=== PATIENT | female | born 1960 | race Caucasian/White ===

== ENCOUNTER 2024-11-13 18:25 | Inpatient (IN) | payer MEDICAID ==
[~2024-11-13] VITALS: Ht 175.3 cm; Wt 140.0 kg
[~2024-11-13 18:25] MED LIST: PAR20T PO
--- NOTE | 2024-11-13 18:58 | ED.PDOC ---
GI ASSESSMENT HPI Comments 64-year-old female with past medical history pertinent for asthma, presents to ED by ambulance for abdominal pain x2 days, associated with ALOC. Per EMS, patient came from [facility] and has been having abdominal pain for the past two days. Patient denies any nausea, vomiting, diarrhea, chest pain, shortness of breath, fever, dysuria, constipation. Patient currently rates her pain as 8/10 in severity. She reports that she has a history of alcohol. Patient is currently bed-bound. Per EMS, the [facility] stated that the patient has had normal urine output and normal bowel movements. Chief Complaint: ALOC Time Seen by MD: 18:34 Primary Care Provider: none Reviewed Notes: Nurses Notes, Medications, Allergies Allergies: Coded Allergies: Hydrocodone (Unverified Allergy, Unknown, 03/30/14) Home Meds Reported Medications Paroxetine (PAXIL TABLET) 20 Mg Tb, 12.5 MG PO DAILY 04/03/14 Mode of Arrival: EMS Past Medical History PAST MEDICAL HISTORY: Asthma Family History Family History: Unobtainable Social History Smoker: Non-Smoker Alcohol: Heavy Drugs: Denies Drug Use Lives In: Home Constitutional: denies: chills, diaphoresis, fatigue, fever, malaise, sweats, weakness, others EENTM: denies: blurred vision, double vision, ear bleeding, ear discharge, ear drainage, ear pain, ear ringing, eye pain, eye redness, hearing loss, mouth pain, mouth swelling, nasal discharge, nose bleeding, nose congestion, nose pain, photophobia, tearing, throat pain, throat swelling, voice changes, others Respiratory: denies: cough, hemoptysis, orthopnea, SOB at rest, shortness of breath, SOB with excertion, stridor, wheezing, others Cardiovascular: denies: chest pain, dizzy spells, diaphoresis, Dyspnea on exertion, edema, irregular heart beat, left arm pain, lightheadedness, palpitations, PND, syncope, others Gastrointestinal: reports: abdomen distended, abdominal pain; denies: blood streaked bowels, constipated, diarrhea, dysphagia, difficulty swallowing, hematemesis, melena, nausea, poor appetite, poor fluid intake, rectal bleeding, rectal pain, vomiting, others Genitourinary: denies: abnormal vagina bleeding, burning, dyspareunia, dysuria, flank pain, frequency, hematuria, incontinence, pain, , vagina discharge, urgency, others Neurological: denies: dizziness, fainting, headache, left sided numbness, left sided weakness, numbness, paresthesia, pre-existing deficit, right sided numbness, right sided weakness, seizure, speech problems, tingling, tremors, wea kness, others Musculoskeletal: denies: back pain, gout, joint pain, joint swelling, muscle pain, muscle stiffness, neck pain, others Integumetry: denies: bruises, change in color, change in hair/nails, dryness, l aceration, lesions, lumps, rash, wounds, others Allergic/Immunocompromised: denies: Difficulty Healing, Frequent Infections, Hives, Itching, others Hematologic/Lymphatic: denies: anemia, blood clots, easy bleeding, easy bruising, swollen glands, others Endocrine: denies: excessive hunger, excessive sweating, excessive thirst, excessive urination, flushing, intolerance to cold, intolerance to heat, unexplained weight gain, unexplained weight loss, others Psychiatric: denies: anxiety, bipolar disorder, depression, hopeless, panic disorder, schizophrenia, sleepless, suicidal, others All Other Systems: Reviewed and Negative Physical Exam General Appearance: Mild Distress, Normal HEENT: Normal ENT Inspection, Pharynx Normal, TMs Normal Neck: Full Range of Motion, Non-Tender, Normal, Normal Inspection Respiratory: Chest Non-Tender, Lungs Clear, No Accessory Muscle Use, No Respiratory Distress, Normal Breath Sounds Cardiovascular: No Edema, No JVD, No Murmur, No Gallop, Normal Peripheral Pulses, Regular Rate/Rhythm Breast Exam: Deferred Gastrointestinal: Abnormal Bowel Sounds (High-pitched tinkling bowel sounds), Distended (Severe abdominal distention with tenderness to palpation throughout), No Organomegaly, No Pulsatile Mass, Soft, Tenderness, Other (Patient's spat up dark brown emesis/sputum during exam.) Genitalia: Other (Wound noted to the vaginal region) Pelvic: Deferred Rectal: Deferred Extremities: No calf tenderness, Normal capillary refill, Normal inspection, Normal range of motion, Non-tender, No pedal edema Musculoskeletal : Apperance: Normal Neurologic: Alert, blow pit helper II-XII nml as Tested, No Motor Deficits, Normal Affect, Normal Mood, No Sensory Deficits Cerebellar Function: Normal Reflexes: Normal Skin: Dry, Normal Color, Warm Lymphatic: No Adenopathy Was a procedure done? Was a procedure done?: No GI differential Dx Differential Diagnosis: Diverticular disease, Gastritis/PUD, Gastroenteritis, GI hemorrhage, Hernia, Ischemic Bowel, Pancreatitis, Renal Failure, Anemia, Esophageal Varicies X-Ray, Labs, Meds, VS Vital Signs Date Time Temp Pulse Resp B/P (MAP) Pulse Ox O2 Delivery O2 Flow Rate FiO2 11/13/24 20:00 116 11/13/24 19:05 124 17 127/92 (104) 95 11/13/24 19:04 123 11/13/24 18:38 97.6 126 17 154/88 (110) 95 Lab Test 11/13/24 22:14 11/13/24 21:25 11/13/24 20:10 11/13/24 19:07 Range/Units Lactic Acid Level 1.9 2.4 *H 0.4-2.0 mmol/L Troponin I High Sensitivity Pending 3 L 4 </=34 ng/L Urine Color Dark-orange Yellow Urine Clarity Ex.turbid Clear Urine pH 7.5 5.0-9.0 Urine Specific [place] 1.025 1.001-1.035 Urine Protein 4+ H Negative Urine Ketones Negative Negative Urine Blood 1+ H Negative /uL Urine Nitrite Negative Negative Urine Bilirubin Negative Negative Urine Urobilinogen 3 H Negative mg/dL Urine Leukocyte Esterase 3+ Negative /uL Urine RBC 29 0 - 4 /hpf Urine WBC 333 0 - 5 /hpf Urine WBC Clumps Present None Seen /hpf Urine Squamous Epithelial Cells Mod <5 /hpf Urine Bacteria Mod H None Seen /hpf Urine Mucus Many None Seen Urine Glucose Normal Normal mg/dL Sodium Level 126 L 136-145 mmol/L Potassium Level 4.8 3.5-5.1 mmol/L Chloride Level 92 L 98-107 mmol/L Carbon Dioxide Level 19 L 20-31 mmol/L Anion Gap 15 5-15 Blood Urea Nitrogen 23 9-23 mg/dL Creatinine 0.95 0.550-1.02 mg/dL Glomerular Filtration Rate Calc 67 >90 mL/min BUN/Creatinine Ratio 24.2 H 10.0-20.0 Serum Glucose 153 H 74-106 mg/dL Calcium Level 10.6 H 8.7-10.4 mg/dL Total Bilirubin 0.8 0.2-1.0 mg/dL Aspartate Amino Transferase (AST) 32 13-40 U/L Alanine Aminotransferase (ALT) 15 7-40 U/L Alkaline Phosphatase 271 H 46-116 U/L Total Protein 8.1 5.7-8.2 g/dL Albumin 4.3 3.2-4.8 g/dL Lipase 30 12-53 U/L Plasma/Serum Blood Alcohol < 3.0 <10 mg/dL White Blood Count 21.5 H 4.4-10.8 10^3/uL Red Blood Count 5.84 H 4.0-5.20 10^6/uL Hemoglobin 16.6 H 12.2-16.2 g/dL Hematocrit 50.2 H 36.0-46.0 % Mean Corpuscular Volume 86.0 80.0-100.0 fL Mean Corpuscular Hemoglobin 28.3 28.0-32.0 pg Mean Corpuscular Hemoglobin Concent 33.0 32.0-36.0 g/dL Red Cell Distribution Width 15.7 H 11.8-14.3 % Platelet Count 609 H 140-450 10^3/uL Mean Platelet Volume 7.4 6.9-10.8 fL Neutrophils (%) (Auto) 89.5 H 37.0-80.0 % Lymphocytes (%) (Auto) 4.9 L 10.0-50.0 % Monocytes (%) (Auto) 5.3 0.0-12.0 % Eosinophils (%) (Auto) 0.2 0.0-7.0 % Basophils (%) (Auto) 0.1 0.0-2.0 % Neutrophils # (Auto) 19.3 H 1.6-8.6 10 ^3/uL Lymphocytes # (Auto) 1.1 0.4-5.4 10 ^3/uL Monocytes # (Auto) 1.1 0-1.3 10 ^3/uL Eosinophils # (Auto) 0 0-0.8 10 ^3/uL Basophils # (Auto) 0 0-0.2 10 ^3/uL Nucleated Red Blood Cells 0.0 % Prothrombin Time 12.5 H 9.3-11.8 sec Prothrombin Time INR 1.19 H 0.9-1.15 Activated Partial Thromboplast Time 32.2 24.5-34.5 SEC Ammonia 17 11-32 umol/L Current Medications Medications (Trade) Dose Ordered Sig/Sylvie Route Start Time Stop Time Status Last Admin Sodium Chloride 1,450 ml @ 1,450 mls/hr ONCE ONCE IV 11/13/24 20:15 11/13/24 21:14 DC 11/13/24 20:13 Piperacillin Sod/ Tazobactam Sod 100 ml @ 200 mls/hr ONCE ONCE IV 11/13/24 20:15 11/13/24 20:44 DC 11/13/24 21:22 Pantoprazole Sodium (Protonix) 80 mg ONCE ONCE IV 11/13/24 20:15 11/13/24 20:16 DC 11/13/24 21:03 X-Ray, Labs, Meds, VS Comment CXR IMPRESSION: Bronchovascular crowding due to low lung volumes with left basilar linear atelectasis. Otherwise, no evidence for acute cardiopulmonary disease. Abdominal US FINDINGS/IMPRESSIONS: No fluid noted in any quadrant at this time. CT Abd/Pelv IMPRESSION: 1. Gas distended colon with air bubbles in the wall. Findings may represent toxic colitis correlate with the clinical setting. 2. Fluid-filled stomach. 3. 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 MDM: Patient with history as above presented with abdominal pain. History obtained from [facility]. Patient was nontoxic, stable, afebrile, in stretcher, mild distress. Exam as above. Labs reviewed. CBC showed leukocytosis of 21.5. Initial lactic acid was 2.4. Pending 2nd lactic acid. CMP showed hyponatremia at 126. Troponin x2 were negative. Urinalysis showed 3+ leukocyte esterase, 333 urine WBC, moderate bacteria. Independently reviewed imaging. Chest x-ray did not show acute cardiopulmonary in the disease. Abdominal ultrasound was unremarkable. CT abdomen/pelvis showed toxic colitis. Reviewed external records. All findings were discussed with the patient. Differential diagnosis considered. Overall presentation is consistent with toxic colitis, urosepsis. Low suspicion for ACS, pneumonia. Patient was treated with IV antibiotics, IV fluids with improvement in symptoms. Patient will be admitted to the hospital for urosepsis as well as sick colitis. Patient has been started on IV antibiotics as well as IV fluids. Surgical consult has been placed. Disposition: Admit This medical document was created using the [employer] dictation system. Although this document has been carefully reviewed, there may still be some arik netic and typographical errors, which are due to imperfections of the software program, and do not reflect any compromise in the patient's medical care. Time of 1ST Reevaluation: 22:39 Reevaluation 1ST: Improved Patient Education/Counseling: Diagnosis, Treatment, Prognosis, Need For Follow Up Family Education/Counseling: No Family Present Departure 1 Departure Time of Disposition: 22:39 Impression: Primary Impression: UTI (urinary tract infection) Qualified Codes: N30.01 - Acute cystitis with hematuria Additional Impressions: Sepsis Qualified Codes: A41.9 - Sepsis, unspecified organism Toxic colitis Disposition: ADMITTED INPATIENT Condition: Fair Critical Care Note Critical Care Time?: Yes (45 min-critical care time only) Critical care comment: The patient's condition required urgent complex decision-making to assess and prevent vital organ system failure. In order to prevent imminent or life threatening deterioration in the patient's condition, management required frequent reassessment of the clinical status at bedside, of vital signs, response to interventions and consultations with other providers. Stability Stability form required: No Heart Score Heart Score: Heart Score Response (Comments) Value History N/A 0 EKG N/A 0 Age N/A 0 Risk Factors N/A 0 Troponin N/A 0 Total 0 CAYLA FRANCO PAC Nov 13, 2024 18:58
[2024-11-13 19:30] VITALS: PULSE 125; RESP 41; O2SAT 95
--- NOTE | 2024-11-13 19:33 | DVH ---
ULTRASOUND ABDOMEN limited, 4 QUADRANTS INDICATION: R/o ascites Evaluate for ascites. TECHNIQUE: The four quadrants of the abdomen were scanned in duval-scale to assess for the presence of ascites. N o solid organ assessment was performed. FINDINGS/IMPRESSIONS: No fluid noted in any quadrant at this time.
--- NOTE | 2024-11-13 19:38 | DVH ---
CHEST RADIOGRAPH Indication: R/o pleural effusion Technique: Single frontal view of the chest was obtained Comparison: None FINDINGS: Lines and Tubes: None Lungs: No focal consolidation. Bronchovascular crowding due to low lung volumes. Left basilar linear density. Pleura: No effusion. No pneumothorax. Cardiomediastinal contours: Unremarkable Bones: No acute osseous abnormality. IMPRESSION: Bronchovascular crowding due to low lung volumes with left basilar linear atelectasis. Otherwise, no evidence for acute cardiopulmonary disease.
[2024-11-13 19:44] LABS: Basophils # (auto) 0 10 ^3/uL (0-0.2); Basophils % (auto) 0.1 % (0.0-2.0); Eosinophils # (auto) 0 10 ^3/uL (0-0.8); Eosinophils % (auto) 0.2 % (0.0-7.0); Hematocrit 50.2 % (36.0-46.0); Hemoglobin 16.6 g/dL (12.2-16.2); Lymphocytes # (auto) 1.1 10 ^3/uL (0.4-5.4); Lymphocytes % (auto) 4.9 % (10.0-50.0); Mean Corpuscular Hemoglobin 28.3 pg (28.0-32.0); Monocytes # (auto) 1.1 10 ^3/uL (0-1.3); Monocytes % (auto) 5.3 % (0.0-12.0); Neutrophils # (auto) 19.3 10 ^3/uL (1.6-8.6); Neutrophils % (auto) 89.5 % (37.0-80.0); Platelet Count (auto) 609 10^3/uL (140-450); Red Blood Cells 5.84 10^6/uL (4.0-5.20); Red Cell Distribution Width 15.7 % (11.8-14.3); White Blood Cell 21.5 10^3/uL (4.4-10.8)
[2024-11-13 19:58] LABS: Lactic Acid w/Reflex 2.4 mmol/L (0.4-2.0)
[2024-11-13 20:01] LABS: INR 1.19 (0.9-1.15); Partial Thromboplastin Time 32.2 SEC (24.5-34.5); Prothrombin Time 12.5 sec (9.3-11.8)
[2024-11-13] MEDS: SODIUM CHLORIDE 0.9% 1,450 ML IV ONE (20:13)
[2024-11-13 20:46] LABS: Alanine Aminotransferase 15 U/L (7-40); Albumin 4.3 g/dL (3.2-4.8); Alkaline Phosphatase 271 U/L (46-116); Anion Gap 15 (5-15); Aspartate Aminotransferase 32 U/L (13-40); BUN/Creatinine Ratio 24.2 (10.0-20.0); Bilirubin, Total 0.8 mg/dL (0.2-1.0); Blood Alcohol < 3.0 mg/dL (<10); Blood Urea Nitrogen 23 mg/dL (9-23); Calcium 10.6 mg/dL (8.7-10.4); Carbon Dioxide 19 mmol/L (20-31); Chloride 92 mmol/L (98-107); Glucose 153 mg/dL (74-106); Potassium 4.8 mmol/L (3.5-5.1); Sodium 126 mmol/L (136-145); Total Protein 8.1 g/dL (5.7-8.2)
[2024-11-13] MEDS: PANTOPRAZOLE 40 MG/10 ML VIAL INJ IV ONE (21:03)
[2024-11-13] MEDS: PIPERACILLIN-TAZOB 3.375GM 100 ML IV ONE (21:22)
[2024-11-13 21:24] LABS: Lipase 30 U/L (12-53)
[2024-11-13 22:08] LABS: Urine Bacteria MOD /hpf (None Seen); Urine Blood 1+ /uL (Negative); Urine Clarity Ex.Turbid (Clear); Urine Color Dark-Orange (Yellow); Urine Mucus MANY (None Seen); Urine Protein, UAD 4+ (Negative); Urine Specific Gravity 1.025 (1.001-1.035); Urine Squamous Epithelial Cell MOD /hpf (<5); Urine Urobilinogen 3 mg/dL (Negative); Urine WBC 333 /hpf (0 - 5); Urine WBC Clumps PRESENT /hpf (None Seen); Urine pH 7.5 (5.0-9.0)
--- NOTE | 2024-11-13 22:13 | DVH ---
Exam: CT CT AB PEL WO CON-NO ORAL OR IV History: Abdominal pain Comparison Study: None available at time of dictation. TECHNIQUE: Multidetector CT of the abdomen was performed from lung bases to pubic symphysis. Imaging was performed without IV contrast. Axial, coronal and sagittal multiplanar reformats were obtained fr om the axial data set by the technologist. Radiation Dose Information: CT Dose: CTDI volume is 26.21 mGy. Dose-length product is 1651.27 mGy*cm FINDINGS: Evaluation of solid organs is limited due to lack of intravenous contrast use. Findings: Lung Bases: No acute or significant lung base finding. Normal heart size. No pleural or pericardial effusion. Liver: The liver is normal in size. No focal lesions. Gallbladder and Biliary Tree: Unremarkable Spleen: Unremarkable Pancreas: The pancreas is grossly normal in appearance. Adrenal Glands: Unremarkable Kidneys: Kidneys are grossly normal without calculi or hydronephrosis. Bladder: Grossly unremarkable for degree of distention. Bowel: Fluid-filled stomach is noted.. Small bowel and colon are normal in caliber and distribution. There is gas distending the colon with air in the wall may represent toxic colitis. Correlate clinica lly setting.. The appendix is not visualized; however, no secondary findings of acute appendicitis id entified. Ascites: Absent Lymphadenopathy: No mesenteric, retroperitoneal or periportal lymphadenopathy. Abdominal Wall and Mesentery: Unremarkable. Vasculature: The visualized abdominal aorta is normal in size and caliber. Evaluation of abdominal a nd pelvic vessels is limited due to lack of intravenous contrast. Pelvic Organs: Unremarkable Musculoskeletal: No aggressive focal bony lesions, acute fractures or dislocation. Soft tissues: Unremarkable IMPRESSION: 1. Gas distended colon with air bubbles in the wall. Findings may represent toxic colitis correlate w ith the clinical setting. 2. Fluid-filled stomach. 3. 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 Radiation optimization: All CT scans at this facility use at least one of these dose optimization te chniques: automated exposure control mA and/or kV adjustment per patient size (includes targeted exa ms where dose is matched to clinical indication) or iterative reconstruction.
[2024-11-13] MEDS ORDERED: VANCOMYCIN PER PHARMACY 0 MG IV SCH (22:45)
[2024-11-13] MEDS ORDERED: MORPHINE SULFATE INJ 2 MG/ml SYRG IV PRN ×2 (23:00)
[2024-11-13] MEDS ORDERED: ONDANSETRON HCL 4 MG/2 ML VIAL IV PRN (23:00)
[2024-11-13] MEDS ORDERED: NITROGLYCERIN 0.4 MG SL TAB SL PRN (23:00)
[2024-11-13] MEDS: SODIUM CHLORIDE 0.9% 1,000 ML IV ONE (23:41)
[2024-11-13] MEDS: SODIUM CHLORIDE 0.9% 1,000 ML IV SCH (23:42)
[2024-11-14] VITALS (7 sets, daily range): BP systolic 128–134; BP diastolic 77–93; PULSE 97–109; RESP 18–32; TEMP 97.6–98.6; O2SAT 96–99
[2024-11-14] MEDS: ONDANSETRON HCL 4 MG/2 ML VIAL IV ONE (00:15)
[2024-11-14] MEDS: MORPHINE SULFATE 4 MG/ML SYR/VIAL IV ONE (00:33)
[2024-11-14] MEDS: VANCOMYCIN 1GM/250ML KIT 250 ML IV SCH (00:34)
[2024-11-14] MEDS: IOHEXOL 300 MG/ML 100ML BOTTLE IJ ONE (00:43)
[2024-11-14] MEDS: ALBUTEROL SULF 2.5 MG/0.5ML(0.5%) NEB SOLN NEB PRN (00:49)
[2024-11-14] MEDS: METOCLOPRAMIDE HCL 5MG/ml INJ 2ml VIAL IV ONE (01:15)
--- NOTE | 2024-11-14 03:19 | DVHHP2 ---
History of Present Illness Reason for Visit: Abdominal pain History of Present Illness 64-year-old female presents for evaluation of abdominal pain. Patient resides at a [facility] facility. She presents with a two day history of diffuse abdominal pain with associated distention. She also reports episodes of nausea without vomiting. Denies diarrhea. No fever or chills. No other acute complaints reported. Past Medical History Asthma Past Surgical History Unknown Family History Noncontributory Smoke: No ALCOHOL: none Drugs: None Lives: Other Review of Systems Review of Systems Review of systems are negative otherwise dressing HPI. Allergies: Coded Allergies: Hydrocodone (Unverified Allergy, Unknown, 03/30/14) Medications Current Medications Medications Dose Ordered Sig/Sylvie Route Start Time Stop Time Status Last Admin Dose Admin Vancomycin HCl 0 ml @ 0 mls/hr UD IV 11/13/24 22:45 UNV Piperacillin Sod/ Tazobactam Sod 100 ml @ 25 mls/hr Q8HR IV 11/14/24 06:00 Sodium Chloride 1,000 ml @ 90 mls/hr Q11H7M IV 11/13/24 23:00 11/13/24 23:42 90 MLS/HR Pantoprazole Sodium 40 mg DAILY IV 11/14/24 10:00 Ondansetron HCl 4 mg Q4HP PRN IV 11/13/24 23:00 Morphine Sulfate 2 mg Q4HPRN PRN IV 11/13/24 23:00 Nitroglycerin 0.4 mg Q5MINP PRN SL 11/13/24 23:00 Morphine Sulfate 2 mg Q30M PRN IV 11/13/24 23:00 Albuterol 2.5 mg Q6HP PRN NEB 11/14/24 06:00 11/14/24 00:49 2.5 MG Exam Vital Signs Vital Signs Date Time Temp Pulse Resp B/P (MAP) Pulse Ox O2 Delivery O2 Flow Rate FiO2 11/14/24 01:03 97 29 141/94 11/14/24 00:55 99 11/14/24 00:49 Nasal Cannula* 1 24 11/14/24 00:45 97.6 97.6 Exam Gen: 64-year-old female in mild distress Skin: Warm, dry, normal color and texture, no rash. HEENT: Normocephalic atraumatic, mucous membranes moist and pink. Neck: Cervical and supraclavicular nodes normal without enlargement, trachea is midline, thyroid gland is normal without masses. Pulmonary: Clear to auscultation and percussion bilaterally. Cardiac: Regular rate and rhythm. No murmur Abdomen: Soft, diffuse tenderness, distended, bowel sounds present all 4 quadrants, no guarding, no rigidity, no organomegaly. Extremities: No cyanosis, clubbing, no edema Neuro: Cranial nerves II through XII grossly intact, normal affect and speech, no focal motor deficits. Labs/Xrays ORDERING PHYSICIAN: CAYLA FRANCO PAC PROCEDURE(s): ABDL - ABDOMEN LIMITED REASON: R/o ascites ORDER NUMBER(s): [id number], ACCESSION NUMBER(s): [id number] ULTRASOUND ABDOMEN limited, 4 QUADRANTS INDICATION: R/o ascites Evaluate for ascites. TECHNIQUE: The four quadrants of the abdomen were scanned in duval-scale to assess for the presence of ascites. No solid organ assessment was performed. FINDINGS/IMPRESSIONS: No fluid noted in any quadrant at this time. RING PHYSICIAN: CAYLA FRANCO PAC PROCEDURE(s): ABPL - CT AB PEL WO CON-NO ORAL OR IV REASON: Abdominal pain ORDER NUMBER(s): [id number], ACCESSION NUMBER(s): [id number] Exam: CT CT AB PEL WO CON-NO ORAL OR IV History: Abdominal pain Comparison Study: None available at time of dictation. TECHNIQUE: Multidetector CT of the abdomen was performed from lung bases to pubic symphysis. Imaging was performed without IV contrast. Axial, coronal and sagittal multiplanar reformats were obtained from the axial data set by the technologist. Radiation Dose Information: CT Dose: CTDI volume is 26.21 mGy. Dose-length product is 1651.27 mGy*cm FINDINGS: Evaluation of solid organs is limited due to lack of intravenous contrast use. Findings: Lung Bases: No acute or significant lung base finding. Normal heart size. No pleural or pericardial effusion. Liver: The liver is normal in size. No focal lesions. Gallbladder and Biliary Tree: Unremarkable Spleen: Unremarkable Pancreas: The pancreas is grossly normal in appearance. Adrenal Glands: Unremarkable Kidneys: Kidneys are grossly normal without calculi or hydronephrosis. Bladder: Grossly unremarkable for degree of distention. Bowel: Fluid-filled stomach is noted.. Small bowel and colon are normal in caliber and distribution. There is gas distending the colon with air in the wall may represent toxic colitis. Correlate clinically setting.. The appendix is not visualized; however, no secondary findings of acute appendicitis identified. Ascites: Absent Lymphadenopathy: No mesenteric, retroperitoneal or periportal lymphadenopathy. Abdominal Wall and Mesentery: Unremarkable. Vasculature: The visualized abdominal aorta is normal in size and caliber. Evaluation of abdominal and pelvic vessels is limited due to lack of intravenous contrast. Pelvic Organs: Unremarkable Musculoskeletal: No aggressive focal bony lesions, acute fractures or dislocation. Soft tissues: Unremarkable IMPRESSION: 1. Gas distended colon with air bubbles in the wall. Findings may represent toxic colitis correlate with the clinical setting. 2. Fluid-filled stomach. 3. 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 Radiation optimization: All CT scans at this facility use at least one of these dose optimization techniques: automated exposure control mA and/or kV adjustment per patient size (includes targeted exams where dose is matched to clinical indication) or iterative reconstruction. Labs Test 11/13/24 23:00 11/13/24 22:14 11/13/24 21:25 11/13/24 20:10 Range/Units Troponin I High Sensitivity 3 L </=34 ng/L Lactic Acid Level 1.9 0.4-2.0 mmol/L Urine Color Dark-orange Yellow Urine Clarity Ex.turbid Clear Urine pH 7.5 5.0-9.0 Urine Specific [place] 1.025 1.001-1.035 Urine Protein 4+ H Negative Urine Ketones Negative Negative Urine Blood 1+ H Negative /uL Urine Nitrite Negative Negative Urine Bilirubin Negative Negative Urine Urobilinogen 3 H Negative mg/dL Urine Leukocyte Esterase 3+ Negative /uL Urine RBC 29 0 - 4 /hpf Urine WBC 333 0 - 5 /hpf Urine WBC Clumps Present None Seen /hpf Urine Squamous Epithelial Cells Mod <5 /hpf Urine Bacteria Mod H None Seen /hpf Urine Mucus Many None Seen Urine Glucose Normal Normal mg/dL Sodium Level 126 L 136-145 mmol/L Potassium Level 4.8 3.5-5.1 mmol/L Chloride Level 92 L 98-107 mmol/L Carbon Dioxide Level 19 L 20-31 mmol/L Anion Gap 15 5-15 Blood Urea Nitrogen 23 9-23 mg/dL Creatinine 0.95 0.550-1.02 mg/dL Glomerular Filtration Rate Calc 67 >90 mL/min BUN/Creatinine Ratio 24.2 H 10.0-20.0 Serum Glucose 153 H 74-106 mg/dL Calcium Level 10.6 H 8.7-10.4 mg/dL Total Bilirubin 0.8 0.2-1.0 mg/dL Aspartate Amino Transferase (AST) 32 13-40 U/L Alanine Aminotransferase (ALT) 15 7-40 U/L Alkaline Phosphatase 271 H 46-116 U/L Total Protein 8.1 5.7-8.2 g/dL Albumin 4.3 3.2-4.8 g/dL Lipase 30 12-53 U/L Plasma/Serum Blood Alcohol < 3.0 <10 mg/dL Test 11/13/24 19:07 Range/Units White Blood Count 21.5 H 4.4-10.8 10^3/uL Red Blood Count 5.84 H 4.0-5.20 10^6/uL Hemoglobin 16.6 H 12.2-16.2 g/dL Hematocrit 50.2 H 36.0-46.0 % Mean Corpuscular Volume 86.0 80.0-100.0 fL Mean Corpuscular Hemoglobin 28.3 28.0-32.0 pg Mean Corpuscular Hemoglobin Concent 33.0 32.0-36.0 g/dL Red Cell Distribution Width 15.7 H 11.8-14.3 % Platelet Count 609 H 140-450 10^3/uL Mean Platelet Volume 7.4 6.9-10.8 fL Neutrophils (%) (Auto) 89.5 H 37.0-80.0 % Lymphocytes (%) (Auto) 4.9 L 10.0-50.0 % Monocytes (%) (Auto) 5.3 0.0-12.0 % Eosinophils (%) (Auto) 0.2 0.0-7.0 % Basophils (%) (Auto) 0.1 0.0-2.0 % Neutrophils # (Auto) 19.3 H 1.6-8.6 10 ^3/uL Lymphocytes # (Auto) 1.1 0.4-5.4 10 ^3/uL Monocytes # (Auto) 1.1 0-1.3 10 ^3/uL Eosinophils # (Auto) 0 0-0.8 10 ^3/uL Basophils # (Auto) 0 0-0.2 10 ^3/uL Nucleated Red Blood Cells 0.0 % Prothrombin Time 12.5 H 9.3-11.8 sec Prothrombin Time INR 1.19 H 0.9-1.15 Activated Partial Thromboplast Time 32.2 24.5-34.5 SEC Ammonia 17 11-32 umol/L Assessment/Plan Assessment/Plan Assessment Acute abdominal pain ? Toxic colitis Urinary tract infection Leukocytosis Morbid obesity Plan Admit the patient to telemetry to the hospitalist Surgical consultation placed by ER provider Zosyn/vancomycin NPO Maintenance IV fluids Pain management Continue treatment per orders. Plan discussed with: Patient My Orders Orders - HARRY LIAO Procedure Category Date Status Time Piperacillin-Tazob PHA 11/14/24 In Process 3.375gm (Zosyn 3.375g 06:00 Sodium Chloride 0.9% PHA 11/13/24 In Process 23:00 Pantoprazole PHA 11/14/24 In Process (Protonix) 10:00 Admit ADMIT 11/13/24 Transmitted 22:58 Ondansetron Hcl PHA 11/13/24 In Process (Zofran) 23:00 Complete Blood Count LAB 11/14/24 Logged 04:00 Comprehensive LAB 11/14/24 Logged Metabolic Panel 04:00 Npo (Nothing By DIET 11/14/24 Transmitted Mouth) Diet Breakfast Condition: Fair MADDY 11/13/24 In Process 22:58 Maintain Bed Rest MADDY 11/13/24 In Process 22:58 Morphine Sulfate PHA 11/13/24 In Process Injection 23:00 Nitroglycerin PHA 11/13/24 In Process Sublingual (Ntrostat 23:00 Morphine Sulfate PHA 11/13/24 In Process Injection 23:00 Stat Ekg For Chest MADDY 11/13/24 In Process Pain 22:58 Notify Of Changes MADDY 11/13/24 In Process From Base 22:58 Laydown Machine Operator For MADDY 11/13/24 In Process 24 Hours 22:58 Emergency Dysrhythmia MADDY 11/13/24 In Process Protocol 22:58 Rhythm Strips Once MADDY 11/13/24 In Process Every Shift 22:58 Oxygen By Nasal RT 11/13/24 Transmitted Cannula 22:58 Albuterol Medneb PHA 11/14/24 In Process (Ventolin Medneb) 06:00 Stool Bacterial LUCILLE 11/14/24 Uncollected Culture 03:13 Gastric Occult Blood LAB 11/14/24 Verified 03:15 Date of Service: Nov 13, 2024 Billing Provider: HARRY LIAO Common Visit Codes: [id number] INP/OBS CARE (HIGH) HARRY LIAO Nov 14, 2024 03:19
[2024-11-14 06:12] LABS: Basophils # (auto) 0.1 10 ^3/uL (0-0.2); Basophils % (auto) 0.3 % (0.0-2.0); Eosinophils # (auto) 0 10 ^3/uL (0-0.8); Eosinophils % (auto) 0.1 % (0.0-7.0); Hemoglobin 15.4 g/dL (12.2-16.2); Nucleated Red Blood Cells % 0.1 %
[2024-11-14 06:14] LABS: Hematocrit 45.6 % (36.0-46.0); Lymphocytes # (auto) 1.4 10 ^3/uL (0.4-5.4); Lymphocytes % (auto) 8.2 % (10.0-50.0); Mean Corpuscular Hemoglobin 28.2 pg (28.0-32.0); Mean Corpuscular Hgb Conc. 33.7 g/dL (32.0-36.0); Mean Corpuscular Volume 83.4 fL (80.0-100.0); Monocytes # (auto) 0.8 10 ^3/uL (0-1.3); Neutrophils # (auto) 14.5 10 ^3/uL (1.6-8.6); Neutrophils % (auto) 86.4 % (37.0-80.0); Red Blood Cells 5.46 10^6/uL (4.0-5.20); Red Cell Distribution Width 15.2 % (11.8-14.3); White Blood Cell 16.8 10^3/uL (4.4-10.8)
[2024-11-14 06:22] LABS: Alanine Aminotransferase 14 U/L (7-40); Albumin 3.6 g/dL (3.2-4.8); Anion Gap 8 (5-15); Aspartate Aminotransferase 32 U/L (13-40); BUN/Creatinine Ratio 34.1 (10.0-20.0); Calcium 9.3 mg/dL (8.7-10.4); Carbon Dioxide 21 mmol/L (20-31); Potassium 4.7 mmol/L (3.5-5.1)
[2024-11-14 06:23] LABS: Bilirubin, Total 0.6 mg/dL (0.2-1.0); Total Protein 6.9 g/dL (5.7-8.2)
[2024-11-14 06:35] LABS: Alkaline Phosphatase 224 U/L (46-116); Blood Urea Nitrogen 28 mg/dL (9-23); Chloride 95 mmol/L (98-107); Glucose 179 mg/dL (74-106); Sodium 124 mmol/L (136-145)
[2024-11-14] MEDS: PIPERACILLIN-TAZOB 3.375GM 100 ML IV SCH ×2 (06:41→12:07)
[2024-11-14 06:59] LABS: Platelet Count (auto) 565 10^3/uL (140-450)
[2024-11-14 08:11] LABS: Platelet Estimate Increased
[2024-11-14] MEDS: PANTOPRAZOLE 40 MG/10 ML VIAL INJ IV SCH (09:47)
--- NOTE | 2024-11-14 11:28 | DVHINCON2 ---
Date of service: Nov 14, 2024 History of Present Illness 64-year-old female [facility] patient admitted secondary to altered level of consciousness as well as abdominal pain and distention associated with nausea for past two days. Patient is a poor historian. Attempted to reach her mother but was unable to leave a message. Past Medical History Asthma. Morbid obesity. Past Surgical History Unknown surgical history. Family History: Cancer Family history: Cardiovascular disease Family History Noncontributory Social History History of alcohol use. No tobacco or IV drug use. Allergies: Coded Allergies: Hydrocodone (Unverified Allergy, Unknown, 03/30/14) Home Meds Reported Medications Paroxetine (PAXIL TABLET) 20 Mg Tb, 12.5 MG PO DAILY 04/03/14 Current Medications Current Medications Medications (Trade) Dose Ordered Sig/Sylvie Route PRN Reason Start Time Stop Time Status Last Admin Vancomycin HCl 0 ml @ 0 mls/hr UD IV 11/13/24 22:45 UNV Vancomycin HCl 250 ml @ 125 mls/hr Q2H IV 11/13/24 22:45 11/14/24 02:44 DC 11/14/24 03:32 Piperacillin Sod/ Tazobactam Sod 100 ml @ 25 mls/hr Q8HR IV 11/14/24 06:00 11/14/24 08:24 DC 11/14/24 06:41 Sodium Chloride 1,000 ml @ 90 mls/hr Q11H7M IV 11/13/24 23:00 11/14/24 09:53 Pantoprazole Sodium (Protonix) 40 mg DAILY IV 11/14/24 10:00 11/14/24 09:47 Ondansetron HCl (Zofran) 4 mg Q4HP PRN IV NAUSEA / VOMITING 11/13/24 23:00 Morphine Sulfate 2 mg Q4HPRN PRN IV SEVERE PAIN (7-10 PAIN SCALE) 11/13/24 23:00 Nitroglycerin (Ntrostat Sublingual) 0.4 mg Q5MINP PRN SL FOR CHEST PAIN 11/13/24 23:00 Morphine Sulfate 2 mg Q30M PRN IV FOR CHEST PAIN 11/13/24 23:00 Albuterol (Ventolin Medneb) 2.5 mg Q6HP PRN NEB SHORTNESS OF BREATH 11/14/24 06:00 11/14/24 00:49 Piperacillin Sod/ Tazobactam Sod 100 ml @ 25 mls/hr Q6HR IV 11/14/24 12:00 Vital Signs Vital Signs Date Time Temp Pulse Resp B/P (MAP) Pulse Ox O2 Delivery O2 Flow Rate FiO2 11/14/24 10:54 106 11/14/24 10:00 28 141/89 (106) 11/14/24 05:30 97 Nasal Cannula* 1 24 11/14/24 00:45 97.6 97.6 Physical Exam GEN: Obese female appearing older than her age slightly confused. HEENT: Normocephalic atraumatic. Moist mucous membranes. Anicteric sclerae. CV: Tachycardic but regular rhythm Respiratory: Coarse breath sounds ABD: Morbidly obese abdomen with a midline incisional scar. There was diffuse tenderness to palpation with guarding with distention. CT of the abdomen and pelvis: There is gas distended in the colon with air in the wall which may represent toxic colitis. Fluid-filled stomach. Labs/Diagnostic Data Labs Test 11/14/24 09:04 11/14/24 05:51 11/13/24 23:00 11/13/24 21:25 Range/Units Lactic Acid Level 2.0 0.4-2.0 mmol/L White Blood Count 16.8 H 4.4-10.8 10^3/uL Red Blood Count 5.46 H 4.0-5.20 10^6/uL Hemoglobin 15.4 12.2-16.2 g/dL Hematocrit 45.6 36.0-46.0 % Mean Corpuscular Volume 83.4 80.0-100.0 fL Mean Corpuscular Hemoglobin 28.2 28.0-32.0 pg Mean Corpuscular Hemoglobin Concent 33.7 32.0-36.0 g/dL Red Cell Distribution Width 15.2 H 11.8-14.3 % Platelet Count 565 H 140-450 10^3/uL Mean Platelet Volume 7.6 6.9-10.8 fL Neutrophils (%) (Auto) 86.4 H 37.0-80.0 % Lymphocytes (%) (Auto) 8.2 L 10.0-50.0 % Monocytes (%) (Auto) 5.0 0.0-12.0 % Eosinophils (%) (Auto) 0.1 0.0-7.0 % Basophils (%) (Auto) 0.3 0.0-2.0 % Neutrophils # (Auto) 14.5 H 1.6-8.6 10 ^3/uL Lymphocytes # (Auto) 1.4 0.4-5.4 10 ^3/uL Monocytes # (Auto) 0.8 0-1.3 10 ^3/uL Eosinophils # (Auto) 0 0-0.8 10 ^3/uL Basophils # (Auto) 0.1 0-0.2 10 ^3/uL Nucleated Red Blood Cells 0.1 % Platelet Estimate Increased Sodium Level 124 L 136-145 mmol/L Potassium Level 4.7 3.5-5.1 mmol/L Chloride Level 95 L 98-107 mmol/L Carbon Dioxide Level 21 20-31 mmol/L Anion Gap 8 5-15 Blood Urea Nitrogen 28 H 9-23 mg/dL Creatinine 0.82 0.550-1.02 mg/dL Glomerular Filtration Rate Calc 80 >90 mL/min BUN/Creatinine Ratio 34.1 H 10.0-20.0 Serum Glucose 179 H 74-106 mg/dL Calcium Level 9.3 8.7-10.4 mg/dL Total Bilirubin 0.6 0.2-1.0 mg/dL Aspartate Amino Transferase (AST) 32 13-40 U/L Alanine Aminotransferase (ALT) 14 7-40 U/L Alkaline Phosphatase 224 H 46-116 U/L Total Protein 6.9 5.7-8.2 g/dL Albumin 3.6 3.2-4.8 g/dL Troponin I High Sensitivity 3 L </=34 ng/L Urine Color Dark-orange Yellow Urine Clarity Ex.turbid Clear Urine pH 7.5 5.0-9.0 Urine Specific [place] 1.025 1.001-1.035 Urine Protein 4+ H Negative Urine Ketones Negative Negative Urine Blood 1+ H Negative /uL Urine Nitrite Negative Negative Urine Bilirubin Negative Negative Urine Urobilinogen 3 H Negative mg/dL Urine Leukocyte Esterase 3+ Negative /uL Urine RBC 29 0 - 4 /hpf Urine WBC 333 0 - 5 /hpf Urine WBC Clumps Present None Seen /hpf Urine Squamous Epithelial Cells Mod <5 /hpf Urine Bacteria Mod H None Seen /hpf Urine Mucus Many None Seen Urine Glucose Normal Normal mg/dL Test 11/13/24 20:10 11/13/24 19:07 Range/Units Lipase 30 12-53 U/L Plasma/Serum Blood Alcohol < 3.0 <10 mg/dL Prothrombin Time 12.5 H 9.3-11.8 sec Prothrombin Time INR 1.19 H 0.9-1.15 Activated Partial Thromboplast Time 32.2 24.5-34.5 SEC Ammonia 17 11-32 umol/L Assessment 1. 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 2. Hyponatremia. 3. Morbid obesity. Plan/Recommendation 1. Patient's hyponatremia needs to be corrected in case she needs surgical intervention. 2. NG tube to low intermittent suction. 3. GI consultation for possible colonic decompression. 4. If her clinical situation does not improve, patient may need exploratory laparotomy with possible colon resection with ileostomy. Plan discussed with: Patient MARTHA ARAIZA MD Nov 14, 2024 11:28
[2024-11-14] MEDS: D5W/SOD CHLO 0.9% 1,000 ML IV SCH (11:46)
--- NOTE | 2024-11-14 12:12 | DVHINCON2 ---
GI Consult Consult Note GI consult note Date of Consultation: 11/14/2024 Chief Complaint: Colitis possible need colonoscopy for decompression Referring Physician: Dr. Patel H&P: 64-year-old female with altered level of consciousness, presented with abdominal pain, seen in ER bed 16 History mostly from chart and RN Patient admits to abdominal pain and distention for two weeks No nausea or vomiting. No hematemesis No bowel movements since hospitalized, no history of melena or red blood in stool Past Medical History: Asthma, morbid obesity Past Surgical History: Unknown Social History: History of alcohol use per chart Family History: Unknown Review of Systems: As above Physical exam: General: Patient is awake Chest: lung isabel clear to auscultation Heart: RRR, no murmur Abdomen: Moderate to severe-distended, + generalized tenderness to palpation, +BS Labs: Labs Test 11/14/24 09:04 11/14/24 05:51 11/13/24 23:00 11/13/24 21:25 Range/Units Lactic Acid Level 2.0 0.4-2.0 mmol/L White Blood Count 16.8 H 4.4-10.8 10^3/uL Red Blood Count 5.46 H 4.0-5.20 10^6/uL Hemoglobin 15.4 12.2-16.2 g/dL Hematocrit 45.6 36.0-46.0 % Mean Corpuscular Volume 83.4 80.0-100.0 fL Mean Corpuscular Hemoglobin 28.2 28.0-32.0 pg Mean Corpuscular Hemoglobin Concent 33.7 32.0-36.0 g/dL Red Cell Distribution Width 15.2 H 11.8-14.3 % Platelet Count 565 H 140-450 10^3/uL Mean Platelet Volume 7.6 6.9-10.8 fL Neutrophils (%) (Auto) 86.4 H 37.0-80.0 % Lymphocytes (%) (Auto) 8.2 L 10.0-50.0 % Monocytes (%) (Auto) 5.0 0.0-12.0 % Eosinophils (%) (Auto) 0.1 0.0-7.0 % Basophils (%) (Auto) 0.3 0.0-2.0 % Neutrophils # (Auto) 14.5 H 1.6-8.6 10 ^3/uL Lymphocytes # (Auto) 1.4 0.4-5.4 10 ^3/uL Monocytes # (Auto) 0.8 0-1.3 10 ^3/uL Eosinophils # (Auto) 0 0-0.8 10 ^3/uL Basophils # (Auto) 0.1 0-0.2 10 ^3/uL Nucleated Red Blood Cells 0.1 % Platelet Estimate Increased Sodium Level 124 L 136-145 mmol/L Potassium Level 4.7 3.5-5.1 mmol/L Chloride Level 95 L 98-107 mmol/L Carbon Dioxide Level 21 20-31 mmol/L Anion Gap 8 5-15 Blood Urea Nitrogen 28 H 9-23 mg/dL Creatinine 0.82 0.550-1.02 mg/dL Glomerular Filtration Rate Calc 80 >90 mL/min BUN/Creatinine Ratio 34.1 H 10.0-20.0 Serum Glucose 179 H 74-106 mg/dL Calcium Level 9.3 8.7-10.4 mg/dL Total Bilirubin 0.6 0.2-1.0 mg/dL Aspartate Amino Transferase (AST) 32 13-40 U/L Alanine Aminotransferase (ALT) 14 7-40 U/L Alkaline Phosphatase 224 H 46-116 U/L Total Protein 6.9 5.7-8.2 g/dL Albumin 3.6 3.2-4.8 g/dL Troponin I High Sensitivity 3 L </=34 ng/L Urine Color Dark-orange Yellow Urine Clarity Ex.turbid Clear Urine pH 7.5 5.0-9.0 Urine Specific [place] 1.025 1.001-1.035 Urine Protein 4+ H Negative Urine Ketones Negative Negative Urine Blood 1+ H Negative /uL Urine Nitrite Negative Negative Urine Bilirubin Negative Negative Urine Urobilinogen 3 H Negative mg/dL Urine Leukocyte Esterase 3+ Negative /uL Urine RBC 29 0 - 4 /hpf Urine WBC 333 0 - 5 /hpf Urine WBC Clumps Present None Seen /hpf Urine Squamous Epithelial Cells Mod <5 /hpf Urine Bacteria Mod H None Seen /hpf Urine Mucus Many None Seen Urine Glucose Normal Normal mg/dL Test 11/13/24 20:10 11/13/24 19:07 Range/Units Lipase 30 12-53 U/L Plasma/Serum Blood Alcohol < 3.0 <10 mg/dL Prothrombin Time 12.5 H 9.3-11.8 sec Prothrombin Time INR 1.19 H 0.9-1.15 Activated Partial Thromboplast Time 32.2 24.5-34.5 SEC Ammonia 17 11-32 umol/L Imaging: CT abdomen pelvis IMPRESSION: 1. Gas distended colon with air bubbles in the wall. Findings may represent toxic colitis correlate with the clinical setting. 2. Fluid-filled stomach. 3. 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 Assessment: Acute abdominal pain Possible toxic colitis Morbid obesity UTI Hyponatremia Plan: Discussed with Dr. Mulugeta Dalal also discussed case with Dr. Dee Dee PRESLEY LIS Rectal tube Strict NPO Antibiotics Stool for WBC, bacterial culture and C diff Abdominal x-ray tomorrow Dr. Dalal we will re-evaluate patient for possible sigmoidoscopy, if required if symptoms do not improve Discussed plan patient and RN Thank you for this consult Date of Service: Nov 14, 2024 Billing Provider: MARIANNE COREAS Common Visit Codes: CONSULT ONLY Consultation Codes: [id number] CONSULT <60MIN MARIANNE COREAS Nov 14, 2024 12:12
--- NOTE | 2024-11-14 12:50 | DVHINCON2 ---
Date of service: Nov 14, [address] Patel Reason for Consultation Hyponatremia History of Present Illness Patient is 64-year-old obese female with past medical history of asthma, morbid obesity is admitted for abdominal pain, distention, ALOC and diarrhea for two days. On admission patient found to have hyponatremia nephrology is consulted Past Medical History Obesity Asthma Past Surgical History unknown Allergies: Coded Allergies: Hydrocodone (Unverified Allergy, Unknown, 03/30/14) Home Meds Reported Medications Paroxetine (PAXIL TABLET) 20 Mg Tb, 12.5 MG PO DAILY 04/03/14 Current Medications Current Medications Medications (Trade) Dose Ordered Sig/Sylvie Route PRN Reason Start Time Stop Time Status Last Admin Vancomycin HCl 0 ml @ 0 mls/hr UD IV 11/13/24 22:45 Vancomycin HCl 250 ml @ 125 mls/hr Q2H IV 11/13/24 22:45 11/14/24 02:44 DC 11/14/24 03:32 Piperacillin Sod/ Tazobactam Sod 100 ml @ 25 mls/hr Q8HR IV 11/14/24 06:00 11/14/24 08:24 DC 11/14/24 06:41 Sodium Chloride 1,000 ml @ 90 mls/hr Q11H7M IV 11/13/24 23:00 11/14/24 09:53 Pantoprazole Sodium (Protonix) 40 mg DAILY IV 11/14/24 10:00 11/14/24 09:47 Ondansetron HCl (Zofran) 4 mg Q4HP PRN IV NAUSEA / VOMITING 11/13/24 23:00 Morphine Sulfate 2 mg Q4HPRN PRN IV SEVERE PAIN (7-10 PAIN SCALE) 11/13/24 23:00 Nitroglycerin (Ntrostat Sublingual) 0.4 mg Q5MINP PRN SL FOR CHEST PAIN 11/13/24 23:00 Morphine Sulfate 2 mg Q30M PRN IV FOR CHEST PAIN 11/13/24 23:00 Albuterol (Ventolin Medneb) 2.5 mg Q6HP PRN NEB SHORTNESS OF BREATH 11/14/24 06:00 11/14/24 00:49 Piperacillin Sod/ Tazobactam Sod 100 ml @ 25 mls/hr Q6HR IV 11/14/24 12:00 11/14/24 12:07 Dextrose/Sodium Chloride 1,000 ml @ 150 mls/hr Q6H40M IV 11/14/24 11:30 11/14/24 11:46 Vancomycin HCl 250 ml @ 200 mls/hr Q12H IV 11/14/24 22:00 Family History: Cancer Family history: Cardiovascular disease Review of Systems Can't be obtained H&P Exam Vital Signs/I&O Vital Sign Date Time Temp Pulse Resp B/P (MAP) Pulse Ox O2 Delivery O2 Flow Rate FiO2 11/14/24 10:54 106 11/14/24 10:00 28 141/89 (106) 11/14/24 07:45 Room Air* 0 21 11/14/24 05:30 97 11/14/24 00:45 97.6 97.6 Intake and Output 11/13/24 11/14/24 19:00 07:00 Intake Total 3680 ml Balance 3680 ml Intake IV Total 3680 ml Physical Exam Obese female awake but confused Lung: clear B/L COR: RRR GI: BS+, distended : Valencia's catheter Ext: no CCE Neuro: confused Labs/Diagnostic Data Labs/Diagnostic Data Laboratory Tests Test 11/14/24 13:20 11/14/24 09:04 11/14/24 05:51 11/13/24 23:00 Range/Units Lactic Acid Level 2.0 0.4-2.0 mmol/L White Blood Count 16.8 H 4.4-10.8 10^3/uL Red Blood Count 5.46 H 4.0-5.20 10^6/uL Hemoglobin 15.4 12.2-16.2 g/dL Hematocrit 45.6 36.0-46.0 % Mean Corpuscular Volume 83.4 80.0-100.0 fL Mean Corpuscular Hemoglobin 28.2 28.0-32.0 pg Mean Corpuscular Hemoglobin Concent 33.7 32.0-36.0 g/dL Red Cell Distribution Width 15.2 H 11.8-14.3 % Platelet Count 565 H 140-450 10^3/uL Mean Platelet Volume 7.6 6.9-10.8 fL Neutrophils (%) (Auto) 86.4 H 37.0-80.0 % Lymphocytes (%) (Auto) 8.2 L 10.0-50.0 % Monocytes (%) (Auto) 5.0 0.0-12.0 % Eosinophils (%) (Auto) 0.1 0.0-7.0 % Basophils (%) (Auto) 0.3 0.0-2.0 % Neutrophils # (Auto) 14.5 H 1.6-8.6 10 ^3/uL Lymphocytes # (Auto) 1.4 0.4-5.4 10 ^3/uL Monocytes # (Auto) 0.8 0-1.3 10 ^3/uL Eosinophils # (Auto) 0 0-0.8 10 ^3/uL Basophils # (Auto) 0.1 0-0.2 10 ^3/uL Nucleated Red Blood Cells 0.1 % Platelet Estimate Increased Sodium Level 124 L 136-145 mmol/L Potassium Level 4.7 3.5-5.1 mmol/L Chloride Level 95 L 98-107 mmol/L Carbon Dioxide Level 21 20-31 mmol/L Anion Gap 8 5-15 Blood Urea Nitrogen 28 H 9-23 mg/dL Creatinine 0.82 0.550-1.02 mg/dL Glomerular Filtration Rate Calc 80 >90 mL/min BUN/Creatinine Ratio 34.1 H 10.0-20.0 Serum Glucose 179 H 74-106 mg/dL Calcium Level 9.3 8.7-10.4 mg/dL Phosphorus Level 3.8 2.4-5.1 mg/dL Magnesium Level 2.0 1.6-2.6 mg/dL Total Bilirubin 0.6 0.2-1.0 mg/dL Aspartate Amino Transferase (AST) 32 13-40 U/L Alanine Aminotransferase (ALT) 14 7-40 U/L Alkaline Phosphatase 224 H 46-116 U/L Total Protein 6.9 5.7-8.2 g/dL Albumin 3.6 3.2-4.8 g/dL Parathyroid Hormone (Intact) 115.5 H 18.4-80.1 pg/mL Troponin I High Sensitivity 3 L </=34 ng/L Test 11/13/24 22:14 11/13/24 21:25 11/13/24 20:10 11/13/24 19:07 Range/Units Lactic Acid Level 1.9 2.4 *H 0.4-2.0 mmol/L Urine Color Dark-orange Yellow Urine Clarity Ex.turbid Clear Urine pH 7.5 5.0-9.0 Urine Specific [place] 1.025 1.001-1.035 Urine Protein 4+ H Negative Urine Ketones Negative Negative Urine Blood 1+ H Negative /uL Urine Nitrite Negative Negative Urine Bilirubin Negative Negative Urine Urobilinogen 3 H Negative mg/dL Urine Leukocyte Esterase 3+ Negative /uL Urine RBC 29 0 - 4 /hpf Urine WBC 333 0 - 5 /hpf Urine WBC Clumps Present None Seen /hpf Urine Squamous Epithelial Cells Mod <5 /hpf Urine Bacteria Mod H None Seen /hpf Urine Mucus Many None Seen Urine Glucose Normal Normal mg/dL Sodium Level 126 L 136-145 mmol/L Potassium Level 4.8 3.5-5.1 mmol/L Chloride Level 92 L 98-107 mmol/L Carbon Dioxide Level 19 L 20-31 mmol/L Anion Gap 15 5-15 Blood Urea Nitrogen 23 9-23 mg/dL Creatinine 0.95 0.550-1.02 mg/dL Glomerular Filtration Rate Calc 67 >90 mL/min BUN/Creatinine Ratio 24.2 H 10.0-20.0 Serum Glucose 153 H 74-106 mg/dL Calcium Level 10.6 H 8.7-10.4 mg/dL Total Bilirubin 0.8 0.2-1.0 mg/dL Aspartate Amino Transferase (AST) 32 13-40 U/L Alanine Aminotransferase (ALT) 15 7-40 U/L Alkaline Phosphatase 271 H 46-116 U/L Troponin I High Sensitivity 3 L 4 </=34 ng/L Total Protein 8.1 5.7-8.2 g/dL Albumin 4.3 3.2-4.8 g/dL Lipase 30 12-53 U/L Plasma/Serum Blood Alcohol < 3.0 <10 mg/dL White Blood Count 21.5 H 4.4-10.8 10^3/uL Red Blood Count 5.84 H 4.0-5.20 10^6/uL Hemoglobin 16.6 H 12.2-16.2 g/dL Hematocrit 50.2 H 36.0-46.0 % Mean Corpuscular Volume 86.0 80.0-100.0 fL Mean Corpuscular Hemoglobin 28.3 28.0-32.0 pg Mean Corpuscular Hemoglobin Concent 33.0 32.0-36.0 g/dL Red Cell Distribution Width 15.7 H 11.8-14.3 % Platelet Count 609 H 140-450 10^3/uL Mean Platelet Volume 7.4 6.9-10.8 fL Neutrophils (%) (Auto) 89.5 H 37.0-80.0 % Lymphocytes (%) (Auto) 4.9 L 10.0-50.0 % Monocytes (%) (Auto) 5.3 0.0-12.0 % Eosinophils (%) (Auto) 0.2 0.0-7.0 % Basophils (%) (Auto) 0.1 0.0-2.0 % Neutrophils # (Auto) 19.3 H 1.6-8.6 10 ^3/uL Lymphocytes # (Auto) 1.1 0.4-5.4 10 ^3/uL Monocytes # (Auto) 1.1 0-1.3 10 ^3/uL Eosinophils # (Auto) 0 0-0.8 10 ^3/uL Basophils # (Auto) 0 0-0.2 10 ^3/uL Nucleated Red Blood Cells 0.0 % Prothrombin Time 12.5 H 9.3-11.8 sec Prothrombin Time INR 1.19 H 0.9-1.15 Activated Partial Thromboplast Time 32.2 24.5-34.5 SEC Ammonia 17 11-32 umol/L Assessment Hyponatremia due to dehydration Normal serum creatinine Morbd obesity UTI Sepsis Colitis, toxic megacolon Metabolic acidosis Diarrhea Recommendations Closely monitor fluid and electrolytes Avoid nephrotoxic medications Valencia catheter IV antibiotics I agree with gentle IV fluid hydration Avoid rapid correction of sodium Check urinary electrolytes and urine osmolarity Surgery consult We will continue to follow up Patient seen and examined by my self in the ER. I discussed my plan of care with the primary nurse at bedside I would like to thank for the consult, will follow Plan discussed with: Patient TIERRA MORALES MD Nov 14, 2024 12:50
[2024-11-14 13:09] LABS: Phosphorus 3.8 mg/dL (2.4-5.1)
[2024-11-14 13:52] LABS: Urine Bacteria None Seen /hpf (None Seen)
[2024-11-14 14:12] LABS: Creatinine, Urine 92.67 mg/dL (30.0-125.0)
[2024-11-14 14:13] LABS: Protein, Urine 126.5 mg/dL (1-14)
[2024-11-14 14:15] LABS: Sodium Urine < 10 mmol/L (40-220)
[2024-11-14 14:16] LABS: Creatinine, Urine 94.06 mg/dL (30.0-125.0); Urine Protein/Creatinine Ratio 1.34
[2024-11-14 14:49] LABS: Urine Blood 2+ /uL (Negative); Urine Clarity Ex.Turbid (Clear); Urine Color Orange (Yellow); Urine Mucus FEW (None Seen); Urine Protein, UAD 2+ (Negative); Urine Specific Gravity 1.037 (1.001-1.035); Urine Squamous Epithelial Cell MOD /hpf (<5); Urine Urobilinogen 3 mg/dL (Negative); Urine WBC 330 /hpf (0 - 5); Urine pH 6.5 (5.0-9.0)
[2024-11-14 15:12] LABS: Potassium 4.6 mmol/L (3.5-5.1)
[2024-11-14 15:13] LABS: Anion Gap 9 (5-15); Calcium 9.4 mg/dL (8.7-10.4); Carbon Dioxide 21 mmol/L (20-31)
[2024-11-14 15:18] LABS: BUN/Creatinine Ratio 35.9 (10.0-20.0)
[2024-11-14 15:22] LABS: Blood Urea Nitrogen 28 mg/dL (9-23); Chloride 97 mmol/L (98-107); Glucose 182 mg/dL (74-106); Sodium 127 mmol/L (136-145)
--- NOTE | 2024-11-14 16:29 | DVHCONRES ---
Date Seen: Nov 14, 2024 Resident Creating Document: SAY GR RESIDENT Referring Physician Horacio Patel Family History: Cancer Family history: Cardiovascular disease Allergies: Coded Allergies: Hydrocodone (Unverified Allergy, Unknown, 03/30/14) Home Meds Reported Medications Paroxetine (PAXIL TABLET) 20 Mg Tb, 12.5 MG PO DAILY 04/03/14 Current Medications Current Medications Medications (Trade) Dose Ordered Sig/Sylvie Route PRN Reason Start Time Stop Time Status Last Admin Vancomycin HCl 0 ml @ 0 mls/hr UD IV 11/13/24 22:45 Vancomycin HCl 250 ml @ 125 mls/hr Q2H IV 11/13/24 22:45 11/14/24 02:44 DC 11/14/24 03:32 Piperacillin Sod/ Tazobactam Sod 100 ml @ 25 mls/hr Q8HR IV 11/14/24 06:00 11/14/24 08:24 DC 11/14/24 06:41 Sodium Chloride 1,000 ml @ 90 mls/hr Q11H7M IV 11/13/24 23:00 11/14/24 16:09 DC 11/14/24 09:53 Pantoprazole Sodium (Protonix) 40 mg DAILY IV 11/14/24 10:00 11/14/24 09:47 Ondansetron HCl (Zofran) 4 mg Q4HP PRN IV NAUSEA / VOMITING 11/13/24 23:00 Morphine Sulfate 2 mg Q4HPRN PRN IV SEVERE PAIN (7-10 PAIN SCALE) 11/13/24 23:00 Nitroglycerin (Ntrostat Sublingual) 0.4 mg Q5MINP PRN SL FOR CHEST PAIN 11/13/24 23:00 Morphine Sulfate 2 mg Q30M PRN IV FOR CHEST PAIN 11/13/24 23:00 Albuterol (Ventolin Medneb) 2.5 mg Q6HP PRN NEB SHORTNESS OF BREATH 11/14/24 06:00 11/14/24 00:49 Piperacillin Sod/ Tazobactam Sod 100 ml @ 25 mls/hr Q6HR IV 11/14/24 12:00 11/14/24 12:07 Dextrose/Sodium Chloride 1,000 ml @ 150 mls/hr Q6H40M IV 11/14/24 11:30 11/14/24 11:46 Vancomycin HCl 250 ml @ 200 mls/hr Q12H IV 11/14/24 22:00 Vital Signs Vital Signs Date Time Temp Pulse Resp B/P (MAP) Pulse Ox O2 Delivery O2 Flow Rate FiO2 11/14/24 14:00 111 28 128/97 (107) 96 11/14/24 07:50 97.4 97.4 11/14/24 07:45 Room Air* 0 21 Labs/Diagnostic Data Labs Test 11/14/24 14:50 11/14/24 13:20 11/14/24 09:04 11/14/24 05:51 Range/Units Sodium Level 127 L 136-145 mmol/L Potassium Level 4.6 3.5-5.1 mmol/L Chloride Level 97 L 98-107 mmol/L Carbon Dioxide Level 21 20-31 mmol/L Anion Gap 9 5-15 Blood Urea Nitrogen 28 H 9-23 mg/dL Creatinine 0.78 0.550-1.02 mg/dL Glomerular Filtration Rate Calc 85 >90 mL/min BUN/Creatinine Ratio 35.9 H 10.0-20.0 Serum Glucose 182 H 74-106 mg/dL Calcium Level 9.4 8.7-10.4 mg/dL Urine Color [place] H Yellow Urine Clarity Ex.turbid Clear Urine pH 6.5 5.0-9.0 Urine Specific [place] 1.037 H 1.001-1.035 Urine Protein 2+ H Negative Urine Ketones Trace Negative Urine Blood 2+ H Negative /uL Urine Nitrite Negative Negative Urine Bilirubin 1+ H Negative Urine Urobilinogen 3 H Negative mg/dL Urine Leukocyte Esterase 3+ Negative /uL Urine RBC 81 0 - 4 /hpf Urine WBC 330 0 - 5 /hpf Urine Squamous Epithelial Cells Mod <5 /hpf Urine Bacteria None seen None Seen /hpf Urine Mucus Few None Seen Urine Creatinine 94.06 30.0-125.0 mg/dL Urine Protein/Creatinine Ratio 1.34 Urine Sodium < 10 L 40-220 mmol/L Urine Glucose Normal Normal mg/dL Urine Total Protein 126.5 H 1-14 mg/dL Lactic Acid Level 2.0 0.4-2.0 mmol/L White Blood Count 16.8 H 4.4-10.8 10^3/uL Red Blood Count 5.46 H 4.0-5.20 10^6/uL Hemoglobin 15.4 12.2-16.2 g/dL Hematocrit 45.6 36.0-46.0 % Mean Corpuscular Volume 83.4 80.0-100.0 fL Mean Corpuscular Hemoglobin 28.2 28.0-32.0 pg Mean Corpuscular Hemoglobin Concent 33.7 32.0-36.0 g/dL Red Cell Distribution Width 15.2 H 11.8-14.3 % Platelet Count 565 H 140-450 10^3/uL Mean Platelet Volume 7.6 6.9-10.8 fL Neutrophils (%) (Auto) 86.4 H 37.0-80.0 % Lymphocytes (%) (Auto) 8.2 L 10.0-50.0 % Monocytes (%) (Auto) 5.0 0.0-12.0 % Eosinophils (%) (Auto) 0.1 0.0-7.0 % Basophils (%) (Auto) 0.3 0.0-2.0 % Neutrophils # (Auto) 14.5 H 1.6-8.6 10 ^3/uL Lymphocytes # (Auto) 1.4 0.4-5.4 10 ^3/uL Monocytes # (Auto) 0.8 0-1.3 10 ^3/uL Eosinophils # (Auto) 0 0-0.8 10 ^3/uL Basophils # (Auto) 0.1 0-0.2 10 ^3/uL Nucleated Red Blood Cells 0.1 % Platelet Estimate Increased Phosphorus Level 3.8 2.4-5.1 mg/dL Magnesium Level 2.0 1.6-2.6 mg/dL Total Bilirubin 0.6 0.2-1.0 mg/dL Aspartate Amino Transferase (AST) 32 13-40 U/L Alanine Aminotransferase (ALT) 14 7-40 U/L Alkaline Phosphatase 224 H 46-116 U/L Total Protein 6.9 5.7-8.2 g/dL Albumin 3.6 3.2-4.8 g/dL Parathyroid Hormone (Intact) 115.5 H 18.4-80.1 pg/mL Test 11/13/24 23:00 11/13/24 21:25 11/13/24 20:10 11/13/24 19:07 Range/Units Troponin I High Sensitivity 3 L </=34 ng/L Urine WBC Clumps Present None Seen /hpf Lipase 30 12-53 U/L Plasma/Serum Blood Alcohol < 3.0 <10 mg/dL Prothrombin Time 12.5 H 9.3-11.8 sec Prothrombin Time INR 1.19 H 0.9-1.15 Activated Partial Thromboplast Time 32.2 24.5-34.5 SEC Ammonia 17 11-32 umol/L SAY GR RESIDENT Nov 14, 2024 16:29
--- NOTE | 2024-11-14 17:24 | DVHSR ---
APPROVED REPORT EXAM: LIMITED Two-dimensional and M-mode echocardiogram. Blood Pressure: 141/89 mmHg INDICATION Pre-Op RISK FACTORS Height: 61, Weight: 343 Mitral Valve MitralMitral Stenosis E/A ratio0.02D MVAcm2 Other Information Technically limited study due to patient refusing exam. Patient non complaint during exam. Patient w ould not hold still during exam. Patient refusing for me to complete exam. Patient sensitive to touch . Very limited windows. Sub only. Conclusion Very limited study to make any comment on RV or left ventricular size and dimension. Also could not assess valves. No significant pericardial effusion in hthe subcostal view provided
--- NOTE | 2024-11-14 17:29 | DVHCONRES ---
Date Seen: Nov 14, 2024 Resident Creating Document: SAY GR RESIDENT Referring Physician Horacio Patel History of Present Illness This is a 64-year-old female with a past medical history of multiple sclerosis, cerebral hematoma status post craniectomy presented to the ED with severe abdominal pain nausea and vomiting of 4 days' duration. Patient was unable to give me a complete history. However she did admits to no she did admit to not had any chest pain no palpitation no shortness a breath at this moment. Her main concern right now she mentioned is the abdominal pain with nausea and vomiting. Per history it looks like the patient's stay at our facility. She seems to respond to everything with the phrase, "I do not know I do not care. I tried to contact her daughter whose contact information was provided in the document testing however the number is not correct some no able to communicate with anybody." Discernible ischemia twelve lead electrocardiogram revealed sinus tachycardia without any evidence of ischemic changes. Past Medical History Multiple sclerosis Cranial hematoma Past Surgical History Craniectomy Family History: Cancer Family history: Cardiovascular disease Family History Unable to obtain this information from patient Social History Unemployed Allergies: Coded Allergies: Hydrocodone (Unverified Allergy, Unknown, 03/30/14) Home Meds Reported Medications Paroxetine (PAXIL TABLET) 20 Mg Tb, 12.5 MG PO DAILY 04/03/14 Current Medications Current Medications Medications (Trade) Dose Ordered Sig/Sylvie Route PRN Reason Start Time Stop Time Status Last Admin Vancomycin HCl 0 ml @ 0 mls/hr UD IV 11/13/24 22:45 Vancomycin HCl 250 ml @ 125 mls/hr Q2H IV 11/13/24 22:45 11/14/24 02:44 DC 11/14/24 03:32 Piperacillin Sod/ Tazobactam Sod 100 ml @ 25 mls/hr Q8HR IV 11/14/24 06:00 11/14/24 08:24 DC 11/14/24 06:41 Sodium Chloride 1,000 ml @ 90 mls/hr Q11H7M IV 11/13/24 23:00 11/14/24 16:09 DC 11/14/24 09:53 Pantoprazole Sodium (Protonix) 40 mg DAILY IV 11/14/24 10:00 11/14/24 09:47 Ondansetron HCl (Zofran) 4 mg Q4HP PRN IV NAUSEA / VOMITING 11/13/24 23:00 Morphine Sulfate 2 mg Q4HPRN PRN IV SEVERE PAIN (7-10 PAIN SCALE) 11/13/24 23:00 Nitroglycerin (Ntrostat Sublingual) 0.4 mg Q5MINP PRN SL FOR CHEST PAIN 11/13/24 23:00 Morphine Sulfate 2 mg Q30M PRN IV FOR CHEST PAIN 11/13/24 23:00 Albuterol (Ventolin Medneb) 2.5 mg Q6HP PRN NEB SHORTNESS OF BREATH 11/14/24 06:00 11/14/24 00:49 Piperacillin Sod/ Tazobactam Sod 100 ml @ 25 mls/hr Q6HR IV 11/14/24 12:00 11/14/24 12:07 Dextrose/Sodium Chloride 1,000 ml @ 150 mls/hr Q6H40M IV 11/14/24 11:30 11/14/24 11:46 Vancomycin HCl 250 ml @ 200 mls/hr Q12H IV 11/14/24 22:00 Review of Systems Constitutional: Denies fever no chills no feeling of malaise HEENT: Denies headache, ear pain, ear discharges, conjunctivitis, nasal discharge throat pain Cardiovascular: Denies chest pain, palpitation, orthopnea, PND, or pedal edema Respiratory: Denies shortness of breath, cough cough, sputum production, hemoptysis, GI: abdominal pain, nausea, vomiting, diarrhea : Denies frequency, urgency, hematuria, Endocrine: Denies unintentional weight gain or weight loss, feeling of hot flashes, Robby: Denies easy bruising, bleeding disorders, epistaxis Musculoskeletal: Denies joint pains, muscle aches Psych: No evidence of depression, brandi, suicidal ideation Vital Signs Vital Signs Date Time Temp Pulse Resp B/P (MAP) Pulse Ox O2 Delivery O2 Flow Rate FiO2 11/14/24 16:36 107 19 137/91 (106) 95 11/14/24 07:50 97.4 97.4 11/14/24 07:45 Room Air* 0 21 Physical Exam General examination- Morbidly obese female, Acute distress, NG tube in place, urinary catheter in place, A0X2 HEENT: PEERLA, no acute nasal discharge Chest: tachycardiac, S1-S2 audible, rate and rhythm regular, no murmur Lung: CTAB, no wheeze or rhonchi Abdomen: Very distended, Tenderness, significant scar on her abdomen, can't remember what is from Musculoskeletal: no acute joint swelling or tenderness Lower extremity: leg edema Neurological: unable to obtain Psychiatry-- Normal mood and affect Skin- dry Labs/Diagnostic Data Labs Test 11/14/24 14:50 11/14/24 13:20 11/14/24 09:04 11/14/24 05:51 Range/Units Sodium Level 127 L 136-145 mmol/L Potassium Level 4.6 3.5-5.1 mmol/L Chloride Level 97 L 98-107 mmol/L Carbon Dioxide Level 21 20-31 mmol/L Anion Gap 9 5-15 Blood Urea Nitrogen 28 H 9-23 mg/dL Creatinine 0.78 0.550-1.02 mg/dL Glomerular Filtration Rate Calc 85 >90 mL/min BUN/Creatinine Ratio 35.9 H 10.0-20.0 Serum Glucose 182 H 74-106 mg/dL Calcium Level 9.4 8.7-10.4 mg/dL Urine Color [place] H Yellow Urine Clarity Ex.turbid Clear Urine pH 6.5 5.0-9.0 Urine Specific [place] 1.037 H 1.001-1.035 Urine Protein 2+ H Negative Urine Ketones Trace Negative Urine Blood 2+ H Negative /uL Urine Nitrite Negative Negative Urine Bilirubin 1+ H Negative Urine Urobilinogen 3 H Negative mg/dL Urine Leukocyte Esterase 3+ Negative /uL Urine RBC 81 0 - 4 /hpf Urine WBC 330 0 - 5 /hpf Urine Squamous Epithelial Cells Mod <5 /hpf Urine Bacteria None seen None Seen /hpf Urine Mucus Few None Seen Urine Creatinine 94.06 30.0-125.0 mg/dL Urine Protein/Creatinine Ratio 1.34 Urine Sodium < 10 L 40-220 mmol/L Urine Glucose Normal Normal mg/dL Urine Total Protein 126.5 H 1-14 mg/dL Lactic Acid Level 2.0 0.4-2.0 mmol/L White Blood Count 16.8 H 4.4-10.8 10^3/uL Red Blood Count 5.46 H 4.0-5.20 10^6/uL Hemoglobin 15.4 12.2-16.2 g/dL Hematocrit 45.6 36.0-46.0 % Mean Corpuscular Volume 83.4 80.0-100.0 fL Mean Corpuscular Hemoglobin 28.2 28.0-32.0 pg Mean Corpuscular Hemoglobin Concent 33.7 32.0-36.0 g/dL Red Cell Distribution Width 15.2 H 11.8-14.3 % Platelet Count 565 H 140-450 10^3/uL Mean Platelet Volume 7.6 6.9-10.8 fL Neutrophils (%) (Auto) 86.4 H 37.0-80.0 % Lymphocytes (%) (Auto) 8.2 L 10.0-50.0 % Monocytes (%) (Auto) 5.0 0.0-12.0 % Eosinophils (%) (Auto) 0.1 0.0-7.0 % Basophils (%) (Auto) 0.3 0.0-2.0 % Neutrophils # (Auto) 14.5 H 1.6-8.6 10 ^3/uL Lymphocytes # (Auto) 1.4 0.4-5.4 10 ^3/uL Monocytes # (Auto) 0.8 0-1.3 10 ^3/uL Eosinophils # (Auto) 0 0-0.8 10 ^3/uL Basophils # (Auto) 0.1 0-0.2 10 ^3/uL Nucleated Red Blood Cells 0.1 % Platelet Estimate Increased Phosphorus Level 3.8 2.4-5.1 mg/dL Magnesium Level 2.0 1.6-2.6 mg/dL Total Bilirubin 0.6 0.2-1.0 mg/dL Aspartate Amino Transferase (AST) 32 13-40 U/L Alanine Aminotransferase (ALT) 14 7-40 U/L Alkaline Phosphatase 224 H 46-116 U/L Total Protein 6.9 5.7-8.2 g/dL Albumin 3.6 3.2-4.8 g/dL Parathyroid Hormone (Intact) 115.5 H 18.4-80.1 pg/mL Test 11/13/24 23:00 11/13/24 21:25 11/13/24 20:10 11/13/24 19:07 Range/Units Troponin I High Sensitivity 3 L </=34 ng/L Urine WBC Clumps Present None Seen /hpf Lipase 30 12-53 U/L Plasma/Serum Blood Alcohol < 3.0 <10 mg/dL Prothrombin Time 12.5 H 9.3-11.8 sec Prothrombin Time INR 1.19 H 0.9-1.15 Activated Partial Thromboplast Time 32.2 24.5-34.5 SEC Ammonia 17 11-32 umol/L Assessment Preprocedure cardiovascular risk assessment Severe abdominal pain likely secondary to toxic colitis toxic colitis correlate with the clinical setting. Nicotine dependence Morbid obesity Plan/Recommendation Patient assessed and evaluated at bedside. There were no complaints of chest pain, shortness of breath, palpitation, or diaphoresis. She is somewhat a poor historian and confused, unable to reach next of kin over the phone. Patient was uncooperative during transthoracic echocardiogram evaluation with poor acoustic windows. Based on chest x-ray and 12 lead electrocardiogram, the patient is at a moderate risk for moderate risk surgery. There is no further cardiac workup indicated at this time. Thank you for allowing us to participate in the patient's care. Please call if you have any questions or concerns. Plan discussed with: Patient, Other (Nurse) Visit Coding Cardiology RES Date of Service: Nov 14, 2024 Billing Provider: JORGE CHANDRA MD Cardiology Common Codes: [id number] INP/OBS CARE (High) SAY GR RESIDENT Nov 14, 2024 17:29
[2024-11-14] MEDS: VANCOMYCIN 1.25GM/250ML 250 ML IV SCH (22:06)
[2024-11-15] VITALS (11 sets, daily range): BP systolic 117–132; BP diastolic 74–89; PULSE 89–108; RESP 16–20; TEMP 95.7–97.3; O2SAT 92–99
[2024-11-15] MEDS ORDERED: BACL10TA PO (01:18)
[2024-11-15] MEDS ORDERED: PARO10TA93 PO (01:18)
[2024-11-15] MEDS ORDERED: ROPI5TAB20 PO (01:18)
[2024-11-15] MEDS ORDERED: ALBU108A5 INH (01:18)
[2024-11-15] MEDS ORDERED: TOLT1CAP29 PO (01:18)
[2024-11-15] MEDS ORDERED: GLAT20KI SC (01:18)
[2024-11-15 07:09] LABS: Basophils # (auto) 0 10 ^3/uL (0-0.2); Basophils % (auto) 0.1 % (0.0-2.0); Eosinophils # (auto) 0.1 10 ^3/uL (0-0.8); Eosinophils % (auto) 0.6 % (0.0-7.0); Hematocrit 46.9 % (36.0-46.0); Hemoglobin 15.7 g/dL (12.2-16.2); Lymphocytes # (auto) 1.2 10 ^3/uL (0.4-5.4); Lymphocytes % (auto) 8.9 % (10.0-50.0); Mean Corpuscular Hgb Conc. 33.5 g/dL (32.0-36.0); Mean Corpuscular Volume 83.5 fL (80.0-100.0); Monocytes # (auto) 1.4 10 ^3/uL (0-1.3); Monocytes % (auto) 10.3 % (0.0-12.0); Neutrophils # (auto) 10.8 10 ^3/uL (1.6-8.6); Neutrophils % (auto) 80.1 % (37.0-80.0); Red Blood Cells 5.62 10^6/uL (4.0-5.20); Red Cell Distribution Width 15.1 % (11.8-14.3); White Blood Cell 13.5 10^3/uL (4.4-10.8)
[2024-11-15 07:33] LABS: Platelet Count (auto) 455 10^3/uL (140-450)
--- NOTE | 2024-11-15 10:29 | DVH ---
Exam: XY ABDOMEN 2 VIEW Indication: toxic colitis Comparison: None Technique: 3 radiographic views of the abdomen. Findings: Enteric catheter in satisfactory position. Abnormal nonspecific bowel-gas pattern with severe air-filled distention of large bowel loops. There is no definite evidence for pneumoperitoneum. No abnormal calcifications noted. Impression: Abnormal nonspecific bowel-gas pattern.
--- NOTE | 2024-11-15 10:56 | DVHPN2 ---
Progress Note Date Seen: Nov 15, 2024 Medical Necessity Reason Pt with a Central, PICC or Fol: No Subjective Patient reports: No new complaints Other Systems: Patient seen and examined by myself on follow-up today Objective vital signs Vital Sign Date Time Temp Pulse Resp B/P (MAP) Pulse Ox O2 Delivery O2 Flow Rate FiO2 11/15/24 09:00 95.7 91 19 117/77 (90) 99 95.7 11/15/24 01:12 Nasal Cannula* 3 32 Total Intake and Output 11/14/24 11/14/24 11/15/24 15:00 23:00 07:00 Intake Total 960 ml 1200 ml 125 ml Output Total 1820 ml Balance 960 ml 1200 ml -1695 ml medications Current Medications Medications Dose Ordered Sig/Sylvie Route Start Time Stop Time Status Last Admin Dose Admin Vancomycin HCl 0 ml @ 0 mls/hr UD IV 11/13/24 22:45 Pantoprazole Sodium 40 mg DAILY IV 11/14/24 10:00 11/15/24 10:32 40 MG Ondansetron HCl 4 mg Q4HP PRN IV 11/13/24 23:00 Morphine Sulfate 2 mg Q4HPRN PRN IV 11/13/24 23:00 Nitroglycerin 0.4 mg Q5MINP PRN SL 11/13/24 23:00 Morphine Sulfate 2 mg Q30M PRN IV 11/13/24 23:00 Albuterol 2.5 mg Q6HP PRN NEB 11/14/24 06:00 11/14/24 00:49 2.5 MG Piperacillin Sod/ Tazobactam Sod 100 ml @ 25 mls/hr Q6HR IV 11/14/24 12:00 11/15/24 05:51 25 MLS/HR Dextrose/Sodium Chloride 1,000 ml @ 150 mls/hr Q6H40M IV 11/14/24 11:30 11/15/24 07:10 150 MLS/HR Vancomycin HCl 250 ml @ 200 mls/hr Q12H IV 11/14/24 22:00 11/15/24 10:32 200 MLS/HR Examination: LUNGS:Normal, CVS:Normal, MSK:Normal laboratory and microbiology Laboratory Tests 11/15/24 06:50 11/14/24 14:50 Test 11/14/24 14:50 Range/Units Serum Glucose 182 H 74-106 mg/dL Microbiology Date/Time Source Procedure Growth Status 11/13/24 21:25 Voided Urine Urine Culture - Preliminary Resulted 11/13/24 20:26 Blood Blood Culture - Preliminary NO GROWTH AFTER 24 HOURS OF INCUBATION. Resulted Problem List/Assessment/Plan Problem List/Assessment/Plan Hyponatremia due to dehydration Normal serum creatinine Morbd obesity UTI Sepsis Colitis, toxic megacolon Metabolic acidosis Diarrhea Vitamin-D deficiency Recommendations Kidney function remained within normal limit serum sodium appropriately as slowly improving [place] catheter Strict I&Os IV antibiotics Ergocalciferol 49809 p.o. q.week I agree with gentle IV fluid hydration Avoid rapid correction of sodium Surgery consult We will continue to follow up Plan discussed with: Patient TIERRA MORALES MD Nov 15, 2024 10:56
[2024-11-15] MEDS: ERGOCALCIFEROL 50,000 UNIT(1.25MG) CAP PO SCH (11:00)
--- NOTE | 2024-11-15 11:44 | DVHPN2 ---
Progress Note - Dictate Date Seen: Nov 15, 2024 Medical Necessity Reason Pt with a Central, PICC or Fol: No Subjective E: no major events o/n. vital signs Vital Sign Date Time Temp Pulse Resp B/P (MAP) Pulse Ox O2 Delivery O2 Flow Rate FiO2 11/15/24 09:00 95.7 91 19 117/77 (90) 99 95.7 11/15/24 01:12 Nasal Cannula* 3 32 Total Intake and Output 11/14/24 11/14/24 11/15/24 15:00 23:00 07:00 Intake Total 960 ml 1200 ml 125 ml Output Total 1820 ml Balance 960 ml 1200 ml -1695 ml medications Current Medications Medications Dose Ordered Sig/Sylvie Route Start Time Stop Time Status Last Admin Dose Admin Vancomycin HCl 0 ml @ 0 mls/hr UD IV 11/13/24 22:45 Pantoprazole Sodium 40 mg DAILY IV 11/14/24 10:00 11/15/24 10:32 40 MG Ondansetron HCl 4 mg Q4HP PRN IV 11/13/24 23:00 Morphine Sulfate 2 mg Q4HPRN PRN IV 11/13/24 23:00 Nitroglycerin 0.4 mg Q5MINP PRN SL 11/13/24 23:00 Morphine Sulfate 2 mg Q30M PRN IV 11/13/24 23:00 Albuterol 2.5 mg Q6HP PRN NEB 11/14/24 06:00 11/14/24 00:49 2.5 MG Piperacillin Sod/ Tazobactam Sod 100 ml @ 25 mls/hr Q6HR IV 11/14/24 12:00 11/15/24 05:51 25 MLS/HR Dextrose/Sodium Chloride 1,000 ml @ 150 mls/hr Q6H40M IV 11/14/24 11:30 11/15/24 07:10 150 MLS/HR Vancomycin HCl 250 ml @ 200 mls/hr Q12H IV 11/14/24 22:00 11/15/24 10:32 200 MLS/HR Ergocalciferol 50,000 unit Q7D PO 11/15/24 11:00 objective GEN: still lethargic but NAD ABD: distended with diffuse TTP. laboratory and microbiology Laboratory Tests 11/15/24 06:50 11/14/24 14:50 Test 11/14/24 14:50 Range/Units Serum Glucose 182 H 74-106 mg/dL Assessment/Plan A 1. 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 2. Hyponatremia. 3. Morbid obesity. P: 1. colonoscopy pending today Plan discussed with: Other MARTHA ARAIZA MD Nov 15, 2024 11:44
[2024-11-15 12:21] LABS: Chloride 103 mmol/L (98-107)
[2024-11-15 12:22] LABS: Anion Gap 13 (5-15); Calcium 9.2 mg/dL (8.7-10.4)
[2024-11-15 12:27] LABS: BUN/Creatinine Ratio 30.9 (10.0-20.0)
[2024-11-15 12:39] LABS: Blood Urea Nitrogen 25 mg/dL (9-23); Carbon Dioxide 18 mmol/L (20-31); Glucose 147 mg/dL (74-106); Sodium 134 mmol/L (136-145)
[2024-11-15] MEDS: FLEET ENEMA(ADULT) 135 ML PR ONE (13:14)
--- NOTE | 2024-11-15 14:44 | ECG ---
[facility] Test Date: 2024-11-14 Test Time: 17:07:53 Pat Name: [place] Department: ED Room: [address] [place] [address] Gender: F General Counsel: SHANNAN : 1960 Requested By: CAYLA FRANCO Order Number: [id number] Reading MD: Jose Miguel Campbell Measurements Intervals [place] Rate: 109 P: 50 PA: 132 QRS: -30 QRSD: 67 T: 76 QT: 368 QTc: 496 Interpretive Statements Sinus tachycardia Left axis deviation Low voltage, precordial leads Consider anterior infarct Electronically Signed On 11-18-2024 10:19:06 PST by Jose Miguel Campbell Please click the below link to view image of tracing.
[2024-11-15] MEDS ORDERED: fentaNYL CITRATE 100 MCG/2 ML VL ONE (14:46)
[2024-11-15] MEDS ORDERED: PROPOFOL 10 MG/ML 20 ML IV ONE (14:46)
--- NOTE | 2024-11-15 15:28 | DVHOP2 ---
Operative Report DATE OF OPERATION: 11/15/24 PROCEDURE: Incomplete Colonoscopy up to splenic flexure with biopsy and colonic decompression PREOPERATIVE INDICATION: The patient is a 64 -year-old female undergoing colonoscopy for colonic dilation possible toxic megacolon for colonic decompression POSTOPERATIVE DIAGNOSES: 1. Abnormal area in the splenic flexure with acute inflammatory changes spasm and narrowing possibly related to ischemic changes, biopsies obtained to rule out malignancy Colonoscope was not advanced beyond this area because of acute inflammatory changes and some narrowing; liquid stool was seen coming through this area and colonic decompression was done 2. Moderate sigmoid diverticular disease 3. Moderate amount of retained stool in the rectosigmoid that was irrigated and colonic decompression was performed PROCEDURE PERFORMED BY: Hajrinder Dalal M.D. SCOPE: Olympus videocolonoscope. ASA CLASS: 3. PREOPERATIVE MEDICATIONS: Dr. Alejandra Melgoza PROCEDURE IN DETAIL: After obtaining an informed consent, the patient was placed on left lateral decubitus position. She was then sedated with the above medications. A rectal examination was performed that was normal. The colonoscope was then passed through the anus into the rectosigmoid and through the descending colon up to the splenic flexure . Patient had a moderate amount of retained stool Irrigation aspiration was performed and colonic decompression was performed. At the splenic flexure there was an abnormal area with inflammatory changes narrowing spasm and ulceration Multiple biopsies were obtained from this area to rule out any malignancy. Differential diagnosis could include as ischemic stricture Liquid stool was seen pouring the this area and colonic decompression was performed. Patient had moderate sigmoid diverticular disease Irrigation aspiration and colonic distal decompression was performed mostly of the left colon. Patient had 1+ internal hemorrhoids The patient tolerated the procedure well without difficulty. WITHDRAWAL TIME: Not applicable QUALITY OF THE PREP: [place] Bowel Prep score: Not applicable; poor COMPLICATIONS : None SPECIMENS: Splenic flexure inflammatory area biopsies DISPOSITION: Transfer back to the floor Stable PLAN: 1. NPO except for ice chips 2. Consider getting Gastrografin small-bowel series via NG tube 3. Continue IV antibiotics 4. Monitor labs 5. Continue close monitoring and repeat abdominal x-ray in a.HARJINDER Stevens MD Nov 15, 2024 15:28
--- NOTE | 2024-11-15 15:41 | DVHPN2 ---
Subjective Seen and examined at bedside, s/p Colonoscopy. Possible Ischemic Colitis vs Malignancy?? De-escalate Abx Changes from previous H/P or p: No Changes Objective Vitals Vital Signs Date Time Temp Pulse Resp B/P (MAP) Pulse Ox O2 Delivery O2 Flow Rate FiO2 11/15/24 12:41 97.2 96 18 129/84 (99) 95 97.2 11/15/24 07:45 Nasal Cannula 3.0 11/15/24 07:45 32 Intake/Output Intake and Output 11/15/24 06:59 Intake Total 2285 ml Output Total 1820 ml Balance 465 ml Intake Oral 0 ml IV Total 2285 ml Output Urine Total 470 ml Gastric Drainage Total 1350 ml Exam Gen: in bed NAD Cvs: N S1/S2, RRR Resp: BLAE Abd: Morbidly Obese Electroplater Automatic: AAO x 4 Medications Current Medications Medications Dose Ordered Sig/Sylvie Route Start Time Stop Time Status Last Admin Dose Admin Vancomycin HCl 0 ml @ 0 mls/hr UD IV 11/13/24 22:45 Pantoprazole Sodium 40 mg DAILY IV 11/14/24 10:00 11/15/24 10:32 40 MG Ondansetron HCl 4 mg Q4HP PRN IV 11/13/24 23:00 Morphine Sulfate 2 mg Q4HPRN PRN IV 11/13/24 23:00 Nitroglycerin 0.4 mg Q5MINP PRN SL 11/13/24 23:00 Morphine Sulfate 2 mg Q30M PRN IV 11/13/24 23:00 Albuterol 2.5 mg Q6HP PRN NEB 11/14/24 06:00 11/14/24 00:49 2.5 MG Piperacillin Sod/ Tazobactam Sod 100 ml @ 25 mls/hr Q6HR IV 11/14/24 12:00 11/15/24 13:15 25 MLS/HR Dextrose/Sodium Chloride 1,000 ml @ 150 mls/hr Q6H40M IV 11/14/24 11:30 11/15/24 07:10 150 MLS/HR Vancomycin HCl 250 ml @ 200 mls/hr Q12H IV 11/14/24 22:00 11/15/24 10:32 200 MLS/HR Ergocalciferol 50,000 unit Q7D PO 11/15/24 11:00 Laboratory Results Laboratory Tests 11/15/24 06:50 Chemistry Test 11/15/24 06:50 Calcium Level 9.2 mg/dL (8.7-10.4) Cardiac Markers Test 11/14/24 21:07 B-Type Natriuretic Peptide 29.44 pg/mL (0-100) Urinalysis Test 11/13/24 21:25 11/14/24 13:20 Urine WBC Clumps Present /hpf (None Seen) Urine Color [place] (Yellow) H Urine Clarity Ex.turbid (Clear) Urine pH 6.5 (5.0-9.0) Urine Specific [place] 1.037 (1.001-1.035) Urine Protein 2+ (Negative) H Urine Ketones Trace (Negative) Urine Blood 2+ /uL (Negative) H Urine Nitrite Negative (Negative) Urine Bilirubin 1+ (Negative) H Urine Urobilinogen 3 mg/dL (Negative) H Urine Leukocyte Esterase 3+ /uL (Negative) Urine RBC 81 /hpf (0 - 4) Urine WBC 330 /hpf (0 - 5) Urine Squamous Epithelial Cells Mod /hpf (<5) Urine Bacteria None seen /hpf (None Seen) Urine Mucus Few (None Seen) Urine Osmolality 824 mOsm/kg Urine Creatinine 94.06 mg/dL (30.0-125.0) Urine Protein/Creatinine Ratio 1.34 Urine Sodium < 10 mmol/L (40-220) L Urine Glucose Normal mg/dL (Normal) Urine Total Protein 126.5 mg/dL (1-14) H Microbiology Microbiology Date/Time Source Procedure Growth Status 11/13/24 21:25 Voided Urine Urine Culture - Preliminary Resulted 11/13/24 20:26 Blood Blood Culture - Preliminary NO GROWTH AFTER 24 HOURS OF INCUBATION. Resulted Assessment/Plan Assessment/Plan # Sepsis due to Toxic Megacolon - Abx - NPO - KUB in AM # Possible Ischemic Colitis vs Malignancy # Hyponatremia - Improving # Morbidly Obese Critical care time 45 mins Plan discussed with: Patient My Orders Orders - ALFRED ORELLANA MD Procedure Category Date Status Time Cefepime 1 Gm PHA 11/15/24 Verified 22:00 Metronidazole Ivpb PHA 11/15/24 Verified Flagyl 22:00 Date of Service: Nov 15, 2024 Billing Provider: ALFRED ORELLANA MD Common Visit Codes: [id number] CARE 30-74 MIN ALFRED ORELLANA MD Nov 15, 2024 15:41
[2024-11-15] MEDS: metroNIDAZOLE 500MG/100ML 100 ML IV SCH (21:14)
[2024-11-15] MEDS: CEFEPIME 1GM/ 50ML 50 ML IV SCH (21:14)
[2024-11-16] VITALS (33 sets, daily range): BP systolic 80–144; BP diastolic 41–85; PULSE 70–164; RESP 12–18; TEMP 97.2–98.6; O2SAT 92–100
--- NOTE | 2024-11-16 05:02 | DVH ---
ABDOMINAL RADIOGRAPH Indication: F/U Technique: 3 supine radiographs of the abdomen were obtained. Comparison: XY ABDOMEN 2 VIEW on DOS: 11/15/24 FINDINGS: Lines and tubes: Enteric tube terminates below the left hemidiaphragm and overlies the expected loc ation of the stomach. Marked gaseous distention of the colon. Multiple peripheral locules of gas which may represent pneuma tosis of the colon. There is also gaseous distention of the small bowel. No obvious supine radiograph ic evidence of pneumoperitoneum however evaluation is limited by gaseous distention of the small and large bowel loops. No acute osseous abnormality. IMPRESSION: 1. Abnormal gas pattern including marked gaseous distention of small and large bowel loops and findin gs suggesting possible pneumatosis of the colon.
[2024-11-16 05:54] LABS: Anion Gap 8 (5-15); Chloride 104 mmol/L (98-107); Potassium 4.5 mmol/L (3.5-5.1)
[2024-11-16 05:55] LABS: Calcium 8.9 mg/dL (8.7-10.4)
[2024-11-16 06:00] LABS: BUN/Creatinine Ratio 28.2 (10.0-20.0); Basophils # (auto) 0 10 ^3/uL (0-0.2); Basophils % (auto) 0.1 % (0.0-2.0); Blood Urea Nitrogen 22 mg/dL (9-23); Eosinophils # (auto) 0 10 ^3/uL (0-0.8); Mean Corpuscular Volume 83.8 fL (80.0-100.0); Monocytes # (auto) 1.1 10 ^3/uL (0-1.3); Neutrophils % (auto) 75.7 % (37.0-80.0)
[2024-11-16 06:02] LABS: Eosinophils % (auto) 0.3 % (0.0-7.0); Hematocrit 45.2 % (36.0-46.0); Lymphocytes % (auto) 11.7 % (10.0-50.0); Mean Corpuscular Hemoglobin 27.9 pg (28.0-32.0); Mean Corpuscular Hgb Conc. 33.2 g/dL (32.0-36.0); Monocytes % (auto) 12.2 % (0.0-12.0); Neutrophils # (auto) 6.7 10 ^3/uL (1.6-8.6); Platelet Count (auto) 491 10^3/uL (140-450); Red Blood Cells 5.39 10^6/uL (4.0-5.20); Red Cell Distribution Width 14.8 % (11.8-14.3); White Blood Cell 8.9 10^3/uL (4.4-10.8)
[2024-11-16 06:07] LABS: Carbon Dioxide 20 mmol/L (20-31); Glucose 125 mg/dL (74-106); Sodium 132 mmol/L (136-145)
--- NOTE | 2024-11-16 08:05 | DVHPN2 ---
Progress Note - Dictate Date Seen: Nov 16, 2024 Medical Necessity Reason Pt with a Central, PICC or Fol: No Subjective E: no major events o/n. c/o abd pain. vital signs Vital Sign Date Time Temp Pulse Resp B/P (MAP) Pulse Ox O2 Delivery O2 Flow Rate FiO2 11/16/24 05:21 97.8 104 18 95/71 (79) 92 97.8 11/15/24 20:00 Room Air* 0 21 Total Intake and Output 11/15/24 11/15/24 11/16/24 15:00 23:00 07:00 Intake Total 400 ml 200 ml 150 ml Output Total 225 ml 125 ml Balance 400 ml -25 ml 25 ml medications Current Medications Medications Dose Ordered Sig/Sylvie Route Start Time Stop Time Status Last Admin Dose Admin Pantoprazole Sodium 40 mg DAILY IV 11/14/24 10:00 11/15/24 10:32 40 MG Ondansetron HCl 4 mg Q4HP PRN IV 11/13/24 23:00 Morphine Sulfate 2 mg Q4HPRN PRN IV 11/13/24 23:00 Nitroglycerin 0.4 mg Q5MINP PRN SL 11/13/24 23:00 Morphine Sulfate 2 mg Q30M PRN IV 11/13/24 23:00 Albuterol 2.5 mg Q6HP PRN NEB 11/14/24 06:00 11/14/24 00:49 2.5 MG Dextrose/Sodium Chloride 1,000 ml @ 150 mls/hr Q6H40M IV 11/14/24 11:30 11/15/24 21:14 150 MLS/HR Ergocalciferol 50,000 unit Q7D PO 11/15/24 11:00 Cefepime HCl 50 ml @ 12.5 mls/hr Q12HR IV 11/15/24 22:00 11/15/24 21:14 12.5 MLS/HR Metronidazole 100 ml @ 100 mls/hr Q8HR IV 11/15/24 22:00 11/16/24 06:34 100 MLS/HR objective GEN: more alert today. NAD. ABD: softer and slt less distended than yesterday. diffuse TTP. laboratory and microbiology Laboratory Tests 11/16/24 05:23 Test 11/16/24 05:23 Range/Units Serum Glucose 125 H 74-106 mg/dL Assessment/Plan A 1. ischemic bowel 2. morbid obesity 3. hyponatremia correcting 4. s/p sigmoidoscopy with decompression and bx P: 1. repeat CT abd/pelvis with gastrografin 2. although patient is showing some clinical improvement, may still need partial colectomy with ileostomy. will check CT results. Plan discussed with: Patient MARTHA ARAIZA MD Nov 16, 2024 08:05
[2024-11-16] MEDS: GASTROGRAFIN 30 ML SOL ONE (08:21)
--- NOTE | 2024-11-16 10:50 | DVH ---
Exam: CT CT AB PEL WITH ORAL CON ONLY History: ABD PAIN Comparison Study: CT CT AB PEL WO CON-NO ORAL OR IV on DOS: 11/13/24 Technique: Multidetector spiral CT of the abdomen and pelvis was performed from lung bases to pubic symphysis. Imaging was performed without IV contrast. Axial, coronal and sagittal multiplanar reform ats were obtained from the axial data set by the technologist. Radiation dose : Abdomen/Pelvis: CTDIvol 27 mGy, DLP 1697.86 mGy*cm. Findings: Evaluation of solid organs is limited due to lack of intravenous contrast use. Lung Bases: Small left pleural effusion with associated basilar atelectasis and consolidation. Liver: The liver is normal in size. No focal lesions. Gallbladder and biliary Tree: Gallbladder is surgically absent. Spleen: Unremarkable Pancreas: The pancreas is grossly normal in appearance. Adrenal Glands: Unremarkable Kidneys: Kidneys are grossly normal without calculi or hydronephrosis. Bladder: Bladder is decompressed with a Valencia catheter and cannot be adequately assessed. Bowel: Nasogastric tube in place. Diffuse dilation of small bowel with air-fluid levels. Dilation of the right and transverse colon with possible pneumatosis. Transition point in the splenic flexure wh ere there is some wall thickening. Descending colon and rectosigmoid are decompressed. The appendix is not visualized; however, no secondary findings of acute appendicitis identified. Ascites: Absent Lymphadenopathy: No mesenteric, retroperitoneal or periportal lymphadenopathy. Abdominal wall and Mesentery: Unremarkable. Vasculature: Calcified atherosclerotic disease. Pelvic Organs: Unremarkable Musculoskeletal: No aggressive focal bony lesions, acute fractures or dislocation. IMPRESSION: 1. Marked dilation of the right and transverse colon with a transition point at the level of the sigm oid flexure. Associated wall thickening in this region. Suspect an underlying lesion resulting in o bstruction. Associated small bowel obstruction. Findings are similar to prior exam. Surgical evaluat ion is recommended. 2. Small left pleural effusion with associated basilar atelectasis and consolidation. Radiation optimization: All CT scans at this facility use at least one of these dose optimization miguel hniques: Automated exposure control mA and/or kV adjustment per patient size (includes targeted exams where dose is matched to clinical indication) or iterative reconstruction. HS:Y
--- NOTE | 2024-11-16 10:52 | DVHPN2 ---
Progress Note Date Seen: Nov 16, 2024 Medical Necessity Reason Pt with a Central, PICC or Fol: No Subjective Patient reports: No new complaints Other Systems: Patient seen and examined by myself on follow-up today Objective vital signs Vital Sign Date Time Temp Pulse Resp B/P (MAP) Pulse Ox O2 Delivery O2 Flow Rate FiO2 11/16/24 10:00 96 Room Air 0.0 11/16/24 10:00 21 11/16/24 09:00 97.5 70 16 128/85 (99) 97.5 Total Intake and Output 11/15/24 11/15/24 11/16/24 15:00 23:00 07:00 Intake Total 400 ml 200 ml 150 ml Output Total 225 ml 125 ml Balance 400 ml -25 ml 25 ml medications Current Medications Medications Dose Ordered Sig/Sylvie Route Start Time Stop Time Status Last Admin Dose Admin Pantoprazole Sodium 40 mg DAILY IV 11/14/24 10:00 11/16/24 08:09 40 MG Ondansetron HCl 4 mg Q4HP PRN IV 11/13/24 23:00 Morphine Sulfate 2 mg Q4HPRN PRN IV 11/13/24 23:00 Nitroglycerin 0.4 mg Q5MINP PRN SL 11/13/24 23:00 Morphine Sulfate 2 mg Q30M PRN IV 11/13/24 23:00 Albuterol 2.5 mg Q6HP PRN NEB 11/14/24 06:00 11/14/24 00:49 2.5 MG Dextrose/Sodium Chloride 1,000 ml @ 150 mls/hr Q6H40M IV 11/14/24 11:30 11/15/24 21:14 150 MLS/HR Ergocalciferol 50,000 unit Q7D PO 11/15/24 11:00 Cefepime HCl 50 ml @ 12.5 mls/hr Q12HR IV 11/15/24 22:00 11/16/24 08:09 12.5 MLS/HR Metronidazole 100 ml @ 100 mls/hr Q8HR IV 11/15/24 22:00 11/16/24 06:34 100 MLS/HR Examination: LUNGS:Normal, CVS:Normal, MSK:Normal laboratory and microbiology Laboratory Tests 11/16/24 05:23 Test 11/16/24 05:23 Range/Units Serum Glucose 125 H 74-106 mg/dL Microbiology Date/Time Source Procedure Growth Status 11/13/24 21:25 Voided Urine Urine Culture - Preliminary Resulted 11/13/24 20:26 Blood Blood Culture - Preliminary NO GROWTH AFTER 48 HOURS OF INCUBATION. Resulted Problem List/Assessment/Plan Problem List/Assessment/Plan Hyponatremia due to dehydration Normal serum creatinine Morbd obesity UTI Sepsis Colitis, toxic megacolon Metabolic acidosis Diarrhea Vitamin-D deficiency Recommendations Kidney function remained within normal limit serum sodium appropriately as slowly improving Valencia catheter Strict I&Os IV antibiotics Ergocalciferol 83820 p.o. q.week I agree with gentle IV fluid hydration Avoid rapid correction of sodium Surgery consult I will sign off this case please reconsult as needed Thank you for the consult Plan discussed with: Patient My Orders My Orders Orders - TIERRA MORALES MD Procedure Category Date Status Time Ergocalciferol PHA 11/15/24 In Process (Vitamin D 50,000 11:00 Dietary Evaluation Review Comments: 1) Advance pt diet when medically feasible 2) Continue current plan of care Expected Outcomes/Goals: F/U in 2-3 days TIERRA MORALES MD Nov 16, 2024 10:52
[2024-11-16] MEDS ORDERED: MEPERIDINE HCL (25 MG/ML) 1ML VIAL ONE (13:03)
[2024-11-16] MEDS ORDERED: LIDOCAINE 1% INJ PF 5ML AMP ONE (13:03)
[2024-11-16] MEDS ORDERED: ETOMIDATE (2MG/ML) 20ML VIAL IV ONE ×2 (13:03→13:10)
[2024-11-16] MEDS ORDERED: fentaNYL CITRATE 5 ML ONE ×2 (13:03→15:29)
[2024-11-16] MEDS ORDERED: SODIUM CHLORIDE LOCK 10 ML ONE (13:03)
[2024-11-16] MEDS ORDERED: fentaNYL CITRATE 100 MCG/2 ML VL ONE (13:03)
[2024-11-16] MEDS ORDERED: MIDAZOLAM HCL 2MG/2ML 2ml VIAL (1mg/ml) ONE ×2 (13:03→16:33)
[2024-11-16] MEDS ORDERED: LIDOCAINE HCL 2% TOP JELLY 5ML TOP ONE (13:03)
[2024-11-16] MEDS ORDERED: MEPERIDINE HCL (50 MG/ML) 1 ML VIAL ONE (13:03)
[2024-11-16] MEDS: LIDOCAINE 2% JELLY 11ml (GLYDO) ONE (13:07)
[2024-11-16] MEDS ORDERED: HYDROmorphone HCL 2 MG/ML VL/or syr ONE ×2 (13:08→16:33)
[2024-11-16] MEDS ORDERED: ROCURONIUM 10MG/ML 10ML VIAL IV ONE ×2 (13:10→15:18)
[2024-11-16] MEDS: NOREPINEPHRINE 8 MG/250ML KIT 250 ML IV ONE (13:39)
[2024-11-16] MEDS: ALBUMIN 25% 100 ML IV ONE (15:37)
[2024-11-16] MEDS: PROPOFOL 100 ML IV SCH (16:00)
[2024-11-16] MEDS: fentaNYL Drip 2500mCg/250mlNS 250 ML IV SCH (16:00)
[2024-11-16] MEDS: MIDAZOLAM DRIP 50 mg/50mL 50 ML IV SCH (16:00)
--- NOTE | 2024-11-16 16:57 | DVHOP2 ---
Operative Report - 2 Report Details Date: 11/16/24 Preop Diagnosis: 1. Ischemic bowel with colonic obstruction at splenic flexure Postop Diagnosis: 1. Ischemic bowel with colonic obstruction at the splenic flexure secondary to obstructing adenocarcinoma 2. Extensive intra-abdominal adhesions Surgeon: Martha Araiza MD Manager Strategic Sourcing: Homero Anesthesiologist: Dr Light Anesthesia: General Drains: two 15 Swiss Chuy drains Consent: The surgery and its risks including but not limited to infection, bleeding requiring possible blood transfusion with the risk of hepatitis or HIV infection, possible perioperative MA or CVA were explained to the patient's son and patient. All questions were answered to their satisfaction. They expressed verbal understanding and wished to proceed with the surgery. Complications: Some stool spillage from the right colon and small perforation at the distal ileum Estimated Blood Loss: 100 mL Fluids: 3 L crystalloids + 500 mL of 5% albumin + 100 mL of 25% albumin Findings: Near complete obstruction at the splenic flexure secondary to a circumferential mass. Frozen section came back as adenocarcinoma Name of Procedure Performed 1. Exploratory laparotomy with extended right hemicolectomy with ileostomy 2. Splenic flexure takedown 3. Extensive lysis of adhesions Procedure Details Procedure Details: After induction of general anesthesia, patient's abdomen was prepped and draped in standard surgical fashion. A midline incision was made and incision extended through the soft tissue down to the fascia which was opened in midline. Immediately was noted that there was extensive amount of adhesions in the abdominal cavity and very dilated loop of colon. Further investigation and dissection revealed that this colon was very tortuous transverse colon. Due to the extreme distention of the colon the bowel wall appeared ischemic. Careful blunt dissection was performed to mobilize the gastrocolic ligament and this then extended along the hepatic flexure down to the cecum. At this point there was a small perforation noted with some stool spillage from the cecum. This was quickly controlled by aspirating away the fecal material. The perforation was then stapled closed using an endo stapler. There was extensive adhesions in the right lower quadrant as well and during the dissection there was a small perforation made in the distal ileum. This was also clamped closed and controlled. A ZULAY stapler was used to staple just proximal to this perforation in the distal ileum. The right colon was then divided near the hepatic flexure with another ZULAY stapler. The mesocolon appeared to be very short and contracted. This was divided using an energy device and specimen was then sent off to pathology. Next the transverse colon mesentery was then divided using energy device up to the splenic flexure. Palpation of this area revealed that there was a circumferential obstructing mass in this location. The colon was distended proximal to this area in the descending colon appeared normal and completely decompressed. ZULAY stapler was used to staple distal transverse colon and the transverse colon was again removed and sent off to pathology. The splenic flexure was taken down and mobilized inferiorly and a ZULAY stapler was used to staple and divide the proximal descending colon. The mesocolon was then divided using energy device and the splenic flexure mass was sent off for frozen section which came back positive for adenocarcinoma. 2-0 Prolene sutures were placed at the staple line of the proximal descending colon for future identif ication. Abdominal cavity was then well irrigated with 5 L of sterile warm water irrigation. NG tube placement was verified in the stomach with direct palpation. Two hundred fifteen Swiss Chuy drains were placed one along each gutter and brought out through two separate stab incision in the bilateral lower quadrants and secured to the skin using 3-0 nylon sutures. A small circular incision was made in the right lower quadrant for the ileostomy. The incision extended down to the fascia which was opened in with a cruciate incision and the terminal ileal stump was then gently placed through the opening without tension or twisting of the mesentery. Midline fascia was then closed using running looped 0 PDS sutures with interrupted 1. Vicryl sutures. Incision was then irrigated and skin incision was then closed using tonie. The ileostomy staple line was then taken down and ileostomy was then matured using 2-0 and 3-0 Vicryl sutures. There was no narrowing at the level of the fascia and the mucosa appea red viable. Sponge, needle, instrument count at the end of the case were reported to be correct by the nursing staff. Once that is surgical dressings were applied patient was placed in Trendelenburg position. The patient's left subclavian region was prepped and draped in standard surgical fashion in preparation for a central line. I introduced a needle was used to identify the left subclavian vein and the guidewire was then gently introduced into the vein without resistance. Using a Seldinger technique the triple-lumen was placed over the guidewire into the subclavian and all ports aspirated and flushed easily. The triple-lumen was then secured to the skin using 3-0 silk sutures. Surgical site was then cleaned and dried and dressing was applied. Stat chest x-ray was ordered for the triple-lumen central line positioning. The patient tolerated procedure but Levophed had to be started to maintain her blood pressure during surgery. Patient will remain intubated and will be transferred to ICU in guarded condition. Specimen: Distal ileum to proximal descending colon Condition Guarded Disposition Still a Patient MARTHA ARAIZA MD Nov 16, 2024 16:57
[2024-11-16] MEDS: ALBUMIN 5% 250 ML IV ONE (17:00)
--- NOTE | 2024-11-16 17:45 | DVHPN2 ---
Subjective Seen and examined at bedside, s/p Right Hemicolectomy and Ileostomy. 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 Gang Saw Operator: Sedated Medications Current Medications Medications Dose Ordered Sig/Sylvie Route Start Time Stop Time Status Last Admin Dose Admin Pantoprazole Sodium 40 mg DAILY IV 11/14/24 10:00 11/16/24 08:09 40 MG Ondansetron HCl 4 mg Q4HP PRN IV 11/13/24 23:00 Morphine Sulfate 2 mg Q4HPRN PRN IV 11/13/24 23:00 Nitroglycerin 0.4 mg Q5MINP PRN SL 11/13/24 23:00 Morphine Sulfate 2 mg Q30M PRN IV 11/13/24 23:00 Albuterol 2.5 mg Q6HP PRN NEB 11/14/24 06:00 11/14/24 00:49 2.5 MG Ergocalciferol 50,000 unit Q7D PO 11/15/24 11:00 Cefepime HCl 50 ml @ 12.5 mls/hr Q12HR IV 11/15/24 22:00 11/16/24 08:09 12.5 MLS/HR Metronidazole 100 ml @ 100 mls/hr Q8HR IV 11/15/24 22:00 11/16/24 06:34 100 MLS/HR Propofol 100 ml @ 3.93 mls/hr Q24H IV 11/16/24 16:00 Midazolam HCl 50 ml @ 1 mls/hr Q24H IV 11/16/24 16:00 Fentanyl Citrate 250 ml @ 2.5 mls/hr Q24H IV 11/16/24 16:00 Norepinephrine Bitartrate 250 ml @ 3.75 mls/hr Q24H IV 11/16/24 16:00 Sodium Chloride 1,000 ml @ 150 mls/hr Q6H40M IV 11/16/24 17:15 UNV Laboratory Results Laboratory Tests 11/16/24 05:23 Chemistry Test 11/16/24 05:23 Calcium Level 8.9 mg/dL (8.7-10.4) HgA1c, TSH Test 11/15/24 22:22 Hemoglobin A1c 5.7 % A1C (<5.7) Thyroid Stimulating Hormone (TSH) 1.83 uIU/mL (0.55-4.78) Urinalysis Test 11/13/24 21:25 11/14/24 13:20 Urine WBC Clumps Present /hpf (None Seen) Urine Color [place] (Yellow) H Urine Clarity Ex.turbid (Clear) Urine pH 6.5 (5.0-9.0) Urine Specific [place] 1.037 (1.001-1.035) Urine Protein 2+ (Negative) H Urine Ketones Trace (Negative) Urine Blood 2+ /uL (Negative) H Urine Nitrite Negative (Negative) Urine Bilirubin 1+ (Negative) H Urine Urobilinogen 3 mg/dL (Negative) H Urine Leukocyte Esterase 3+ /uL (Negative) Urine RBC 81 /hpf (0 - 4) Urine WBC 330 /hpf (0 - 5) Urine Squamous Epithelial Cells Mod /hpf (<5) Urine Bacteria None seen /hpf (None Seen) Urine Mucus Few (None Seen) Urine Osmolality 824 mOsm/kg Urine Creatinine 94.06 mg/dL (30.0-125.0) Urine Protein/Creatinine Ratio 1.34 Urine Sodium < 10 mmol/L (40-220) L Urine Glucose Normal mg/dL (Normal) Urine Total Protein 126.5 mg/dL (1-14) H Microbiology Microbiology Date/Time Source Procedure Growth Status 11/13/24 21:25 Voided Urine Urine Culture - Final Complete 11/13/24 20:26 Blood Blood Culture - Preliminary NO GROWTH AFTER 48 HOURS OF INCUBATION. Resulted Assessment/Plan Assessment/Plan # Sepsis due to Toxic Megacolon - Abx # Possible Ischemic Colitis vs Malignancy - Ileostomy. s/p Right Hemicolectomy # Hyponatremia - Improving # Morbidly Obese Critical care time 42 mins Plan discussed with: Other My Orders Orders - ALFRED ORELLANA MD Procedure Category Date Status Time Propofol (Diprivan) PHA 11/16/24 In Process 16:00 Midazolam Drip 50 PHA 11/16/24 In Process Mg/50ml (Versed Drip 5 16:00 Fentanyl Drip PHA 11/16/24 In Process 2500mcg/250mlns 16:00 Rass Sedation Scale MADDY 11/16/24 In Process 15:46 Norepinephrine 8 PHA 11/16/24 In Process Mg/250ml Kit 16:00 Date of Service: Nov 16, 2024 Billing Provider: ALFRED ORELLANA MD Common Visit Codes: 11944-[id number] CARE 30-74 MIN ALFRED ORELLANA MD Nov 16, 2024 17:45
--- NOTE | 2024-11-16 17:48 | DVH ---
EXAM: XY CHEST XRAY 1 VIEW TECHNIQUE: Single frontal chest radiograph CLINICAL HISTORY: PLACEMENT OF ET AND CENTRAL LINE COMPARISON: XY CHEST PORTABLE on DOS: 11/13/24 Findings/Impression: Frontal chest radiograph demonstrates no acute osseous or superficial soft tissue abnormalities. Endotracheal tube terminates 4.6 cm from the john paul. Enteric tube is overlying the plane of the stoma ch. Left sided IJ catheter terminates near the superior cavoatrial junction. The trachea is midline. The cardiac silhouette and mediastinum are within normal limits. Left basilar atelectasis and/or developing infection. No pneumothorax or pleural effusions.
[2024-11-16 18:45] LABS: Basophils # (auto) 0 10 ^3/uL (0-0.2); Eosinophils # (auto) 0 10 ^3/uL (0-0.8); Hemoglobin 12.1 g/dL (12.2-16.2); Lymphocytes % (auto) 30.2 % (10.0-50.0); Monocytes # (auto) 0.2 10 ^3/uL (0-1.3); Red Cell Distribution Width 15.4 % (11.8-14.3)
[2024-11-16 18:47] LABS: Basophils % (auto) 0.2 % (0.0-2.0); Eosinophils % (auto) 0.4 % (0.0-7.0); Hematocrit 37.3 % (36.0-46.0); Lymphocytes # (auto) 1.3 10 ^3/uL (0.4-5.4); Mean Corpuscular Hemoglobin 27.8 pg (28.0-32.0); Mean Corpuscular Hgb Conc. 32.4 g/dL (32.0-36.0); Mean Corpuscular Volume 85.8 fL (80.0-100.0); Monocytes % (auto) 3.5 % (0.0-12.0); Neutrophils # (auto) 2.9 10 ^3/uL (1.6-8.6); Neutrophils % (auto) 65.7 % (37.0-80.0); Nucleated Red Blood Cells % 0.1 %; Platelet Count (auto) 502 10^3/uL (140-450); Red Blood Cells 4.35 10^6/uL (4.0-5.20); White Blood Cell 4.4 10^3/uL (4.4-10.8)
[2024-11-16 18:54] LABS: Alkaline Phosphatase 91 U/L (46-116); Anion Gap 8 (5-15); Aspartate Aminotransferase 20 U/L (13-40); BUN/Creatinine Ratio 26.7 (10.0-20.0); Blood Urea Nitrogen 20 mg/dL (9-23)
[2024-11-16 18:55] LABS: Bilirubin, Total 1.1 mg/dL (0.2-1.0)
[2024-11-16 19:01] LABS: Alanine Aminotransferase < 9 U/L (7-40); Albumin 3.1 g/dL (3.2-4.8); Calcium 8.1 mg/dL (8.7-10.4); Carbon Dioxide 19 mmol/L (20-31); Chloride 108 mmol/L (98-107); Glucose 154 mg/dL (74-106); Sodium 135 mmol/L (136-145); Total Protein 4.9 g/dL (5.7-8.2)
--- NOTE | 2024-11-16 19:08 | DVHPN2 ---
Progress Note - Dictate Date Seen: Nov 16, 2024 Medical Necessity Reason Pt with a Central, PICC or Fol: No Subjective Patient was seen in preop area this morning. She was taken for exploratory laparotomy due to persistent pain and suspected obstruction Patient found to have complete obstruction at the splenic flexure with the extensive adhesions and also small distal ileum perforation Intraoperatively I was notified of the diagnosis of adenocarcinoma on my splenic flexure stricture biopsies. I notified the OR However they had already done a frozen section of the splenic flexure mass and adenocarcinoma was diagnosed. Patient underwent an extended right hemicolectomy from the distal ileum to the proximal descending colon with an ileostomy and then distal Malcom's pouch Patient is currently intubated sedated in ICU 109 vital signs Vital Sign Date Time Temp Pulse Resp B/P (MAP) Pulse Ox O2 Delivery O2 Flow Rate FiO2 11/16/24 18:45 97.3 102 12 120/59 (79) 99 207.1 11/16/24 10:00 Room Air 0.0 11/16/24 10:00 21 Total Intake and Output 11/15/24 11/15/24 11/16/24 15:00 23:00 07:00 Intake Total 400 ml 200 ml 150 ml Output Total 225 ml 125 ml Balance 400 ml -25 ml 25 ml medications Current Medications Medications Dose Ordered Sig/Sylvie Route Start Time Stop Time Status Last Admin Dose Admin Pantoprazole Sodium 40 mg DAILY IV 11/14/24 10:00 11/16/24 08:09 40 MG Ondansetron HCl 4 mg Q4HP PRN IV 11/13/24 23:00 Morphine Sulfate 2 mg Q4HPRN PRN IV 11/13/24 23:00 Nitroglycerin 0.4 mg Q5MINP PRN SL 11/13/24 23:00 Morphine Sulfate 2 mg Q30M PRN IV 11/13/24 23:00 Albuterol 2.5 mg Q6HP PRN NEB 11/14/24 06:00 11/14/24 00:49 2.5 MG Ergocalciferol 50,000 unit Q7D PO 11/15/24 11:00 Cefepime HCl 50 ml @ 12.5 mls/hr Q12HR IV 11/15/24 22:00 11/16/24 08:09 12.5 MLS/HR Metronidazole 100 ml @ 100 mls/hr Q8HR IV 11/15/24 22:00 11/16/24 06:34 100 MLS/HR Propofol 100 ml @ 3.93 mls/hr Q24H IV 11/16/24 16:00 Midazolam HCl 50 ml @ 1 mls/hr Q24H IV 11/16/24 16:00 Fentanyl Citrate 250 ml @ 2.5 mls/hr Q24H IV 11/16/24 16:00 Norepinephrine Bitartrate 250 ml @ 3.75 mls/hr Q24H IV 11/16/24 16:00 Sodium Chloride 1,000 ml @ 150 mls/hr Q6H40M IV 11/16/24 17:15 objective Gen: in bed intubated Cvs: N S1/S2, RRR Resp: Intubated sedated Abd: Morbidly Obese, ileostomy Child Support Officer: Sedated laboratory and microbiology Laboratory Tests 11/16/24 18:16 Test 11/16/24 18:16 Range/Units Serum Glucose 154 H 74-106 mg/dL Problems(with codes): (1) Colonic obstruction (2) Ischemic stricture intestine (3) 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 (4) UTI (urinary tract infection) (5) Sepsis (6) Toxic colitis Prognosis Plan Patient is to remain intubated sedated IV fluid hydration IV antibiotics NPO and NG tube to low intermittent suction Start IV TPN Await final pathology results Prognosis remains guarded due to multiple comorbidities and morbid obesity Dietary Evaluation Review Comments: 1) Advance pt diet when medically feasible 2) Continue current plan of care Expected Outcomes/Goals: F/U in 2-3 days Plan discussed with: Other (Dr Funez) HARJINDER SEBASTIAN MD Nov 16, 2024 19:08
[2024-11-16] MEDS: NOREPINEPHRINE 8 MG/250ML KIT 250 ML IV SCH (19:20)
[2024-11-16 19:25] LABS: Base Excess -11.7 mmol/L (-2.0-3.0)
[2024-11-16] MEDS: SODIUM BICARB 8.4% 50Meq/50ml SYR Vial IV ONE ×2 (20:04→20:06)
[2024-11-16] MEDS: SODIUM CHLORIDE 0.9% 1,000 ML IV SCH (20:08)
[2024-11-17] VITALS (107 sets, daily range): BP systolic 74–131; BP diastolic 32–68; PULSE 83–104; RESP 14–25; TEMP 97.2–98.8; O2SAT 97–100
[2024-11-17] MEDS: SODIUM CHLORIDE 0.9% 1,000 ML IV ONE (00:59)
[2024-11-17] MEDS: ALBUMIN 25% 50 ML IV ONE (01:00)
[2024-11-17 04:17] LABS: Basophils # (auto) 0 10 ^3/uL (0-0.2); Basophils % (auto) 0.1 % (0.0-2.0); Eosinophils # (auto) 0 10 ^3/uL (0-0.8); Eosinophils % (auto) 0.1 % (0.0-7.0); Hematocrit 34.2 % (36.0-46.0); Hemoglobin 11.1 g/dL (12.2-16.2); Lymphocytes # (auto) 0.8 10 ^3/uL (0.4-5.4); Lymphocytes % (auto) 7.9 % (10.0-50.0); Mean Corpuscular Hemoglobin 27.5 pg (28.0-32.0); Mean Corpuscular Hgb Conc. 32.6 g/dL (32.0-36.0); Mean Corpuscular Volume 84.5 fL (80.0-100.0); Monocytes # (auto) 0.8 10 ^3/uL (0-1.3); Monocytes % (auto) 7.4 % (0.0-12.0); Neutrophils # (auto) 8.7 10 ^3/uL (1.6-8.6); Neutrophils % (auto) 84.5 % (37.0-80.0); Platelet Count (auto) 318 10^3/uL (140-450); Red Blood Cells 4.05 10^6/uL (4.0-5.20); Red Cell Distribution Width 15.1 % (11.8-14.3); White Blood Cell 10.3 10^3/uL (4.4-10.8)
[2024-11-17 04:39] LABS: Alkaline Phosphatase 74 U/L (46-116); Anion Gap 6 (5-15); Aspartate Aminotransferase 19 U/L (13-40); BUN/Creatinine Ratio 31.9 (10.0-20.0); Bilirubin, Total 1.1 mg/dL (0.2-1.0); Blood Urea Nitrogen 23 mg/dL (9-23); Carbon Dioxide 22 mmol/L (20-31); Potassium 3.7 mmol/L (3.5-5.1); Sodium 139 mmol/L (136-145)
[2024-11-17 04:43] LABS: Alanine Aminotransferase < 9 U/L (7-40); Albumin 2.9 g/dL (3.2-4.8); Calcium 7.8 mg/dL (8.7-10.4); Chloride 111 mmol/L (98-107); Glucose 133 mg/dL (74-106); Total Protein 4.4 g/dL (5.7-8.2)
--- NOTE | 2024-11-17 05:07 | DVH ---
CHEST RADIOGRAPH Indication: intubated Technique: Single frontal view of the chest was obtained Comparison: XY CHEST XRAY 1 VIEW on DOS: 11/16/24, XY CHEST PORTABLE on DOS: 11/13/24 FINDINGS: Lines and Tubes: The endotracheal tube terminates 4.3 cm above the john paul. The enteric tube course is below the left hemidiaphragm and outside the field of view. Left central venous catheter overlies th e superior vena cava. Lungs: Left basilar opacities are unchanged. Pleura: No effusion. No pneumothorax. Cardiomediastinal contours: Unremarkable Bones: No acute osseous abnormality. IMPRESSION: 1. No significant interval change in the position of the support lines and tubes. 2. Left basilar opacity, unchanged.
[2024-11-17 07:17] LABS: Base Excess -8.7 mmol/L (-2.0-3.0)
--- NOTE | 2024-11-17 07:57 | DVHPN2 ---
Progress Note - Dictate Date Seen: Nov 17, 2024 Medical Necessity Reason Pt with a Central, PICC or Fol: No Subjective E: given albumin o/n for hypotension. low UOP. curr on levophed at 28 mcg. vital signs Vital Sign Date Time Temp Pulse Resp B/P (MAP) Pulse Ox O2 Delivery O2 Flow Rate FiO2 11/17/24 07:32 96 15 100/58 (72) 98 35 11/17/24 06:45 97.3 207.1 11/16/24 20:00 Mechanical Ventilator+ 11/16/24 17:00 0 Total Intake and Output 11/16/24 11/16/24 11/17/24 15:00 23:00 07:00 Intake Total 150 ml 861.55 ml 2549.05 ml Output Total 2400 ml 330 ml 515 ml Balance -2250 ml 531.55 ml 2034.05 ml medications Current Medications Medications Dose Ordered Sig/Sylvie Route Start Time Stop Time Status Last Admin Dose Admin Pantoprazole Sodium 40 mg DAILY IV 11/14/24 10:00 11/16/24 08:09 40 MG Ondansetron HCl 4 mg Q4HP PRN IV 11/13/24 23:00 Morphine Sulfate 2 mg Q4HPRN PRN IV 11/13/24 23:00 Nitroglycerin 0.4 mg Q5MINP PRN SL 11/13/24 23:00 Morphine Sulfate 2 mg Q30M PRN IV 11/13/24 23:00 Albuterol 2.5 mg Q6HP PRN NEB 11/14/24 06:00 11/14/24 00:49 2.5 MG Ergocalciferol 50,000 unit Q7D PO 11/15/24 11:00 Cefepime HCl 50 ml @ 12.5 mls/hr Q12HR IV 11/15/24 22:00 11/16/24 22:13 12.5 MLS/HR Metronidazole 100 ml @ 100 mls/hr Q8HR IV 11/15/24 22:00 11/17/24 05:49 100 MLS/HR Propofol 100 ml @ 3.93 mls/hr Q24H IV 11/16/24 16:00 Midazolam HCl 50 ml @ 1 mls/hr Q24H IV 11/16/24 16:00 11/17/24 00:49 4 MLS/HR Fentanyl Citrate 250 ml @ 2.5 mls/hr Q24H IV 11/16/24 16:00 Norepinephrine Bitartrate 250 ml @ 3.75 mls/hr Q24H IV 11/16/24 16:00 11/17/24 05:14 52.5 MLS/HR Sodium Chloride 1,000 ml @ 150 mls/hr Q6H40M IV 11/16/24 17:15 11/17/24 04:00 150 MLS/HR Phenylephrine HCl 250 ml @ 30 mls/hr Q8H20M IV 11/17/24 01:00 objective GEN: intubated/sedated ABD: incision clean. ileostomy viable with scant output. JPs 220 + 80 mL serosang. RENAL: 35 mL UOP last 2 hrs. laboratory and microbiology Laboratory Tests 11/17/24 03:58 Test 11/17/24 03:58 Range/Units Serum Glucose 133 H 74-106 mg/dL Assessment/Plan A 1. s/p ex lap with extended right colectomy (to prox descending colon) with ileostomy with extensive lysis of adhesions POD #1 P: 1. 1 L LR bolus 2. consider TPN tomorrow. Dietary Evaluation Review Comments: 1) Advance pt diet when medically feasible 2) Continue current plan of care Expected Outcomes/Goals: F/U in 2-3 days Plan discussed with: MARTHA Abel MD Nov 17, 2024 07:57
[2024-11-17] MEDS: LACTATED RINGER'S 1,000 ML IV ONE (08:45)
[2024-11-17] MEDS: NOREPINEPHRINE BITARTRATE 32 MG in SODIUM CHL 0.9% 218 ML IV SCH (09:16)
[2024-11-17] MEDS: PHENYLEPHRINE IV 250 ML IV SCH (09:20)
--- NOTE | 2024-11-17 09:21 | DVHPN2 ---
Progress Note - Dictate Date Seen: Nov 17, 2024 Medical Necessity Reason Pt with a Central, PICC or Fol: No Subjective Patient was seen in ICU 109 She was intubated and sedated Patient is hemodynamically stable She is on FiO2 35% and oxygenating well, no tachycardia Patient is still on moderate amount of Levophed at 25 mics per hour Patient underwent a laparotomy with extended right hemicolectomy up to the proximal descending colon yesterday She was diagnosed with adenocarcinoma of the splenic flexure on colonoscopy biopsies and frozen section vital signs Vital Sign Date Time Temp Pulse Resp B/P (MAP) Pulse Ox O2 Delivery O2 Flow Rate FiO2 11/17/24 07:32 96 15 100/58 (72) 98 35 11/17/24 06:45 97.3 207.1 11/16/24 20:00 Mechanical Ventilator+ 11/16/24 17:00 0 Total Intake and Output 11/16/24 11/16/24 11/17/24 15:00 23:00 07:00 Intake Total 150 ml 861.55 ml 2549.05 ml Output Total 2400 ml 330 ml 515 ml Balance -2250 ml 531.55 ml 2034.05 ml medications Current Medications Medications Dose Ordered Sig/Sylvie Route Start Time Stop Time Status Last Admin Dose Admin Pantoprazole Sodium 40 mg DAILY IV 11/14/24 10:00 11/16/24 08:09 40 MG Ondansetron HCl 4 mg Q4HP PRN IV 11/13/24 23:00 Morphine Sulfate 2 mg Q4HPRN PRN IV 11/13/24 23:00 Nitroglycerin 0.4 mg Q5MINP PRN SL 11/13/24 23:00 Morphine Sulfate 2 mg Q30M PRN IV 11/13/24 23:00 Albuterol 2.5 mg Q6HP PRN NEB 11/14/24 06:00 11/14/24 00:49 2.5 MG Ergocalciferol 50,000 unit Q7D PO 11/15/24 11:00 Cefepime HCl 50 ml @ 12.5 mls/hr Q12HR IV 11/15/24 22:00 11/16/24 22:13 12.5 MLS/HR Metronidazole 100 ml @ 100 mls/hr Q8HR IV 11/15/24 22:00 11/17/24 05:49 100 MLS/HR Propofol 100 ml @ 3.93 mls/hr Q24H IV 11/16/24 16:00 Midazolam HCl 50 ml @ 1 mls/hr Q24H IV 11/16/24 16:00 11/17/24 00:49 4 MLS/HR Fentanyl Citrate 250 ml @ 2.5 mls/hr Q24H IV 11/16/24 16:00 Sodium Chloride 1,000 ml @ 150 mls/hr Q6H40M IV 11/16/24 17:15 11/17/24 04:00 150 MLS/HR Phenylephrine HCl 250 ml @ 30 mls/hr Q8H20M IV 11/17/24 01:00 Norepinephrine Bitartrate 32 mg/ Sodium Chloride 250 ml @ 0.938 mls/ hr Q24H IV 11/17/24 08:45 11/17/24 09:16 14.063 MLS/HR objective Gen: in bed intubated Cvs: N S1/S2, RRR Resp: Intubated sedated Abd: Morbidly Obese, ileostomy stoma looks well, incision site intact [employer]: Sedated laboratory and microbiology Laboratory Tests 11/17/24 03:58 Test 11/17/24 03:58 Range/Units Serum Glucose 133 H 74-106 mg/dL Problems(with codes): (1) 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
[2024-11-17] MEDS ORDERED: VASOPRESSIN 20 UNITS in SODIUM CHL 0.9% 99 ML IV SCH (10:00)
[2024-11-17] MEDS: VASOPRESSIN 20 UNITS in SODIUM CHL 0.9% 99 ML IV SCH (10:30)
[2024-11-17] MEDS ORDERED: VANCOMYCIN PER PHARMACY 0 MG IV SCH (12:15)
[2024-11-17] MEDS: SODIUM BICARB 50mEq/50ml Vial 100 ML in D5W 5% 1,000 ML IV SCH (13:52)
[2024-11-17] MEDS: ENOXAPARIN SOD 40 MG/0.4 ML SYRINGE SC ONE (13:55)
[2024-11-17] MEDS: POTASSIUM CHL 20MEQ/100ML 100 ML IV ONE (13:57)
[2024-11-17] MEDS ORDERED: TPN PER PHARMACY 0 ML IV SCH (16:30)
[2024-11-17] MEDS ORDERED: DEXTROSE (50%) 50ML SYRG IV SCH (16:45)
[2024-11-17] MEDS: VANCOMYCIN 1.75GM/350ML 350 ML IV SCH (17:51)
[2024-11-17 18:14] LABS: Magnesium 1.7 mg/dL (1.6-2.6)
--- NOTE | 2024-11-17 18:14 | DVHPNRES ---
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 On arrival patient had temperature of 97.6, pulse 126 bpm, respiratory rate 17, blood pressure 154/88, saturating 95 on room air. WBC count was 21.5 with 89% neutrophils and 600 platelets. Lactic acid was elevated at 2.4. CT abdomen pelvis completed 11/13 showed gas distended colon with air bubbles account service representative of toxic colitis. Subsequent CT abdomen completed 11/16 showed marked dilation of the right and transverse colon with a transition point at the level of the sigmoid flexure. Associated wall thickening in this region. Suspicious of an underlying lesion resulting in obstruction. Small left pleural effusion with basilar atelectasis. Consequently GI Dr. Dalal did a sigmoidoscopy up to the splenic flexure with biopsy and colonic decompression on 11/15 and an abnormal area was found in the splenic flexure with the sigmoid diverticular disease, moderate amount of retained stool in the rectosigmoid. So surgeon was consulted and patient underwent exploratory laparotomy with extended right hemicolectomy with ileostomy on 11/16 secondary to ischemic bowel with colonic obstruction at the splenic flexure. Distal ileum to the proximal descending colon was resected and a distal ileum perforation was found during the procedure. Lysis of adhesions were performed. Patient received 3 L of NS +500 mL of 5% albumin and 100 mL of 25% albumin during the procedure. Following the procedure patient was hypotensive and therefore could not be extubated and therefore which he was transferred to ICU for further management. 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 Quit smoking about 2 years ago when she had PE. Patient seen and examined at bed 109. She was started on 50% FiO2 which was downtrended to 35% FiO2 right now. Urine culture is growing greater than 1 lac Gram-positive species including GBS. Started vancomycin 11/17. ABGs show non- anion gap metabolic acidosis along with respiratory acidosis, likely secondary to hyperchloremia. DC 0.5 NS. Respiratory rate increased from 14-16. Sodium bicarbonate started at 100 mL/hour. Both LIANNE drains drained 25 and 30 mL serosanguineous. Valencia draining 90 mL overnight and 90 mL during the day. Objective vital signs Vital Sign Date Time Temp Pulse Resp B/P (MAP) Pulse Ox O2 Delivery O2 Flow Rate FiO2 11/17/24 17:45 98.4 88 18 120/56 (77) 99 209.1 110/58 (75) 11/17/24 16:00 35 11/17/24 08:00 Mechanical Ventilator+ 11/16/24 17:00 0 Total Intake and Output 11/16/24 11/16/24 11/17/24 14:59 22:59 06:59 Intake Total 150 ml 657.55 ml 2753.05 ml Output Total 2400 ml 330 ml 515 ml Balance -2250 ml 327.55 ml 2238.05 ml medications Current Medications Medications Dose Ordered Sig/Sylvie Route Start Time Stop Time Status Last Admin Dose Admin Pantoprazole Sodium 40 mg DAILY IV 11/14/24 10:00 11/17/24 09:49 40 MG Morphine Sulfate 2 mg Q4HPRN PRN IV 11/13/24 23:00 Nitroglycerin 0.4 mg Q5MINP PRN SL 11/13/24 23:00 Morphine Sulfate 2 mg Q30M PRN IV 11/13/24 23:00 Albuterol 2.5 mg Q6HP PRN NEB 11/14/24 06:00 11/14/24 00:49 2.5 MG Cefepime HCl 50 ml @ 12.5 mls/hr Q12HR IV 11/15/24 22:00 11/17/24 09:48 12.5 MLS/HR Metronidazole 100 ml @ 100 mls/hr Q8HR IV 11/15/24 22:00 11/17/24 16:37 100 MLS/HR Propofol 100 ml @ 3.93 mls/hr Q24H IV 11/16/24 16:00 Midazolam HCl 50 ml @ 1 mls/hr Q24H IV 11/16/24 16:00 11/17/24 14:57 3 MLS/HR Fentanyl Citrate 250 ml @ 2.5 mls/hr Q24H IV 11/16/24 16:00 Phenylephrine HCl 250 ml @ 30 mls/hr Q8H20M IV 11/17/24 01:00 11/17/24 10:00 30 MLS/HR Norepinephrine Bitartrate 32 mg/ Sodium Chloride 250 ml @ 0.938 mls/ hr Q24H IV 11/17/24 08:45 11/17/24 09:16 14.063 MLS/HR Vasopressin 20 units/Sodium Chloride 100 ml @ 9 mls/hr Q11H7M IV 11/17/24 10:15 11/17/24 10:30 9 MLS/HR Vancomycin HCl 0 ml @ 0 mls/hr UD IV 11/17/24 12:15 Sodium Bicarbonate 100 ml/Dextrose 1,100 ml @ 100 mls/hr Q11H IV 11/17/24 12:15 11/17/24 13:52 100 MLS/HR Vancomycin HCl 350 ml @ 200 mls/hr Q12H IV 11/17/24 16:00 11/17/24 17:51 200 MLS/HR Enoxaparin Sodium 40 mg DAILY SC 11/18/24 10:00 Amino Acids 0 ml @ 0 mls/hr PER PHARMACY IV 11/17/24 16:30 Diagnostic Test (Pha) 1 strip Q6HR 11/17/24 18:00 Insulin Human Regular FOLLOW SLIDING SCALE Q6HR SC 11/17/24 18:00 Dextrose 50 ml UD IV 11/17/24 16:45 Amino Acids/ Electrolytes/ Dextrose 1,000 ml @ 41 mls/hr DAILY@2200 IV 11/17/24 22:00 Examination Morbidly obese female patient lying in bed, sedated and mechanically ventilated. General: Morbidly obese, afebrile, palor, mucosae are moist Cardiovascular: Regular S1 and S2. No murmurs, gallops or rubs. No JVD elevation. 1+ nonpitting edema in the lower extremity Respiratory: Bilateral equal breath sounds on 35% FiO2, saturating 98%. Abdomen: Abdomen is soft but absent bowel sounds. Dressing dry clean and intact. Two LIANNE drains attached. Maceration noted beneath the skin fold beneath the umbilicus. Ileostomy seen with dark brown 50 mL of stool. Genitourinary: Valencia catheter is seen. MSK/skin: Skin is dry and warm Neurological: Pupils are constricted and sluggish to response. No icterus seen. laboratory and microbiology Laboratory Tests 11/17/24 03:58 Test 11/17/24 03:58 Range/Units Serum Glucose 133 H 74-106 mg/dL Microbiology Date/Time Source Procedure Growth Status 11/16/24 17:20 Sputum Gram Stain Pending Resulted 11/16/24 17:20 Sputum Respiratory Culture - Preliminary Resulted 11/16/24 17:10 Nose MRSA Screen - Final Complete 11/13/24 21:25 Voided Urine Urine Culture - Final Complete 11/13/24 20:26 Blood Blood Culture - Preliminary NO GROWTH AFTER 72 HOURS OF INCUBATION. 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 Currently intubated and mechanically ventilated Ventilator settings respiratory rate 16, tidal volume 500, FiO2 35, peep 5 CARDIOVASCULAR Septic shock secondary to toxic megacolon Lactic acidosis-resolved Continue IV vancomycin, cefepime, and metronidazole Preliminary blood cultures negative RESPIRATORY Acute hypoxic respiratory failure secondary to septic shock Chronic nicotine dependence Respiratory acidosis History of PE Non-anion gap metabolic acidosis secondary to hyperchloremia Left sided pleural effusion with associated basilar atelectasis consolidation Currently mechanically intubated and ventilated Respiratory culture and Gram stain pending ABGs 11/17 shows non-anion gap metabolic acidosis with respiratory acidosis Started sodium bicarbonate 100 mL/hour 11/17 GI Sepsis secondary to toxic megacolon secondary to primary adenocarcinoma of the descending colon and splenic flexure 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 Associated wall thickening in this region. Suspect an underlying lesion resulting in obstruction. Associated small bowel obstruction. Findings are similar to prior exam. Surgical evaluation is recommended. Await final pathology results /KIDNEY Acute cystitis Final urine culture showed >100,000 CFU/mL Mixed Gram Positive Ca >3 [place] Types, including Beta-Hemolytic Group B Streptococcus Continue IV vancomycin, cefepime and metronidazole METABOLIC Hyponatremia, corrected Hypomagnesemia, supplement Morbid obese Non-anion gap metabolic acidosis Vitamin-D deficiency Hypercalcemia: Corrected calcium 10.6 HEM-ONCO Anemia, likely normocytic secondary to blood loss Hemoglobin dropped from 16-10 from 11/14 to 11/17 Retic count/lactate dehydrogenase pending LINES Intubated on 11/16 l SUBCLAVIAN CVC 11/16 Valencia catheter 11/13 DRIPS LEVOPHED 32 MG 30 UNITS VASOPRESSIN 0.01 FENTANYL 50 VERSED 3 NUTRITION; Clinimix starting 11/17 DVT; Lovenox 40 mg sc daily Goals of care/advance care planning; FULL CODE; discussed on for 24 minutes. PUD prophylaxis: Pantoprazole 40 mg IV daily DVT prophylaxis: Lovenox 40 mg sc daily Plan discussed with patient's daughter Paula [phone] over the phone for over 20 minutes in which all questions have been answered. Case discussed with Dr. Barker Critical care time including review of the chart, discussion with the patient's family excluding procedures 83 minutes Plan discussed with: Patient, Daughter (Over the phone ) My Orders My Orders Orders - SARA PAULA Procedure Category Date Status Time Enoxaparin Sodium PHA 11/18/24 In Process (Lovenox) 10:00 Dietary Evaluation Review Comments: 1) Advance pt diet when medically feasible 2) Continue current plan of care Expected Outcomes/Goals: F/U in 2-3 days Date of Service: Nov 17, 2024 Billing Provider: HARRY BARKER MD Common Visit Codes: 65972-[id number] CARE 30-74 MIN, 99316-[id number] CARE-EACH +30MIN SARA PAULA Nov 17, 2024 18:14 HARRY BAREKR MD Nov 19, 2024 16:42
[2024-11-17 18:15] LABS: Phosphorus 3.1 mg/dL (2.4-5.1)
[2024-11-17] MEDS: ACCU-CHEK COMFORT CURVE STRIP VI SCH (18:21)
[2024-11-17] MEDS: InsuLIN REG 1unit/0.01ml Soln (100units/ml) SC SCH (18:23)
[2024-11-17] MEDS: AMINO ACID INFUSION IN D10W 1,000 ML IV SCH (22:00)
[2024-11-18] VITALS (108 sets, daily range): BP systolic 88–148; BP diastolic 46–94; PULSE 73–97; RESP 16–28; TEMP 97.5–99.3; O2SAT 96–100
[2024-11-18 04:18] LABS: Basophils # (auto) 0 10 ^3/uL (0-0.2); Basophils % (auto) 0.1 % (0.0-2.0); Eosinophils # (auto) 0.1 10 ^3/uL (0-0.8); Eosinophils % (auto) 0.5 % (0.0-7.0); Hematocrit 30.1 % (36.0-46.0); Hemoglobin 9.7 g/dL (12.2-16.2); Mean Corpuscular Hgb Conc. 32.4 g/dL (32.0-36.0); Monocytes # (auto) 1.1 10 ^3/uL (0-1.3); Monocytes % (auto) 7.6 % (0.0-12.0); Neutrophils # (auto) 11.7 10 ^3/uL (1.6-8.6)
[2024-11-18 04:20] LABS: Lymphocytes # (auto) 1.2 10 ^3/uL (0.4-5.4); Lymphocytes % (auto) 8.3 % (10.0-50.0); Mean Corpuscular Hemoglobin 27.1 pg (28.0-32.0); Mean Corpuscular Volume 83.5 fL (80.0-100.0); Neutrophils % (auto) 83.5 % (37.0-80.0); Platelet Count (auto) 227 10^3/uL (140-450); Red Cell Distribution Width 15.7 % (11.8-14.3)
[2024-11-18 04:24] LABS: Alanine Aminotransferase 10 U/L (7-40); Alkaline Phosphatase 72 U/L (46-116); Anion Gap 9 (5-15); Aspartate Aminotransferase 24 U/L (13-40); BUN/Creatinine Ratio 30.7 (10.0-20.0); Bilirubin, Total 0.9 mg/dL (0.2-1.0); Carbon Dioxide 22 mmol/L (20-31); Sodium 139 mmol/L (136-145)
[2024-11-18 04:36] LABS: Albumin 2.6 g/dL (3.2-4.8); Blood Urea Nitrogen 23 mg/dL (9-23); Calcium 8.2 mg/dL (8.7-10.4); Chloride 108 mmol/L (98-107); Glucose 195 mg/dL (74-106); Magnesium 1.6 mg/dL (1.6-2.6); Phosphorus 2.2 mg/dL (2.4-5.1); Potassium 3.4 mmol/L (3.5-5.1); Total Protein 4.3 g/dL (5.7-8.2)
[2024-11-18] MEDS: MAGNESIUM SULFATE 1GM/100ML 100 ML IV ONE ×2 (05:00→09:12)
--- NOTE | 2024-11-18 05:31 | DVH ---
CHEST RADIOGRAPH Indication: followup Technique: Single frontal view of the chest was obtained Comparison: XY CHEST PORTABLE on DOS: 11/17/24 FINDINGS: Lines and Tubes: The endotracheal tube terminates 5.3 cm above the john paul. Left central venous cathet er terminates in the superior vena cava. The enteric tube courses below the left hemidiaphragm and o utside the field of view. Lungs: Left basilar opacities, unchanged. Pleura: No effusion. No pneumothorax. Cardiomediastinal contours: Unremarkable Bones: No acute osseous abnormality. IMPRESSION: 1. No significant change in position of the support lines and tubes. 2. Left basilar opacity unchanged.
[2024-11-18 07:08] LABS: Base Excess -2.3 mmol/L (-2.0-3.0)
[2024-11-18] MEDS: POTASSIUM CHL 20MEQ/100ML 100 ML IV SCH (07:47)
[2024-11-18] MEDS: ENOXAPARIN SOD 40 MG/0.4 ML SYRINGE SC SCH (09:41)
[2024-11-18] MEDS ORDERED: MAGNESIUM SULFATE 1GM/100ML 100 ML IV ONE (13:30)
--- NOTE | 2024-11-18 14:20 | DVHPNRES ---
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 On arrival patient had temperature of 97.6, pulse 126 bpm, respiratory rate 17, blood pressure 154/88, saturating 95 on room air. WBC count was 21.5 with 89% neutrophils and 600 platelets. Lactic acid was elevated at 2.4. CT abdomen pelvis completed 11/13 showed gas distended colon with air bubbles entry level sales representative of toxic colitis. Subsequent CT abdomen completed 11/16 showed marked dilation of the right and transverse colon with a transition point at the level of the sigmoid flexure. Associated wall thickening in this region. Suspicious of an underlying lesion resulting in obstruction. Small left pleural effusion with basilar atelectasis. Consequently GI Dr. Dalal did a sigmoidoscopy up to the splenic flexure with biopsy and colonic decompression on 11/15 and an abnormal area was found in the splenic flexure with the sigmoid diverticular disease, moderate amount of retained stool in the rectosigmoid. So surgeon was consulted and patient underwent exploratory laparotomy with extended right hemicolectomy with ileostomy on 11/16 secondary to ischemic bowel with colonic obstruction at the splenic flexure. Distal ileum to the proximal descending colon was resected and a distal ileum perforation was found during the procedure. Lysis of adhesions were performed. Patient received 3 L of NS +500 mL of 5% albumin and 100 mL of 25% albumin during the procedure. Following the procedure patient was hypotensive and therefore could not be extubated and therefore which he was transferred to ICU for further management. 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 Quit smoking about 2 years ago when she had PE. Home medications: Glatopa 20 mg every morning, lidocaine patch q.12 hours p.r.n., Paxil tablet 10 mg daily, ropinirole 5 mg 2 tablets at bedtime, tolterodine 4 mg once daily, baclofen 10 mg b.i.d., albuterol 90 mcg. 11/17-Patient seen and examined at bed 109. She was started on 50% FiO2 which was downtrended to 35% FiO2 right now. Urine culture is growing greater than 1 lac Gram-positive species including GBS. Started vancomycin 11/17. ABGs show non-anion gap metabolic acidosis along with respiratory acidosis, likely secondary to hyperchloremia. DC 0.5 NS. Respiratory rate increased from 14-16. Sodium bicarbonate started at 100 mL/hour. Both LIANNE drains drained 25 and 30 mL serosanguineous. Valencia draining 90 mL overnight and 90 mL during the day. 11/18-patient seen and examined. He is not stable for CPAP. DC Versed. DC cefepime DC bicarb. Overnight 20 mL drainage from the right LIANNE, 25 from the left LIANNE Objective vital signs Vital Sign Date Time Temp Pulse Resp B/P (MAP) Pulse Ox O2 Delivery O2 Flow Rate FiO2 11/18/24 13:55 81 18 120/53 (75) 100 30 11/18/24 13:15 98.1 208.6 11/18/24 08:00 Mechanical Ventilator+ 11/16/24 17:00 0 Total Intake and Output 11/17/24 11/17/24 11/18/24 15:00 23:00 07:00 Intake Total 2309.128 ml 1601.004 ml 1840.877 ml Output Total 225 ml 665 ml Balance 2309.128 ml 1376.004 ml 1175.877 ml medications Current Medications Medications Dose Ordered Sig/Sylvie Route Start Time Stop Time Status Last Admin Dose Admin Pantoprazole Sodium 40 mg DAILY IV 11/14/24 10:00 11/18/24 09:41 40 MG Morphine Sulfate 2 mg Q4HPRN PRN IV 11/13/24 23:00 Nitroglycerin 0.4 mg Q5MINP PRN SL 11/13/24 23:00 Morphine Sulfate 2 mg Q30M PRN IV 11/13/24 23:00 Albuterol 2.5 mg Q6HP PRN NEB 11/14/24 06:00 11/18/24 06:24 2.5 MG Cefepime HCl 50 ml @ 12.5 mls/hr Q12HR IV 11/15/24 22:00 11/18/24 09:41 12.5 MLS/HR Metronidazole 100 ml @ 100 mls/hr Q8HR IV 11/15/24 22:00 11/18/24 06:18 100 MLS/HR Propofol 100 ml @ 3.93 mls/hr Q24H IV 11/16/24 16:00 Midazolam HCl 50 ml @ 1 mls/hr Q24H IV 11/16/24 16:00 11/18/24 06:57 3 MLS/HR Fentanyl Citrate 250 ml @ 2.5 mls/hr Q24H IV 11/16/24 16:00 11/18/24 11:43 10 MLS/HR Phenylephrine HCl 250 ml @ 30 mls/hr Q8H20M IV 11/17/24 01:00 11/17/24 10:00 30 MLS/HR Norepinephrine Bitartrate 32 mg/ Sodium Chloride 250 ml @ 0.938 mls/ hr Q24H IV 11/17/24 08:45 11/18/24 01:18 14.063 MLS/HR Vasopressin 20 units/Sodium Chloride 100 ml @ 9 mls/hr Q11H7M IV 11/17/24 10:15 11/17/24 10:30 9 MLS/HR Vancomycin HCl 0 ml @ 0 mls/hr UD IV 11/17/24 12:15 Vancomycin HCl 350 ml @ 200 mls/hr Q12H IV 11/17/24 16:00 11/18/24 04:06 200 MLS/HR Enoxaparin Sodium 40 mg DAILY SC 11/18/24 10:00 11/18/24 09:41 40 MG Amino Acids 0 ml @ 0 mls/hr PER PHARMACY IV 11/17/24 16:30 Diagnostic Test (Pha) 1 strip Q6HR 11/17/24 18:00 11/18/24 12:00 1 STRIP Insulin Human Regular FOLLOW SLIDING SCALE Q6HR SC 11/17/24 18:00 11/18/24 12:00 2 UNITS Dextrose 50 ml UD IV 11/17/24 16:45 Amino Acids/ Electrolytes/ Dextrose 1,000 ml @ 41 mls/hr DAILY@2200 IV 11/17/24 22:00 11/18/24 21:59 11/17/24 22:00 41 MLS/HR Fat Emulsion Intravenous 50 ml/ Potassium Acetate 30 meq/Potassium Phosphate 44 meq/ Magnesium Sulfate 10 meq/ Multivitamins 10 ml/Chromium/ Copper/Manganese/ Zinc 1 ml/Insulin Human Regular 5 units/Amino Acids/ Dextrose/Purified Water 1,088.55 ml @ 45 mls/hr [id number] IV 11/18/24 22:00 11/19/24 21:59 Metronidazole 100 ml @ 100 mls/hr Q8H IV 11/18/24 17:00 Examination Morbidly obese female patient lying in bed, sedated and mechanically ventilated. General: Morbidly obese, afebrile, palor, mucosae are moist Cardiovascular: Regular S1 and S2. No murmurs, gallops or rubs. No JVD elevation. 1+ nonpitting edema in the lower extremity Respiratory: Bilateral equal breath sounds on 35% FiO2, saturating 98%. Abdomen: Abdomen is soft but hypoactive bowel sounds. Dressing dry clean and intact. Two LIANNE drains attached. Maceration noted beneath the skin fold beneath the umbilicus. Ileostomy seen with dark brown 50 mL of stool. Genitourinary: Valencia catheter is seen. MSK/skin: Skin is dry and warm Neurological: Pupils are constricted and sluggish to response. No icterus seen. laboratory and microbiology Laboratory Tests 11/18/24 03:00 Test 11/18/24 03:00 Range/Units Serum Glucose 195 H 74-106 mg/dL Microbiology Date/Time Source Procedure Growth Status 11/16/24 17:20 Sputum Gram Stain Pending Resulted 11/16/24 17:20 Sputum Respiratory Culture - Preliminary Resulted 11/16/24 17:10 Nose MRSA Screen - Final Complete 11/13/24 21:25 Voided Urine Urine Culture - Final Complete 11/13/24 20:26 Blood Blood Culture - Preliminary NO GROWTH AFTER 72 HOURS OF INCUBATION. 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 Currently intubated and mechanically ventilated Ventilator settings respiratory rate 18, tidal volume 500, FiO2 35, peep 5 CARDIOVASCULAR Septic shock secondary to toxic megacolon Lactic acidosis-resolved Continue IV vancomycin, and metronidazole DC IV cefepime 11/18 Preliminary blood cultures negative RESPIRATORY Acute hypoxic respiratory failure secondary to septic shock Chronic nicotine dependence Respiratory acidosis History of PE Non-anion gap metabolic acidosis secondary to hyperchloremia Left sided pleural effusion with associated basilar atelectasis consolidation Currently mechanically intubated and ventilated Respiratory culture and Gram stain pending ABGs 11/17 shows non-anion gap metabolic acidosis with respiratory acidosis Discontinue sodium bicarbonate 100 mL/hour 11/17 till 11/18 DC Versed 11/18 GI Sepsis secondary to toxic megacolon secondary to primary adenocarcinoma of the descending colon and splenic flexure 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 Associated wall thickening in this region. Suspect an underlying lesion resulting in obstruction. Associated small bowel obstruction. Findings are similar to prior exam. Surgical evaluation is recommended. Await final pathology results /KIDNEY Acute cystitis Final urine culture showed >100,000 CFU/mL Mixed Gram Positive Ca >3 [place] Types, including Beta-Hemolytic Group B Streptococcus Continue IV vancomycin, metronidazole METABOLIC Hyponatremia, corrected Hypomagnesemia, supplement Morbid obese Non-anion gap metabolic acidosis Vitamin-D deficiency Hypercalcemia: Corrected calcium 10.6 HEM-ONCO Anemia, likely normocytic secondary to blood loss Hemoglobin dropped from 16-10 from 11/14 to 11/17 Retic count 1.23, lactate dehydrogenase 330 LINES Intubated on 11/16 Left SUBCLAVIAN CVC 11/16 Valencia catheter 11/13 DRIPS LEVOPHED 32 MG 30 UNITS VASOPRESSIN 0.01 FENTANYL 50 VERSED DC NUTRITION; Clinimix starting 11/17, TPN starting 11/18 DVT; Lovenox 40 mg sc daily Goals of care/advance care planning; FULL CODE; discussed on for 24 minutes. PUD prophylaxis: Pantoprazole 40 mg IV daily DVT prophylaxis: Lovenox 40 mg sc daily Plan discussed with patient's son Willam Padilla over the phone call for more than 20 minutes, code status full code. Tried to contact daughter Paula [phone] over the phone, was unreachable Case discussed with Dr. Erazo. Patient is not stable for CPAP at this time. Critical care time including review of the chart, discussion with the patient's family excluding procedures 53 minutes Plan discussed with: Patient, Daughter (Over the phone) My Orders My Orders Orders - SARA PAULA Procedure Category Date Status Time Chest Xray 1 View XY 11/18/24 Resulted 04:00 Abg W/ Co-Ox RT 11/18/24 Logged 04:00 Dietary Evaluation Review Comments: 1) Advance pt diet when medically feasible 2) Continue current plan of care Expected Outcomes/Goals: F/U in 2-3 days Date of Service: Nov 18, 2024 Billing Provider: RICHARDSON ERAZO MD Common Visit Codes: [id number] CARE 30-74 MIN SARA PAULA Nov 18, 2024 14:20 RICHARDSON ERAZO MD Nov 19, 2024 00:10
[2024-11-18] MEDS: ALBUMIN 5% 250 ML IV ONE (14:53)
[2024-11-18] MEDS: LACTATED RINGER'S 1,000 ML IV ONE (15:45)
--- NOTE | 2024-11-18 16:23 | DVHPN2 ---
Progress Note - Dictate Date Seen: Nov 18, 2024 Medical Necessity Reason Pt with a Central, PICC or Fol: Yes The following are medically ne: Central Line, Valencia Catheter Subjective Patient was seen in ICU 109 She is intubated and sedated Patient is hemodynamically stable She is on FiO2 30% and PEEP of 5 Levophed is being tapered down Patient is currently on IV Clinimix and there is plan to initiate TPN tonight Patient ileostomy is functional and LIANNE drain output is about 50 mL clear serosanguineous somewhat blood-tinged material Patient underwent a laparotomy with extended right hemicolectomy up to the proximal descending colon yesterday She was diagnosed with adenocarcinoma of the splenic flexure on colonoscopy biopsies and frozen section vital signs Vital Sign Date Time Temp Pulse Resp B/P (MAP) Pulse Ox O2 Delivery O2 Flow Rate FiO2 11/18/24 16:13 82 18 115/51 (72) 100 30 11/18/24 13:15 98.1 208.6 11/18/24 08:00 Mechanical Ventilator+ 11/16/24 17:00 0 Total Intake and Output 11/17/24 11/17/24 11/18/24 15:00 23:00 07:00 Intake Total 2309.128 ml 1601.004 ml 1840.877 ml Output Total 225 ml 665 ml Balance 2309.128 ml 1376.004 ml 1175.877 ml medications Current Medications Medications Dose Ordered Sig/Sylvie Route Start Time Stop Time Status Last Admin Dose Admin Pantoprazole Sodium 40 mg DAILY IV 11/14/24 10:00 11/18/24 09:41 40 MG Nitroglycerin 0.4 mg Q5MINP PRN SL 11/13/24 23:00 Albuterol 2.5 mg Q6HP PRN NEB 11/14/24 06:00 11/18/24 06:24 2.5 MG Propofol 100 ml @ 3.93 mls/hr Q24H IV 11/16/24 16:00 Midazolam HCl 50 ml @ 1 mls/hr Q24H IV 11/16/24 16:00 11/18/24 06:57 3 MLS/HR Fentanyl Citrate 250 ml @ 2.5 mls/hr Q24H IV 11/16/24 16:00 11/18/24 11:43 10 MLS/HR Phenylephrine HCl 250 ml @ 30 mls/hr Q8H20M IV 11/17/24 01:00 11/17/24 10:00 30 MLS/HR Norepinephrine Bitartrate 32 mg/ Sodium Chloride 250 ml @ 0.938 mls/ hr Q24H IV 11/17/24 08:45 11/18/24 01:18 14.063 MLS/HR Vasopressin 20 units/Sodium Chloride 100 ml @ 9 mls/hr Q11H7M IV 11/17/24 10:15 11/17/24 10:30 9 MLS/HR Vancomycin HCl 0 ml @ 0 mls/hr UD IV 11/17/24 12:15 Vancomycin HCl 350 ml @ 200 mls/hr Q12H IV 11/17/24 16:00 11/18/24 04:06 200 MLS/HR Enoxaparin Sodium 40 mg DAILY SC 11/18/24 10:00 11/18/24 09:41 40 MG Amino Acids 0 ml @ 0 mls/hr PER PHARMACY IV 11/17/24 16:30 Diagnostic Test (Pha) 1 strip Q6HR 11/17/24 18:00 11/18/24 12:00 1 STRIP Insulin Human Regular FOLLOW SLIDING SCALE Q6HR SC 11/17/24 18:00 11/18/24 12:00 2 UNITS Dextrose 50 ml UD IV 11/17/24 16:45 Amino Acids/ Electrolytes/ Dextrose 1,000 ml @ 41 mls/hr DAILY@2200 IV 11/17/24 22:00 11/18/24 21:59 11/17/24 22:00 41 MLS/HR Fat Emulsion Intravenous 50 ml/ Potassium Acetate 30 meq/Potassium Phosphate 44 meq/ Magnesium Sulfate 10 meq/ Multivitamins 10 ml/Chromium/ Copper/Manganese/ Zinc 1 ml/Insulin Human Regular 5 units/Amino Acids/ Dextrose/Purified Water 1,088.55 ml @ 45 mls/hr [id number] IV 11/18/24 22:00 11/19/24 21:59 Metronidazole 100 ml @ 100 mls/hr Q8H IV 11/18/24 17:00 objective Gen: in bed intubated Cvs: N S1/S2, RRR Resp: Intubated sedated Abd: Morbidly Obese, ileostomy stoma looks well, incision site intact Buttonhole Maker Hand: Sedated laboratory and microbiology Laboratory Tests 11/18/24 03:00 Test 11/18/24 03:00 Range/Units Serum Glucose 195 H 74-106 mg/dL Problems(with codes): (1) 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 (2) Ischemic stricture intestine (3) Colonic obstruction (4) UTI (urinary tract infection) (5) Sepsis (6) Toxic colitis Prognosis Plan Continue conservative management Start IV TPN Continue IV antibiotics Possible albumin infusion to maintain blood pressure CPAP trial as per Pulmonary and main hospitalist team Await final pathology results Dietary Evaluation Review Comments: 1) Advance pt diet when medically feasible 2) Continue current plan of care Expected Outcomes/Goals: F/U in 2-3 days Plan discussed with: Other (ICU nurse) HARJINDER SEBASTIAN MD Nov 18, 2024 16:23
[2024-11-18] MEDS: metroNIDAZOLE 500MG/100ML 100 ML IV SCH (19:33)
[2024-11-18] MEDS: SODIUM PHOSPHATES 20 MEQ in SODIUM CHL 0.9% 100 ML IV ONE (20:45)
[2024-11-18] MEDS: TPN PER PHARMACY IV NR (22:07)
[2024-11-19] VITALS (108 sets, daily range): BP systolic 70–134; BP diastolic 39–96; PULSE 63–92; RESP 16–27; TEMP 97.3–99; O2SAT 96–100
[2024-11-19 04:07] LABS: Alanine Aminotransferase 11 U/L (7-40); Alkaline Phosphatase 67 U/L (46-116); Anion Gap 7 (5-15); Aspartate Aminotransferase 29 U/L (13-40); BUN/Creatinine Ratio 35.3 (10.0-20.0); Blood Urea Nitrogen 18 mg/dL (9-23); Carbon Dioxide 24 mmol/L (20-31); Sodium 138 mmol/L (136-145)
[2024-11-19 04:08] LABS: Phosphorus 2.5 mg/dL (2.4-5.1)
[2024-11-19 04:13] LABS: Hematocrit 26.4 % (36.0-46.0); Hemoglobin 8.5 g/dL (12.2-16.2); Mean Corpuscular Hemoglobin 27.1 pg (28.0-32.0); Mean Corpuscular Hgb Conc. 32.4 g/dL (32.0-36.0); Mean Corpuscular Volume 83.7 fL (80.0-100.0); Platelet Count (auto) 186 10^3/uL (140-450); Red Blood Cells 3.16 10^6/uL (4.0-5.20); Red Cell Distribution Width 16.1 % (11.8-14.3); White Blood Cell 15.4 10^3/uL (4.4-10.8)
[2024-11-19 04:22] LABS: Albumin 2.5 g/dL (3.2-4.8); Calcium 7.8 mg/dL (8.7-10.4); Chloride 107 mmol/L (98-107); Glucose 138 mg/dL (74-106); Potassium 3.3 mmol/L (3.5-5.1); Total Protein 4.2 g/dL (5.7-8.2)
[2024-11-19 04:23] LABS: Magnesium 1.5 mg/dL (1.6-2.6)
[2024-11-19 04:26] LABS: Band Neutrophils % (manual) 0; Basophils % (manual) 0 (0.0-2.0); Blast Cells 0; Metamyelocytes % 0; Myelocytes % 0; Promyelocytes % 0; Reactive Lymphocytes 0
[2024-11-19 05:00] LABS: Eosinophils % (manual) 4 (0-7); Lymphocytes % (manual) 14 (10.0-50.0); Monocytes % (manual) 7 (0-12); Platelet Estimate Adequate
--- NOTE | 2024-11-19 05:41 | DVH ---
CHEST RADIOGRAPH Indication: f/u Technique: Single frontal view of the chest was obtained Comparison: XY CHEST XRAY 1 VIEW on DOS: 11/18/24, XY CHEST PORTABLE on DOS: 11/17/24, XY CHEST XRAY 1 VIEW on DOS: 11/16/24 IMPRESSION: The heart appears normal in size. The right lung appears relatively clear. There is obscuration of the left hemidiaphragm which may be on the basis of effusion, atelectasis, or basilar consolidation. Support lines and tubes appear unchanged.
[2024-11-19] MEDS: POTASSIUM CHL 20MEQ/100ML 100 ML IV ONE ×2 (06:00→09:04)
[2024-11-19 08:20] LABS: Base Excess -2.5 mmol/L (-2.0-3.0)
[2024-11-19] MEDS: MAGNESIUM SULFATE 1GM/100ML 100 ML IV SCH (10:33)
[2024-11-19] MEDS: POTASSIUM PHOSPHATE 22 MEQ in SODIUM CHL 0.9% 100 ML IV ONE (11:16)
[2024-11-19] MEDS: HYDROCORTISONE SOD SUCC 100 MG/2ML INJ VIAL IV SCH (11:49)
--- NOTE | 2024-11-19 13:01 | DVHPN2 ---
Subjective chart reviwed/d/w nursing and daughter Changes from previous H/P or p: No Changes Objective Vitals Vital Signs Date Time Temp Pulse Resp B/P (MAP) Pulse Ox O2 Delivery O2 Flow Rate FiO2 11/19/24 11:36 80 22 113/39 (63) 100 30 11/19/24 11:00 98.8 209.8 11/19/24 08:00 Mechanical Ventilator+ Intake/Output Intake and Output 11/19/24 07:00 Intake Total 3629.731 ml Output Total 1385 ml Balance 2244.731 ml Intake Oral 0 ml IV Total 3629.731 ml Output Urine Total 675 ml Stool Total 250 ml Gastric Drainage Total 200 ml Drainage Total 260 ml General Appearance: Other (intuabed and sedated) HEENT: PERRLA Lungs: Clear to auscultation Cardiovascular: Regular rate, Normal S1, Normal S2 Abdomen: Normal bowel sounds, Soft, No tenderness, Other (ileostomy draining) Musculoskeletal: Other (intubated/sedated//responds to noxious stimulii) Extremities: No edema Medications Current Medications Medications Dose Ordered Sig/Sylvie Route Start Time Stop Time Status Last Admin Dose Admin Pantoprazole Sodium 40 mg DAILY IV 11/14/24 10:00 11/19/24 08:46 40 MG Nitroglycerin 0.4 mg Q5MINP PRN SL 11/13/24 23:00 Albuterol 2.5 mg Q6HP PRN NEB 11/14/24 06:00 11/19/24 06:41 2.5 MG Propofol 100 ml @ 3.93 mls/hr Q24H IV 11/16/24 16:00 Fentanyl Citrate 250 ml @ 2.5 mls/hr Q24H IV 11/16/24 16:00 11/19/24 07:58 10 MLS/HR Phenylephrine HCl 250 ml @ 30 mls/hr Q8H20M IV 11/17/24 01:00 11/17/24 10:00 30 MLS/HR Norepinephrine Bitartrate 32 mg/ Sodium Chloride 250 ml @ 0.938 mls/ hr Q24H IV 11/17/24 08:45 11/18/24 19:08 10.313 MLS/HR Vasopressin 20 units/Sodium Chloride 100 ml @ 9 mls/hr Q11H7M IV 11/17/24 10:15 11/17/24 10:30 9 MLS/HR Vancomycin HCl 0 ml @ 0 mls/hr UD IV 11/17/24 12:15 Enoxaparin Sodium 40 mg DAILY SC 11/18/24 10:00 11/19/24 08:46 40 MG Amino Acids 0 ml @ 0 mls/hr PER PHARMACY IV 11/17/24 16:30 Diagnostic Test (Pha) 1 strip Q6HR 11/17/24 18:00 11/19/24 11:48 1 STRIP Insulin Human Regular FOLLOW SLIDING SCALE Q6HR SC 11/17/24 18:00 11/19/24 06:07 2 UNITS Dextrose 50 ml UD IV 11/17/24 16:45 Fat Emulsion Intravenous 50 ml/ Potassium Acetate 30 meq/Potassium Phosphate 44 meq/ Magnesium Sulfate 10 meq/ Multivitamins 10 ml/Chromium/ Copper/Manganese/ Zinc 1 ml/Insulin Human Regular 5 units/Amino Acids/ Dextrose/Purified Water 1,088.55 ml @ 45 mls/hr [id number] IV 11/18/24 22:00 11/19/24 21:59 11/18/24 22:07 45 MLS/HR Metronidazole 100 ml @ 100 mls/hr Q8H IV 11/18/24 17:00 11/19/24 08:46 100 MLS/HR Hydrocortisone Sodium Succinate 50 mg Q8HR IV 11/19/24 14:00 11/19/24 11:49 50 MG Fat Emulsion Intravenous 100 ml/Sodium Acetate 20 meq/Potassium Acetate 40 meq/ Potassium Phosphate 44 meq/ Calcium Gluconate 2.3 meq/Magnesium Sulfate 14 meq/ Multivitamins 10 ml/Chromium/ Copper/Manganese/ Zinc 1 ml/Insulin Human Regular 8 units/Amino Acids/ Dextrose/Purified Water 1,459.5262 ml @ 61 mls/hr [id number] IV 11/19/24 22:00 11/20/24 21:59 Laboratory Results Laboratory Tests 11/19/24 03:26 Chemistry Test 11/19/24 03:26 Albumin 2.5 g/dL (3.2-4.8) L Calcium Level 7.8 mg/dL (8.7-10.4) L Magnesium Level 1.5 mg/dL (1.6-2.6) L Phosphorus Level 2.5 mg/dL (2.4-5.1) Total Protein 4.2 g/dL (5.7-8.2) L LFT Test 11/19/24 03:26 Alanine Aminotransferase (ALT) 11 U/L (7-40) Alkaline Phosphatase 67 U/L (46-116) Aspartate Amino Transferase (AST) 29 U/L (13-40) Total Bilirubin 1.0 mg/dL (0.2-1.0) Urinalysis Test 11/13/24 21:25 11/14/24 13:20 Urine WBC Clumps Present /hpf (None Seen) Urine Color [place] (Yellow) H Urine Clarity Ex.turbid (Clear) Urine pH 6.5 (5.0-9.0) Urine Specific [place] 1.037 (1.001-1.035) Urine Protein 2+ (Negative) H Urine Ketones Trace (Negative) Urine Blood 2+ /uL (Negative) H Urine Nitrite Negative (Negative) Urine Bilirubin 1+ (Negative) H Urine Urobilinogen 3 mg/dL (Negative) H Urine Leukocyte Esterase 3+ /uL (Negative) Urine RBC 81 /hpf (0 - 4) Urine WBC 330 /hpf (0 - 5) Urine Squamous Epithelial Cells Mod /hpf (<5) Urine Bacteria None seen /hpf (None Seen) Urine Mucus Few (None Seen) Urine Osmolality 824 mOsm/kg Urine Creatinine 94.06 mg/dL (30.0-125.0) Urine Protein/Creatinine Ratio 1.34 Urine Sodium < 10 mmol/L (40-220) L Urine Glucose Normal mg/dL (Normal) Urine Total Protein 126.5 mg/dL (1-14) H Blood Gas Results Test 11/19/24 08:11 Arterial Blood pH 7.415 (7.350-7.450) FiO2 % 30.0 Microbiology Microbiology Date/Time Source Procedure Growth Status 11/16/24 23:50 Urine - [place] Urine Culture - Final Complete 11/16/24 17:20 Sputum Gram Stain - Final Resulted 11/16/24 17:20 Sputum Respiratory Culture - Preliminary Resulted 11/16/24 17:10 Nose MRSA Screen - Final Complete 11/13/24 20:26 Blood Blood Culture - Final NO GROWTH AFTER 5 DAYS OF INCUBATION. Complete Labs and/or images reviewed: Labs reviewed by me, Image(s) reviewed by me Assessment/Plan Assessment/Plan s/p explorative lap- for suspected ischemic colitis/but biopsy showed adenocarcinoma- s/p extensive colectemy sepsis due to above acute respiratory failure due to sepis- was on three pressors/NOW only on one pressor- levophed at 22mcg septic shock- on levophed s/p ileostomy status obesity dvt prophylaxis gi prophylaxis h/o multiple sctlerosis adenocarcinoma colon- s/p colectemy leucocytosis due to steroids/incision clean/abdomen soft/no tracheal secretions/normal urine culture- on cefipime/vanc/flafyl Plan discussed with: Daughter, Other Date of Service: Nov 19, 2024 Billing Provider: RAMIN WILSON MD Common Visit Codes: [id number] CARE 30-74 MIN RAMIN WILSON MD Nov 19, 2024 13:01
[2024-11-19] MEDS: PIPERACILLIN-TAZOB 3.375GM 100 ML IV ONE (13:48)
--- NOTE | 2024-11-19 18:53 | DVHINCON2 ---
Date of service: Nov 19, 2024 Referring Physician Jahaira Erazo MD Reason for Consultation Acute hypoxic respiratory failure requiring mechanical ventilator History of Present Illness A 64-year-old woman with past medical history of asthma, multiple sclerosis and cerebral hematoma who presented to ED on 11/14/24 for evaluation of abdominal pain. Patient resides at a [facility] facility. She presented with a 2-day history of diffuse abdominal pain with associated distention, also reported episodes of nausea without vomiting. Denied diarrhea. No fever or chills. No other acute complaints reported. Patient was admitted for further care. Pulmonary consultation is requested for evaluation and management of acute hypoxic respiratory failure requiring mechanical ventilator. Review of Systems: 14-point review of systems negative unless otherwise noted above. Past Medical History: Asthma Multiple sclerosis Cerebral hematoma Past Surgical History: Craniectomy Medications: Reviewed. Allergies: Hydrocodone, iodine. Family History: Cancer, heart disease. Social History: Nonsmoker. No alcohol or illicit drug use. Family History: Cancer Family history: Cardiovascular disease Allergies: Coded Allergies: Iodine (Verified Allergy, Unknown, 11/15/24) Home Meds Reported Medications Glatiramer Acetate (Copaxone) 20 Mg/Ml Kit, SC 11/15/24 Tolterodine Tartrate (Tolterodine Tartrate ER) 4 Mg Cap, 1 CAP PO DAILY 11/15/24 Paroxetine Hydrochloride (Paroxetine Hydrochloride) 10 Mg Tab, 1 TAB PO DAILY 11/15/24 Ropinirole Hydrochloride (Ropinirole Hcl) 0.25 Mg Tab, 1 PO DAILY 11/15/24 Albuterol Sulfate (Albuterol Sulfate Hfa) 108 Mcg/Act Aer, INH 11/15/24 Baclofen (Baclofen) 10 Mg Tab, 1 TAB PO BID 11/15/24 Paroxetine (PAXIL TABLET) 20 Mg Tb, 12.5 MG PO DAILY 04/03/14 Current Medications Current Medications Medications (Trade) Dose Ordered Sig/Sylvie Route PRN Reason Start Time Stop Time Status Last Admin Fat Emulsion Intravenous 50 ml/ Potassium Acetate 30 meq/Potassium Phosphate 44 meq/ Magnesium Sulfate 10 meq/ Multivitamins 10 ml/Chromium/ Copper/Manganese/ Zinc 1 ml/Insulin Human Regular 5 units/Amino Acids/ Dextrose/Purified Water 1,088.55 ml @ 45 mls/hr [id number] IV 11/18/24 22:00 11/19/24 21:59 11/18/24 22:07 Magnesium Sulfate/ Dextrose 100 ml @ 100 mls/hr Q1HR IV 11/19/24 09:00 11/19/24 10:59 DC 11/19/24 11:20 Hydrocortisone Sodium Succinate (Solu-CORTEF INJECTION) 50 mg Q8HR IV 11/19/24 14:00 11/19/24 11:49 Fat Emulsion Intravenous 100 ml/Sodium Acetate 20 meq/Potassium Acetate 40 meq/ Potassium Phosphate 44 meq/ Calcium Gluconate 2.3 meq/Magnesium Sulfate 14 meq/ Multivitamins 10 ml/Chromium/ Copper/Manganese/ Zinc 1 ml/Insulin Human Regular 8 units/Amino Acids/ Dextrose/Purified Water 1,459.5262 ml @ 61 mls/hr [id number] IV 11/19/24 22:00 11/20/24 21:59 Piperacillin Sod/ Tazobactam Sod 100 ml @ 25 mls/hr Q8HR IV 11/19/24 22:00 Vital Signs Vital Signs Date Time Temp Pulse Resp B/P (MAP) Pulse Ox O2 Delivery O2 Flow Rate FiO2 11/19/24 18:29 97 Mechanical Ventilator+ 30 30 11/19/24 18:29 68 16 112/92 (99) 11/19/24 18:00 30 11/19/24 18:00 98.2 208.8 Physical Exam Gen.: Patient lying in bed in medical ICU. Sedated, intubated on mechanical ventilator. Head: Normocephalic, atraumatic. Eyes: PERRLA. Ears: Normal external anatomy. Throat: Endotracheal tube and orogastric tube in place. Neck: Supple, trachea midline. Chest: Transmitted breath sounds bilaterally. Decreased air entry bilaterally. No wheezing. Bibasilar crackles. Cardiovascular: Positive S1, positive S2. Regular rate and rhythm. Abdomen: Positive bowel sounds in all 4 quadrants. Soft, nontender, nondistend ed. : [place] in place. Normal external genitalia. Rectal: Deferred. Skin: Warm, dry. Intact. Extremities: 2+ radial pulses bilaterally. No lower extremity edema. Neuro: Sedated. Labs/Diagnostic Data Labs Test 11/19/24 16:42 11/19/24 08:11 11/19/24 03:26 11/18/24 03:00 Range/Units POC Glucose 172 H 70-106 mg/dl Blood Gas Specimen Type Arterial Blood Gas Sample Site Arterial line Blood Gas Patient Temperature 37.0 Arterial Blood Date Drawn [id number] Arterial Blood pH 7.415 7.350-7.450 Arterial Blood Partial Pressure CO2 34.3 32.0-45.0 mmHg Arterial Blood Partial Pressure O2 99.3 83.0-108.0 mmHg Arterial Blood HCO3 21.5 21.0-28.0 mmol/L Arterial Blood Oxygen Saturation 97.9 94.0-98.0 % Arterial Blood Base Excess -2.5 L -2.0-3.0 mmol/L Arterial Blood Oxyhemoglobin 96.3 94.0-98.0 % Arterial Blood Carboxyhemoglobin 1.3 0.5-1.5 % Arterial Blood Methemoglobin 0.3 0.0-1.5 % Abilio Test N/a Blood Gas Total Hemoglobin 10.20 L 12.0-16.0 g/dL Blood Gas Set Respiration Rate 16.0 Blood Gas Modality Vent - ac Blood Gas Spontaneous Rate 17 FiO2 % 30.0 Blood Gas Tidal Volume 500.0 Blood Gas PEEP or CPAP 5.0 White Blood Count 15.4 H 4.4-10.8 10^3/uL Red Blood Count 3.16 L 4.0-5.20 10^6/uL Hemoglobin 8.5 L 12.2-16.2 g/dL Hematocrit 26.4 #L 36.0-46.0 % Mean Corpuscular Volume 83.7 80.0-100.0 fL Mean Corpuscular Hemoglobin 27.1 L 28.0-32.0 pg Mean Corpuscular Hemoglobin Concent 32.4 32.0-36.0 g/dL Red Cell Distribution Width 16.1 H 11.8-14.3 % Platelet Count 186 140-450 10^3/uL Mean Platelet Volume 7.6 6.9-10.8 fL Neutrophils (%) (Auto) 37.0-80.0 % Lymphocytes (%) (Auto) 10.0-50.0 % Monocytes (%) (Auto) 0.0-12.0 % Basophils (%) (Auto) 0.0-2.0 % Neutrophils # (Auto) 1.6-8.6 10 ^3/uL Lymphocytes # (Auto) 0.4-5.4 10 ^3/uL Monocytes # (Auto) 0-1.3 10 ^3/uL Differential Total Cells Counted 100.0 100 Neutrophils % (Manual) 75 37.0-80.0 Band Neutrophils % (Manual) 0 Lymphocytes % (Manual) 14 10.0-50.0 Monocytes % (Manual) 7 0-12 Eosinophils % (Manual) 4 0-7 Basophils % (Manual) 0 0.0-2.0 Metamyelocytes % (manual) 0 Myelocytes % (Manual) 0 Promyelocytes % (Manual) 0 Blast Cells % (Manual) 0 Reactive Lymphocytes 0 Platelet Estimate Adequate Sodium Level 138 136-145 mmol/L Potassium Level 3.3 L 3.5-5.1 mmol/L Chloride Level 107 98-107 mmol/L Carbon Dioxide Level 24 20-31 mmol/L Anion Gap 7 5-15 Blood Urea Nitrogen 18 9-23 mg/dL Creatinine 0.51 #L 0.550-1.02 mg/dL Glomerular Filtration Rate Calc 104 >90 mL/min BUN/Creatinine Ratio 35.3 H 10.0-20.0 Serum Glucose 138 H 74-106 mg/dL Calcium Level 7.8 L 8.7-10.4 mg/dL Phosphorus Level 2.5 2.4-5.1 mg/dL Magnesium Level 1.5 L 1.6-2.6 mg/dL Total Bilirubin 1.0 0.2-1.0 mg/dL Aspartate Amino Transferase (AST) 29 13-40 U/L Alanine Aminotransferase (ALT) 11 7-40 U/L Alkaline Phosphatase 67 46-116 U/L Total Protein 4.2 L 5.7-8.2 g/dL Albumin 2.5 L 3.2-4.8 g/dL Vancomycin Level Trough 28.9 H 5-10 ug/mL Eosinophils (%) (Auto) 0.5 0.0-7.0 % Eosinophils # (Auto) 0.1 0-0.8 10 ^3/uL Basophils # (Auto) 0 0-0.2 10 ^3/uL Nucleated Red Blood Cells 0.0 % Reticulocyte Count (auto) 1.23 0.5-1.5 % Lactate Dehydrogenase 330 H 120-246 U/L Triglycerides Level 65 < 150 mg/dL Test 11/17/24 07:04 11/16/24 17:53 11/16/24 05:23 11/15/24 22:22 Range/Units Blood Gas Inspiratory Pressure 24.0 Bl Gas Inspiratory/Expiratory Ratio 1:2.8 Specimen Drawn By [facility] Blood Gas Critical Value Read Back Yes Blood Gas Notified Whom ganesh Light md Blood Gas Notified Time [id number] Blood Gas Notified By tim Hinojosa rrt Carcinoembryonic Antigen 45.58 <=5.0 ng/mL Hemoglobin A1c 5.7 <5.7 % A1C Thyroid Stimulating Hormone (TSH) 1.83 0.55-4.78 uIU/mL Test 11/14/24 21:07 11/14/24 13:20 11/14/24 09:04 11/14/24 05:51 Range/Units B-Type Natriuretic Peptide 29.44 0-100 pg/mL Vitamin D 25-Hydroxy 4.6 L 30.0-100 ng/mL Urine Color [place] H Yellow Urine Clarity Ex.turbid Clear Urine pH 6.5 5.0-9.0 Urine Specific [place] 1.037 H 1.001-1.035 Urine Protein 2+ H Negative Urine Ketones Trace Negative Urine Blood 2+ H Negative /uL Urine Nitrite Negative Negative Urine Bilirubin 1+ H Negative Urine Urobilinogen 3 H Negative mg/dL Urine Leukocyte Esterase 3+ Negative /uL Urine RBC 81 0 - 4 /hpf Urine WBC 330 0 - 5 /hpf Urine Squamous Epithelial Cells Mod <5 /hpf Urine Bacteria None seen None Seen /hpf Urine Mucus Few None Seen Urine Osmolality 824 mOsm/kg Urine Creatinine 94.06 30.0-125.0 mg/dL Urine Protein/Creatinine Ratio 1.34 Urine Sodium < 10 L 40-220 mmol/L Urine Glucose Normal Normal mg/dL Urine Total Protein 126.5 H 1-14 mg/dL Lactic Acid Level 2.0 0.4-2.0 mmol/L Parathyroid Hormone (Intact) 115.5 H 18.4-80.1 pg/mL Test 11/13/24 23:00 11/13/24 21:25 11/13/24 20:10 11/13/24 19:07 Range/Units Troponin I High Sensitivity 3 L </=34 ng/L Urine WBC Clumps Present None Seen /hpf Lipase 30 12-53 U/L Plasma/Serum Blood Alcohol < 3.0 <10 mg/dL Prothrombin Time 12.5 H 9.3-11.8 sec Prothrombin Time INR 1.19 H 0.9-1.15 Activated Partial Thromboplast Time 32.2 24.5-34.5 SEC Ammonia 17 11-32 umol/L Microbiology Date/Time Source Procedure Growth Status 11/16/24 23:50 Urine - [place] Urine Culture - Final Complete 11/16/24 17:20 Sputum Gram Stain - Final Resulted 11/16/24 17:20 Sputum Respiratory Culture - Preliminary Resulted 11/16/24 17:10 Nose MRSA Screen - Final Complete 11/13/24 20:26 Blood Blood Culture - Final NO GROWTH AFTER 5 DAYS OF INCUBATION. Complete Assessment Impression: Acute hypoxic respiratory failure On mechanical ventilator Colitis, toxic megacolon Urinary tract infection Leukocytosis Morbid obesity Plan: s/p intubation on mechanical ventilator. CXR image and report reviewed. Devices in place. LLL opacities. ABG reviewed, compensated. On AC mode; RR 16, VT 500, PEEP 5, FiO2 30% Titrate FIO2 to keep O2 saturation above 90%. VAP bundle. Daily ABG and CXR while intubated Sedate for ventilator synchrony- on Fentanyl drip; off Versed. Monitor ET tube secretions Continue bronchodilators. Continue antibiotics. F/u cultures. Albumin TPN for nutritional support On pressors for hemodynamic support Levophed 22 mcg/min Titrate to keep mean arterial pressure greater than 65 mmHg Start stress dose steroids Hydrocortisone 50 mg IVP q.8 hours Monitor renal function Monitor electrolytes. Supplement as necessary. Monitor ins and outs. Supplement electrolytes; K, mag, phos 20 mEq KCl given; magnesium 2 g GI prophylaxis. DVT prophylaxis. Prognosis: Poor given patient's multiple co-morbidities. Condition: Critical Rest of plan per hospitalist and other consultants. A total of 35 minutes of critical care time was spent reviewing the patient re cord, examining the patient, making a diagnostic and therapeutic plan, discussing this plan with the medical personnel, following up on diagnostic studies and following the patient for clinical stability excluding any and all procedures. At least 50% of this time was spent in direct, [id number] contact. Thank you, Dr. Erazo, for allowing me to participate in this patient's care. Further recommendations will depend on the patient's clinical course. Please do not hesitate to contact me if you have any questions or concerns. This medical document was created using an electronic medical record system with [employer] dictation system. Although these documentations are being carefully reviewed, there may still be some phonetic and typographical changes. The errors are purely typographical, due to imperfection on the software program, and do not reflect any compromise in the patient's medical care. Plan discussed with: Other (JOSH Gunderson/MD Erazo) ROSE MARY JOLLEY MD Nov 19, 2024 18:53
--- NOTE | 2024-11-19 19:37 | DVHPN2 ---
Progress Note - Dictate Date Seen: Nov 19, 2024 Medical Necessity Reason Pt with a Central, PICC or Fol: Yes The following are medically ne: Central Line, [place] Catheter Subjective Patient was seen in ICU 109 She is intubated and sedated Patient is hemodynamically stable She is on FiO2 30% and PEEP of 5 Levophed is being tapered down Patient is on IV TPN Patient ileostomy is functional and LIANNE drain output is about 50 mL clear serosanguineous somewhat blood-tinged material Patient underwent a laparotomy with extended right hemicolectomy up to the proximal descending colon yesterday She was diagnosed with adenocarcinoma of the splenic flexure on colonoscopy biopsies and frozen section vital signs Vital Sign Date Time Temp Pulse Resp B/P (MAP) Pulse Ox O2 Delivery O2 Flow Rate FiO2 11/19/24 18:45 98.1 75 16 107/87 (94) 97 208.6 118/54 (75) 11/19/24 18:29 Mechanical Ventilator+ 30 30 11/19/24 18:00 30 Total Intake and Output 11/18/24 11/18/24 11/19/24 15:00 23:00 07:00 Intake Total 1315.725 ml 1665.252 ml 648.754 ml Output Total 470 ml 915 ml Balance 1315.725 ml 1195.252 ml -266.246 ml medications Current Medications Medications Dose Ordered Sig/Yslvie Route Start Time Stop Time Status Last Admin Dose Admin Pantoprazole Sodium 40 mg DAILY IV 11/14/24 10:00 11/19/24 08:46 40 MG Nitroglycerin 0.4 mg Q5MINP PRN SL 11/13/24 23:00 Albuterol 2.5 mg Q6HP PRN NEB 11/14/24 06:00 11/19/24 18:27 2.5 MG Propofol 100 ml @ 3.93 mls/hr Q24H IV 11/16/24 16:00 Fentanyl Citrate 250 ml @ 2.5 mls/hr Q24H IV 11/16/24 16:00 11/19/24 07:58 10 MLS/HR Phenylephrine HCl 250 ml @ 30 mls/hr Q8H20M IV 11/17/24 01:00 11/17/24 10:00 30 MLS/HR Norepinephrine Bitartrate 32 mg/ Sodium Chloride 250 ml @ 0.938 mls/ hr Q24H IV 11/17/24 08:45 11/18/24 19:08 10.313 MLS/HR Vasopressin 20 units/Sodium Chloride 100 ml @ 9 mls/hr Q11H7M IV 11/17/24 10:15 11/17/24 10:30 9 MLS/HR Vancomycin HCl 0 ml @ 0 mls/hr UD IV 11/17/24 12:15 Enoxaparin Sodium 40 mg DAILY SC 11/18/24 10:00 11/19/24 08:46 40 MG Amino Acids 0 ml @ 0 mls/hr PER PHARMACY IV 11/17/24 16:30 Diagnostic Test (Pha) 1 strip Q6HR 11/17/24 18:00 11/19/24 16:41 1 STRIP Insulin Human Regular FOLLOW SLIDING SCALE Q6HR SC 11/17/24 18:00 11/19/24 16:49 4 UNITS Dextrose 50 ml UD IV 11/17/24 16:45 Fat Emulsion Intravenous 50 ml/ Potassium Acetate 30 meq/Potassium Phosphate 44 meq/ Magnesium Sulfate 10 meq/ Multivitamins 10 ml/Chromium/ Copper/Manganese/ Zinc 1 ml/Insulin Human Regular 5 units/Amino Acids/ Dextrose/Purified Water 1,088.55 ml @ 45 mls/hr [id number] IV 11/18/24 22:00 11/19/24 21:59 11/18/24 22:07 45 MLS/HR Metronidazole 100 ml @ 100 mls/hr Q8H IV 11/18/24 17:00 11/19/24 16:41 100 MLS/HR Hydrocortisone Sodium Succinate 50 mg Q8HR IV 11/19/24 14:00 11/19/24 11:49 50 MG Fat Emulsion Intravenous 100 ml/Sodium Acetate 20 meq/Potassium Acetate 40 meq/ Potassium Phosphate 44 meq/ Calcium Gluconate 2.3 meq/Magnesium Sulfate 14 meq/ Multivitamins 10 ml/Chromium/ Copper/Manganese/ Zinc 1 ml/Insulin Human Regular 8 units/Amino Acids/ Dextrose/Purified Water 1,459.5262 ml @ 61 mls/hr [id number] IV 11/19/24 22:00 11/20/24 21:59 Piperacillin Sod/ Tazobactam Sod 100 ml @ 25 mls/hr Q8HR IV 11/19/24 22:00 objective Gen: in bed intubated Cvs: N S1/S2, RRR Resp: Intubated sedated Abd: Morbidly Obese, ileostomy stoma looks well, incision site intact Medical Psychotherapist: Sedated laboratory and microbiology Laboratory Tests 11/19/24 03:26 Test 11/19/24 03:26 Range/Units Serum Glucose 138 H 74-106 mg/dL Problems(with codes): (1) Left lower lobe pulmonary infiltrate (2) 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
[2024-11-19] MEDS: PIPERACILLIN-TAZOB 3.375GM 100 ML IV SCH (22:10)
[2024-11-19] MEDS: TPN PER PHARMACY IV NR (22:16)
[2024-11-20] VITALS (105 sets, daily range): BP systolic 65–141; BP diastolic 39–108; PULSE 54–88; RESP 15–28; TEMP 97.2–98.8; O2SAT 94–100
[2024-11-20 04:10] LABS: Hemoglobin 8.7 g/dL (12.2-16.2); Mean Corpuscular Hemoglobin 27.8 pg (28.0-32.0); Mean Corpuscular Hgb Conc. 33.3 g/dL (32.0-36.0); Mean Corpuscular Volume 83.4 fL (80.0-100.0); Platelet Count (auto) 192 10^3/uL (140-450); Red Blood Cells 3.12 10^6/uL (4.0-5.20); Red Cell Distribution Width 16.2 % (11.8-14.3); White Blood Cell 16.6 10^3/uL (4.4-10.8)
[2024-11-20 04:28] LABS: Alanine Aminotransferase 12 U/L (7-40); Alkaline Phosphatase 80 U/L (46-116); Anion Gap 6 (5-15); Aspartate Aminotransferase 24 U/L (13-40); BUN/Creatinine Ratio 23.5 (10.0-20.0); Bilirubin, Total 0.7 mg/dL (0.2-1.0); Blood Urea Nitrogen 12 mg/dL (9-23); Carbon Dioxide 25 mmol/L (20-31); Chloride 106 mmol/L (98-107); Magnesium 2.1 mg/dL (1.6-2.6); Phosphorus 2.7 mg/dL (2.4-5.1); Potassium 4.1 mmol/L (3.5-5.1); Sodium 137 mmol/L (136-145)
[2024-11-20 04:51] LABS: Albumin 2.5 g/dL (3.2-4.8); Calcium 8.3 mg/dL (8.7-10.4); Glucose 189 mg/dL (74-106); Total Protein 4.4 g/dL (5.7-8.2)
[2024-11-20 05:11] LABS: Basophils % (manual) 0 (0.0-2.0); Eosinophils % (manual) 0 (0-7); Metamyelocytes % 0
[2024-11-20 05:12] LABS: Blast Cells 0; Promyelocytes % 0; Reactive Lymphocytes 0
[2024-11-20 07:03] LABS: Band Neutrophils % (manual) 6; Lymphocytes % (manual) 5 (10.0-50.0); Monocytes % (manual) 8 (0-12)
[2024-11-20 07:04] LABS: Myelocytes % 1; Platelet Estimate Adequate
[2024-11-20 08:37] LABS: Base Excess -1.3 mmol/L (-2.0-3.0)
--- NOTE | 2024-11-20 09:03 | MEDREC ---
[facility] Intervention Section I [facility] Intervention: Duplication of therapy (PLEASE CONSIDER D/C FLAGYL SINCE BOTH ZOSYN AND FLAGYL COVER FOR ANAEROBE ORGANISMS (DUPLICATE) ) GREY RANKIN PHARMACIST Nov 20, 2024 09:03
--- NOTE | 2024-11-20 10:29 | DVHPN2 ---
Subjective chart reviwed/d/w nursing NO EVENTS THRU THE NIGHT Changes from previous H/P or p: No Changes Objective Vitals Vital Signs Date Time Temp Pulse Resp B/P (MAP) Pulse Ox O2 Delivery O2 Flow Rate FiO2 11/20/24 10:13 74 16 99/49 (66) 97 30 11/20/24 08:15 97.2 207.0 11/20/24 08:00 Mechanical Ventilator+ 30 Intake/Output Intake and Output 11/20/24 07:00 Intake Total 2757.004 ml Output Total 1780 ml Balance 977.004 ml Intake Oral 0 ml IV Total 2757.004 ml Output Urine Total 1275 ml Stool Total 275 ml Gastric Drainage Total 50 ml Drainage Total 180 ml General Appearance: Other (intuabed and sedated) HEENT: PERRLA Lungs: Clear to auscultation Cardiovascular: Regular rate, Normal S1, Normal S2 Abdomen: Normal bowel sounds, Soft, No tenderness, Other (ileostomy draining) Musculoskeletal: Other (intubated/sedated//responds to noxious stimulii) Extremities: No edema Medications Current Medications Medications Dose Ordered Sig/Sylvie Route Start Time Stop Time Status Last Admin Dose Admin Pantoprazole Sodium 40 mg DAILY IV 11/14/24 10:00 11/20/24 07:27 40 MG Nitroglycerin 0.4 mg Q5MINP PRN SL 11/13/24 23:00 Albuterol 2.5 mg Q6HP PRN NEB 11/14/24 06:00 11/20/24 07:00 2.5 MG Propofol 100 ml @ 3.93 mls/hr Q24H IV 11/16/24 16:00 Fentanyl Citrate 250 ml @ 2.5 mls/hr Q24H IV 11/16/24 16:00 11/20/24 09:55 20 MLS/HR Phenylephrine HCl 250 ml @ 30 mls/hr Q8H20M IV 11/17/24 01:00 11/17/24 10:00 30 MLS/HR Norepinephrine Bitartrate 32 mg/ Sodium Chloride 250 ml @ 0.938 mls/ hr Q24H IV 11/17/24 08:45 11/18/24 19:08 10.313 MLS/HR Vasopressin 20 units/Sodium Chloride 100 ml @ 9 mls/hr Q11H7M IV 11/17/24 10:15 11/17/24 10:30 9 MLS/HR Vancomycin HCl 0 ml @ 0 mls/hr UD IV 11/17/24 12:15 Enoxaparin Sodium 40 mg DAILY SC 11/18/24 10:00 11/20/24 07:27 40 MG Amino Acids 0 ml @ 0 mls/hr PER PHARMACY IV 11/17/24 16:30 Diagnostic Test (Pha) 1 strip Q6HR 11/17/24 18:00 11/20/24 05:46 1 STRIP Insulin Human Regular FOLLOW SLIDING SCALE Q6HR SC 11/17/24 18:00 11/20/24 05:54 4 UNITS Dextrose 50 ml UD IV 11/17/24 16:45 Metronidazole 100 ml @ 100 mls/hr Q8H IV 11/18/24 17:00 11/20/24 07:27 100 MLS/HR Hydrocortisone Sodium Succinate 50 mg Q8HR IV 11/19/24 14:00 11/20/24 05:46 50 MG Fat Emulsion Intravenous 100 ml/Sodium Acetate 20 meq/Potassium Acetate 40 meq/ Potassium Phosphate 44 meq/ Calcium Gluconate 2.3 meq/Magnesium Sulfate 14 meq/ Multivitamins 10 ml/Chromium/ Copper/Manganese/ Zinc 1 ml/Insulin Human Regular 8 units/Amino Acids/ Dextrose/Purified Water 1,459.5262 ml @ 61 mls/hr [id number] IV 11/19/24 22:00 11/20/24 21:59 11/19/24 22:16 61 MLS/HR Piperacillin Sod/ Tazobactam Sod 100 ml @ 25 mls/hr Q8HR IV 11/19/24 22:00 11/20/24 05:49 25 MLS/HR Laboratory Results Laboratory Tests 11/20/24 03:35 Chemistry Test 11/20/24 03:35 Albumin 2.5 g/dL (3.2-4.8) L Calcium Level 8.3 mg/dL (8.7-10.4) L Magnesium Level 2.1 mg/dL (1.6-2.6) Phosphorus Level 2.7 mg/dL (2.4-5.1) Total Protein 4.4 g/dL (5.7-8.2) L LFT Test 11/20/24 03:35 Alanine Aminotransferase (ALT) 12 U/L (7-40) Alkaline Phosphatase 80 U/L (46-116) Aspartate Amino Transferase (AST) 24 U/L (13-40) Total Bilirubin 0.7 mg/dL (0.2-1.0) Urinalysis Test 11/13/24 21:25 11/14/24 13:20 Urine WBC Clumps Present /hpf (None Seen) Urine Color [place] (Yellow) H Urine Clarity Ex.turbid (Clear) Urine pH 6.5 (5.0-9.0) Urine Specific [place] 1.037 (1.001-1.035) Urine Protein 2+ (Negative) H Urine Ketones Trace (Negative) Urine Blood 2+ /uL (Negative) H Urine Nitrite Negative (Negative) Urine Bilirubin 1+ (Negative) H Urine Urobilinogen 3 mg/dL (Negative) H Urine Leukocyte Esterase 3+ /uL (Negative) Urine RBC 81 /hpf (0 - 4) Urine WBC 330 /hpf (0 - 5) Urine Squamous Epithelial Cells Mod /hpf (<5) Urine Bacteria None seen /hpf (None Seen) Urine Mucus Few (None Seen) Urine Osmolality 824 mOsm/kg Urine Creatinine 94.06 mg/dL (30.0-125.0) Urine Protein/Creatinine Ratio 1.34 Urine Sodium < 10 mmol/L (40-220) L Urine Glucose Normal mg/dL (Normal) Urine Total Protein 126.5 mg/dL (1-14) H Blood Gas Results Test 11/20/24 08:17 Arterial Blood pH 7.373 (7.350-7.450) FiO2 % 30.0 Microbiology Microbiology Date/Time Source Procedure Growth Status 11/16/24 23:50 Urine - [place] Urine Culture - Final Complete 11/16/24 17:20 Sputum Gram Stain - Final Resulted 11/16/24 17:20 Sputum Respiratory Culture - Preliminary Resulted 11/16/24 17:10 Nose MRSA Screen - Final Complete 11/13/24 20:26 Blood Blood Culture - Final NO GROWTH AFTER 5 DAYS OF INCUBATION. Complete Labs and/or images reviewed: Labs reviewed by me, Image(s) reviewed by me Assessment/Plan Assessment/Plan s/p explorative lap- for suspected ischemic colitis/but biopsy showed adenocarcinoma- s/p needing extensive colectemy sepsis due to above acute respiratory failure due to sepsis- was on three pressors/NOW only on one pressor- levophed at 8 mcg today septic shock- on levophed s/p ileostomy status obesity dvt prophylaxis gi prophylaxis h/o multiple sclerosis adenocarcinoma colon- s/p colectemy-daughter updated [place] this finding[place] leucocytosis due to steroids/incision clean/abdomen soft/no tracheal secretions/normal urine culture- on zosyn/vanc/flagyl- consult id for expertise Plan discussed with: Other My Orders Orders - RAMIN WILSON MD Procedure Category Date Status Time Piperacillin-Tazob PHA 11/19/24 In Process 3.375gm (Zosyn 3.375g 22:00 * Infectious [place]- CONS 11/20/24 Transmitted [place] 10:16 Date of Service: Nov 20, 2024 Billing Provider: RAMIN WILSON MD Common Visit Codes: [id number] CARE 30-74 MIN RAMIN WILSON MD Nov 20, 2024 10:29
--- NOTE | 2024-11-20 20:57 | DVHINCON2 ---
Date of service: Nov 20, [address] Divya Lizarraga Reason for Consultation Abdominal pain. History of Present Illness Patient is a 64-year-old female presents to the hospital for the complaint of abdominal pain. 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 On arrival patient had temperature of 97.6, pulse 126 bpm, respiratory rate 17, blood pressure 154/88, saturating 95 on room air. WBC count was 21.5 with 89% neutrophils and 600 platelets. Lactic acid was elevated at 2.4. CT abdomen pelvis completed 11/13 showed gas distended colon with air bubbles customer operations representative of toxic colitis. Subsequent CT abdomen completed 11/16 showed marked dilation of the right and transverse colon with a transition point at the level of the sigmoid flexure. Associated wall thickening in this region. Suspicious of an underlying lesion resulting in obstruction. Small left pleural effusion with basilar atelectasis. Consequently GI Dr. Dalal did a sigmoidoscopy up to the splenic flexure with biopsy and colonic decompression on 11/15 and an abnormal area was found in the splenic flexure with the sigmoid diverticular disease, moderate amount of retained stool in the rectosigmoid. So surgeon was consulted and patient underwent exploratory laparotomy with extended right hemicolectomy with ileostomy on 11/16 secondary to ischemic bowel with colonic obstruction at the splenic flexure. Distal ileum to the proximal descending colon was resected and a distal ileum perforation was found during the procedure. Lysis of adhesions were performed. Patient received 3 L of NS +500 mL of 5% albumin and 100 mL of 25% albumin during the procedure. Following the procedure patient was hypotensive and therefore could not be extubated and therefore which he was transferred to ICU for further management. 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 Family History: Cancer Family history: Cardiovascular disease Social History Smoke: Quit smoking about 2 years ago when she had PE. ALCOHOL: none Drugs: None Lives: Lives at board and Care, has a caregiver named Tri villa [phone]. Allergies: Coded Allergies: Iodine (Verified Allergy, Unknown, 11/15/24) Home Meds Reported Medications Glatiramer Acetate (Copaxone) 20 Mg/Ml Kit, SC 11/15/24 Tolterodine Tartrate (Tolterodine Tartrate ER) 4 Mg Cap, 1 CAP PO DAILY 11/15/24 Paroxetine Hydrochloride (Paroxetine Hydrochloride) 10 Mg Tab, 1 TAB PO DAILY 11/15/24 Ropinirole Hydrochloride (Ropinirole Hcl) 0.25 Mg Tab, 1 PO DAILY 11/15/24 Albuterol Sulfate (Albuterol Sulfate Hfa) 108 Mcg/Act Aer, INH 11/15/24 Baclofen (Baclofen) 10 Mg Tab, 1 TAB PO BID 11/15/24 Paroxetine (PAXIL TABLET) 20 Mg Tb, 12.5 MG PO DAILY 04/03/14 Current Medications Current Medications Medications (Trade) Dose Ordered Sig/Sylvie Route PRN Reason Start Time Stop Time Status Last Admin Fat Emulsion Intravenous 100 ml/Sodium Acetate 20 meq/Potassium Acetate 40 meq/ Potassium Phosphate 44 meq/ Calcium Gluconate 2.3 meq/Magnesium Sulfate 14 meq/ Multivitamins 10 ml/Chromium/ Copper/Manganese/ Zinc 1 ml/Insulin Human Regular 8 units/Amino Acids/ Dextrose/Purified Water 1,459.5262 ml @ 61 mls/hr [id number] IV 11/19/24 22:00 11/20/24 21:59 11/19/24 22:16 Piperacillin Sod/ Tazobactam Sod 100 ml @ 25 mls/hr Q8HR IV 11/19/24 22:00 11/20/24 12:54 Fat Emulsion Intravenous 150 ml/Sodium Phosphate 40 meq/ Potassium Acetate 40 meq/Potassium Phosphate 44 meq/ Magnesium Sulfate 14 meq/ Multivitamins 10 ml/Chromium/ Copper/Manganese/ Zinc 1 ml/Insulin Human Regular 12 units/Amino Acids/ Dextrose/Purified Water 1,504.62 ml @ 63 mls/hr [id number] IV 11/20/24 22:00 11/21/24 21:59 Vancomycin HCl 250 ml @ 200 mls/hr Q8H IV 11/20/24 20:00 Review of Systems General: No Fever, chills, night sweats or weight loss HEENT: No Sinus pain, headache, vision changes or sore throat Respiratory: No Cough, dyspnea, sputum production Cardiovascular: No Chest pain, palpitations or leg edema Gastrointestinal: Reports abdominal pain and Nausea. No vomiting or diarrhea Genitourinary: No Dysuria, urinary frequency, hematuria, pelvic pain Skin: No Rashes, ulcers, abscesses, redness or swelling Musculoskeletal: No Joint pain, muscle pain or swelling Neurologic: No Altered mental status, headaches or focal neurological deficits Psychiatric: No Anxiety, depression or confusion Vital Signs Vital Signs Date Time Temp Pulse Resp B/P (MAP) Pulse Ox O2 Delivery O2 Flow Rate FiO2 11/20/24 20:03 65 16 108/48 (68 97 30 11/20/24 18:41 Mechanical Ventilator+ 11/20/24 18:00 98.4 209.1 11/20/24 18:00 30 Physical Exam General examination- Morbidly obese female, Acute distress, NG tube in place, urinary catheter in place, A0X2 HEENT: PEERLA, intubated Chest: tachycardiac, S1-S2 audible, rate and rhythm regular, no murmur Lung: CTAB, no wheeze or rhonchi Abdomen: exp lap , [place] drain x 2 present Musculoskeletal: no acute joint swelling or tenderness Lower extremity: leg edema Neurological: unable to obtain Psychiatry-- Skin- dry Labs/Diagnostic Data Labs Test 11/20/24 16:48 11/20/24 08:17 11/20/24 03:35 11/19/24 03:26 Range/Units POC Glucose 154 H 70-106 mg/dl Blood Gas Specimen Type Arterial Blood Gas Sample Site Left radial Blood Gas Patient Temperature 37.0 Arterial Blood Date Drawn [id number] Arterial Blood pH 7.373 7.350-7.450 Arterial Blood Partial Pressure CO2 42.0 32.0-45.0 mmHg Arterial Blood Partial Pressure O2 78.5 L 83.0-108.0 mmHg Arterial Blood HCO3 23.9 21.0-28.0 mmol/L Arterial Blood Oxygen Saturation 95.2 94.0-98.0 % Arterial Blood Base Excess -1.3 -2.0-3.0 mmol/L Arterial Blood Oxyhemoglobin 94.4 94.0-98.0 % Arterial Blood Carboxyhemoglobin 0.6 0.5-1.5 % Arterial Blood Methemoglobin 0.2 0.0-1.5 % Abilio Test Modified Blood Gas Total Hemoglobin 12.50 12.0-16.0 g/dL Blood Gas Set Respiration Rate 16.0 Blood Gas Modality Vent - ac Blood Gas Spontaneous Rate 16 FiO2 % 30.0 Blood Gas Tidal Volume 500.0 Blood Gas PEEP or CPAP 5.0 White Blood Count 16.6 H 4.4-10.8 10^3/uL Red Blood Count 3.12 L 4.0-5.20 10^6/uL Hemoglobin 8.7 L 12.2-16.2 g/dL Hematocrit 26.0 L 36.0-46.0 % Mean Corpuscular Volume 83.4 80.0-100.0 fL Mean Corpuscular Hemoglobin 27.8 L 28.0-32.0 pg Mean Corpuscular Hemoglobin Concent 33.3 32.0-36.0 g/dL Red Cell Distribution Width 16.2 H 11.8-14.3 % Platelet Count 192 140-450 10^3/uL Mean Platelet Volume 7.8 6.9-10.8 fL Neutrophils (%) (Auto) 37.0-80.0 % Lymphocytes (%) (Auto) 10.0-50.0 % Monocytes (%) (Auto) 0.0-12.0 % Basophils (%) (Auto) 0.0-2.0 % Neutrophils # (Auto) 1.6-8.6 10 ^3/uL Lymphocytes # (Auto) 0.4-5.4 10 ^3/uL Monocytes # (Auto) 0-1.3 10 ^3/uL Differential Total Cells Counted 100.0 100 Neutrophils % (Manual) 80 37.0-80.0 Band Neutrophils % (Manual) 6 Lymphocytes % (Manual) 5 L 10.0-50.0 Monocytes % (Manual) 8 0-12 Eosinophils % (Manual) 0 0-7 Basophils % (Manual) 0 0.0-2.0 Metamyelocytes % (manual) 0 Myelocytes % (Manual) 1 Promyelocytes % (Manual) 0 Blast Cells % (Manual) 0 Reactive Lymphocytes 0 Platelet Estimate Adequate Sodium Level 137 136-145 mmol/L Potassium Level 4.1 3.5-5.1 mmol/L Chloride Level 106 98-107 mmol/L Carbon Dioxide Level 25 20-31 mmol/L Anion Gap 6 5-15 Blood Urea Nitrogen 12 9-23 mg/dL Creatinine 0.51 L 0.550-1.02 mg/dL Glomerular Filtration Rate Calc 104 >90 mL/min BUN/Creatinine Ratio 23.5 H 10.0-20.0 Serum Glucose 189 H 74-106 mg/dL Calcium Level 8.3 L 8.7-10.4 mg/dL Phosphorus Level 2.7 2.4-5.1 mg/dL Magnesium Level 2.1 1.6-2.6 mg/dL Total Bilirubin 0.7 0.2-1.0 mg/dL Aspartate Amino Transferase (AST) 24 13-40 U/L Alanine Aminotransferase (ALT) 12 7-40 U/L Alkaline Phosphatase 80 46-116 U/L Total Protein 4.4 L 5.7-8.2 g/dL Albumin 2.5 L 3.2-4.8 g/dL Random Vancomycin Level 16.1 H 5-10 ug/mL Vancomycin Level Trough 28.9 H 5-10 ug/mL Test 11/18/24 03:00 11/17/24 07:04 11/16/24 17:53 11/16/24 05:23 Range/Units Eosinophils (%) (Auto) 0.5 0.0-7.0 % Eosinophils # (Auto) 0.1 0-0.8 10 ^3/uL Basophils # (Auto) 0 0-0.2 10 ^3/uL Nucleated Red Blood Cells 0.0 % Reticulocyte Count (auto) 1.23 0.5-1.5 % Lactate Dehydrogenase 330 H 120-246 U/L Triglycerides Level 65 < 150 mg/dL Blood Gas Inspiratory Pressure 24.0 Bl Gas Inspiratory/Expiratory Ratio 1:2.8 Specimen Drawn By [facility] Blood Gas Critical Value Read Back Yes Blood Gas Notified Whom ganesh Light md Blood Gas Notified Time [id number] Blood Gas Notified By tim Hinojosa rrt Carcinoembryonic Antigen 45.58 <=5.0 ng/mL Test 11/15/24 22:22 11/14/24 21:07 11/14/24 13:20 11/14/24 09:04 Range/Units Hemoglobin A1c 5.7 <5.7 % A1C Thyroid Stimulating Hormone (TSH) 1.83 0.55-4.78 uIU/mL B-Type Natriuretic Peptide 29.44 0-100 pg/mL Vitamin D 25-Hydroxy 4.6 L 30.0-100 ng/mL Urine Color [place] H Yellow Urine Clarity Ex.turbid Clear Urine pH 6.5 5.0-9.0 Urine Specific [place] 1.037 H 1.001-1.035 Urine Protein 2+ H Negative Urine Ketones Trace Negative Urine Blood 2+ H Negative /uL Urine Nitrite Negative Negative Urine Bilirubin 1+ H Negative Urine Urobilinogen 3 H Negative mg/dL Urine Leukocyte Esterase 3+ Negative /uL Urine RBC 81 0 - 4 /hpf Urine WBC 330 0 - 5 /hpf Urine Squamous Epithelial Cells Mod <5 /hpf Urine Bacteria None seen None Seen /hpf Urine Mucus Few None Seen Urine Osmolality 824 mOsm/kg Urine Creatinine 94.06 30.0-125.0 mg/dL Urine Protein/Creatinine Ratio 1.34 Urine Sodium < 10 L 40-220 mmol/L Urine Glucose Normal Normal mg/dL Urine Total Protein 126.5 H 1-14 mg/dL Lactic Acid Level 2.0 0.4-2.0 mmol/L Test 11/14/24 05:51 11/13/24 23:00 11/13/24 21:25 11/13/24 20:10 Range/Units Parathyroid Hormone (Intact) 115.5 H 18.4-80.1 pg/mL Troponin I High Sensitivity 3 L </=34 ng/L Urine WBC Clumps Present None Seen /hpf Lipase 30 12-53 U/L Plasma/Serum Blood Alcohol < 3.0 <10 mg/dL Test 11/13/24 19:07 Range/Units Prothrombin Time 12.5 H 9.3-11.8 sec Prothrombin Time INR 1.19 H 0.9-1.15 Activated Partial Thromboplast Time 32.2 24.5-34.5 SEC Ammonia 17 11-32 umol/L Microbiology Date/Time Source Procedure Growth Status 11/16/24 23:50 Urine - [place] Urine Culture - Final Complete 11/16/24 17:20 Sputum Gram Stain - Final Complete 11/16/24 17:20 Sputum Respiratory Culture - Final Complete 11/16/24 17:10 Nose MRSA Screen - Final Complete 11/13/24 20:26 Blood Blood Culture - Final NO GROWTH AFTER 5 DAYS OF INCUBATION. Complete Assessment Patient is a 64-year-old female presented to the hospital with: Leukocytosis Possible toxic megacolon with possible pneumatosis intestinalis. Bowel obstruction s/p exp lap right hemicolectomy terminal ileum perforation s/p partial resection of terminal ileum and caecum Urinary tract infection Acute hypoxic respiratory failure On mechanical ventilator Morbid obesity Recommendations: reviewed all the cultures/ labs noted below on MV NORMAN drain is sero sanguinous Antibiotic status: Continue Vancomycin [Restarted on 11/20] Continue Zosyn [Started on 11/19] WBC trending up Repeat CBC; will monitor 11/13, urine culture showed: >100,000 CFU/mL Mixed Gram Positive Ca >3 [place] Type including Beta- Hemolytic Group B Streptococcus 11/16, repeat urine culture showed no growth after 48 hours of incubation. 11/13, Blood culture showed no growth 11/16, Sputum culture showed: Rare growth: Normal Oropharyngeal Ca 11/16, MRSA screening: Negative 11/16, Abdomen/Pelvis CT: Marked dilation of the right and transverse colon with a transition point at the level of the sigmoid flexure. Associated wall thickening in this region. Suspect an underlying lesion resulting in obstruction. Associated small bowel obstruction. Surgical evaluation is recommended. Small left pleural effusion with associated basilar atelectasis and consolidation. 11/16, Chest abdomen x-ray: Abnormal gas pattern including marked gaseous distention of small and large bowel loops and findings suggesting possible pneumatosis of the colon Thank you for consult and for giving an opportunity to take care of this patient. Plan discussed with: LAILA Wallace MD Nov 20, 2024 20:57
--- NOTE | 2024-11-20 21:11 | DVHPN2 ---
Progress Note - Dictate Date Seen: Nov 20, 2024 Medical Necessity Reason Pt with a Central, PICC or Fol: Yes The following are medically ne: Central Line, Xiao Catheter Reason for xiao catheter: Strict I&O Subjective Patient seen and examined at bedside. Sedated, intubated on mechanical ventilator. Overnight events reviewed. vital signs Vital Sign Date Time Temp Pulse Resp B/P (MAP) Pulse Ox O2 Delivery O2 Flow Rate FiO2 11/20/24 20:03 65 16 108/48 (68) 97 30 11/20/24 18:41 Mechanical Ventilator+ 11/20/24 18:00 98.4 209.1 11/20/24 18:00 30 Total Intake and Output 11/19/24 11/19/24 11/20/24 15:00 23:00 07:00 Intake Total 1076.254 ml 715.875 ml 964.875 ml Output Total 865 ml 915 ml Balance 1076.254 ml -149.125 ml 49.875 ml medications Current Medications Medications Dose Ordered Sig/Sylvie Route Start Time Stop Time Status Last Admin Dose Admin Pantoprazole Sodium 40 mg DAILY IV 11/14/24 10:00 11/20/24 07:27 40 MG Nitroglycerin 0.4 mg Q5MINP PRN SL 11/13/24 23:00 Albuterol 2.5 mg Q6HP PRN NEB 11/14/24 06:00 11/20/24 18:41 2.5 MG Propofol 100 ml @ 3.93 mls/hr Q24H IV 11/16/24 16:00 Fentanyl Citrate 250 ml @ 2.5 mls/hr Q24H IV 11/16/24 16:00 11/20/24 17:18 25 MLS/HR Phenylephrine HCl 250 ml @ 30 mls/hr Q8H20M IV 11/17/24 01:00 11/17/24 10:00 30 MLS/HR Norepinephrine Bitartrate 32 mg/ Sodium Chloride 250 ml @ 0.938 mls/ hr Q24H IV 11/17/24 08:45 11/18/24 19:08 10.313 MLS/HR Vasopressin 20 units/Sodium Chloride 100 ml @ 9 mls/hr Q11H7M IV 11/17/24 10:15 11/17/24 10:30 9 MLS/HR Vancomycin HCl 0 ml @ 0 mls/hr UD IV 11/17/24 12:15 Enoxaparin Sodium 40 mg DAILY SC 11/18/24 10:00 11/20/24 07:27 40 MG Amino Acids 0 ml @ 0 mls/hr PER PHARMACY IV 11/17/24 16:30 Diagnostic Test (Pha) 1 strip Q6HR 11/17/24 18:00 11/20/24 16:50 1 STRIP Insulin Human Regular FOLLOW SLIDING SCALE Q6HR SC 11/17/24 18:00 11/20/24 16:50 2 UNITS Dextrose 50 ml UD IV 11/17/24 16:45 Metronidazole 100 ml @ 100 mls/hr Q8H IV 11/18/24 17:00 11/20/24 16:51 100 MLS/HR Hydrocortisone Sodium Succinate 50 mg Q8HR IV 11/19/24 14:00 11/20/24 12:54 50 MG Fat Emulsion Intravenous 100 ml/Sodium Acetate 20 meq/Potassium Acetate 40 meq/ Potassium Phosphate 44 meq/ Calcium Gluconate 2.3 meq/Magnesium Sulfate 14 meq/ Multivitamins 10 ml/Chromium/ Copper/Manganese/ Zinc 1 ml/Insulin Human Regular 8 units/Amino Acids/ Dextrose/Purified Water 1,459.5262 ml @ 61 mls/hr [id number] IV 11/19/24 22:00 11/20/24 21:59 11/19/24 22:16 61 MLS/HR Piperacillin Sod/ Tazobactam Sod 100 ml @ 25 mls/hr Q8HR IV 11/19/24 22:00 11/20/24 12:54 25 MLS/HR Fat Emulsion Intravenous 150 ml/Sodium Phosphate 40 meq/ Potassium Acetate 40 meq/Potassium Phosphate 44 meq/ Magnesium Sulfate 14 meq/ Multivitamins 10 ml/Chromium/ Copper/Manganese/ Zinc 1 ml/Insulin Human Regular 12 units/Amino Acids/ Dextrose/Purified Water 1,504.62 ml @ 63 mls/hr [id number] IV 11/20/24 22:00 11/21/24 21:59 Vancomycin HCl 250 ml @ 200 mls/hr Q8H IV 11/20/24 20:00 objective Gen.: Patient lying in bed in medical ICU. Sedated, intubated on mechanical ventilator. Head: Normocephalic, atraumatic. Eyes: PERRLA. Ears: Normal external anatomy. Throat: Endotracheal tube and orogastric tube in place. Neck: Supple, trachea midline. Chest: Transmitted breath sounds bilaterally. Decreased air entry bilaterally. No wheezing. Bibasilar crackles. Cardiovascular: Positive S1, positive S2. Regular rate and rhythm. Abdomen: Positive bowel sounds in all 4 quadrants. Soft, nontender, nondistended. : Xiao in place. Normal external genitalia. Rectal: Deferred. Skin: Warm, dry. Intact. Extremities: 2+ radial pulses bilaterally. No lower extremity edema. Neuro: Sedated. laboratory and microbiology Laboratory Tests 11/20/24 03:35 Test 11/20/24 03:35 Range/Units Serum Glucose 189 H 74-106 mg/dL Assessment/Plan Impression: Acute hypoxic respiratory failure On mechanical ventilator Colitis, toxic megacolon Urinary tract infection Leukocytosis Morbid obesity Events: Remains on vent support On AC mode; RR 16, VT 500, PEEP 5, FiO2 30% Sedated on Fentanyl ABG reviewed, compensated. On pressors for hemodynamic support Levophed 10 mcg/min Titrate to keep mean arterial pressure greater than 65 mmHg Improving pressor requirements Continue antibiotics TPN for nutritional support Monitor renal function Monitor electrolytes. Supplement as necessary. K phos supplementation Taper sedation as tolerated CPAP in AM with PS 8, PEEP of 5. Labs and imaging reviewed. Rest of plan as noted below. Plan: s/p intubation on mechanical ventilator. On AC mode; RR 16, VT 500, PEEP 5, FiO2 30% Titrate FIO2 to keep O2 saturation above 90%. VAP bundle. Daily ABG and CXR while intubated Sedate for ventilator synchrony Monitor ET tube secretions Continue bronchodilators. Continue antibiotics. F/u cultures. Albumin TPN for nutritional support On pressors for hemodynamic support Titrate to keep mean arterial pressure greater than 65 mmHg Start stress dose steroids Hydrocortisone 50 mg IVP q.8 hours Monitor renal function Monitor electrolytes. Supplement as necessary. Monitor ins and outs. GI prophylaxis. DVT prophylaxis. Prognosis: Poor given patient's multiple co-morbidities. Condition: Critical Rest of plan per hospitalist and other consultants. A total of 35 minutes of critical care time was spent reviewing the patient record, examining the patient, making a diagnostic and therapeutic plan, discussing this plan with the medical personnel, following up on diagnostic studies and following the patient for clinical stability excluding any and all procedures. At least 50% of this time was spent in direct, [id number] contact. Thank you, Dr. Erazo, for allowing me to participate in this patient's care. Further recommendations will depend on the patient's clinical course. Please do not hesitate to contact me if you have any questions or concerns. This medical document was created using an electronic medical record system with [employer] dictation system. Although these documentations are being carefully reviewed, there may still be some phonetic and typographical changes. The errors are purely typographical, due to imperfection on the software program, and do not reflect any compromise in the patient's medical care. Dietary Evaluation Review Comments: 1) Advance pt diet when medically feasible 2) Continue current plan of care Expected Outcomes/Goals: F/U in 2-3 days Plan discussed with: Other (JOSH Govea) Critical Care Time(min): 35 ROSE MARY JOLLEY MD Nov 20, 2024 21:11
[2024-11-20] MEDS: VANCOMYCIN 1.25GM/250ML 250 ML IV SCH (22:16)
[2024-11-20] MEDS: TPN PER PHARMACY IV NR (22:24)
--- NOTE | 2024-11-20 22:29 | DVHPN2 ---
Progress Note - Dictate Date Seen: Nov 20, 2024 Medical Necessity Reason Pt with a Central, PICC or Fol: Yes The following are medically ne: Central Line, [place] Catheter Subjective She is intubated and sedated Levophed being taper down She is on FiO2 30% and PEEP of 5 Patient has left lower lobe infiltrate Patient is on IV TPN NG tube output is decreasing LIANNE drain at about 250-300 mL per 24 hours Patient ileostomy is functional and LIANNE drain output is about 80 mL clear serosanguineous somewhat blood-tinged material Patient underwent a laparotomy with extended right hemicolectomy up to the proximal descending colon yesterday She was diagnosed with adenocarcinoma of the splenic flexure on colonoscopy biopsies and frozen section vital signs Vital Sign Date Time Temp Pulse Resp B/P (MAP) Pulse Ox O2 Delivery O2 Flow Rate FiO2 11/20/24 22:06 60 16 106/48 (67) 97 30 11/20/24 18:41 Mechanical Ventilator+ 11/20/24 18:00 98.4 209.1 11/20/24 18:00 30 Total Intake and Output 11/19/24 11/19/24 11/20/24 15:00 23:00 07:00 Intake Total 1076.254 ml 715.875 ml 964.875 ml Output Total 865 ml 915 ml Balance 1076.254 ml -149.125 ml 49.875 ml medications Current Medications Medications Dose Ordered Sig/Sylvie Route Start Time Stop Time Status Last Admin Dose Admin Pantoprazole Sodium 40 mg DAILY IV 11/14/24 10:00 11/20/24 07:27 40 MG Nitroglycerin 0.4 mg Q5MINP PRN SL 11/13/24 23:00 Albuterol 2.5 mg Q6HP PRN NEB 11/14/24 06:00 11/20/24 18:41 2.5 MG Propofol 100 ml @ 3.93 mls/hr Q24H IV 11/16/24 16:00 Fentanyl Citrate 250 ml @ 2.5 mls/hr Q24H IV 11/16/24 16:00 11/20/24 17:18 25 MLS/HR Phenylephrine HCl 250 ml @ 30 mls/hr Q8H20M IV 11/17/24 01:00 11/17/24 10:00 30 MLS/HR Norepinephrine Bitartrate 32 mg/ Sodium Chloride 250 ml @ 0.938 mls/ hr Q24H IV 11/17/24 08:45 11/18/24 19:08 10.313 MLS/HR Vasopressin 20 units/Sodium Chloride 100 ml @ 9 mls/hr Q11H7M IV 11/17/24 10:15 11/17/24 10:30 9 MLS/HR Vancomycin HCl 0 ml @ 0 mls/hr UD IV 11/17/24 12:15 Enoxaparin Sodium 40 mg DAILY SC 11/18/24 10:00 11/20/24 07:27 40 MG Amino Acids 0 ml @ 0 mls/hr PER PHARMACY IV 11/17/24 16:30 Diagnostic Test (Pha) 1 strip Q6HR 11/17/24 18:00 11/20/24 16:50 1 STRIP Insulin Human Regular FOLLOW SLIDING SCALE Q6HR SC 11/17/24 18:00 11/20/24 16:50 2 UNITS Dextrose 50 ml UD IV 11/17/24 16:45 Metronidazole 100 ml @ 100 mls/hr Q8H IV 11/18/24 17:00 11/20/24 16:51 100 MLS/HR Hydrocortisone Sodium Succinate 50 mg Q8HR IV 11/19/24 14:00 11/20/24 12:54 50 MG Piperacillin Sod/ Tazobactam Sod 100 ml @ 25 mls/hr Q8HR IV 11/19/24 22:00 11/20/24 12:54 25 MLS/HR Fat Emulsion Intravenous 150 ml/Sodium Phosphate 40 meq/ Potassium Acetate 40 meq/Potassium Phosphate 44 meq/ Magnesium Sulfate 14 meq/ Multivitamins 10 ml/Chromium/ Copper/Manganese/ Zinc 1 ml/Insulin Human Regular 12 units/Amino Acids/ Dextrose/Purified Water 1,504.62 ml @ 63 mls/hr [id number] IV 11/20/24 22:00 11/21/24 21:59 Vancomycin HCl 250 ml @ 200 mls/hr Q8H IV 11/20/24 20:00 objective Gen: in bed intubated Cvs: N S1/S2, RRR Resp: Intubated sedated Abd: Morbidly Obese, ileostomy stoma looks well, incision site intact Bar Finish Operator: Sedated laboratory and microbiology Laboratory Tests 11/20/24 03:35 Test 12/22/24 03:35 Range/Units Serum Glucose 189 H 74-106 mg/dL Problems(with codes): (1) Sepsis (2) UTI (urinary tract infection) (3) Colonic obstruction (4) Ischemic stricture intestine (5) 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
[2024-11-21] VITALS (110 sets, daily range): BP systolic 82–151; BP diastolic 19–91; PULSE 50–107; RESP 11–29; TEMP 97–98.4; O2SAT 96–100
[2024-11-21 04:59] LABS: Hematocrit 25.4 % (36.0-46.0); Mean Corpuscular Hemoglobin 26.9 pg (28.0-32.0); Mean Corpuscular Hgb Conc. 31.6 g/dL (32.0-36.0); Mean Corpuscular Volume 85.2 fL (80.0-100.0); Platelet Count (auto) 234 10^3/uL (140-450); Red Blood Cells 2.99 10^6/uL (4.0-5.20); Red Cell Distribution Width 16.1 % (11.8-14.3); White Blood Cell 20.7 10^3/uL (4.4-10.8)
[2024-11-21 05:00] LABS: Basophils % (manual) 0 (0.0-2.0); Blast Cells 0; Eosinophils % (manual) 0 (0-7); Metamyelocytes % 0; Myelocytes % 0; Promyelocytes % 0; Reactive Lymphocytes 0
[2024-11-21 05:04] LABS: INR 1.11 (0.9-1.15); Prothrombin Time 11.7 sec (9.3-11.8)
[2024-11-21 05:09] LABS: Alanine Aminotransferase 12 U/L (7-40); Anion Gap 5 (5-15); Aspartate Aminotransferase 20 U/L (13-40); BUN/Creatinine Ratio 26.5 (10.0-20.0); Bilirubin, Total 0.4 mg/dL (0.2-1.0); Blood Urea Nitrogen 13 mg/dL (9-23); Carbon Dioxide 26 mmol/L (20-31); Chloride 106 mmol/L (98-107); Magnesium 2.3 mg/dL (1.6-2.6); Phosphorus 2.9 mg/dL (2.4-5.1); Potassium 4.6 mmol/L (3.5-5.1); Sodium 137 mmol/L (136-145)
[2024-11-21 05:19] LABS: Alkaline Phosphatase 137 U/L (46-116); Calcium 8.1 mg/dL (8.7-10.4); Glucose 167 mg/dL (74-106); Total Protein 4.5 g/dL (5.7-8.2)
[2024-11-21 05:20] LABS: Albumin 2.6 g/dL (3.2-4.8)
[2024-11-21] MEDS: FUROSEMIDE 40 MG/4 ML VIAL IV SCH (09:36)
--- NOTE | 2024-11-21 10:01 | DVH ---
CHEST RADIOGRAPH Indication: f/u Technique: Single frontal view of the chest was obtained COMPARISON: XY CHEST XRAY 1 VIEW on DOS: 11/19/24, XY CHEST XRAY 1 VIEW on DOS: 11/18/24, XY CHEST PO RTABLE on DOS: 11/17/24, XY CHEST XRAY 1 VIEW on DOS: 11/16/24, XY CHEST PORTABLE on DOS: 11/13/24 FINDINGS: Lines and Tubes: Endotracheal tube, enteric catheter and left central venous catheter in satisfactory position. Lungs: Congestion Pleura: Small left pleural effusion. No pneumothorax. Cardiomediastinal contours: Unremarkable Bones: Unremarkable IMPRESSION: Lines and tubes in satisfactory position. No significant interval change.
[2024-11-21 10:20] LABS: Band Neutrophils % (manual) 10; Lymphocytes % (manual) 6 (10.0-50.0); Monocytes % (manual) 7 (0-12); Platelet Estimate Adequate
--- NOTE | 2024-11-21 10:42 | DVHPN2 ---
Progress Note Date Seen: Nov 21, 2024 Medical Necessity Reason Pt with a Central, PICC or Fol: Yes The following are medically ne: Central Line, Xiao Catheter Reason for xiao catheter: Strict I&O Objective vital signs Vital Sign Date Time Temp Pulse Resp B/P (MAP) Pulse Ox O2 Delivery O2 Flow Rate FiO2 11/21/24 10:15 98.1 68 18 97/50 (66) 98 208.6 11/21/24 10:06 30 11/21/24 10:00 Mechanical Ventilator+ 30 Total Intake and Output 11/20/24 11/20/24 11/21/24 15:00 23:00 07:00 Intake Total 895.50 ml 809.441 ml 1135.876 ml Output Total 480 ml 685 ml Balance 895.50 ml 329.441 ml 450.876 ml medications Current Medications Medications Dose Ordered Sig/Sylvie Route Start Time Stop Time Status Last Admin Dose Admin Pantoprazole Sodium 40 mg DAILY IV 11/14/24 10:00 11/21/24 09:35 40 MG Nitroglycerin 0.4 mg Q5MINP PRN SL 11/13/24 23:00 Albuterol 2.5 mg Q6HP PRN NEB 11/14/24 06:00 11/21/24 00:17 2.5 MG Propofol 100 ml @ 3.93 mls/hr Q24H IV 11/16/24 16:00 Fentanyl Citrate 250 ml @ 2.5 mls/hr Q24H IV 11/16/24 16:00 11/21/24 03:32 25 MLS/HR Phenylephrine HCl 250 ml @ 30 mls/hr Q8H20M IV 11/17/24 01:00 11/17/24 10:00 30 MLS/HR Norepinephrine Bitartrate 32 mg/ Sodium Chloride 250 ml @ 0.938 mls/ hr Q24H IV 11/17/24 08:45 11/21/24 06:10 3.75 MLS/HR Vasopressin 20 units/Sodium Chloride 100 ml @ 9 mls/hr Q11H7M IV 11/17/24 10:15 11/17/24 10:30 9 MLS/HR Vancomycin HCl 0 ml @ 0 mls/hr UD IV 11/17/24 12:15 Enoxaparin Sodium 40 mg DAILY SC 11/18/24 10:00 11/21/24 09:35 40 MG Amino Acids 0 ml @ 0 mls/hr PER PHARMACY IV 11/17/24 16:30 Diagnostic Test (Pha) 1 strip Q6HR 11/17/24 18:00 11/21/24 06:12 1 STRIP Insulin Human Regular FOLLOW SLIDING SCALE Q6HR SC 11/17/24 18:00 11/21/24 06:14 2 UNITS Dextrose 50 ml UD IV 11/17/24 16:45 Hydrocortisone Sodium Succinate 50 mg Q8HR IV 11/19/24 14:00 11/21/24 06:10 50 MG Piperacillin Sod/ Tazobactam Sod 100 ml @ 25 mls/hr Q8HR IV 11/19/24 22:00 11/21/24 06:11 25 MLS/HR Fat Emulsion Intravenous 150 ml/Sodium Phosphate 40 meq/ Potassium Acetate 40 meq/Potassium Phosphate 44 meq/ Magnesium Sulfate 14 meq/ Multivitamins 10 ml/Chromium/ Copper/Manganese/ Zinc 1 ml/Insulin Human Regular 12 units/Amino Acids/ Dextrose/Purified Water 1,504.62 ml @ 63 mls/hr [id number] IV 11/20/24 22:00 11/21/24 21:59 11/20/24 22:24 63 MLS/HR Vancomycin HCl 250 ml @ 200 mls/hr Q8H IV 11/20/24 20:00 11/21/24 03:34 200 MLS/HR Nystatin 1 applic BID TOP 11/21/24 10:00 Furosemide 40 mg DAILY IV 11/21/24 10:00 11/21/24 09:36 40 MG laboratory and microbiology Laboratory Tests 11/21/24 04:22 Test 11/21/24 04:22 Range/Units Serum Glucose 167 H 74-106 mg/dL Problem List/Assessment/Plan Problem List/Assessment/Plan 11/21/24 F/U for . patient had subtotal colectomy for obstructing sigmoid mass causing proximal ischemia due to over distension, has a well functioning viable ileostomy and her wound is well approximated, the drain has serosanguineous drainage . she is hemodynamically stable and remains sedated and intubated with CPAP trial pending. No obvious "surgical " problems. once extubated she can have the NGT removed and start po intake. Plan discussed with: Patient, Other Dietary Evaluation Review Comments: 1) Advance pt diet when medically feasible 2) Continue current plan of care Expected Outcomes/Goals: F/U in 2-3 days KIMBERLY BERMUDEZ MD Nov 21, 2024 10:42
[2024-11-21 12:34] LABS: Base Excess 2.5 mmol/L (-2.0-3.0)
[2024-11-21] MEDS: NYSTATIN TOPICAL POWDER 15GM TOP SCH (13:49)
--- NOTE | 2024-11-21 16:49 | DVHPN2 ---
Progress Note - Dictate Date Seen: Nov 21, 2024 Medical Necessity Reason Pt with a Central, PICC or Fol: Yes The following are medically ne: Central Line, Xiao Catheter Reason for xiao catheter: Strict I&O Subjective Patient extubated and placed on CPAP weaning trial. She has been experiencing vaginal discharge. WBC trending up. She is on Levophed. vital signs Vital Sign Date Time Temp Pulse Resp B/P (MAP) Pulse Ox O2 Delivery O2 Flow Rate FiO2 11/21/24 15:52 96 Nasal Cannula* 2 28 11/21/24 15:15 97.9 85 22 112/59 (76) 208.2 Total Intake and Output 11/20/24 11/20/24 11/21/24 14:59 22:59 06:59 Intake Total 990.50 ml 581.503 ml 1336.814 ml Output Total 480 ml 685 ml Balance 990.50 ml 101.503 ml 651.814 ml medications Current Medications Medications Dose Ordered Sig/Sylvie Route Start Time Stop Time Status Last Admin Dose Admin Pantoprazole Sodium 40 mg DAILY IV 11/14/24 10:00 11/21/24 09:35 40 MG Nitroglycerin 0.4 mg Q5MINP PRN SL 11/13/24 23:00 Albuterol 2.5 mg Q6HP PRN NEB 11/14/24 06:00 11/21/24 00:17 2.5 MG Propofol 100 ml @ 3.93 mls/hr Q24H IV 11/16/24 16:00 Fentanyl Citrate 250 ml @ 2.5 mls/hr Q24H IV 11/16/24 16:00 11/21/24 03:32 25 MLS/HR Phenylephrine HCl 250 ml @ 30 mls/hr Q8H20M IV 11/17/24 01:00 11/17/24 10:00 30 MLS/HR Norepinephrine Bitartrate 32 mg/ Sodium Chloride 250 ml @ 0.938 mls/ hr Q24H IV 11/17/24 08:45 11/21/24 06:10 3.75 MLS/HR Vasopressin 20 units/Sodium Chloride 100 ml @ 9 mls/hr Q11H7M IV 11/17/24 10:15 11/17/24 10:30 9 MLS/HR Enoxaparin Sodium 40 mg DAILY SC 11/18/24 10:00 11/21/24 09:35 40 MG Amino Acids 0 ml @ 0 mls/hr PER PHARMACY IV 11/17/24 16:30 Diagnostic Test (Pha) 1 strip Q6HR 11/17/24 18:00 11/21/24 11:44 1 STRIP Insulin Human Regular FOLLOW SLIDING SCALE Q6HR SC 11/17/24 18:00 11/21/24 11:54 4 UNITS Dextrose 50 ml UD IV 11/17/24 16:45 Piperacillin Sod/ Tazobactam Sod 100 ml @ 25 mls/hr Q8HR IV 11/19/24 22:00 11/21/24 13:50 25 MLS/HR Fat Emulsion Intravenous 150 ml/Sodium Phosphate 40 meq/ Potassium Acetate 40 meq/Potassium Phosphate 44 meq/ Magnesium Sulfate 14 meq/ Multivitamins 10 ml/Chromium/ Copper/Manganese/ Zinc 1 ml/Insulin Human Regular 12 units/Amino Acids/ Dextrose/Purified Water 1,504.62 ml @ 63 mls/hr [id number] IV 11/20/24 22:00 11/21/24 21:59 11/20/24 22:24 63 MLS/HR Nystatin 1 applic BID TOP 11/21/24 10:00 11/21/24 13:49 1 APPLIC Furosemide 40 mg DAILY IV 11/21/24 10:00 11/21/24 09:36 40 MG Fat Emulsion Intravenous 150 ml/Sodium Phosphate 60 meq/ Potassium Phosphate 44 meq/ Magnesium Sulfate 12 meq/ Multivitamins 10 ml/Chromium/ Copper/Manganese/ Zinc 1 ml/Insulin Human Regular 12 units/Amino Acids/ Dextrose/Purified Water 1,439.12 ml @ 60 mls/hr Q24H IV 11/21/24 22:00 11/22/24 21:59 Cancel Fat Emulsion Intravenous 150 ml/Sodium Phosphate 20 meq/ Potassium Phosphate 44 meq/ Magnesium Sulfate 12 meq/ Multivitamins 10 ml/Chromium/ Copper/Manganese/ Zinc 1 ml/Insulin Human Regular 12 units/Sodium Acetate 20 meq/ Amino Acids/ Dextrose/Purified Water 1,439.12 ml @ 60 mls/hr Q24H IV 11/21/24 22:00 11/22/24 21:59 objective General examination- Morbidly obese female, Acute distress, urinary catheter in place, A0X2 HEENT: PEERLA, no acute nasal discharge Chest: tachycardiac, S1-S2 audible, rate and rhythm regular, no murmur Lung: CTAB, no wheeze or rhonchi Abdomen: ex lap, LIANNE drain +. 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 Bowel obstruction s/p exp lap right hemicolectomy terminal ileum perforation s/p partial resection of terminal ileum and caecum Urinary tract infection Acute hypoxic respiratory failure On mechanical ventilator Morbid obesity Recommendations: reviewed all the cultures/ labs noted below on MV LIANNE drain is sero sanguinous Antibiotic status: Continue Vancomycin [Restarted on 11/20] Continue Zosyn [Started on 11/19] WBC trending up Repeat CBC; will monitor dc vancomycin, cont Zosyn for total 5 days 11/13, urine culture showed: >100,000 CFU/mL Mixed Gram Positive Ca >3 [place] Type including Beta- Hemolytic Group B Streptococcus 11/16, repeat urine culture showed no growth after 48 hours of incubation. Thank you for consult and for giving an opportunity to take care of this patient. Dietary Evaluation Review Comments: 1) Advance pt diet when medically feasible 2) Continue current plan of care Expected Outcomes/Goals: F/U in 2-3 days Plan discussed with: LAILA Wallace MD Nov 21, 2024 16:49
--- NOTE | 2024-11-21 17:56 | DVHPNRES ---
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 On arrival patient had temperature of 97.6, pulse 126 bpm, respiratory rate 17, blood pressure 154/88, saturating 95 on room air. WBC count was 21.5 with 89% neutrophils and 600 platelets. Lactic acid was elevated at 2.4. CT abdomen pelvis completed 11/13 showed gas distended colon with air bubbles parts counter representative of toxic colitis. Subsequent CT abdomen completed 11/16 showed marked dilation of the right and transverse colon with a transition point at the level of the sigmoid flexure. Associated wall thickening in this region. Suspicious of an underlying lesion resulting in obstruction. Small left pleural effusion with basilar atelectasis. Consequently GI Dr. Dalal did a sigmoidoscopy up to the splenic flexure with biopsy and colonic decompression on 11/15 and an abnormal area was found in the splenic flexure with the sigmoid diverticular disease, moderate amount of retained stool in the rectosigmoid. So surgeon was consulted and patient underwent exploratory laparotomy with extended right hemicolectomy with ileostomy on 11/16 secondary to ischemic bowel with colonic obstruction at the splenic flexure. Distal ileum to the proximal descending colon was resected and a distal ileum perforation was found during the procedure. Lysis of adhesions were performed. Patient received 3 L of NS +500 mL of 5% albumin and 100 mL of 25% albumin during the procedure. Following the procedure patient was hypotensive and therefore could not be extubated and therefore which he was transferred to ICU for further management. 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 Quit smoking about 2 years ago when she had PE. Home medications: Glatopa 20 mg every morning, lidocaine patch q.12 hours p.r.n., Paxil tablet 10 mg daily, ropinirole 5 mg 2 tablets at bedtime, tolterodine 4 mg once daily, baclofen 10 mg b.i.d., albuterol 90 mcg. 11/17-Patient seen and examined at bed 109. She was started on 50% FiO2 which was downtrended to 35% FiO2 right now. Urine culture is growing greater than 1 lac Gram-positive species including GBS. Started vancomycin 11/17. ABGs show non-anion gap metabolic acidosis along with respiratory acidosis, likely secondary to hyperchloremia. DC 0.5 NS. Respiratory rate increased from 14-16. Sodium bicarbonate started at 100 mL/hour. Both LIANNE drains drained 25 and 30 mL serosanguineous. Xiao draining 90 mL overnight and 90 mL during the day. 11/18-patient seen and examined. He is not stable for CPAP. DC Versed. DC cefepime DC bicarb. Overnight 20 mL drainage from the right LIANNE, 25 from the left LIANNE 11/21 - over the weekend stress dose steroids started. Patient was started on Zosyn since . DC Flagyl today. Cumulative I/O shows positive 15 L. Lasix 40 mg IV started. Patient tolerated CPAP trial very well, extubated. Bilateral upper extremity ultrasound ordered. ET tube advanced 2 cm. Objective vital signs Vital Sign Date Time Temp Pulse Resp B/P (MAP) Pulse Ox O2 Delivery O2 Flow Rate FiO2 11/21/24 17:45 68 19 128/77 (94) 97 11/21/24 17:00 97.0 206.6 11/21/24 16:00 Nasal Cannula* 2 28 Total Intake and Output 11/20/24 11/20/24 11/21/24 14:59 22:59 06:59 Intake Total 990.50 ml 581.503 ml 1336.814 ml Output Total 480 ml 685 ml Balance 990.50 ml 101.503 ml 651.814 ml medications Current Medications Medications Dose Ordered Sig/Sylvie Route Start Time Stop Time Status Last Admin Dose Admin Pantoprazole Sodium 40 mg DAILY IV 11/14/24 10:00 11/21/24 09:35 40 MG Nitroglycerin 0.4 mg Q5MINP PRN SL 11/13/24 23:00 Albuterol 2.5 mg Q6HP PRN NEB 11/14/24 06:00 11/21/24 00:17 2.5 MG Propofol 100 ml @ 3.93 mls/hr Q24H IV 11/16/24 16:00 Fentanyl Citrate 250 ml @ 2.5 mls/hr Q24H IV 11/16/24 16:00 11/21/24 03:32 25 MLS/HR Phenylephrine HCl 250 ml @ 30 mls/hr Q8H20M IV 11/17/24 01:00 11/17/24 10:00 30 MLS/HR Norepinephrine Bitartrate 32 mg/ Sodium Chloride 250 ml @ 0.938 mls/ hr Q24H IV 11/17/24 08:45 11/21/24 06:10 3.75 MLS/HR Vasopressin 20 units/Sodium Chloride 100 ml @ 9 mls/hr Q11H7M IV 11/17/24 10:15 11/17/24 10:30 9 MLS/HR Enoxaparin Sodium 40 mg DAILY SC 11/18/24 10:00 11/21/24 09:35 40 MG Amino Acids 0 ml @ 0 mls/hr PER PHARMACY IV 11/17/24 16:30 Diagnostic Test (Pha) 1 strip Q6HR 11/17/24 18:00 11/21/24 17:31 1 STRIP Insulin Human Regular FOLLOW SLIDING SCALE Q6HR SC 11/17/24 18:00 11/21/24 17:37 2 UNITS Dextrose 50 ml UD IV 11/17/24 16:45 Piperacillin Sod/ Tazobactam Sod 100 ml @ 25 mls/hr Q8HR IV 11/19/24 22:00 11/21/24 13:50 25 MLS/HR Fat Emulsion Intravenous 150 ml/Sodium Phosphate 40 meq/ Potassium Acetate 40 meq/Potassium Phosphate 44 meq/ Magnesium Sulfate 14 meq/ Multivitamins 10 ml/Chromium/ Copper/Manganese/ Zinc 1 ml/Insulin Human Regular 12 units/Amino Acids/ Dextrose/Purified Water 1,504.62 ml @ 63 mls/hr [id number] IV 11/20/24 22:00 11/21/24 21:59 11/20/24 22:24 63 MLS/HR Nystatin 1 applic BID TOP 11/21/24 10:00 11/21/24 13:49 1 APPLIC Furosemide 40 mg DAILY IV 11/21/24 10:00 11/21/24 09:36 40 MG Fat Emulsion Intravenous 150 ml/Sodium Phosphate 60 meq/ Potassium Phosphate 44 meq/ Magnesium Sulfate 12 meq/ Multivitamins 10 ml/Chromium/ Copper/Manganese/ Zinc 1 ml/Insulin Human Regular 12 units/Amino Acids/ Dextrose/Purified Water 1,439.12 ml @ 60 mls/hr Q24H IV 11/21/24 22:00 11/22/24 21:59 Cancel Fat Emulsion Intravenous 150 ml/Sodium Phosphate 20 meq/ Potassium Phosphate 44 meq/ Magnesium Sulfate 12 meq/ Multivitamins 10 ml/Chromium/ Copper/Manganese/ Zinc 1 ml/Insulin Human Regular 12 units/Sodium Acetate 20 meq/ Amino Acids/ Dextrose/Purified Water 1,439.12 ml @ 60 mls/hr Q24H IV 11/21/24 22:00 11/22/24 21:59 Examination Morbidly obese female patient lying in bed, extubated. General: Morbidly obese, afebrile, palor, mucosae are moist Cardiovascular: Regular S1 and S2. No murmurs, gallops or rubs. No JVD elevation. 1+ nonpitting edema in the lower extremity Respiratory: Bilateral equal breath sounds on 35% FiO2, saturating 98%. Abdomen: Abdomen is soft but hypoactive bowel sounds. Dressing dry clean and intact. Two LIANNE drains attached. Maceration, erythema noted beneath the skin fold beneath the umbilicus. Ileostomy seen with bilious 20ml secretions. Genitourinary: Xiao catheter is seen. MSK/skin: Skin is dry and warm B/l upper and lower ext edema Neurological: Pupils are constricted and sluggish to response. No icterus seen. laboratory and microbiology Laboratory Tests 11/21/24 04:22 Test 11/21/24 04:22 Range/Units Serum Glucose 167 H 74-106 mg/dL Microbiology Date/Time Source Procedure Growth Status 11/20/24 10:00 Stool Clostridium difficile Toxin Assay - Final Complete 11/16/24 23:50 Urine - Xiao Port Urine Culture - Final Complete 11/16/24 17:20 Sputum Gram Stain - Final Complete 11/16/24 17:20 Sputum Respiratory Culture - Final Complete 11/16/24 17:10 Nose MRSA Screen - Final Complete 11/13/24 20:26 Blood Blood Culture - Final NO GROWTH AFTER 5 DAYS OF INCUBATION. 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 Extubated 11/21 CARDIOVASCULAR Septic shock secondary to toxic megacolon Lactic acidosis-resolved started Zosyn 11/19 DC vancomycin 11/17 till 11/21 and DC IV metronidazole, patient received from 11/15 to 11/21 DC IV cefepime 11/18 Preliminary blood cultures negative Furosemide 40 mg IV started 11/21 RESPIRATORY Acute hypoxic respiratory failure secondary to septic shock Chronic nicotine dependence Respiratory acidosis History of PE Non-anion gap metabolic acidosis secondary to hyperchloremia Left sided pleural effusion with associated basilar atelectasis consolidation Intubated from 11/16 till 11/21 Respiratory culture and Gram stain shows no growth ABGs 11/17 shows non-anion gap metabolic acidosis with respiratory acidosis Discontinue sodium bicarbonate 100 mL/hour 11/17 till 11/18 GI Sepsis secondary to toxic megacolon secondary to primary adenocarcinoma of the descending colon and splenic flexure 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 Associated wall thickening in this region. Suspect an underlying lesion resulting in obstruction. Associated small bowel obstruction. Findings are similar to prior exam. Surgical evaluation is recommended. Await final pathology results /KIDNEY Acute cystitis Yellow colored vaginal discharge Final urine culture showed >100,000 CFU/mL Mixed Gram Positive Ca >3 [place] Types, including Beta-Hemolytic Group B Streptococcus Repeat urine culture 11/16 is negative Continue IV vancomycin, Zosyn Vaginal culture ordered METABOLIC Hyponatremia, corrected Hypomagnesemia, supplement Morbid obese Non-anion gap metabolic acidosis Vitamin-D deficiency Hypercalcemia: Corrected calcium 10.6 SKIN Intertrigo - nystatin powder HEM-ONCO Anemia, likely normocytic secondary to blood loss Hemoglobin dropped from 16-10 from 11/14 to 11/17 Retic count 1.23, lactate dehydrogenase 330 LINES Intubated on 11/16 till 11/21 Left SUBCLAVIAN CVC 11/16 Xiao catheter 11/13 DRIPS LEVOPHED off since 11/21 VASOPRESSIN off since 11/11 FENTANYL DC VERSED DC NUTRITION; Clinimix starting 11/17, TPN starting 11/18 DVT; Lovenox 40 mg sc daily Goals of care/advance care planning; FULL CODE; discussed on for 24 minutes. PUD prophylaxis: Pantoprazole 40 mg IV daily DVT prophylaxis: Lovenox 40 mg sc daily Plan discussed with patient's son Willam Padilla over the phone call for more than 20 minutes, code status full code. Tried to contact daughter Paula [phone] over the phone, was unreachable Case discussed with Dr. Barker. Critical care time including review of the chart, CPAP trial and discussion with the patient's family excluding procedures 87 minutes Plan discussed with: Patient, Son (Over the phone ) My Orders My Orders Orders - SARA PAULA Procedure Category Date Status Time Chest Portable XY 11/21/24 Resulted 07:22 Bacterial Culture LUCILLE 11/21/24 Uncollected Vaginal 09:01 Nystatin Powder PHA 11/21/24 In Process (Mycostatin Powder) 10:00 Cpap/Sed Vacation Med ORDERS 11/21/24 Transmitted Weaning 09:01 Furosemide Injection PHA 11/21/24 In Process (Lasix Injection) 10:00 Respiratory Misc. RT 11/21/24 Transmitted Order 11:05 Abg W/ Co-Ox RT 11/21/24 Logged 12:28 Bi Lat Upper Dvt US 11/21/24 Taken 16:54 Dietary Evaluation Review Comments: 1) Advance pt diet when medically feasible 2) Continue current plan of care Expected Outcomes/Goals: F/U in 2-3 days Date of Service: Nov 21, 2024 Billing Provider: HARRY BARKER MD Common Visit Codes: 99166-NUIQLHDH CARE 30-74 MIN, 65593-GQAHNBHH CARE-EACH +30MIN SARA PAULA Nov 21, 2024 17:56 HARRY BARKER MD Nov 22, 2024 12:34
--- NOTE | 2024-11-21 18:22 | DVH ---
US BI LAT UPPER DVT 11/21/2024 05:13 PM Clinical History: swelling and tenderness Comparison: None TECHNIQUE: Duplex Doppler evaluation of the venous systems of the upper extremities including color D oppler and spectral/pulsed waveform analysis was performed. FINDINGS: RIGHT UPPER EXTREMITY: The internal jugular vein demonstrates appropriate compressibility and waveform variability. The subclavian vein is patent on color Doppler evaluation without intraluminal thrombus and demonstra daljit waveform variability. The visualized portion of the brachiocephalic vein is patent on color Doppler evaluation without intr aluminal thrombus and demonstrates waveform variability. The axillary vein demonstrates appropriate compressibility and waveform variability. The brachial veins demonstrate appropriate compressibility and patency on Doppler evaluation. The basilic vein demonstrates appropriate compressibility and patency on Doppler evaluation. The cephalic vein is not compressible all does not show patency on Doppler evaluation. LEFT UPPER EXTREMITY: The internal jugular vein demonstrates appropriate compressibility and waveform variability. The subclavian vein is patent on color Doppler evaluation without intraluminal thrombus and demonstra daljit waveform variability. The visualized portion of the brachiocephalic vein is patent on color Doppler evaluation without intr aluminal thrombus and demonstrates waveform variability. The axillary vein demonstrates appropriate compressibility and waveform variability. The brachial veins demonstrate appropriate compressibility and patency on Doppler evaluation. The basilic vein demonstrates appropriate compressibility and patency on Doppler evaluation. The cephalic vein demonstrates appropriate compressibility and patency on Doppler evaluation. IMPRESSION: Right upper extremity: Acute occlusive thrombophlebitis of the cephalic vein. No evidence of DVT. Left upper extremity: No evidence of DVT or SVT. The findings were relayed to JOSH Hitchcock by the aeronautical engineering technologist upon completion of the exam.
[2024-11-21] MEDS ORDERED: TPN PER PHARMACY IV NR (22:00)
[2024-11-21] MEDS: TPN PER PHARMACY IV NR (22:30)
[2024-11-22] VITALS (90 sets, daily range): BP systolic 62–139; BP diastolic 27–110; PULSE 66–121; RESP 11–40; TEMP 97.3–99.1; O2SAT 86–100
[2024-11-22 03:52] LABS: Hematocrit 22.4 % (36.0-46.0); Hemoglobin 7.3 g/dL (12.2-16.2); Red Blood Cells 2.65 10^6/uL (4.0-5.20); Red Cell Distribution Width 15.8 % (11.8-14.3)
[2024-11-22 03:55] LABS: Mean Corpuscular Hemoglobin 27.7 pg (28.0-32.0); Mean Corpuscular Hgb Conc. 32.8 g/dL (32.0-36.0); Mean Corpuscular Volume 84.6 fL (80.0-100.0); Platelet Count (auto) 196 10^3/uL (140-450); White Blood Cell 14.8 10^3/uL (4.4-10.8)
[2024-11-22 04:04] LABS: Alanine Aminotransferase 13 U/L (7-40); Anion Gap 6 (5-15); Aspartate Aminotransferase 22 U/L (13-40); BUN/Creatinine Ratio 40.9 (10.0-20.0); Blood Urea Nitrogen 18 mg/dL (9-23); Carbon Dioxide 29 mmol/L (20-31); Chloride 106 mmol/L (98-107); Magnesium 1.9 mg/dL (1.6-2.6); Sodium 141 mmol/L (136-145)
[2024-11-22 04:05] LABS: Bilirubin, Total 0.3 mg/dL (0.2-1.0)
[2024-11-22 04:22] LABS: Albumin 2.3 g/dL (3.2-4.8); Alkaline Phosphatase 128 U/L (46-116); Calcium 7.6 mg/dL (8.7-10.4); Glucose 125 mg/dL (74-106); Total Protein 4.3 g/dL (5.7-8.2)
[2024-11-22 04:23] LABS: Basophils % (manual) 0 (0.0-2.0); Blast Cells 0; Eosinophils % (manual) 0 (0-7); Myelocytes % 0; Promyelocytes % 0; Reactive Lymphocytes 0
--- NOTE | 2024-11-22 04:52 | DVH ---
CHEST RADIOGRAPH Indication: f/u Technique: Single frontal view of the chest was obtained Comparison: XY CHEST PORTABLE on DOS: 11/21/24, XY CHEST XRAY 1 VIEW on DOS: 11/19/24, XY CHEST XRAY 1 VIEW on DOS: 11/18/24, XY CHEST PORTABLE on DOS: 11/17/24, XY CHEST XRAY 1 VIEW on DOS: 11/16/24, X Y CHEST PORTABLE on DOS: 11/21/24 FINDINGS: Lines and Tubes: Endotracheal tube, enteric catheter and left central venous catheter in satisfactory position. Lungs: Congestion Pleura: Small left pleural effusion. No pneumothorax. Cardiomediastinal contours: Unremarkable Bones: Unremarkable IMPRESSION: Lines and tubes in satisfactory position. No significant interval change.
[2024-11-22] MEDS: MORPHINE SULFATE INJ 2 MG/ml SYRG IV PRN (06:24)
[2024-11-22 06:55] LABS: Band Neutrophils % (manual) 1; Metamyelocytes % 1; Monocytes % (manual) 8 (0-12)
[2024-11-22 06:56] LABS: Lymphocytes % (manual) 7 (10.0-50.0); Platelet Estimate Adequate
[2024-11-22] MEDS: POTASSIUM CHL 20MEQ/100ML 100 ML IV SCH (07:59)
[2024-11-22] MEDS: POTASSIUM CHL 20MEQ/100ML 100 ML IV ONE (11:48)
--- NOTE | 2024-11-22 14:44 | DVHPN2 ---
Progress Note - Dictate Date Seen: Nov 22, 2024 Medical Necessity Reason Pt with a Central, PICC or Fol: Yes The following are medically ne: Central Line, Xiao Catheter Reason for xiao catheter: Strict I&O Subjective Patient was extubated yesterday She is awake alert responding appropriately to questions Patient is feeling cold She was started on IV diuresis with Lasix and put out 2 L urine yesterday Levophed is down to 2 mics an hour Hemoglobin is 7.3 and there was a plan for 1 unit PRBC Patient ileostomy is functional and LIANNE drain output is about 80 mL clear serosanguineous somewhat blood-tinged material Patient underwent a laparotomy with extended right hemicolectomy up to the proximal descending colon yesterday She was diagnosed with adenocarcinoma of the splenic flexure on colonoscopy biopsies and frozen section vital signs Vital Sign Date Time Temp Pulse Resp B/P (MAP) Pulse Ox O2 Delivery O2 Flow Rate FiO2 11/22/24 14:29 70 20 90/48 100 2.0 11/22/24 13:00 97.8 97.8 11/22/24 10:00 Nasal Cannula* 28 Total Intake and Output 11/21/24 11/21/24 11/22/24 15:00 23:00 07:00 Intake Total 686.189 ml 333.378 ml 562.504 ml Output Total 2930 ml 1200 ml Balance 686.189 ml -2596.622 ml -637.496 ml medications Current Medications Medications Dose Ordered Sig/Sylvie Route Start Time Stop Time Status Last Admin Dose Admin Pantoprazole Sodium 40 mg DAILY IV 11/14/24 10:00 11/22/24 09:34 40 MG Nitroglycerin 0.4 mg Q5MINP PRN SL 11/13/24 23:00 Albuterol 2.5 mg Q6HP PRN NEB 11/14/24 06:00 11/21/24 00:17 2.5 MG Norepinephrine Bitartrate 32 mg/ Sodium Chloride 250 ml @ 0.938 mls/ hr Q24H IV 11/17/24 08:45 11/21/24 06:10 3.75 MLS/HR Enoxaparin Sodium 40 mg DAILY SC 11/18/24 10:00 11/22/24 09:34 40 MG Piperacillin Sod/ Tazobactam Sod 100 ml @ 25 mls/hr Q8HR IV 11/19/24 22:00 11/22/24 13:29 25 MLS/HR Nystatin 1 applic BID TOP 11/21/24 10:00 11/22/24 09:36 1 APPLIC Fat Emulsion Intravenous 150 ml/Sodium Phosphate 60 meq/ Potassium Phosphate 44 meq/ Magnesium Sulfate 12 meq/ Multivitamins 10 ml/Chromium/ Copper/Manganese/ Zinc 1 ml/Insulin Human Regular 12 units/Amino Acids/ Dextrose/Purified Water 1,439.12 ml @ 60 mls/hr Q24H IV 11/21/24 22:00 11/22/24 21:59 Cancel Morphine Sulfate 1 mg Q6HPRN PRN IV 11/22/24 04:30 11/22/24 12:01 1 MG objective Gen: in awake alert edematous Cvs: N S1/S2, RRR Resp: On supplemental oxygen, extubated Abd: Morbidly Obese, ileostomy stoma looks well, incision site intact Compliance Counsel: Sedated laboratory and microbiology Laboratory Tests 11/22/24 03:33 Test 11/22/24 03:33 Range/Units Serum Glucose 125 H 74-106 mg/dL Problems(with codes): (1) Left lower lobe pulmonary infiltrate (2) 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
--- NOTE | 2024-11-22 16:37 | DVHPN2 ---
Progress Note - Dictate Date Seen: Nov 22, 2024 Medical Necessity Reason Pt with a Central, PICC or Fol: Yes The following are medically ne: Central Line, Xiao Catheter Reason for xiao catheter: Strict I&O Subjective Patient extubated and placed on CPAP Patient is feeling cold. WBC trending down Levophed is down to 2 mics an hour Hemoglobin is 7.3 and there was a plan for 1 unit PRBC Patient underwent a laparotomy with extended right hemicolectomy up to the proximal descending colon She was diagnosed with adenocarcinoma of the splenic flexure on colonoscopy biopsies and frozen section. vital signs Vital Sign Date Time Temp Pulse Resp B/P (MAP) Pulse Ox O2 Delivery O2 Flow Rate FiO2 11/22/24 15:31 73 24 73/31 (45) 99 11/22/24 14:29 2.0 11/22/24 14:00 Nasal Cannula* 28 11/22/24 13:00 97.8 97.8 Total Intake and Output 11/21/24 11/21/24 11/22/24 15:00 23:00 07:00 Intake Total 686.189 ml 333.378 ml 562.504 ml Output Total 2930 ml 1200 ml Balance 686.189 ml -2596.622 ml -637.496 ml medications Current Medications Medications Dose Ordered Sig/Sylvie Route Start Time Stop Time Status Last Admin Dose Admin Pantoprazole Sodium 40 mg DAILY IV 11/14/24 10:00 11/22/24 09:34 40 MG Nitroglycerin 0.4 mg Q5MINP PRN SL 11/13/24 23:00 Albuterol 2.5 mg Q6HP PRN NEB 11/14/24 06:00 11/21/24 00:17 2.5 MG Norepinephrine Bitartrate 32 mg/ Sodium Chloride 250 ml @ 0.938 mls/ hr Q24H IV 11/17/24 08:45 11/21/24 06:10 3.75 MLS/HR Enoxaparin Sodium 40 mg DAILY SC 11/18/24 10:00 11/22/24 09:34 40 MG Piperacillin Sod/ Tazobactam Sod 100 ml @ 25 mls/hr Q8HR IV 11/19/24 22:00 11/22/24 13:29 25 MLS/HR Nystatin 1 applic BID TOP 11/21/24 10:00 11/22/24 09:36 1 APPLIC Fat Emulsion Intravenous 150 ml/Sodium Phosphate 60 meq/ Potassium Phosphate 44 meq/ Magnesium Sulfate 12 meq/ Multivitamins 10 ml/Chromium/ Copper/Manganese/ Zinc 1 ml/Insulin Human Regular 12 units/Amino Acids/ Dextrose/Purified Water 1,439.12 ml @ 60 mls/hr Q24H IV 11/21/24 22:00 11/22/24 21:59 Cancel Morphine Sulfate 1 mg Q6HPRN PRN IV 11/22/24 04:30 11/22/24 12:01 1 MG objective General examination- Morbidly obese female, Acute distress, urinary catheter in place, A0X2 HEENT: PEERLA, no acute nasal discharge Chest: tachycardiac, S1-S2 audible, rate and rhythm regular, no murmur Lung: CTAB, no wheeze or rhonchi Abdomen: Very distended, Tenderness, significant scar on her abdomen Musculoskeletal: no acute joint swelling or tenderness Lower extremity: leg edema Neurological: unable to obtain Psychiatry-- Normal mood and affect Skin- dry laboratory and microbiology Laboratory Tests 11/22/24 03:33 Test 11/22/24 03:33 Range/Units Serum Glucose 125 H 74-106 mg/dL Assessment/Plan Patient is a 64-year-old female presented to the hospital with: Adenocarcinoma of colon on pathology Leukocytosis 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 Bowel obstruction s/p exp lap right hemicolectomy terminal ileum perforation s/p partial resection of terminal ileum and caecum Urinary tract infection Acute hypoxic respiratory failure Morbid obesity Recommendations: reviewed all the cultures/ labs noted below LIANNE drain is sero sanguinous Antibiotic status: Continue Vancomycin [Restarted on 11/20] Continue Zosyn [Started on 11/19] WBC trending up Repeat CBC; will monitor dc vancomycin, cont Zosyn for total 5 days c diff negative 11/13, urine culture showed: >100,000 CFU/mL Mixed Gram Positive Ca >3 [place] Type including Beta- Hemolytic Group B Streptococcus 11/16, repeat urine culture showed no growth after 48 hours of incubation. Thank you for consult and for giving an opportunity to take care of this patient. Dietary Evaluation Review Comments: 1) Advance pt diet when medically feasible 2) Continue current plan of care Expected Outcomes/Goals: F/U in 2-3 days Plan discussed with: Patient, Other MALLAD,LAILA V MD Nov 22, 2024 16:37
--- NOTE | 2024-11-22 19:26 | DVHPNRES ---
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 On arrival patient had temperature of 97.6, pulse 126 bpm, respiratory rate 17, blood pressure 154/88, saturating 95 on room air. WBC count was 21.5 with 89% neutrophils and 600 platelets. Lactic acid was elevated at 2.4. 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 Subsequent CT abdomen completed 11/16 showed marked dilation of the right and transverse colon with a transition point at the level of the sigmoid flexure. Associated wall thickening in this region. Suspicious of an underlying lesion resulting in obstruction. Small left pleural effusion with basilar atelectasis. Consequently GI Dr. Dalal did a sigmoidoscopy up to the splenic flexure with biopsy and colonic decompression on 11/15 and an abnormal area was found in the splenic flexure with the sigmoid diverticular disease, moderate amount of retained stool in the rectosigmoid. So surgeon was consulted and patient underwent exploratory laparotomy with extended right hemicolectomy with ileostomy on 11/16 secondary to ischemic bowel with colonic obstruction at the splenic flexure. Distal ileum to the proximal descending colon was resected and a distal ileum perforation was found during the procedure. Lysis of adhesions were performed. Patient received 3 L of NS +500 mL of 5% albumin and 100 mL of 25% albumin during the procedure. Following the procedure patient was hypotensive and therefore could not be extubated and therefore which he was transferred to ICU for further management. 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 Quit smoking about 2 years ago when she had PE. Home medications: Glatopa 20 mg every morning, lidocaine patch q.12 hours p.r.n., Paxil tablet 10 mg daily, ropinirole 5 mg 2 tablets at bedtime, tolterodine 4 mg once daily, baclofen 10 mg b.i.d., albuterol 90 mcg. 11/17-Patient seen and examined at bed 109. She was started on 50% FiO2 which was downtrended to 35% FiO2 right now. Urine culture is growing greater than 1 lac Gram-positive species including GBS. Started vancomycin 11/17. ABGs show non-anion gap metabolic acidosis along with respiratory acidosis, likely secondary to hyperchloremia. DC 0.5 NS. Respiratory rate increased from 14-16. Sodium bicarbonate started at 100 mL/hour. Both LIANNE drains drained 25 and 30 mL serosanguineous. Xiao draining 90 mL overnight and 90 mL during the day. 11/18-patient seen and examined. He is not stable for CPAP. DC Versed. DC cefepime DC bicarb. Overnight 20 mL drainage from the right LIANNE, 25 from the left LIANNE 11/21 - over the weekend stress dose steroids started. Patient was started on Zosyn since . DC Flagyl today. Cumulative I/O shows positive 15 L. Lasix 40 mg IV started. Patient tolerated CPAP trial very well, extubated. Bilateral upper extremity ultrasound ordered. ET tube advanced 2 cm. 11/22 -seen and examined at the bedside. Overnight morphine started for pain. patient is saturating 98 on 2 L. 1 unit of packed RBCs administered. Swallow eval completed, recommended soft diet. DC TPN, DC Lasix. Vaginal discharge resolved. Transferred to [facility]. PICC line consult placed. Started on pressors for cephalic vein thrombosis. PT eval requested. Objective vital signs Vital Sign Date Time Temp Pulse Resp B/P (MAP) Pulse Ox O2 Delivery O2 Flow Rate FiO2 11/22/24 19:01 95 20 86/60 (69) 100 11/22/24 18:00 Nasal Cannula* 2 28 11/22/24 17:44 97.3 97.3 Total Intake and Output 11/21/24 11/21/24 11/22/24 15:00 23:00 07:00 Intake Total 686.189 ml 333.378 ml 562.504 ml Output Total 2930 ml 1200 ml Balance 686.189 ml -2596.622 ml -637.496 ml medications Current Medications Medications Dose Ordered Sig/Sylvie Route Start Time Stop Time Status Last Admin Dose Admin Pantoprazole Sodium 40 mg DAILY IV 11/14/24 10:00 11/22/24 09:34 40 MG Nitroglycerin 0.4 mg Q5MINP PRN SL 11/13/24 23:00 Albuterol 2.5 mg Q6HP PRN NEB 11/14/24 06:00 11/21/24 00:17 2.5 MG Norepinephrine Bitartrate 32 mg/ Sodium Chloride 250 ml @ 0.938 mls/ hr Q24H IV 11/17/24 08:45 11/21/24 06:10 3.75 MLS/HR Enoxaparin Sodium 40 mg DAILY SC 11/18/24 10:00 11/22/24 09:34 40 MG Piperacillin Sod/ Tazobactam Sod 100 ml @ 25 mls/hr Q8HR IV 11/19/24 22:00 11/22/24 13:29 25 MLS/HR Nystatin 1 applic BID TOP 11/21/24 10:00 11/22/24 09:36 1 APPLIC Fat Emulsion Intravenous 150 ml/Sodium Phosphate 60 meq/ Potassium Phosphate 44 meq/ Magnesium Sulfate 12 meq/ Multivitamins 10 ml/Chromium/ Copper/Manganese/ Zinc 1 ml/Insulin Human Regular 12 units/Amino Acids/ Dextrose/Purified Water 1,439.12 ml @ 60 mls/hr Q24H IV 11/21/24 22:00 11/22/24 21:59 Cancel Morphine Sulfate 1 mg Q6HPRN PRN IV 11/22/24 04:30 11/22/24 17:38 1 MG Examination Morbidly obese female patient lying in bed, extubated. General: Morbidly obese, afebrile, palor, mucosae are moist A&O x4. Cardiovascular: Regular S1 and S2. No murmurs, gallops or rubs. No JVD elevation. 1+ nonpitting edema in the lower extremity Respiratory: Bilateral dull breath sounds heard , saturating 98% on 2 L NC. Abdomen: Abdomen is soft but hypoactive bowel sounds. Dressing dry clean and intact. Two LIANNE drains attached. Maceration, erythema noted beneath the skin fold beneath the umbilicus. Ileostomy seen with bilious 30ml secretions. Genitourinary: Xiao catheter is seen. MSK/skin: Skin is dry and warm B/l upper and lower ext edema Neurological: Pupils are constricted and sluggish to response. No icterus seen. laboratory and microbiology Laboratory Tests 11/22/24 03:33 Test 11/22/24 03:33 Range/Units Serum Glucose 125 H 74-106 mg/dL Microbiology Date/Time Source Procedure Growth Status 11/20/24 10:00 Stool Clostridium difficile Toxin Assay - Final Complete 11/16/24 23:50 Urine - Xiao Port Urine Culture - Final Complete 11/16/24 17:20 Sputum Gram Stain - Final Complete 11/16/24 17:20 Sputum Respiratory Culture - Final Complete 11/16/24 17:10 Nose MRSA Screen - Final Complete 11/13/24 20:26 Blood Blood Culture - Final NO GROWTH AFTER 5 DAYS OF INCUBATION. 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 Extubated 11/21 CARDIOVASCULAR Septic shock secondary to toxic megacolon Lactic acidosis-resolved started Zosyn 11/19 DC vancomycin 11/17 till 11/21 and DC IV metronidazole, patient received from 11/15 to 11/21 DC IV cefepime 11/18 Preliminary blood cultures negative Furosemide 40 mg IV started 11/21 RESPIRATORY Acute hypoxic respiratory failure secondary to septic shock Chronic nicotine dependence Respiratory acidosis History of PE Non-anion gap metabolic acidosis secondary to hyperchloremia Left sided pleural effusion with associated basilar atelectasis consolidation Intubated from 11/16 till 11/21 Respiratory culture and Gram stain shows no growth ABGs 11/17 shows non-anion gap metabolic acidosis with respiratory acidosis Discontinue sodium bicarbonate 100 mL/hour 11/17 till 11/18 GI Sepsis secondary to toxic megacolon secondary to primary adenocarcinoma of the descending colon and splenic flexure 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 Associated wall thickening in this region. Suspect an underlying lesion resulting in obstruction. Associated small bowel obstruction. Findings are similar to prior exam. Await final pathology results /KIDNEY Acute cystitis Yellow colored vaginal discharge Final urine culture showed >100,000 CFU/mL Mixed Gram Positive Ca >3 [place] Types, including Beta-Hemolytic Group B Streptococcus Repeat urine culture 11/16 is negative Continue IV Zosyn METABOLIC Hyponatremia, corrected Hypomagnesemia, supplement Morbid obese Non-anion gap metabolic acidosis Vitamin-D deficiency Hypercalcemia: Corrected calcium 10.6 SKIN Intertrigo - nystatin powder HEM-ONCO Anemia, likely normocytic secondary to blood loss Hemoglobin dropped from 16-10 from 11/14 to 11/17 Retic count 1.23, lactate dehydrogenase 330 11/22 1 unit of packed RBC administered LINES Intubated on 11/16 till 11/21 Left SUBCLAVIAN CVC 11/16 Xiao catheter 11/13 DRIPS LEVOPHED 2 VASOPRESSIN off since 11/11 FENTANYL DC VERSED DC NUTRITION; Clinimix starting 11/17, TPN starting 11/18 till 11/22, started soft diet 11/22 DVT; Lovenox 40 mg sc daily Goals of care/advance care planning; FULL CODE; discussed on for 24 minutes. PUD prophylaxis: Pantoprazole 40 mg IV daily DVT prophylaxis: Lovenox 40 mg sc daily Plan discussed with patient's daughter Paula [phone] over the phone call for more than 20 minutes, code status full code. Tried to contact son Willam Padilla over the phone, was unreachable Case discussed with Dr. Barker. Patient transferred to [facility] Critical care time including review of the chart, and discussion with the patient's family excluding procedures 57 minutes Plan discussed with: Patient, Daughter (Over the phone) My Orders My Orders Orders - SARA PAULA RESIDENT Procedure Category Date Status Time Discontinue Ng ORDERS 11/22/24 Transmitted 09:14 * Swallow Request ST 11/22/24 Transmitted 09:14 Pt Request For Service PT 11/22/24 Logged 09:26 Warm Compresses ORDERS 11/22/24 Transmitted 11:31 * Picc Line Consult CONS 11/22/24 Transmitted 12:41 Mechanical Soft Diet DIET 11/22/24 Transmitted Lunch Dietary Evaluation Review Comments: 1) Advance pt diet when medically feasible 2) Continue current plan of care Expected Outcomes/Goals: F/U in 2-3 days Date of Service: Nov 22, 2024 Billing Provider: HARRY BARKER MD Common Visit Codes: 75418-WQUOMVRK CARE 30-74 MIN SARA PAULA RESIDENT Nov 22, 2024 19:26 HARRY BARKER MD Nov 23, 2024 15:15
[2024-11-22] MEDS ORDERED: TPN PER PHARMACY IV NR (22:00)
[2024-11-23] VITALS (101 sets, daily range): BP systolic 77–131; BP diastolic 35–79; PULSE 74–93; RESP 14–34; TEMP 98–98.6; O2SAT 96–100
[2024-11-23 04:18] LABS: Hematocrit 32.8 % (36.0-46.0); Hemoglobin 10.7 g/dL (12.2-16.2); Mean Corpuscular Hemoglobin 28.3 pg (28.0-32.0); Mean Corpuscular Hgb Conc. 32.7 g/dL (32.0-36.0); Mean Corpuscular Volume 86.4 fL (80.0-100.0); Platelet Count (auto) 241 10^3/uL (140-450); Red Blood Cells 3.79 10^6/uL (4.0-5.20); Red Cell Distribution Width 16.5 % (11.8-14.3); White Blood Cell 21.2 10^3/uL (4.4-10.8)
[2024-11-23 04:38] LABS: Basophils % (manual) 0 (0.0-2.0); Blast Cells 0; Eosinophils % (manual) 0 (0-7); Metamyelocytes % 0; Myelocytes % 0; Promyelocytes % 0; Reactive Lymphocytes 0
[2024-11-23 04:47] LABS: Alanine Aminotransferase 30 U/L (7-40); Anion Gap 6 (5-15); BUN/Creatinine Ratio 37.5 (10.0-20.0); Blood Urea Nitrogen 18 mg/dL (9-23); Carbon Dioxide 28 mmol/L (20-31); Chloride 102 mmol/L (98-107); Glucose 80 mg/dL (74-106); Potassium 3.9 mmol/L (3.5-5.1)
[2024-11-23 04:50] LABS: Albumin 2.9 g/dL (3.2-4.8); Alkaline Phosphatase 153 U/L (46-116); Aspartate Aminotransferase 48 U/L (13-40); Bilirubin, Total 1.2 mg/dL (0.2-1.0); Sodium 136 mmol/L (136-145)
[2024-11-23 05:28] LABS: Band Neutrophils % (manual) 4; Lymphocytes % (manual) 8 (10.0-50.0); Monocytes % (manual) 5 (0-12); Platelet Estimate Adequate
--- NOTE | 2024-11-23 05:41 | DVH ---
CHEST RADIOGRAPH Indication: Follow up Technique: Single frontal view of the chest was obtained Comparison: XY CHEST XRAY 1 VIEW on DOS: 11/22/24, XY CHEST PORTABLE on DOS: 11/21/24, XY CHEST XRAY 1 VIEW on DOS: 11/19/24, XY CHEST XRAY 1 VIEW on DOS: 11/18/24, XY CHEST PORTABLE on DOS: 11/17/24, X Y CHEST XRAY 1 VIEW on DOS: 11/22/24 FINDINGS: Lines and Tubes: left central venous catheter in satisfactory position. ET and NG tube removed. Lungs: Congestion Pleura: Small left pleural effusion. No pneumothorax. Cardiomediastinal contours: Unremarkable Bones: Unremarkable IMPRESSION: No significant interval change.
--- NOTE | 2024-11-23 09:14 | DVHPN2 ---
Progress Note Date Seen: Nov 23, 2024 Medical Necessity Reason Pt with a Central, PICC or Fol: Yes The following are medically ne: Central Line, Xiao Catheter Reason for xiao catheter: Strict I&O Objective vital signs Vital Sign Date Time Temp Pulse Resp B/P (MAP) Pulse Ox O2 Delivery O2 Flow Rate FiO2 11/23/24 08:15 86 23 107/44 (65) 96 11/23/24 08:00 Nasal Cannula* 2 28 11/23/24 08:00 98.5 98.5 Total Intake and Output 11/22/24 11/22/24 11/23/24 15:00 23:00 07:00 Intake Total 482.503 ml 580.941 ml 1031.876 ml Output Total 1915 ml 525 ml Balance 482.503 ml -1334.059 ml 506.876 ml medications Current Medications Medications Dose Ordered Sig/Sylvie Route Start Time Stop Time Status Last Admin Dose Admin Pantoprazole Sodium 40 mg DAILY IV 11/14/24 10:00 11/22/24 09:34 40 MG Nitroglycerin 0.4 mg Q5MINP PRN SL 11/13/24 23:00 Albuterol 2.5 mg Q6HP PRN NEB 11/14/24 06:00 11/21/24 00:17 2.5 MG Norepinephrine Bitartrate 32 mg/ Sodium Chloride 250 ml @ 0.938 mls/ hr Q24H IV 11/17/24 08:45 11/21/24 06:10 3.75 MLS/HR Enoxaparin Sodium 40 mg DAILY SC 11/18/24 10:00 11/22/24 09:34 40 MG Piperacillin Sod/ Tazobactam Sod 100 ml @ 25 mls/hr Q8HR IV 11/19/24 22:00 11/23/24 05:18 25 MLS/HR Nystatin 1 applic BID TOP 11/21/24 10:00 11/22/24 21:55 1 APPLIC Fat Emulsion Intravenous 150 ml/Sodium Phosphate 60 meq/ Potassium Phosphate 44 meq/ Magnesium Sulfate 12 meq/ Multivitamins 10 ml/Chromium/ Copper/Manganese/ Zinc 1 ml/Insulin Human Regular 12 units/Amino Acids/ Dextrose/Purified Water 1,439.12 ml @ 60 mls/hr Q24H IV 11/21/24 22:00 11/22/24 21:59 Cancel Morphine Sulfate 1 mg Q6HPRN PRN IV 11/22/24 04:30 11/23/24 06:19 1 MG laboratory and microbiology Laboratory Tests 11/23/24 03:59 Test 11/23/24 03:59 Range/Units Serum Glucose 80 74-106 mg/dL Problem List/Assessment/Plan Problem List/Assessment/Plan 11/21/24 F/U for . patient had subtotal colectomy for obstructing sigmoid mass causing proximal ischemia due to over distension, has a well functioning viable ileostomy and her wound is well approximated, the drain has serosanguineous drainage . she is hemodynamically stable and remains sedated and intubated with CPAP trial pending. No obvious "surgical " problems. once extubated she can have the NGT removed and start po intake. 11/23/24 extubated, on po diet,tolerating without nausea or vomiting, wound clean and well approximated, stoma viable and functioning, ok to dc xiao, advance diet as tolerated, physical therapy to assist Plan discussed with: Patient, Other Dietary Evaluation Review Comments: 1) Advance pt diet when medically feasible 2) Continue current plan of care Expected Outcomes/Goals: F/U in 2-3 days KIMBERLY BERMUDEZ MD Nov 23, 2024 09:14
--- NOTE | 2024-11-23 12:17 | DVH ---
Bilateral lower extremity venous duplex Clinical History: DVT Comparison: US BI LAT UPPER DVT on DOS: 11/21/24 Technique: Duplex Doppler evaluation of the deep venous systems of both lower extremities from the common femora l veins to the popliteal veins including color Doppler and spectral/pulsed waveform analysis was perf ormed. Findings: RIGHT SIDE: The common femoral vein demonstrates appropriate compressibility and waveform variability. There is compressibility/patency of the great saphenous vein at the proximal thigh. The femoral vein demonstrates appropriate compressibility and waveform variability. The deep femoral vein demonstrates appropriate compressibility and waveform variability. LEFT SIDE: The common femoral vein demonstrates appropriate compressibility and waveform variability. There is compressibility/patency of the great saphenous vein at the proximal thigh. The femoral vein demonstrates appropriate compressibility and waveform variability. The deep femoral vein demonstrates appropriate compressibility and waveform variability. Impression: Limited examination with nonvisualization of the bilateral mid and distal femoral vein, and popliteal vein. Otherwise, of the visualized lower extremity, no DVT.
--- NOTE | 2024-11-23 15:27 | DVHPN2 ---
Progress Note - Dictate Date Seen: Nov 23, 2024 Medical Necessity Reason Pt with a Central, PICC or Fol: Yes The following are medically ne: Central Line, Xiao Catheter Reason for xiao catheter: Strict I&O Subjective afebrile no acute events Patient underwent a laparotomy with extended right hemicolectomy up to the proximal descending colon 11/21 She was diagnosed with adenocarcinoma of the splenic flexure on colonoscopy biopsies and frozen section. vital signs Vital Sign Date Time Temp Pulse Resp B/P (MAP) Pulse Ox O2 Delivery O2 Flow Rate FiO2 11/23/24 14:15 85 20 112/59 (76) 98 11/23/24 14:00 Nasal Cannula* 2 28 11/23/24 12:00 98.1 98.1 Total Intake and Output 11/22/24 11/22/24 11/23/24 15:00 23:00 07:00 Intake Total 482.503 ml 580.941 ml 1031.876 ml Output Total 1915 ml 525 ml Balance 482.503 ml -1334.059 ml 506.876 ml medications Current Medications Medications Dose Ordered Sig/Sylvie Route Start Time Stop Time Status Last Admin Dose Admin Pantoprazole Sodium 40 mg DAILY IV 11/14/24 10:00 11/23/24 09:27 40 MG Nitroglycerin 0.4 mg Q5MINP PRN SL 11/13/24 23:00 Albuterol 2.5 mg Q6HP PRN NEB 11/14/24 06:00 11/21/24 00:17 2.5 MG Norepinephrine Bitartrate 32 mg/ Sodium Chloride 250 ml @ 0.938 mls/ hr Q24H IV 11/17/24 08:45 11/21/24 06:10 3.75 MLS/HR Enoxaparin Sodium 40 mg DAILY SC 11/18/24 10:00 11/23/24 09:27 40 MG Piperacillin Sod/ Tazobactam Sod 100 ml @ 25 mls/hr Q8HR IV 11/19/24 22:00 11/23/24 13:31 25 MLS/HR Nystatin 1 applic BID TOP 11/21/24 10:00 11/23/24 13:31 1 APPLIC Fat Emulsion Intravenous 150 ml/Sodium Phosphate 60 meq/ Potassium Phosphate 44 meq/ Magnesium Sulfate 12 meq/ Multivitamins 10 ml/Chromium/ Copper/Manganese/ Zinc 1 ml/Insulin Human Regular 12 units/Amino Acids/ Dextrose/Purified Water 1,439.12 ml @ 60 mls/hr Q24H IV 11/21/24 22:00 11/22/24 21:59 Cancel Morphine Sulfate 1 mg Q6HPRN PRN IV 11/22/24 04:30 11/23/24 13:41 1 MG objective General examination- Morbidly obese female, Acute distress, urinary catheter in place, A0X2 HEENT: PEERLA, no acute nasal discharge Chest: S1-S2 audible, rate and rhythm regular, no murmur Lung: CTAB, no wheeze or rhonchi Abdomen: exp lap , LIANNE drain +, ileostomy Musculoskeletal: no acute joint swelling or tenderness Lower extremity: leg edema Neurological: unable to obtain Psychiatry-- Normal mood and affect Skin- dry laboratory and microbiology Laboratory Tests 11/23/24 03:59 Test 11/23/24 03:59 Range/Units Serum Glucose 80 74-106 mg/dL Assessment/Plan Patient is a 64-year-old female presented to the hospital with: Adenocarcinoma of colon on pathology Leukocytosis Possible toxic megacolon with possible pneumatosis intestinalis. Bowel obstruction s/p exp lap right hemicolectomy terminal ileum perforation s/p partial resection of terminal ileum and caecum Urinary tract infection Acute hypoxic respiratory failure Morbid obesity Recommendations: reviewed all the cultures/ labs noted below LIANNE drain is sero sanguinous Repeat CBC; will monitor dc vancomycin, cont Zosyn for total 5 days, stop date 11/25 c diff negative 11/13, urine culture showed: >100,000 CFU/mL Mixed Gram Positive Ca >3 [place] Type including Beta- Hemolytic Group B Streptococcus 11/16, repeat urine culture showed no growth after 48 hours of incubation. Thank you for consult and for giving an opportunity to take care of this patient. Dietary Evaluation Review Comments: 1) Advance pt diet when medically feasible 2) Continue current plan of care Expected Outcomes/Goals: F/U in 2-3 days Plan discussed with: Other CC Plasma Assessment Blood Product Administration S: [id number] LAILA DRAKE MD Nov 23, 2024 15:27
--- NOTE | 2024-11-23 15:53 | DVHPNRES ---
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 On arrival patient had temperature of 97.6, pulse 126 bpm, respiratory rate 17, blood pressure 154/88, saturating 95 on room air. WBC count was 21.5 with 89% neutrophils and 600 platelets. Lactic acid was elevated at 2.4. CT abdomen pelvis completed 11/13 showed gas distended colon with air bubbles quality audit representative of toxic colitis. Subsequent CT abdomen completed 11/16 showed marked dilation of the right and transverse colon with a transition point at the level of the sigmoid flexure. Associated wall thickening in this region. Suspicious of an underlying lesion resulting in obstruction. Small left pleural effusion with basilar atelectasis. Consequently GI Dr. Dalal did a sigmoidoscopy up to the splenic flexure with biopsy and colonic decompression on 11/15 and an abnormal area was found in the splenic flexure with the sigmoid diverticular disease, moderate amount of retained stool in the rectosigmoid. So surgeon was consulted and patient underwent exploratory laparotomy with extended right hemicolectomy with ileostomy on 11/16 secondary to ischemic bowel with colonic obstruction at the splenic flexure. Distal ileum to the proximal descending colon was resected and a distal ileum perforation was found during the procedure. Lysis of adhesions were performed. Patient received 3 L of NS +500 mL of 5% albumin and 100 mL of 25% albumin during the procedure. Following the procedure patient was hypotensive and therefore could not be extubated and therefore which he was transferred to ICU for further management. 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 Quit smoking about 2 years ago when she had PE. Home medications: Glatopa 20 mg every morning, lidocaine patch q.12 hours p.r.n., Paxil tablet 10 mg daily, ropinirole 5 mg 2 tablets at bedtime, tolterodine 4 mg once daily, baclofen 10 mg b.i.d., albuterol 90 mcg. 11/17-Patient seen and examined at bed 109. She was started on 50% FiO2 which was downtrended to 35% FiO2 right now. Urine culture is growing greater than 1 lac Gram-positive species including GBS. Started vancomycin 11/17. ABGs show non-anion gap metabolic acidosis along with respiratory acidosis, likely secondary to hyperchloremia. DC 0.5 NS. Respiratory rate increased from 14-16. Sodium bicarbonate started at 100 mL/hour. Both LIANNE drains drained 25 and 30 mL serosanguineous. Xiao draining 90 mL overnight and 90 mL during the day. 11/18-patient seen and examined. He is not stable for CPAP. DC Versed. DC cefepime DC bicarb. Overnight 20 mL drainage from the right LIANNE, 25 from the left LIANNE 11/21 - over the weekend stress dose steroids started. Patient was started on Zosyn since . DC Flagyl today. Cumulative I/O shows positive 15 L. Lasix 40 mg IV started. Patient tolerated CPAP trial very well, extubated. Bilateral upper extremity ultrasound ordered. ET tube advanced 2 cm. 11/22 -seen and examined at the bedside. Overnight morphine started for pain. patient is saturating 98 on 2 L. 1 unit of packed RBCs administered. Swallow eval completed, recommended soft diet. DC TPN, DC Lasix. Vaginal discharge resolved. Transferred to [facility]. PICC line consult placed. Started on pressors for cephalic vein thrombosis. PT eval requested. 11/23 - in his A&O x4. Levophed increased to 8 overnight from 2. Overnight patient ran 99.1 F. DC Xiao. Ordered urine culture. Incentive spirometry Q 1 hour. Repeat blood culture today. Lower extremity Doppler was a limited study with nonvisualization of bilateral femoral vein and popliteal vein. Objective vital signs Vital Sign Date Time Temp Pulse Resp B/P (MAP) Pulse Ox O2 Delivery O2 Flow Rate FiO2 11/23/24 14:15 85 20 112/59 (76) 98 11/23/24 14:00 Nasal Cannula* 2 28 11/23/24 12:00 98.1 98.1 Total Intake and Output 11/22/24 11/22/24 11/23/24 15:00 23:00 07:00 Intake Total 482.503 ml 580.941 ml 1031.876 ml Output Total 1915 ml 525 ml Balance 482.503 ml -1334.059 ml 506.876 ml medications Current Medications Medications Dose Ordered Sig/Sylvie Route Start Time Stop Time Status Last Admin Dose Admin Pantoprazole Sodium 40 mg DAILY IV 11/14/24 10:00 11/23/24 09:27 40 MG Nitroglycerin 0.4 mg Q5MINP PRN SL 11/13/24 23:00 Albuterol 2.5 mg Q6HP PRN NEB 11/14/24 06:00 11/21/24 00:17 2.5 MG Norepinephrine Bitartrate 32 mg/ Sodium Chloride 250 ml @ 0.938 mls/ hr Q24H IV 11/17/24 08:45 11/21/24 06:10 3.75 MLS/HR Enoxaparin Sodium 40 mg DAILY SC 11/18/24 10:00 11/23/24 09:27 40 MG Piperacillin Sod/ Tazobactam Sod 100 ml @ 25 mls/hr Q8HR IV 11/19/24 22:00 11/23/24 13:31 25 MLS/HR Nystatin 1 applic BID TOP 11/21/24 10:00 11/23/24 13:31 1 APPLIC Fat Emulsion Intravenous 150 ml/Sodium Phosphate 60 meq/ Potassium Phosphate 44 meq/ Magnesium Sulfate 12 meq/ Multivitamins 10 ml/Chromium/ Copper/Manganese/ Zinc 1 ml/Insulin Human Regular 12 units/Amino Acids/ Dextrose/Purified Water 1,439.12 ml @ 60 mls/hr Q24H IV 11/21/24 22:00 11/22/24 21:59 Cancel Morphine Sulfate 1 mg Q6HPRN PRN IV 11/22/24 04:30 11/23/24 13:41 1 MG Examination Morbidly obese female patient lying in bed, extubated. General: Morbidly obese, afebrile, palor, mucosae are moist A&O x4. Cardiovascular: Regular S1 and S2. No murmurs, gallops or rubs. No JVD elevation. 1+ nonpitting edema in the lower extremity Respiratory: Bilateral dull breath sounds heard , saturating 98% on 2 L NC. Abdomen: Abdomen is soft but hypoactive bowel sounds. Dressing dry clean and intact. Sutures intact with minimal drainage. Two LIANNE drains attached. Maceration, erythema noted beneath the skin fold beneath the umbilicus. Ileostomy seen with bilious 60ml secretions. Genitourinary: Redness in the skin folds. MSK/skin: Skin is dry and warm B/l upper and lower ext edema Neurological: Pupils are constricted and sluggish to response. No icterus seen. laboratory and microbiology Laboratory Tests 11/23/24 03:59 Test 11/23/24 03:59 Range/Units Serum Glucose 80 74-106 mg/dL Microbiology Date/Time Source Procedure Growth Status 11/20/24 10:00 Stool Clostridium difficile Toxin Assay - Final Complete 11/16/24 23:50 Urine - Xiao Port Urine Culture - Final Complete 11/16/24 17:20 Sputum Gram Stain - Final Complete 11/16/24 17:20 Sputum Respiratory Culture - Final Complete 11/16/24 17:10 Nose MRSA Screen - Final Complete 11/13/24 20:26 Blood Blood Culture - Final NO GROWTH AFTER 5 DAYS OF INCUBATION. 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 Extubated 11/21 CARDIOVASCULAR Septic shock secondary to toxic megacolon Lactic acidosis-resolved started Zosyn 11/19 DC vancomycin 11/17 till 11/21 and DC IV metronidazole, patient received from 11/15 to 11/21 DC IV cefepime 11/18 Preliminary blood cultures negative Furosemide 40 mg IV started 11/21 Repeat blood culture 11/23 RESPIRATORY Acute hypoxic respiratory failure secondary to septic shock Chronic nicotine dependence Respiratory acidosis History of PE Non-anion gap metabolic acidosis secondary to hyperchloremia Left sided pleural effusion with associated basilar atelectasis consolidation Intubated from 11/16 till 11/21 Respiratory culture and Gram stain shows no growth ABGs 11/17 shows non-anion gap metabolic acidosis with respiratory acidosis Discontinue sodium bicarbonate 100 mL/hour 11/17 till 11/18 Incentive spirometry Q 1 hour GI Sepsis secondary to toxic megacolon secondary to primary adenocarcinoma of the descending colon and splenic flexure 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 Associated wall thickening in this region. Suspect an underlying lesion resulting in obstruction. Associated small bowel obstruction. Findings are similar to prior exam. Await final pathology results /KIDNEY Acute cystitis Yellow colored vaginal discharge Final urine culture showed >100,000 CFU/mL Mixed Gram Positive Ca >3 [place] Types, including Beta-Hemolytic Group B Streptococcus Repeat urine culture 11/16 is negative Continue IV Zosyn Repeat urine culture 11/23 METABOLIC Hyponatremia, corrected Hypomagnesemia, supplement Morbid obese Non-anion gap metabolic acidosis Vitamin-D deficiency Hypercalcemia: Corrected calcium 10.6 SKIN Intertrigo - nystatin powder HEM-ONCO Anemia, likely normocytic secondary to blood loss Superficial venous thrombosis in the right cephalic Hemoglobin dropped from 16-10 from 11/14 to 11/17 Retic count 1.23, lactate dehydrogenase 330 11/22 1 unit of packed RBC administered Continue warm compresses to right arm LINES Intubated on 11/16 till 11/21 Left SUBCLAVIAN CVC 11/16 Xiao catheter 11/13 till 11/23 DRIPS LEVOPHED 8 VASOPRESSIN off since 11/11 FENTANYL DC VERSED DC NUTRITION; Clinimix starting 11/17, TPN starting 11/18 till 11/22, started soft diet 11/22 DVT; Lovenox 40 mg sc daily Physical therapy-recommended discharge back to [facility] facility or convalescent home. Recommended home health. Goals of care/advance care planning; FULL CODE; discussed on for 24 minutes. PUD prophylaxis: Pantoprazole 40 mg IV daily DVT prophylaxis: Lovenox 40 mg sc daily Plan discussed with patient's daughter Paula [phone] over the phone call for more than 20 minutes, code status full code. Tried to contact son Willam Padilla over the phone, was unreachable Case discussed with Dr. Trujillo. Patient transferred to [facility] Critical care time including review of the chart, and discussion with the patient's family excluding procedures 57 minutes Plan discussed with: Patient My Orders My Orders Orders - SARA PAULA Procedure Category Date Status Time Chest Portable XY 11/23/24 Resulted 04:00 Elevate Affected MADDY 11/23/24 In Process Extremity 07:22 Bilat Lower Dvt US 11/23/24 Resulted 08:39 Urine Bacterial LUCILLE 11/23/24 In Process Culture 12:15 Incentive Spirometry ORDERS 11/23/24 Transmitted Q 1hr 12:15 Dietary Evaluation Review Comments: 1) Advance pt diet when medically feasible 2) Continue current plan of care Expected Outcomes/Goals: F/U in 2-3 days CC Plasma Assessment Blood Product Administration S: [id number] Date of Service: Nov 23, 2024 Billing Provider: ALFRED TRUJILLO MD Common Visit Codes: [id number] CARE 30-74 MIN SARA PAULA RESIDENT Nov 23, 2024 15:53 ALFRED TRUJILLO MD Nov 23, 2024 22:32
--- NOTE | 2024-11-23 21:03 | DVHPN2 ---
Progress Note - Dictate Date Seen: Nov 23, 2024 Medical Necessity Reason Pt with a Central, PICC or Fol: Yes The following are medically ne: Central Line Reason for xiao catheter: Strict I&O Subjective Patient seen and examined at bedside. S/p extubation, on supplemental oxygen Overnight events reviewed. vital signs Vital Sign Date Time Temp Pulse Resp B/P (MAP) Pulse Ox O2 Delivery O2 Flow Rate FiO2 11/23/24 20:05 87 23 104/57 11/23/24 18:45 98 11/23/24 18:00 Nasal Cannula* 2 28 11/23/24 16:00 98.0 98.0 Total Intake and Output 11/22/24 11/22/24 11/23/24 15:00 23:00 07:00 Intake Total 482.503 ml 580.941 ml 1031.876 ml Output Total 1915 ml 525 ml Balance 482.503 ml -1334.059 ml 506.876 ml medications Current Medications Medications Dose Ordered Sig/Sylvie Route Start Time Stop Time Status Last Admin Dose Admin Pantoprazole Sodium 40 mg DAILY IV 11/14/24 10:00 11/23/24 09:27 40 MG Nitroglycerin 0.4 mg Q5MINP PRN SL 11/13/24 23:00 Albuterol 2.5 mg Q6HP PRN NEB 11/14/24 06:00 11/21/24 00:17 2.5 MG Norepinephrine Bitartrate 32 mg/ Sodium Chloride 250 ml @ 0.938 mls/ hr Q24H IV 11/17/24 08:45 11/21/24 06:10 3.75 MLS/HR Enoxaparin Sodium 40 mg DAILY SC 11/18/24 10:00 11/23/24 09:27 40 MG Piperacillin Sod/ Tazobactam Sod 100 ml @ 25 mls/hr Q8HR IV 11/19/24 22:00 11/23/24 13:31 25 MLS/HR Nystatin 1 applic BID TOP 11/21/24 10:00 11/23/24 13:31 1 APPLIC Fat Emulsion Intravenous 150 ml/Sodium Phosphate 60 meq/ Potassium Phosphate 44 meq/ Magnesium Sulfate 12 meq/ Multivitamins 10 ml/Chromium/ Copper/Manganese/ Zinc 1 ml/Insulin Human Regular 12 units/Amino Acids/ Dextrose/Purified Water 1,439.12 ml @ 60 mls/hr Q24H IV 11/21/24 22:00 11/22/24 21:59 Cancel Morphine Sulfate 1 mg Q6HPRN PRN IV 11/22/24 04:30 11/23/24 20:05 1 MG objective Gen.: Patient lying in bed in no apparent distress. On supplemental oxygen. Head: Normocephalic, atraumatic. Eyes: EOMI/PERRLA. Ears: Normal hearing. Normal anatomy. Neck/trachea: Trachea midline, supple. Nose: Normal external anatomy. Mouth: Moist mucous membranes. Chest: Decreased air entry bilaterally. No wheezing or rhonchi. Cardiovascular: Positive S1, positive S2. Regular rate and rhythm. Abdomen: Positive bowel sounds in all 4 quadrants. Soft, non-tender, non- distended. : Deferred. Rectal: Deferred. Skin: Warm, dry. Intact. Extremities: 2+ radial pulses bilaterally. No lower extremity edema. Neuro: Awake, alert, oriented x3. No gross motor or sensory deficits. Cranial nerves II through XII intact. Gait not assessed. laboratory and microbiology Laboratory Tests 11/23/24 03:59 Test 11/23/24 03:59 Range/Units Serum Glucose 80 74-106 mg/dL Assessment/Plan Impression: Acute hypoxic respiratory failure On mechanical ventilator Colitis, toxic megacolon Urinary tract infection Leukocytosis Morbid obesity Events: Patient is s/p extubation On supplemental oxygen 2 LPM NC Taper O2 as tolerated Off sedation On pressors for hemodynamic support Levophed 6-8 mcg/min Titrate to keep mean arterial pressure greater than 65 mmHg Improving pressor requirements Continue antibiotics Continue bronchodilators Start midodrine 5 mg TID. Head of bed elevation Aspiration precautions. Pain control Avoid oversedation Passed swallow eval - soft mechanical diet. Monitor renal function Monitor electrolytes. Supplement as necessary. Labs and imaging reviewed. Rest of plan as noted below. Plan: Patient is s/p extubation On supplemental oxygen 2 LPM NC Titrate to keep O2 sats above 92%. Taper O2 as tolerated Bronchodilators Steroids tapered off Continue antibiotics. On pressors for hemodynamic support Titrate to keep mean arterial pressure greater than 65 mmHg Monitor renal function Monitor electrolytes. Supplement as necessary. Monitor ins and outs. GI prophylaxis. DVT prophylaxis. Prognosis: Poor given patient's multiple co-morbidities. Condition: Critical Rest of plan per hospitalist and other consultants. A total of 35 minutes of critical care time was spent reviewing the patient record, examining the patient, making a diagnostic and therapeutic plan, discussing this plan with the medical personnel, following up on diagnostic studies and following the patient for clinical stability excluding any and all procedures. At least 50% of this time was spent in direct, [id number] contact. Thank you, Dr. Erazo, for allowing me to participate in this patient's care. Further recommendations will depend on the patient's clinical course. Please do not hesitate to contact me if you have any questions or concerns. This medical document was created using an electronic medical record system with [employer] dictation system. Although these documentations are being carefully reviewed, there may still be some phonetic and typographical changes. The errors are purely typographical, due to imperfection on the software program, and do not reflect any compromise in the patient's medical care. Dietary Evaluation Review Comments: 1) Advance pt diet when medically feasible 2) Continue current plan of care Expected Outcomes/Goals: F/U in 2-3 days Plan discussed with: Other (JOSH Gunderson) Critical Care Time(min): 35 CC Plasma Assessment Blood Product Administration S: [id number] ROSE MARY JOLLEY MD Nov 23, 2024 21:03
[2024-11-24] VITALS (104 sets, daily range): BP systolic 89–138; BP diastolic 26–87; PULSE 79–109; RESP 15–40; TEMP 98–98.8; O2SAT 90–100
[2024-11-24 04:34] LABS: Basophils # (auto) 0 10 ^3/uL (0-0.2); Basophils % (auto) 0.1 % (0.0-2.0); Eosinophils # (auto) 0 10 ^3/uL (0-0.8); Eosinophils % (auto) 0.2 % (0.0-7.0); Hemoglobin 10.1 g/dL (12.2-16.2); Lymphocytes # (auto) 1.4 10 ^3/uL (0.4-5.4); Mean Corpuscular Hemoglobin 28.7 pg (28.0-32.0); Mean Corpuscular Hgb Conc. 33.5 g/dL (32.0-36.0); Mean Corpuscular Volume 85.7 fL (80.0-100.0); Monocytes # (auto) 0.9 10 ^3/uL (0-1.3); Monocytes % (auto) 5.1 % (0.0-12.0); Neutrophils # (auto) 15.5 10 ^3/uL (1.6-8.6); Neutrophils % (auto) 86.6 % (37.0-80.0); Platelet Count (auto) 220 10^3/uL (140-450); Red Cell Distribution Width 16.2 % (11.8-14.3); White Blood Cell 17.9 10^3/uL (4.4-10.8)
[2024-11-24 04:42] LABS: Alanine Aminotransferase 50 U/L (7-40); Albumin 2.7 g/dL (3.2-4.8); Alkaline Phosphatase 121 U/L (46-116); Anion Gap 7 (5-15); Aspartate Aminotransferase 74 U/L (13-40); Calcium 8.4 mg/dL (8.7-10.4); Carbon Dioxide 28 mmol/L (20-31); Chloride 101 mmol/L (98-107); Glucose 74 mg/dL (74-106); Magnesium 1.9 mg/dL (1.6-2.6); Potassium 3.6 mmol/L (3.5-5.1); Sodium 136 mmol/L (136-145)
[2024-11-24 04:44] LABS: Total Protein 4.8 g/dL (5.7-8.2)
[2024-11-24 05:10] LABS: Blood Urea Nitrogen 17 mg/dL (9-23)
--- NOTE | 2024-11-24 05:54 | DVH ---
CHEST RADIOGRAPH Indication: f/u Technique: Single frontal view of the chest was obtained COMPARISON: XY CHEST PORTABLE on DOS: 11/23/24, XY CHEST XRAY 1 VIEW on DOS: 11/22/24, XY CHEST ROGER BLE on DOS: 11/21/24, XY CHEST XRAY 1 VIEW on DOS: 11/19/24, XY CHEST XRAY 1 VIEW on DOS: 11/18/24, X Y CHEST PORTABLE on DOS: 11/23/24 FINDINGS: Lines and Tubes: left central venous catheter in satisfactory position. Lungs: Congestion Pleura: Small left pleural effusion. No pneumothorax. Cardiomediastinal contours: Unremarkable Bones: Unremarkable IMPRESSION: No significant interval change.
[2024-11-24] MEDS: POTASSIUM EFFERVESENT TAB 25 MEQ GT ONE (10:28)
[2024-11-24] MEDS: MIDODRINE HCL 10 MG TAB PO SCH (10:28)
--- NOTE | 2024-11-24 11:22 | DVHPN2 ---
Progress Note - Dictate Date Seen: Nov 24, 2024 Medical Necessity Reason Pt with a Central, PICC or Fol: Yes The following are medically ne: Central Line Reason for xiao catheter: Strict I&O Subjective Patient is awake and alert tolerating diet and drinking water Patient is usually wheelchair-bound and apparently may have had a chronic Xiao catheter Hemoglobin stable at 10.1 Patient ileostomy is functional and LIANNE drain output is about 80 mL clear serosanguineous somewhat blood-tinged material Patient underwent a laparotomy with extended right hemicolectomy up to the proximal descending colon yesterday She was diagnosed with adenocarcinoma of the splenic flexure on colonoscopy biopsies and frozen section vital signs Vital Sign Date Time Temp Pulse Resp B/P (MAP) Pulse Ox O2 Delivery O2 Flow Rate FiO2 11/24/24 10:00 20 95 Nasal Cannula* 2 28 11/24/24 10:00 93 104/57 (73) 11/24/24 08:00 98.3 98.3 Total Intake and Output 11/23/24 11/23/24 11/24/24 15:00 23:00 07:00 Intake Total 329.063 ml 427.504 ml 314.688 ml Output Total 475 ml 515 ml Balance 329.063 ml -47.496 ml -200.312 ml medications Current Medications Medications Dose Ordered Sig/Sylvie Route Start Time Stop Time Status Last Admin Dose Admin Pantoprazole Sodium 40 mg DAILY IV 11/14/24 10:00 11/24/24 07:32 40 MG Nitroglycerin 0.4 mg Q5MINP PRN SL 11/13/24 23:00 Albuterol 2.5 mg Q6HP PRN NEB 11/14/24 06:00 11/24/24 09:42 2.5 MG Norepinephrine Bitartrate 32 mg/ Sodium Chloride 250 ml @ 0.938 mls/ hr Q24H IV 11/17/24 08:45 11/24/24 05:12 2.813 MLS/HR Enoxaparin Sodium 40 mg DAILY SC 11/18/24 10:00 11/24/24 07:32 40 MG Piperacillin Sod/ Tazobactam Sod 100 ml @ 25 mls/hr Q8HR IV 11/19/24 22:00 11/24/24 05:42 25 MLS/HR Nystatin 1 applic BID TOP 11/21/24 10:00 11/24/24 07:34 1 APPLIC Fat Emulsion Intravenous 150 ml/Sodium Phosphate 60 meq/ Potassium Phosphate 44 meq/ Magnesium Sulfate 12 meq/ Multivitamins 10 ml/Chromium/ Copper/Manganese/ Zinc 1 ml/Insulin Human Regular 12 units/Amino Acids/ Dextrose/Purified Water 1,439.12 ml @ 60 mls/hr Q24H IV 11/21/24 22:00 11/22/24 21:59 Cancel Morphine Sulfate 1 mg Q6HPRN PRN IV 11/22/24 04:30 11/24/24 08:08 1 MG Midodrine 5 mg TID@0600,1200,1800 PO 11/24/24 12:00 11/24/24 10:28 5 MG Albuterol 2.5 mg Q12HR NEB 11/24/24 22:00 objective Gen: in awake alert edematous Cvs: N S1/S2, RRR Resp: On supplemental oxygen, extubated Abd: Morbidly Obese, ileostomy stoma looks well, incision site intact Correctional Case Manager: Sedated laboratory and microbiology Laboratory Tests 11/24/24 04:10 Test 11/24/24 04:10 Range/Units Serum Glucose 74 74-106 mg/dL Problems(with codes): (1) Left lower lobe pulmonary infiltrate (2) 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
--- NOTE | 2024-11-24 15:58 | DVHPN2 ---
Progress Note - Dictate Date Seen: Nov 24, 2024 Medical Necessity Reason Pt with a Central, PICC or Fol: Yes The following are medically ne: Central Line Reason for xiao catheter: Strict I&O Subjective Patient is awake and alert tolerating diet and drinking water Patient is usually wheelchair-bound and Patient ileostomy is functional and LIANNE drain output is about 80 mL clear serosanguineous somewhat blood-tinged material WBC trending down Patient underwent a laparotomy with extended right hemicolectomy up to the proximal descending colon She was diagnosed with adenocarcinoma of the splenic flexure on colonoscopy biopsies and frozen section. vital signs Vital Sign Date Time Temp Pulse Resp B/P (MAP) Pulse Ox O2 Delivery O2 Flow Rate FiO2 11/24/24 14:18 89 21 96/40 11/24/24 14:15 95 11/24/24 14:00 Nasal Cannula* 2 28 11/24/24 12:00 98.3 98.3 Total Intake and Output 11/23/24 11/23/24 11/24/24 15:00 23:00 07:00 Intake Total 329.063 ml 427.504 ml 314.688 ml Output Total 475 ml 515 ml Balance 329.063 ml -47.496 ml -200.312 ml medications Current Medications Medications Dose Ordered Sig/Sylvie Route Start Time Stop Time Status Last Admin Dose Admin Pantoprazole Sodium 40 mg DAILY IV 11/14/24 10:00 11/24/24 07:32 40 MG Nitroglycerin 0.4 mg Q5MINP PRN SL 11/13/24 23:00 Albuterol 2.5 mg Q6HP PRN NEB 11/14/24 06:00 11/24/24 09:42 2.5 MG Norepinephrine Bitartrate 32 mg/ Sodium Chloride 250 ml @ 0.938 mls/ hr Q24H IV 11/17/24 08:45 11/24/24 05:12 2.813 MLS/HR Enoxaparin Sodium 40 mg DAILY SC 11/18/24 10:00 11/24/24 07:32 40 MG Piperacillin Sod/ Tazobactam Sod 100 ml @ 25 mls/hr Q8HR IV 11/19/24 22:00 11/24/24 12:45 25 MLS/HR Nystatin 1 applic BID TOP 11/21/24 10:00 11/24/24 07:34 1 APPLIC Fat Emulsion Intravenous 150 ml/Sodium Phosphate 60 meq/ Potassium Phosphate 44 meq/ Magnesium Sulfate 12 meq/ Multivitamins 10 ml/Chromium/ Copper/Manganese/ Zinc 1 ml/Insulin Human Regular 12 units/Amino Acids/ Dextrose/Purified Water 1,439.12 ml @ 60 mls/hr Q24H IV 11/21/24 22:00 11/22/24 21:59 Cancel Morphine Sulfate 1 mg Q6HPRN PRN IV 11/22/24 04:30 11/24/24 13:48 1 MG Albuterol 2.5 mg Q12HR NEB 11/24/24 22:00 Morphine Sulfate 15 mg Q12HR PO 11/24/24 22:00 objective General examination- Morbidly obese female, Acute distress, urinary catheter in place, A0X2 HEENT: PEERLA, no acute nasal discharge Chest: tachycardiac, S1-S2 audible, rate and rhythm regular, no murmur Lung: CTAB, no wheeze or rhonchi Abdomen: exp lap, LIANNE drain +, ileostomy bag+ Musculoskeletal: no acute joint swelling or tenderness Lower extremity: leg edema Neurological:no gross focal deficit Psychiatry-- Normal mood and affect Skin- dry laboratory and microbiology Laboratory Tests 11/24/24 04:10 Test 11/24/24 04:10 Range/Units Serum Glucose 74 74-106 mg/dL Assessment/Plan PPatient is a 64-year-old female presented to the hospital with: Adenocarcinoma of colon on pathology Leukocytosis 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 Bowel obstruction s/p exp lap right hemicolectomy terminal ileum perforation s/p partial resection of terminal ileum and caecum Urinary tract infection Acute hypoxic respiratory failure Morbid obesity Recommendations: LIANNE drain is sero sanguinous Repeat CBC; will monitor; downtrending clinically she seems to be improving cont Zosyn for total 5 days, stop date 11/25 c diff negative 11/13, urine culture showed: >100,000 CFU/mL Mixed Gram Positive Ca >3 [place] Type including Beta- Hemolytic Group B Streptococcus 11/16, repeat urine culture showed no growth after 48 hours of incubation. Thank you for consult and for giving an opportunity to take care of this patient. Dietary Evaluation Review Comments: 1) Advance pt diet when medically feasible 2) Continue current plan of care Expected Outcomes/Goals: F/U in 2-3 days Plan discussed with: Other CC Plasma Assessment Blood Product Administration S: [id number] LAILA DRAKE MD Nov 24, 2024 15:58
[2024-11-24] MEDS: MORPHINE SULF 15mg ER tab PO ONE (17:02)
[2024-11-24] MEDS: ALBUTEROL SULF 2.5 MG/0.5ML(0.5%) NEB SOLN NEB SCH (18:53)
--- NOTE | 2024-11-24 20:35 | DVHPNRES ---
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 On arrival patient had temperature of 97.6, pulse 126 bpm, respiratory rate 17, blood pressure 154/88, saturating 95 on room air. WBC count was 21.5 with 89% neutrophils and 600 platelets. Lactic acid was elevated at 2.4. CT abdomen pelvis completed 11/13 showed gas distended colon with air bubbles assistance representative of toxic colitis. Subsequent CT abdomen completed 11/16 showed marked dilation of the right and transverse colon with a transition point at the level of the sigmoid flexure. Associated wall thickening in this region. Suspicious of an underlying lesion resulting in obstruction. Small left pleural effusion with basilar atelectasis. Consequently GI Dr. Dalal did a sigmoidoscopy up to the splenic flexure with biopsy and colonic decompression on 11/15 and an abnormal area was found in the splenic flexure with the sigmoid diverticular disease, moderate amount of retained stool in the rectosigmoid. So surgeon was consulted and patient underwent exploratory laparotomy with extended right hemicolectomy with ileostomy on 11/16 secondary to ischemic bowel with colonic obstruction at the splenic flexure. Distal ileum to the proximal descending colon was resected and a distal ileum perforation was found during the procedure. Lysis of adhesions were performed. Patient received 3 L of NS +500 mL of 5% albumin and 100 mL of 25% albumin during the procedure. Following the procedure patient was hypotensive and therefore could not be extubated and therefore which he was transferred to ICU for further management. 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 Quit smoking about 2 years ago when she had PE. Home medications: Glatopa 20 mg every morning, lidocaine patch q.12 hours p.r.n., Paxil tablet 10 mg daily, ropinirole 5 mg 2 tablets at bedtime, tolterodine 4 mg once daily, baclofen 10 mg b.i.d., albuterol 90 mcg. 11/17-Patient seen and examined at bed 109. She was started on 50% FiO2 which was downtrended to 35% FiO2 right now. Urine culture is growing greater than 1 lac Gram-positive species including GBS. Started vancomycin 11/17. ABGs show non-anion gap metabolic acidosis along with respiratory acidosis, likely secondary to hyperchloremia. DC 0.5 NS. Respiratory rate increased from 14-16. Sodium bicarbonate started at 100 mL/hour. Both LIANNE drains drained 25 and 30 mL serosanguineous. Xiao draining 90 mL overnight and 90 mL during the day. 11/18-patient seen and examined. He is not stable for CPAP. DC Versed. DC cefepime DC bicarb. Overnight 20 mL drainage from the right LIANNE, 25 from the left LIANNE 11/21 - over the weekend stress dose steroids started. Patient was started on Zosyn since . DC Flagyl today. Cumulative I/O shows positive 15 L. Lasix 40 mg IV started. Patient tolerated CPAP trial very well, extubated. Bilateral upper extremity ultrasound ordered. ET tube advanced 2 cm. 11/22 -seen and examined at the bedside. Overnight morphine started for pain. patient is saturating 98 on 2 L. 1 unit of packed RBCs administered. Swallow eval completed, recommended soft diet. DC TPN, DC Lasix. Vaginal discharge resolved. Transferred to [facility]. PICC line consult placed. Started on pressors for cephalic vein thrombosis. PT eval requested. 11/23 - A&O x4. Levophed increased to 8 overnight from 2. Overnight patient ran 99.1 F. DC Xiao. Ordered urine culture. Incentive spirometry Q 1 hour. Repeat blood culture today. Lower extremity Doppler was a limited study with nonvisualization of bilateral femoral vein and popliteal vein. 11/24- overnight Levophed requirement went up from 2 to 8. Dark green tarry stool seen in ileostomy. LIANNE drain output is decreasing. Chest x-ray shows left lower lobe opacity. Id recommended DC Zosyn on . UA showing UTI, patient refusing change of Xiao. Discussed risk and benefits. Patient agreed. WBC downtrending Objective vital signs Vital Sign Date Time Temp Pulse Resp B/P (MAP) Pulse Ox O2 Delivery O2 Flow Rate FiO2 11/24/24 18:58 95 Nasal Cannula 0.0 11/24/24 18:58 32 11/24/24 18:56 99 20 11/24/24 18:45 110/67 (81) 11/24/24 16:00 98.0 98.0 Total Intake and Output 11/23/24 11/23/24 11/24/24 15:00 23:00 07:00 Intake Total 329.063 ml 427.504 ml 314.688 ml Output Total 475 ml 515 ml Balance 329.063 ml -47.496 ml -200.312 ml medications Current Medications Medications Dose Ordered Sig/Sylvie Route Start Time Stop Time Status Last Admin Dose Admin Pantoprazole Sodium 40 mg DAILY IV 11/14/24 10:00 11/24/24 07:32 40 MG Nitroglycerin 0.4 mg Q5MINP PRN SL 11/13/24 23:00 Albuterol 2.5 mg Q6HP PRN NEB 11/14/24 06:00 11/24/24 09:42 2.5 MG Norepinephrine Bitartrate 32 mg/ Sodium Chloride 250 ml @ 0.938 mls/ hr Q24H IV 11/17/24 08:45 11/24/24 05:12 2.813 MLS/HR Enoxaparin Sodium 40 mg DAILY SC 11/18/24 10:00 11/24/24 07:32 40 MG Piperacillin Sod/ Tazobactam Sod 100 ml @ 25 mls/hr Q8HR IV 11/19/24 22:00 11/24/24 12:45 25 MLS/HR Nystatin 1 applic BID TOP 11/21/24 10:00 11/24/24 07:34 1 APPLIC Fat Emulsion Intravenous 150 ml/Sodium Phosphate 60 meq/ Potassium Phosphate 44 meq/ Magnesium Sulfate 12 meq/ Multivitamins 10 ml/Chromium/ Copper/Manganese/ Zinc 1 ml/Insulin Human Regular 12 units/Amino Acids/ Dextrose/Purified Water 1,439.12 ml @ 60 mls/hr Q24H IV 11/21/24 22:00 11/22/24 21:59 Cancel Morphine Sulfate 1 mg Q6HPRN PRN IV 11/22/24 04:30 12/26/24 13:48 1 MG Albuterol 2.5 mg Q12HR NEB 11/24/24 22:00 11/24/24 18:53 2.5 MG Morphine Sulfate 15 mg Q12HR PO 11/24/24 22:00 Examination Morbidly obese female patient lying in bed, extubated. General: Morbidly obese, afebrile, palor, mucosae are moist A&O x4. Cardiovascular: Regular S1 and S2. No murmurs, gallops or rubs. No JVD elevation. 1+ nonpitting edema in the lower extremity Respiratory: Bilateral dull breath sounds heard , saturating 98% on 2 L NC. Abdomen: Abdomen is soft but hypoactive bowel sounds. Dressing dry clean and intact. Sutures intact with minimal drainage. Two LIANNE drains attached. Maceration, erythema noted beneath the skin fold beneath the umbilicus. Ileostomy seen with dark green /tarry 60ml secretions. Genitourinary: Redness in the skin folds. MSK/skin: Skin is dry and warm B/l upper and lower ext edema Neurological: Pupils are constricted and sluggish to response. No icterus seen. laboratory and microbiology Laboratory Tests 11/24/24 04:10 Test 11/24/24 04:10 Range/Units Serum Glucose 74 74-106 mg/dL Microbiology Date/Time Source Procedure Growth Status 11/23/24 14:30 Voided Urine Urine Culture - Preliminary Resulted 11/20/24 10:00 Stool Clostridium difficile Toxin Assay - Final Complete 11/16/24 17:20 Sputum Gram Stain - Final Complete 11/16/24 17:20 Sputum Respiratory Culture - Final Complete 11/16/24 17:10 Nose MRSA Screen - Final Complete 11/13/24 20:26 Blood Blood Culture - Final NO GROWTH AFTER 5 DAYS OF INCUBATION. 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 Extubated 11/21 CARDIOVASCULAR Septic shock secondary to toxic megacolon Lactic acidosis-resolved started Zosyn 11/19 DC vancomycin 11/17 till 11/21 and DC IV metronidazole, patient received from 11/15 to 11/21 DC IV cefepime 11/18 Preliminary blood cultures negative Furosemide 40 mg IV started 11/21 Repeat blood culture 11/23 RESPIRATORY Acute hypoxic respiratory failure secondary to septic shock Chronic nicotine dependence Respiratory acidosis History of PE Non-anion gap metabolic acidosis secondary to hyperchloremia Left sided pleural effusion with associated basilar atelectasis consolidation Intubated from 11/16 till 11/21 Respiratory culture and Gram stain shows no growth ABGs 11/17 shows non-anion gap metabolic acidosis with respiratory acidosis Discontinue sodium bicarbonate 100 mL/hour 11/17 till 11/18 Incentive spirometry Q 1 hour GI Sepsis secondary to toxic megacolon secondary to primary adenocarcinoma of the descending colon and splenic flexure 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 Associated wall thickening in this region. Suspect an underlying lesion resulting in obstruction. Associated small bowel obstruction. Findings are similar to prior exam. Await final pathology results P.o. morphine for pain control Stool culture negative /KIDNEY Acute cystitis Yellow colored vaginal discharge Final urine culture showed >100,000 CFU/mL Mixed Gram Positive Ca >3 [place] Types, including Beta-Hemolytic Group B Streptococcus Repeat urine culture 11/16 is negative Continue IV Zosyn Repeat urine culture 11/23 METABOLIC Hyponatremia, corrected Hypomagnesemia, supplement Morbid obese Non-anion gap metabolic acidosis Vitamin-D deficiency Hypercalcemia: Corrected calcium 10.6 SKIN Intertrigo - nystatin powder HEM-ONCO Anemia, likely normocytic secondary to blood loss Superficial venous thrombosis in the right cephalic Hemoglobin dropped from 16-10 from 11/14 to 11/17 Retic count 1.23, lactate dehydrogenase 330 11/22 1 unit of packed RBC administered Continue warm compresses to right arm LINES Intubated on 11/16 till 11/21 Left SUBCLAVIAN CVC 11/16 Xiao catheter 11/13 till 11/24 DRIPS LEVOPHED 8 VASOPRESSIN off since 11/11 FENTANYL DC VERSED DC NUTRITION; Clinimix starting 11/17, TPN starting 11/18 till 11/22, started soft diet 11/22 DVT; Lovenox 40 mg sc daily Physical therapy-recommended discharge back to board and care facility or convalescent home. Recommended home health. Goals of care/advance care planning; FULL CODE; discussed on for 24 minutes. PUD prophylaxis: Pantoprazole 40 mg IV daily DVT prophylaxis: Lovenox 40 mg sc daily Plan discussed with patient's daughter Paula [phone] over the phone call for more than 20 minutes, code status full code. Tried to contact son Willam Padilla over the phone, was unreachable Case discussed with Dr. Barker. Patient can be transferred to [facility] Critical care time including review of the chart, and discussion with the patient's family excluding procedures 57 minutes Plan discussed with: Patient My Orders My Orders Orders - SARA PAULA Procedure Category Date Status Time Albuterol Medneb PHA 11/24/24 In Process (Ventolin Medneb) 22:00 Chest Percussion Tx RT 11/24/24 Logged Initi 10:52 Dietary Evaluation Review Comments: 1) Advance pt diet when medically feasible 2) Continue current plan of care Expected Outcomes/Goals: F/U in 2-3 days CC Plasma Assessment Blood Product Administration S: [id number] Date of Service: Nov 25, 2024 Billing Provider: HARRY BARKER MD Common Visit Codes: 20080-FKXTSBCV CARE 30-74 MIN SARA PAULA Nov 24, 2024 20:35 HARRY BARKER MD Nov 25, 2024 14:18
[2024-11-24] MEDS: MORPHINE SULF 15mg ER tab PO SCH (21:56)
[2024-11-25] VITALS (98 sets, daily range): BP systolic 84–169; BP diastolic 35–78; PULSE 72–103; RESP 12–28; TEMP 97.6–100; O2SAT 74–100
[2024-11-25 04:48] LABS: Chloride 103 mmol/L (98-107); Potassium 3.6 mmol/L (3.5-5.1)
[2024-11-25 04:49] LABS: Anion Gap 1 (5-15); Carbon Dioxide 31 mmol/L (20-31)
[2024-11-25 04:54] LABS: BUN/Creatinine Ratio 37.8 (10.0-20.0); Blood Urea Nitrogen 14 mg/dL (9-23); Glucose 85 mg/dL (74-106)
[2024-11-25 04:55] LABS: Magnesium 1.6 mg/dL (1.6-2.6)
[2024-11-25 04:59] LABS: Calcium 6.5 mg/dL (8.7-10.4); Sodium 135 mmol/L (136-145)
[2024-11-25] MEDS: CALCIUM GLUC 1,000mg/50ml-NS 50 ML IV ONE (05:47)
[2024-11-25 08:22] LABS: Basophils # (auto) 0.1 10 ^3/uL (0-0.2); Basophils % (auto) 0.3 % (0.0-2.0); Eosinophils # (auto) 0.2 10 ^3/uL (0-0.8); Eosinophils % (auto) 0.9 % (0.0-7.0); Hematocrit 32.2 % (36.0-46.0); Hemoglobin 10.3 g/dL (12.2-16.2); Lymphocytes # (auto) 0.9 10 ^3/uL (0.4-5.4); Lymphocytes % (auto) 4.6 % (10.0-50.0); Mean Corpuscular Volume 87.3 fL (80.0-100.0); Monocytes # (auto) 0.8 10 ^3/uL (0-1.3); Monocytes % (auto) 3.9 % (0.0-12.0); Neutrophils # (auto) 18.2 10 ^3/uL (1.6-8.6); Neutrophils % (auto) 90.3 % (37.0-80.0); Platelet Count (auto) 269 10^3/uL (140-450); Red Blood Cells 3.69 10^6/uL (4.0-5.20); Red Cell Distribution Width 16.9 % (11.8-14.3); White Blood Cell 20.2 10^3/uL (4.4-10.8)
[2024-11-25] MEDS: MAGNESIUM SULFATE 1GM/100ML 100 ML IV ONE (08:28)
[2024-11-25] MEDS ORDERED: ACETAMINOPHEN 325 MG TAB PO PRN (08:45)
[2024-11-25] MEDS: ERGOCALCIFEROL 50,000 UNIT(1.25MG) CAP PO SCH (09:22)
[2024-11-25] MEDS: POTASSIUM EFFERVESENT TAB 25 MEQ PO ONE (09:22)
[2024-11-25] MEDS ORDERED: ENOXAPARIN SOD 40 MG/0.4 ML SYRINGE SC SCH ×2 (10:00)
[2024-11-25] MEDS: ENOXAPARIN SOD 30 MG/0.3 ML SYRINGE SC SCH (10:38)
--- NOTE | 2024-11-25 11:03 | DVH ---
LEFT Upper Extremity Venous Duplex Clinical History: SWELLING Comparison: US BI LAT UPPER DVT on DOS: 11/21/24 Technique: Duplex Doppler evaluation of the venous system of the LEFT lower neck and upper extremity including color Doppler and spectral/pulsed waveform analysis was performed. Findings: The internal jugular vein demonstrates appropriate compressibility and waveform variability. The subclavian vein is patent on color Doppler evaluation without intraluminal thrombus and demonstra daljit waveform variability. The visualized portion of the brachiocephalic vein is patent on color Doppler evaluation without intr aluminal thrombus and demonstrates waveform variability. The axillary vein demonstrates appropriate compressibility and waveform variability. The brachial veins demonstrate appropriate compressibility and patency on Doppler evaluation. The basilic vein is not visualized. The cephalic vein demonstrates appropriate compressibility and patency on Doppler evaluation. Upper extremity soft-tissue edema is present. Impression: No venous thrombus identified in the LEFT upper extremity vessels evaluated above.
--- NOTE | 2024-11-25 12:38 | DVHPN2 ---
Progress Note Date Seen: Nov 25, 2024 Medical Necessity Reason Pt with a Central, PICC or Fol: Yes The following are medically ne: Central Line Reason for xiao catheter: Strict I&O Objective vital signs Vital Sign Date Time Temp Pulse Resp B/P (MAP) Pulse Ox O2 Delivery O2 Flow Rate FiO2 11/25/24 10:30 92 19 139/58 (85) 99 11/25/24 10:00 Nasal Cannula* 2 28 11/25/24 08:00 99.7 99.7 Total Intake and Output 11/24/24 11/24/24 11/25/24 15:00 23:00 07:00 Intake Total 314.063 ml 435.000 ml 305.000 ml Output Total 560 ml 565 ml Balance 314.063 ml -125.000 ml -260.000 ml medications Current Medications Medications Dose Ordered Sig/Sylvie Route Start Time Stop Time Status Last Admin Dose Admin Pantoprazole Sodium 40 mg DAILY IV 11/14/24 10:00 11/25/24 09:21 40 MG Nitroglycerin 0.4 mg Q5MINP PRN SL 11/13/24 23:00 Albuterol 2.5 mg Q6HP PRN NEB 11/14/24 06:00 11/24/24 09:42 2.5 MG Norepinephrine Bitartrate 32 mg/ Sodium Chloride 250 ml @ 0.938 mls/ hr Q24H IV 11/17/24 08:45 11/24/24 05:12 2.813 MLS/HR Piperacillin Sod/ Tazobactam Sod 100 ml @ 25 mls/hr Q8HR IV 11/19/24 22:00 11/25/24 05:47 25 MLS/HR Nystatin 1 applic BID TOP 11/21/24 10:00 11/25/24 09:24 1 APPLIC Fat Emulsion Intravenous 150 ml/Sodium Phosphate 60 meq/ Potassium Phosphate 44 meq/ Magnesium Sulfate 12 meq/ Multivitamins 10 ml/Chromium/ Copper/Manganese/ Zinc 1 ml/Insulin Human Regular 12 units/Amino Acids/ Dextrose/Purified Water 1,439.12 ml @ 60 mls/hr Q24H IV 11/21/24 22:00 11/22/24 21:59 Cancel Morphine Sulfate 1 mg Q6HPRN PRN IV 11/22/24 04:30 11/24/24 13:48 1 MG Albuterol 2.5 mg Q12HR NEB 11/24/24 22:00 11/25/24 07:13 2.5 MG Morphine Sulfate 15 mg Q12HR PO 11/24/24 22:00 11/25/24 09:23 15 MG Ergocalciferol 50,000 unit Q7D PO 11/25/24 07:45 11/25/24 09:22 50,000 UNIT Acetaminophen 650 mg Q6HP PRN PO 11/25/24 08:45 Enoxaparin Sodium 30 mg BID SC 11/25/24 10:00 UNV Enoxaparin Sodium 30 mg BID SC 11/25/24 10:00 11/25/24 10:38 30 MG laboratory and microbiology Laboratory Tests 11/25/24 07:57 11/25/24 04:34 Test 11/25/24 04:34 Range/Units Serum Glucose 85 74-106 mg/dL Problem List/Assessment/Plan Problem List/Assessment/Plan 11/21/24 F/U for . patient had subtotal colectomy for obstructing sigmoid mass causing proximal ischemia due to over distension, has a well functioning viable ileostomy and her wound is well approximated, the drain has serosanguineous drainage . she is hemodynamically stable and remains sedated and intubated with CPAP trial pending. No obvious "surgical " problems. once extubated she can have the NGT removed and start po intake. 11/23/24 extubated, on po diet,tolerating without nausea or vomiting, wound clean and well approximated, stoma viable and functioning, ok to dc dameon, advance diet as tolerated, physical therapy to assist 11/25/24 c/o pain, abdomen non distended, tender, wound clean, stoma pale but functioning, R/O C diff Plan discussed with: Patient, Other Dietary Evaluation Review Comments: 1) Advance pt diet when medically feasible 2) Continue current plan of care Expected Outcomes/Goals: F/U in 2-3 days KIMBERLY BERMUDEZ MD Nov 25, 2024 12:38
--- NOTE | 2024-11-25 13:08 | DVHPN2 ---
Progress Note - Dictate Date Seen: Nov 25, 2024 Medical Necessity Reason Pt with a Central, PICC or Fol: Yes The following are medically ne: Central Line Reason for xiao catheter: Strict I&O Subjective No new Complaints LIANNE output minimal about 5-10 mL serosanguineous Patient underwent a laparotomy with extended right hemicolectomy up to the proximal descending colon yesterday She was diagnosed with adenocarcinoma of the splenic flexure on colonoscopy biopsies and frozen section vital signs Vital Sign Date Time Temp Pulse Resp B/P (MAP) Pulse Ox O2 Delivery O2 Flow Rate FiO2 11/25/24 12:00 92 11/25/24 12:00 16 100 Nasal Cannula* 2 28 11/25/24 10:30 139/58 (85) 11/25/24 08:00 99.7 99.7 Total Intake and Output 11/24/24 11/24/24 11/25/24 14:59 22:59 06:59 Intake Total 388.123 ml 410.000 ml 330.000 ml Output Total 560 ml 565 ml Balance 388.123 ml -150.000 ml -235.000 ml medications Current Medications Medications Dose Ordered Sig/Sylvie Route Start Time Stop Time Status Last Admin Dose Admin Pantoprazole Sodium 40 mg DAILY IV 11/14/24 10:00 11/25/24 09:21 40 MG Nitroglycerin 0.4 mg Q5MINP PRN SL 11/13/24 23:00 Albuterol 2.5 mg Q6HP PRN NEB 11/14/24 06:00 11/24/24 09:42 2.5 MG Norepinephrine Bitartrate 32 mg/ Sodium Chloride 250 ml @ 0.938 mls/ hr Q24H IV 11/17/24 08:45 11/24/24 05:12 2.813 MLS/HR Piperacillin Sod/ Tazobactam Sod 100 ml @ 25 mls/hr Q8HR IV 11/19/24 22:00 11/25/24 05:47 25 MLS/HR Nystatin 1 applic BID TOP 11/21/24 10:00 11/25/24 09:24 1 APPLIC Fat Emulsion Intravenous 150 ml/Sodium Phosphate 60 meq/ Potassium Phosphate 44 meq/ Magnesium Sulfate 12 meq/ Multivitamins 10 ml/Chromium/ Copper/Manganese/ Zinc 1 ml/Insulin Human Regular 12 units/Amino Acids/ Dextrose/Purified Water 1,439.12 ml @ 60 mls/hr Q24H IV 11/21/24 22:00 11/22/24 21:59 Cancel Morphine Sulfate 1 mg Q6HPRN PRN IV 11/22/24 04:30 11/24/24 13:48 1 MG Albuterol 2.5 mg Q12HR NEB 11/24/24 22:00 11/25/24 07:13 2.5 MG Morphine Sulfate 15 mg Q12HR PO 11/24/24 22:00 11/25/24 09:23 15 MG Ergocalciferol 50,000 unit Q7D PO 11/25/24 07:45 11/25/24 09:22 50,000 UNIT Acetaminophen 650 mg Q6HP PRN PO 11/25/24 08:45 Enoxaparin Sodium 30 mg BID SC 11/25/24 10:00 UNV Enoxaparin Sodium 30 mg BID SC 11/25/24 10:00 11/25/24 10:38 30 MG objective Gen: in awake alert edematous Cvs: N S1/S2, RRR Resp: On supplemental oxygen, extubated Abd: Morbidly Obese, ileostomy stoma looks well, incision site intact [employer] Operator: Sedated laboratory and microbiology Laboratory Tests 11/25/24 07:57 11/25/24 04:34 Test 11/25/24 04:34 Range/Units Serum Glucose 85 74-106 mg/dL Problems(with codes): (1) Left lower lobe pulmonary infiltrate (2) 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 (3) Ischemic stricture intestine (4) Colonic obstruction (5) UTI (urinary tract infection) (6) Sepsis Prognosis Plan Repeat stool for C diff was negative on 11/20/2024 I doubt if the patient has any active C diff at this time We can check stool for WBC Continue to monitor stool output Physical therapy and Discharge planning as per hospitalist Dietary Evaluation Review Comments: 1) Advance pt diet when medically feasible 2) Continue current plan of care Expected Outcomes/Goals: F/U in 2-3 days Plan discussed with: Other (ICU Nurse) CC Plasma Assessment Blood Product Administration S: [id number] HARJINDER SEBASTIAN MD Nov 25, 2024 13:08
[2024-11-25] MEDS ORDERED: FLUCONAZOLE 200MG/100ML 100 ML IV ONE (13:45)
[2024-11-25] MEDS: FUROSEMIDE 20 MG/2 ML VIAL IV ONE (17:06)
[2024-11-25] MEDS: FLUCONAZOLE 200MG/100ML 100 ML IV ONE (17:06)
--- NOTE | 2024-11-25 19:28 | DVHPN2 ---
Progress Note - Dictate Date Seen: Nov 25, 2024 Medical Necessity Reason Pt with a Central, PICC or Fol: Yes The following are medically ne: Central Line Reason for xiao catheter: Strict I&O Subjective Patient is awake and alert tolerating diet and drinking water Patient is usually wheelchair-bound and Patient ileostomy is functional and LIANNE output minimal about 5-10 mL serosanguineous somewhat blood-tinged material 4FR/17cm midline inserted via left Basilic vein using Ultrasound. Complains of pain abdomen non distended, tender, wound clean, stoma pale but functioning, R/O C diff WBC trending down Patient underwent a laparotomy with extended right hemicolectomy up to the proximal descending colon She was diagnosed with adenocarcinoma of the splenic flexure on colonoscopy biopsies and frozen section. vital signs Vital Sign Date Time Temp Pulse Resp B/P (MAP) Pulse Ox O2 Delivery O2 Flow Rate FiO2 11/25/24 18:44 88 14 100/51 (67) 100 11/25/24 18:00 Nasal Cannula* 2 28 11/25/24 16:02 99.5 99.5 Total Intake and Output 11/24/24 11/24/24 11/25/24 15:00 23:00 07:00 Intake Total 314.063 ml 435.000 ml 305.000 ml Output Total 560 ml 565 ml Balance 314.063 ml -125.000 ml -260.000 ml medications Current Medications Medications Dose Ordered Sig/Sylvie Route Start Time Stop Time Status Last Admin Dose Admin Pantoprazole Sodium 40 mg DAILY IV 11/14/24 10:00 11/25/24 09:21 40 MG Nitroglycerin 0.4 mg Q5MINP PRN SL 11/13/24 23:00 Albuterol 2.5 mg Q6HP PRN NEB 11/14/24 06:00 11/24/24 09:42 2.5 MG Norepinephrine Bitartrate 32 mg/ Sodium Chloride 250 ml @ 0.938 mls/ hr Q24H IV 11/17/24 08:45 11/24/24 05:12 2.813 MLS/HR Piperacillin Sod/ Tazobactam Sod 100 ml @ 25 mls/hr Q8HR IV 11/19/24 22:00 11/25/24 13:59 25 MLS/HR Nystatin 1 applic BID TOP 11/21/24 10:00 11/25/24 09:24 1 APPLIC Fat Emulsion Intravenous 150 ml/Sodium Phosphate 60 meq/ Potassium Phosphate 44 meq/ Magnesium Sulfate 12 meq/ Multivitamins 10 ml/Chromium/ Copper/Manganese/ Zinc 1 ml/Insulin Human Regular 12 units/Amino Acids/ Dextrose/Purified Water 1,439.12 ml @ 60 mls/hr Q24H IV 11/21/24 22:00 11/22/24 21:59 Cancel Morphine Sulfate 1 mg Q6HPRN PRN IV 11/22/24 04:30 11/24/24 13:48 1 MG Albuterol 2.5 mg Q12HR NEB 11/24/24 22:00 11/25/24 07:13 2.5 MG Morphine Sulfate 15 mg Q12HR PO 11/24/24 22:00 11/25/24 09:23 15 MG Ergocalciferol 50,000 unit Q7D PO 11/25/24 07:45 11/25/24 09:22 50,000 UNIT Acetaminophen 650 mg Q6HP PRN PO 11/25/24 08:45 Enoxaparin Sodium 30 mg BID SC 11/25/24 10:00 UNV Enoxaparin Sodium 30 mg BID SC 11/25/24 10:00 11/25/24 10:38 30 MG Fluconazole 100 ml @ 100 mls/hr DAILY IV 11/26/24 10:00 objective General examination- Morbidly obese female, Acute distress, urinary catheter in place, A0X2 HEENT: PEERLA, no acute nasal discharge Chest: tachycardiac, S1-S2 audible, rate and rhythm regular, no murmur Lung: CTAB, no wheeze or rhonchi Abdomen: exp lap, LIANNE drain +, ileostomy bag+ Musculoskeletal: no acute joint swelling or tenderness Lower extremity: leg edema Neurological:no gross focal deficit Psychiatry-- Normal mood and affect Skin- dry laboratory and microbiology Laboratory Tests 11/25/24 07:57 11/25/24 04:34 Test 11/25/24 04:34 Range/Units Serum Glucose 85 74-106 mg/dL Assessment/Plan PPatient is a 64-year-old female presented to the hospital with: Adenocarcinoma of colon on pathology Leukocytosis 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 Bowel obstruction s/p exp lap right hemicolectomy terminal ileum perforation s/p partial resection of terminal ileum and caecum Urinary tract infection Acute hypoxic respiratory failure Morbid obesity Recommendations: LIANNE drain is sero sanguinous Repeat CBC; will monitor; downtrending clinically she seems to be improving cont Zosyn for total 5 days, stop date 11/25 ( also covered for possible UTI) c diff negative 11/13, urine culture showed: >100,000 CFU/mL Mixed Gram Positive Ca >3 [place] Type including Beta- Hemolytic Group B Streptococcus 11/16, repeat urine culture showed no growth after 48 hours of incubation. 11/25: LEFT Upper Extremity Venous Duplex report came back normal Thank you for consult and for giving an opportunity to take care of this patient. Dietary Evaluation Review Comments: 1) Advance pt diet when medically feasible 2) Continue current plan of care Expected Outcomes/Goals: F/U in 2-3 days Plan discussed with: Other CC Plasma Assessment Blood Product Administration S: [id number] LAILA DRAKE MD Nov 25, 2024 19:28
--- NOTE | 2024-11-25 19:57 | DVHPNRES ---
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 On arrival patient had temperature of 97.6, pulse 126 bpm, respiratory rate 17, blood pressure 154/88, saturating 95 on room air. WBC count was 21.5 with 89% neutrophils and 600 platelets. Lactic acid was elevated at 2.4. CT abdomen pelvis completed 11/13 showed gas distended colon with air bubbles ambulatory services representative of toxic colitis. Subsequent CT abdomen completed 11/16 showed marked dilation of the right and transverse colon with a transition point at the level of the sigmoid flexure. Associated wall thickening in this region. Suspicious of an underlying lesion resulting in obstruction. Small left pleural effusion with basilar atelectasis. Consequently GI Dr. Dalal did a sigmoidoscopy up to the splenic flexure with biopsy and colonic decompression on 11/15 and an abnormal area was found in the splenic flexure with the sigmoid diverticular disease, moderate amount of retained stool in the rectosigmoid. So surgeon was consulted and patient underwent exploratory laparotomy with extended right hemicolectomy with ileostomy on 11/16 secondary to ischemic bowel with colonic obstruction at the splenic flexure. Distal ileum to the proximal descending colon was resected and a distal ileum perforation was found during the procedure. Lysis of adhesions were performed. Patient received 3 L of NS +500 mL of 5% albumin and 100 mL of 25% albumin during the procedure. Following the procedure patient was hypotensive and therefore could not be extubated and therefore which he was transferred to ICU for further management. 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, has a caregiver named Tri villa [phone]. Quit smoking about 2 years ago when she had PE. Home medications: Glatopa 20 mg every morning, lidocaine patch q.12 hours p.r.n., Paxil tablet 10 mg daily, ropinirole 5 mg 2 tablets at bedtime, tolterodine 4 mg once daily, baclofen 10 mg b.i.d., albuterol 90 mcg. 11/17-Patient seen and examined at bed 109. She was started on 50% FiO2 which was downtrended to 35% FiO2 right now. Urine culture is growing greater than 1 lac Gram-positive species including GBS. Started vancomycin 11/17. ABGs show non-anion gap metabolic acidosis along with respiratory acidosis, likely secondary to hyperchloremia. DC 0.5 NS. Respiratory rate increased from 14-16. Sodium bicarbonate started at 100 mL/hour. Both LIANNE drains drained 25 and 30 mL serosanguineous. Xiao draining 90 mL overnight and 90 mL during the day. 11/18-patient seen and examined. He is not stable for CPAP. DC Versed. DC cefepime DC bicarb. Overnight 20 mL drainage from the right LIANNE, 25 from the left LIANNE 11/21 - over the weekend stress dose steroids started. Patient was started on Zosyn since . DC Flagyl today. Cumulative I/O shows positive 15 L. Lasix 40 mg IV started. Patient tolerated CPAP trial very well, extubated. Bilateral upper extremity ultrasound ordered. ET tube advanced 2 cm. 11/22 -seen and examined at the bedside. Overnight morphine started for pain. patient is saturating 98 on 2 L. 1 unit of packed RBCs administered. Swallow eval completed, recommended soft diet. DC TPN, DC Lasix. Vaginal discharge resolved. Transferred to [facility]. PICC line consult placed. Started on pressors for cephalic vein thrombosis. PT eval requested. 11/23 - A&O x4. Levophed increased to 8 overnight from 2. Overnight patient ran 99.1 F. DC Xiao. Ordered urine culture. Incentive spirometry Q 1 hour. Repeat blood culture today. Lower extremity Doppler was a limited study with nonvisualization of bilateral femoral vein and popliteal vein. 11/24- overnight Levophed requirement went up from 2 to 8. Dark green tarry stool seen in ileostomy. LIANNE drain output is decreasing. Chest x-ray shows left lower lobe opacity. Id recommended DC Zosyn on . UA showing UTI, patient refusing change of Xiao. Discussed risk and benefits. Patient agreed. WBC downtrending 12/27 overnight patient was febrile at 99.7. Overnight patient received 1 IV calcium. Xiao catheter change today. Patient reports cold and shivering. WBC increased to 20. Stool occult is negative. Stool WBC negative. Ordered midline. DC left subclavian CVC. Discontinued Zosyn. Lasix 20 mg IV once given. IV fluconazole started. Patient is experiencing paroxysmal atrial fibrillation intermittently, rate goes up to 150s, multiple episodes throughout the day, lasts less than 1 minute. Consider starting IV digoxin if symptomatic. Objective vital signs Vital Sign Date Time Temp Pulse Resp B/P (MAP) Pulse Ox O2 Delivery O2 Flow Rate FiO2 11/25/24 18:44 88 14 100/51 (67) 100 11/25/24 18:00 Nasal Cannula* 2 28 11/25/24 16:02 99.5 99.5 Total Intake and Output 11/24/24 11/24/24 11/25/24 15:00 23:00 07:00 Intake Total 314.063 ml 435.000 ml 305.000 ml Output Total 560 ml 565 ml Balance 314.063 ml -125.000 ml -260.000 ml medications Current Medications Medications Dose Ordered Sig/Sylvie Route Start Time Stop Time Status Last Admin Dose Admin Pantoprazole Sodium 40 mg DAILY IV 11/14/24 10:00 11/25/24 09:21 40 MG Nitroglycerin 0.4 mg Q5MINP PRN SL 11/13/24 23:00 Albuterol 2.5 mg Q6HP PRN NEB 11/14/24 06:00 11/24/24 09:42 2.5 MG Norepinephrine Bitartrate 32 mg/ Sodium Chloride 250 ml @ 0.938 mls/ hr Q24H IV 11/17/24 08:45 11/24/24 05:12 2.813 MLS/HR Piperacillin Sod/ Tazobactam Sod 100 ml @ 25 mls/hr Q8HR IV 11/19/24 22:00 11/25/24 13:59 25 MLS/HR Nystatin 1 applic BID TOP 11/21/24 10:00 11/25/24 09:24 1 APPLIC Fat Emulsion Intravenous 150 ml/Sodium Phosphate 60 meq/ Potassium Phosphate 44 meq/ Magnesium Sulfate 12 meq/ Multivitamins 10 ml/Chromium/ Copper/Manganese/ Zinc 1 ml/Insulin Human Regular 12 units/Amino Acids/ Dextrose/Purified Water 1,439.12 ml @ 60 mls/hr Q24H IV 11/21/24 22:00 11/22/24 21:59 Cancel Morphine Sulfate 1 mg Q6HPRN PRN IV 11/22/24 04:30 11/24/24 13:48 1 MG Albuterol 2.5 mg Q12HR NEB 11/24/24 22:00 11/25/24 07:13 2.5 MG Morphine Sulfate 15 mg Q12HR PO 11/24/24 22:00 11/25/24 09:23 15 MG Ergocalciferol 50,000 unit Q7D PO 11/25/24 07:45 11/25/24 09:22 50,000 UNIT Acetaminophen 650 mg Q6HP PRN PO 11/25/24 08:45 Enoxaparin Sodium 30 mg BID SC 11/25/24 10:00 UNV Enoxaparin Sodium 30 mg BID SC 11/25/24 10:00 11/25/24 10:38 30 MG Fluconazole 100 ml @ 100 mls/hr DAILY IV 11/26/24 10:00 Examination Morbidly obese female patient lying in bed, extubated. General: Morbidly obese, afebrile, palor, mucosae are moist A&O x4. Cardiovascular: Regular S1 and S2. No murmurs, gallops or rubs. No JVD elevation. 1+ nonpitting edema in the lower extremity Respiratory: Bilateral dull breath sounds heard , saturating 98% on 2 L NC. Abdomen: Abdomen is soft but hypoactive bowel sounds. Dressing dry clean and intact. Sutures intact with minimal drainage. Two LIANNE drains attached. Maceration, erythema noted beneath the skin fold beneath the umbilicus. Ileostomy seen with dark green /tarry 60ml secretions with white cottage cheese appearance. Genitourinary: Redness in the skin folds. MSK/skin: Skin is dry and warm B/l upper and lower ext edema Neurological: Pupils are constricted and sluggish to response. No icterus seen. laboratory and microbiology Laboratory Tests 11/25/24 07:57 11/25/24 04:34 Test 11/25/24 04:34 Range/Units Serum Glucose 85 74-106 mg/dL Microbiology Date/Time Source Procedure Growth Status 11/23/24 14:30 Voided Urine Urine Culture - Preliminary Resulted 11/20/24 10:00 Stool Clostridium difficile Toxin Assay - Final Complete 11/16/24 17:20 Sputum Gram Stain - Final Complete 11/16/24 17:20 Sputum Respiratory Culture - Final Complete 11/16/24 17:10 Nose MRSA Screen - Final Complete 11/13/24 20:26 Blood Blood Culture - Final NO GROWTH AFTER 5 DAYS OF INCUBATION. 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 Extubated 11/21 CARDIOVASCULAR Septic shock secondary to toxic megacolon Lactic acidosis-resolved Paroxysmal atrial fibrillation-CHADS2 Vasc score 3, has bled score 1 started Zosyn 11/19 DC vancomycin 11/17 till 11/21 and DC IV metronidazole, patient received from 11/15 to 11/21 DC IV cefepime 11/18 Preliminary blood cultures negative Lasix 20 mg IV given once 11/25 Repeat blood culture 11/23 Consider starting digoxin if AFib becomes symptomatic RESPIRATORY Acute hypoxic respiratory failure secondary to septic shock Chronic nicotine dependence Respiratory acidosis History of PE Non-anion gap metabolic acidosis secondary to hyperchloremia Left sided pleural effusion with associated basilar atelectasis consolidation Intubated from 11/16 till 11/21 Respiratory culture and Gram stain shows no growth ABGs 11/17 shows non-anion gap metabolic acidosis with respiratory acidosis Discontinue sodium bicarbonate 100 mL/hour 11/17 till 11/18 Incentive spirometry Q 1 hour GI Sepsis secondary to toxic megacolon secondary to primary adenocarcinoma of the descending colon and splenic flexure 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 Associated wall thickening in this region. Suspect an underlying lesion resulting in obstruction. Associated small bowel obstruction. Findings are similar to prior exam. Await final pathology results P.o. morphine for pain control Stool culture negative. Stool WBC negative. /KIDNEY Acute cystitis Yellow colored vaginal discharge Final urine culture showed >100,000 CFU/mL Mixed Gram Positive Ca >3 [place] Types, including Beta-Hemolytic Group B Streptococcus Repeat urine culture 11/16 is negative Continue IV Zosyn Repeat urine culture 11/23 shows greater than [id number] CFU yeast Started IV Diflucan 11/25 METABOLIC Hyponatremia, corrected Hypomagnesemia, supplement Morbid obese Non-anion gap metabolic acidosis Vitamin-D deficiency Hypercalcemia: Corrected calcium 7.5 Received 1 g IV 11/25 overnight Vitamin-D supplemented SKIN Intertrigo - nystatin powder HEM-ONCO Anemia, likely normocytic secondary to blood loss Superficial venous thrombosis in the right cephalic Hemoglobin dropped from 16-10 from 11/14 to 11/17 Retic count 1.23, lactate dehydrogenase 330 11/22 1 unit of packed RBC administered Continue warm compresses to right arm LINES Intubated on 11/16 till 11/21 Left SUBCLAVIAN CVC 11/16 till 11/25 Midline ordered 11/25 Xiao catheter 11/13, changed on 11/24 DRIPS LEVOPHED off 11/25 VASOPRESSIN off since 11/11 FENTANYL DC VERSED DC NUTRITION; Clinimix starting 11/17, TPN starting 11/18 till 11/22, started soft diet 11/22 DVT; Lovenox 40 mg sc daily Physical therapy-recommended [facility] or convalescent home. Recommended home health. Goals of care/advance care planning; FULL CODE; discussed on for 24 minutes. PUD prophylaxis: Pantoprazole 40 mg IV daily DVT prophylaxis: Lovenox 40 mg sc daily Plan discussed with patient's daughter Paula [phone] over the phone call for more than 20 minutes, code status full code. Tried to contact son Willam Padilla over the phone, was unreachable Case discussed with Dr. Barker. Patient can be transferred to [facility]. Discontinued Zosyn Critical care time including review of the chart, and discussion with the patient's family excluding procedures 57 minutes Plan discussed with: Patient My Orders My Orders Orders - SARA PAULA RESIDENT Procedure Category Date Status Time Ergocalciferol PHA 11/25/24 In Process (Vitamin D 50,000 07:45 Acetaminophen Tablet PHA 11/25/24 In Process (Tylenol Tablet) 08:45 Lt Upper Dvt US 11/25/24 Resulted 08:40 Stool Bacterial LUCILLE 11/25/24 In Process Culture 09:10 Enoxaparin Sodium PHA 11/25/24 In Process (Lovenox) 10:00 Dietary Evaluation Review Comments: 1) Advance pt diet when medically feasible 2) Continue current plan of care Expected Outcomes/Goals: F/U in 2-3 days CC Plasma Assessment Blood Product Administration S: [id number] Date of Service: Nov 25, 2024 Billing Provider: HARRY BARKER MD Common Visit Codes: 72074-[id number] CARE 30-74 MIN SARA PAULA RESIDENT Nov 25, 2024 19:57 HARRY BARKER MD Nov 27, 2024 12:38
--- NOTE | 2024-11-25 23:26 | DVH ---
CLINICAL HISTORY: CHANGE IN MENTATION TECHNIQUE: Helical imaging carried out from skull base to vertex without intravenous contrast. This e xam was performed according to our departmental dose optimization program. Up-to-date CT equipment an d radiation dose reduction techniques are utilized as appropriate. COMPARISON: None FINDINGS: There is a 2.5 x 3.3 cm mass in the left thalamus extending into the left lateral ventricle on series 2, image 30. There is vasogenic edema in the left thalamus. There is generalized cerebral volume los s with concordant prominence of the subarachnoid spaces and ventricles. Prior suboccipital craniectom y. Encephalomalacia of the midline posterior fossa. There is [id number] patchy low attenuation in the cerebral white matter consistent with nonspecific white matter disease. There is no herniation. The powell white matter interfaces are otherwise maintained. The basal cisterns are patent. There is no evidence of acute intracranial hemorrhage or extra-axial fluid collection. S mall bilateral mastoid air cell effusions. The visualized paranasal sinuses are clear IMPRESSION: 1. There is a 2.5 x 3.3 cm mass in the left thalamus extending into the left lateral ventricle with v asogenic edema in the left thalamus. Consider characterization with MRI brain with contrast. 2. Prior suboccipital craniectomy with encephalomalacia in the midline posterior fossa. Correlate wi th surgical history. 3. Generalized cerebral volume loss and gyah-cr-heljxmie chronic microvascular ischemic change. 4. No descending transtentorial herniation. 5. Small bilateral mastoid air cell effusions.
[2024-11-26] VITALS (123 sets, daily range): BP systolic 90–138; BP diastolic 48–75; PULSE 57–119; RESP 11–35; TEMP 97.8–99.1; O2SAT 88–100
[2024-11-26] MEDS: DEXTROSE (50%) 50ML SYRG IV ONE (00:38)
[2024-11-26] MEDS: DexAMETHasone SOD PHOS 10MG/1ML VIAL INJ IV ONE (00:39)
[2024-11-26 04:45] LABS: Base Excess 3.2 mmol/L (-2.0-3.0)
[2024-11-26 07:47] LABS: Alanine Aminotransferase 39 U/L (7-40); Alkaline Phosphatase 102 U/L (46-116); Anion Gap 11 (5-15); BUN/Creatinine Ratio 17.4 (10.0-20.0); Bilirubin, Total 0.6 mg/dL (0.2-1.0); Carbon Dioxide 22 mmol/L (20-31); Magnesium 2.2 mg/dL (1.6-2.6)
[2024-11-26 07:57] LABS: Glucose 101 mg/dL (74-106)
[2024-11-26] MEDS ORDERED: DEXTROSE (50%) 50ML SYRG IV PRN (08:00)
[2024-11-26 09:14] LABS: Albumin 2.5 g/dL (3.2-4.8); Aspartate Aminotransferase 50 U/L (13-40); Blood Urea Nitrogen 8 mg/dL (9-23); Calcium 8.3 mg/dL (8.7-10.4); Chloride 100 mmol/L (98-107); Potassium 4.4 mmol/L (3.5-5.1); Sodium 133 mmol/L (136-145); Total Protein 4.9 g/dL (5.7-8.2)
[2024-11-26] MEDS ORDERED: ENOXAPARIN SOD 30 MG/0.3 ML SYRINGE SC SCH ×2 (10:00)
[2024-11-26] MEDS ORDERED: FLUCONAZOLE 200MG/100ML 100 ML IV SCH (10:00)
[2024-11-26] MEDS: DexAMETHasone SOD PHOS 10MG/1ML VIAL INJ IV SCH (10:50)
[2024-11-26] MEDS: FLUCONAZOLE 200MG/100ML 100 ML IV SCH (10:50)
[2024-11-26] MEDS: ACCU-CHEK COMFORT CURVE STRIP VI SCH (12:00)
[2024-11-26] MEDS: InsuLIN REG 1unit/0.01ml Soln (100units/ml) SC SCH (12:53)
[2024-11-26] MEDS ORDERED: VANCOMYCIN PER PHARMACY 0 MG IV SCH (13:15)
--- NOTE | 2024-11-26 13:22 | DVHPN2 ---
Subjective Seen and examined at bedside, patient underwent CT head which was showing possible vasogenic edema with the left thalamus mass, we will attempt to transfer the patient for neurosurgery evaluation. Patient did have in the past prior craniotomy. Changes from previous H/P or p: Changes Neurological: Incoordination, Confusion Objective Vitals Vital Signs Date Time Temp Pulse Resp B/P (MAP) Pulse Ox O2 Delivery O2 Flow Rate FiO2 11/26/24 10:01 98.3 101 19 111/57 (75) 97 98.3 11/26/24 08:00 Nasal Cannula* 2 28 Intake/Output Intake and Output 11/26/24 07:00 Intake Total 641.875 ml Output Total 1982 ml Balance -1340.125 ml Intake Oral 240 ml IV Total 401.875 ml Output Urine Total 1800 ml Stool Total 155 ml Drainage Total 27 ml Exam Gen: in bed NAD Cvs: N S1/S2, RRR Resp: BLAE Abd: Morbidly Obese, ileostomy [employer]: Awake but confused General Appearance: Other (intuabed and sedated) Medications Current Medications Medications Dose Ordered Sig/Sylvie Route Start Time Stop Time Status Last Admin Dose Admin Pantoprazole Sodium 40 mg DAILY IV 11/14/24 10:00 11/26/24 10:50 40 MG Nitroglycerin 0.4 mg Q5MINP PRN SL 11/13/24 23:00 Albuterol 2.5 mg Q6HP PRN NEB 11/14/24 06:00 11/24/24 09:42 2.5 MG Norepinephrine Bitartrate 32 mg/ Sodium Chloride 250 ml @ 0.938 mls/ hr Q24H IV 11/17/24 08:45 11/24/24 05:12 2.813 MLS/HR Nystatin 1 applic BID TOP 11/21/24 10:00 11/26/24 10:00 1 APPLIC Fat Emulsion Intravenous 150 ml/Sodium Phosphate 60 meq/ Potassium Phosphate 44 meq/ Magnesium Sulfate 12 meq/ Multivitamins 10 ml/Chromium/ Copper/Manganese/ Zinc 1 ml/Insulin Human Regular 12 units/Amino Acids/ Dextrose/Purified Water 1,439.12 ml @ 60 mls/hr Q24H IV 11/21/24 22:00 11/22/24 21:59 Cancel Morphine Sulfate 1 mg Q6HPRN PRN IV 11/22/24 04:30 11/24/24 13:48 1 MG Albuterol 2.5 mg Q12HR NEB 11/24/24 22:00 11/26/24 07:11 2.5 MG Morphine Sulfate 15 mg Q12HR PO 11/24/24 22:00 11/25/24 09:23 15 MG Ergocalciferol 50,000 unit Q7D PO 11/25/24 07:45 11/25/24 09:22 50,000 UNIT Acetaminophen 650 mg Q6HP PRN PO 11/25/24 08:45 Enoxaparin Sodium 30 mg BID SC 11/25/24 10:00 UNV Fluconazole 100 ml @ 100 mls/hr DAILY IV 11/26/24 10:00 11/26/24 10:50 100 MLS/HR Dexamethasone Sodium Phosphate 10 mg DAILY IV 11/26/24 10:00 11/26/24 10:50 10 MG Diagnostic Test (Pha) 1 strip Q6HR 11/26/24 12:00 11/26/24 12:00 1 STRIP Insulin Human Regular Q6HR SC 11/26/24 12:00 11/26/24 12:53 2 UNITS Dextrose 50 ml UD PRN IV 11/26/24 08:00 Laboratory Results Laboratory Tests 11/25/24 07:57 11/26/24 04:02 Chemistry Test 11/26/24 04:02 Albumin 2.5 g/dL (3.2-4.8) L Calcium Level 8.3 mg/dL (8.7-10.4) L Magnesium Level 2.2 mg/dL (1.6-2.6) Total Protein 4.9 g/dL (5.7-8.2) L LFT Test 11/26/24 04:02 Alanine Aminotransferase (ALT) 39 U/L (7-40) Alkaline Phosphatase 102 U/L (46-116) Aspartate Amino Transferase (AST) 50 U/L (13-40) H Total Bilirubin 0.6 mg/dL (0.2-1.0) Urinalysis Test 11/13/24 21:25 11/14/24 13:20 Urine WBC Clumps Present /hpf (None Seen) Urine Color [place] (Yellow) H Urine Clarity Ex.turbid (Clear) Urine pH 6.5 (5.0-9.0) Urine Specific [place] 1.037 (1.001-1.035) Urine Protein 2+ (Negative) H Urine Ketones Trace (Negative) Urine Blood 2+ /uL (Negative) H Urine Nitrite Negative (Negative) Urine Bilirubin 1+ (Negative) H Urine Urobilinogen 3 mg/dL (Negative) H Urine Leukocyte Esterase 3+ /uL (Negative) Urine RBC 81 /hpf (0 - 4) Urine WBC 330 /hpf (0 - 5) Urine Squamous Epithelial Cells Mod /hpf (<5) Urine Bacteria None seen /hpf (None Seen) Urine Mucus Few (None Seen) Urine Osmolality 824 mOsm/kg Urine Creatinine 94.06 mg/dL (30.0-125.0) Urine Protein/Creatinine Ratio 1.34 Urine Sodium < 10 mmol/L (40-220) L Urine Glucose Normal mg/dL (Normal) Urine Total Protein 126.5 mg/dL (1-14) H Blood Gas Results Test 11/26/24 04:38 Arterial Blood pH 7.449 (7.350-7.450) FiO2 % 32.0 Microbiology Microbiology Date/Time Source Procedure Growth Status 11/25/24 09:35 Stool Stool Culture - Preliminary Resulted 11/25/24 09:35 Stool Shiga Toxin I & II Pending Resulted 11/23/24 14:30 Voided Urine Urine Culture - Preliminary Presumptive Brandi albicans Resulted 11/16/24 17:20 Sputum Gram Stain - Final Complete 11/16/24 17:20 Sputum Respiratory Culture - Final Complete 11/16/24 17:10 Nose MRSA Screen - Final Complete 11/13/24 20:26 Blood Blood Culture - Final NO GROWTH AFTER 5 DAYS OF INCUBATION. 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 s/p Right Hemicolectomy # Hyponatremia - Improving # Morbidly Obese Critical care time 41 mins d/w Willam about CT Head findings Plan discussed with: Patient, Son (Willam) My Orders Orders - ALFRED ORELLANA MD Procedure Category Date Status Time * Etiologist CONS 11/26/24 Transmitted Consult Date of Service: Nov 26, 2024 Billing Provider: ALFRED ORELLANA MD Common Visit Codes: [id number] CARE 30-74 MIN ALFRED ORELLANA MD Nov 26, 2024 13:22
--- NOTE | 2024-11-26 13:45 | DVHINCON2 ---
Date of service: Nov 26, 2024 Family History: Cancer Family history: Cardiovascular disease Allergies: Coded Allergies: Iodine (Verified Allergy, Unknown, 11/15/24) Home Meds Reported Medications Glatiramer Acetate (Copaxone) 20 Mg/Ml Kit, SC 11/15/24 Tolterodine Tartrate (Tolterodine Tartrate ER) 4 Mg Cap, 1 CAP PO DAILY 11/15/24 Paroxetine Hydrochloride (Paroxetine Hydrochloride) 10 Mg Tab, 1 TAB PO DAILY 11/15/24 Ropinirole Hydrochloride (Ropinirole Hcl) 0.25 Mg Tab, 1 PO DAILY 11/15/24 Albuterol Sulfate (Albuterol Sulfate Hfa) 108 Mcg/Act Aer, INH 11/15/24 Baclofen (Baclofen) 10 Mg Tab, 1 TAB PO BID 11/15/24 Paroxetine (PAXIL TABLET) 20 Mg Tb, 12.5 MG PO DAILY 04/03/14 Current Medications Current Medications Medications (Trade) Dose Ordered Sig/Sylvie Route PRN Reason Start Time Stop Time Status Last Admin Fluconazole 100 ml @ 100 mls/hr DAILY IV 11/26/24 10:00 11/25/24 14:26 DC Fluconazole 100 ml @ 100 mls/hr DAILY IV 11/26/24 10:00 11/26/24 10:50 Dexamethasone Sodium Phosphate (Decadron Injection) 10 mg DAILY IV 11/26/24 10:00 11/26/24 10:50 Enoxaparin Sodium (Lovenox) 30 mg BID SC 11/26/24 10:00 11/26/24 05:25 DC Enoxaparin Sodium (Lovenox) HOLD BID SC 11/26/24 10:00 11/26/24 05:45 DC Diagnostic Test (Pha) (Accu-Chek Comfort Curve T) 1 strip Q6HR 11/26/24 12:00 11/26/24 12:00 Insulin Human Regular (InsuLIN R) Q6HR SC 11/26/24 12:00 11/26/24 12:53 Dextrose 50 ml UD PRN IV Blood Sugar LESS THAN 60 11/26/24 08:00 Vancomycin HCl 0 ml @ 0 mls/hr UD IV 11/26/24 13:15 UNV Meropenem 50 ml @ 17 mls/hr Q8HR IV 11/26/24 14:00 UNV Vital Signs Vital Signs Date Time Temp Pulse Resp B/P (MAP) Pulse Ox O2 Delivery O2 Flow Rate FiO2 11/26/24 12:31 73 19 111/60 (77) 98 11/26/24 12:01 97.8 97.8 11/26/24 08:00 Nasal Cannula* 2 28 Labs/Diagnostic Data Labs Test 11/26/24 12:46 11/26/24 04:38 11/26/24 04:02 11/25/24 09:35 Range/Units POC Glucose 146 H 70-106 mg/dl Blood Gas Specimen Type Arterial Blood Gas Sample Site Left radial Blood Gas Patient Temperature 37.0 Arterial Blood Date Drawn [id number] Arterial Blood pH 7.449 7.350-7.450 Arterial Blood Partial Pressure CO2 40.5 32.0-45.0 mmHg Arterial Blood Partial Pressure O2 89.7 83.0-108.0 mmHg Arterial Blood HCO3 27.5 21.0-28.0 mmol/L Arterial Blood Oxygen Saturation 96.6 94.0-98.0 % Arterial Blood Base Excess 3.2 H -2.0-3.0 mmol/L Arterial Blood Oxyhemoglobin 96.5 94.0-98.0 % Arterial Blood Carboxyhemoglobin 0.0 L 0.5-1.5 % Arterial Blood Methemoglobin 0.1 0.0-1.5 % Abilio Test Modified Blood Gas Total Hemoglobin 10.00 L 12.0-16.0 g/dL Blood Gas Liter Flow 3.00 Blood Gas Modality Nasal cannula FiO2 % 32.0 Sodium Level 133 L 136-145 mmol/L Potassium Level 4.4 3.5-5.1 mmol/L Chloride Level 100 98-107 mmol/L Carbon Dioxide Level 22 20-31 mmol/L Anion Gap 11 5-15 Blood Urea Nitrogen 8 L 9-23 mg/dL Creatinine 0.46 L 0.550-1.02 mg/dL Glomerular Filtration Rate Calc 107 >90 mL/min BUN/Creatinine Ratio 17.4 10.0-20.0 Serum Glucose 101 74-106 mg/dL Calcium Level 8.3 L 8.7-10.4 mg/dL Magnesium Level 2.2 1.6-2.6 mg/dL Total Bilirubin 0.6 0.2-1.0 mg/dL Aspartate Amino Transferase (AST) 50 H 13-40 U/L Alanine Aminotransferase (ALT) 39 7-40 U/L Alkaline Phosphatase 102 46-116 U/L Total Protein 4.9 L 5.7-8.2 g/dL Albumin 2.5 L 3.2-4.8 g/dL Stool Occult Blood Negative Negative Stool Occult Blood Sample #3 Negative Stool for White Cells None seen Test 11/25/24 07:57 11/23/24 03:59 11/22/24 03:33 11/21/24 12:26 Range/Units White Blood Count 20.2 H 4.4-10.8 10^3/uL Red Blood Count 3.69 L 4.0-5.20 10^6/uL Hemoglobin 10.3 L 12.2-16.2 g/dL Hematocrit 32.2 L 36.0-46.0 % Mean Corpuscular Volume 87.3 80.0-100.0 fL Mean Corpuscular Hemoglobin 28.0 28.0-32.0 pg Mean Corpuscular Hemoglobin Concent 32.0 32.0-36.0 g/dL Red Cell Distribution Width 16.9 H 11.8-14.3 % Platelet Count 269 140-450 10^3/uL Mean Platelet Volume 7.8 6.9-10.8 fL Neutrophils (%) (Auto) 90.3 H 37.0-80.0 % Lymphocytes (%) (Auto) 4.6 L 10.0-50.0 % Monocytes (%) (Auto) 3.9 0.0-12.0 % Eosinophils (%) (Auto) 0.9 0.0-7.0 % Basophils (%) (Auto) 0.3 0.0-2.0 % Neutrophils # (Auto) 18.2 H 1.6-8.6 10 ^3/uL Lymphocytes # (Auto) 0.9 0.4-5.4 10 ^3/uL Monocytes # (Auto) 0.8 0-1.3 10 ^3/uL Eosinophils # (Auto) 0.2 0-0.8 10 ^3/uL Basophils # (Auto) 0.1 0-0.2 10 ^3/uL Nucleated Red Blood Cells 0.0 % Differential Total Cells Counted 100.0 100 Neutrophils % (Manual) 83 H 37.0-80.0 Band Neutrophils % (Manual) 4 Lymphocytes % (Manual) 8 L 10.0-50.0 Monocytes % (Manual) 5 0-12 Eosinophils % (Manual) 0 0-7 Basophils % (Manual) 0 0.0-2.0 Metamyelocytes % (manual) 0 Myelocytes % (Manual) 0 Promyelocytes % (Manual) 0 Blast Cells % (Manual) 0 Reactive Lymphocytes 0 Platelet Estimate Adequate Phosphorus Level 3.4 2.4-5.1 mg/dL Blood Gas Pressure Support 5 Blood Gas PEEP or CPAP 5.0 Test 11/21/24 07:15 11/21/24 04:22 11/20/24 08:17 11/20/24 03:35 Range/Units Blood Gas Set Respiration Rate 16.0 Blood Gas Tidal Volume 500.0 Prothrombin Time 11.7 9.3-11.8 sec Prothrombin Time INR 1.11 0.9-1.15 Blood Gas Spontaneous Rate 16 Random Vancomycin Level 16.1 H 5-10 ug/mL Test 11/19/24 03:26 11/18/24 03:00 11/17/24 07:04 11/16/24 17:53 Range/Units Vancomycin Level Trough 28.9 H 5-10 ug/mL Reticulocyte Count (auto) 1.23 0.5-1.5 % Lactate Dehydrogenase 330 H 120-246 U/L Triglycerides Level 65 < 150 mg/dL Blood Gas Inspiratory Pressure 24.0 Bl Gas Inspiratory/Expiratory Ratio 1:2.8 Specimen Drawn By [facility] Blood Gas Critical Value Read Back Yes Blood Gas Notified Whom ganesh Light md Blood Gas Notified Time [id number] Blood Gas Notified By tim Hinojosa rrt Test 11/16/24 05:23 11/15/24 22:22 11/14/24 21:07 11/14/24 13:20 Range/Units Carcinoembryonic Antigen 45.58 <=5.0 ng/mL Hemoglobin A1c 5.7 <5.7 % A1C Thyroid Stimulating Hormone (TSH) 1.83 0.55-4.78 uIU/mL B-Type Natriuretic Peptide 29.44 0-100 pg/mL Vitamin D 25-Hydroxy 4.6 L 30.0-100 ng/mL Urine Color [place] H Yellow Urine Clarity Ex.turbid Clear Urine pH 6.5 5.0-9.0 Urine Specific [place] 1.037 H 1.001-1.035 Urine Protein 2+ H Negative Urine Ketones Trace Negative Urine Blood 2+ H Negative /uL Urine Nitrite Negative Negative Urine Bilirubin 1+ H Negative Urine Urobilinogen 3 H Negative mg/dL Urine Leukocyte Esterase 3+ Negative /uL Urine RBC 81 0 - 4 /hpf Urine WBC 330 0 - 5 /hpf Urine Squamous Epithelial Cells Mod <5 /hpf Urine Bacteria None seen None Seen /hpf Urine Mucus Few None Seen Urine Osmolality 824 mOsm/kg Urine Creatinine 94.06 30.0-125.0 mg/dL Urine Protein/Creatinine Ratio 1.34 Urine Sodium < 10 L 40-220 mmol/L Urine Glucose Normal Normal mg/dL Urine Total Protein 126.5 H 1-14 mg/dL Test 11/14/24 09:04 11/14/24 05:51 11/13/24 23:00 11/13/24 21:25 Range/Units Lactic Acid Level 2.0 0.4-2.0 mmol/L Parathyroid Hormone (Intact) 115.5 H 18.4-80.1 pg/mL Troponin I High Sensitivity 3 L </=34 ng/L Urine WBC Clumps Present None Seen /hpf Test 11/13/24 20:10 11/13/24 19:07 Range/Units Lipase 30 12-53 U/L Plasma/Serum Blood Alcohol < 3.0 <10 mg/dL Activated Partial Thromboplast Time 32.2 24.5-34.5 SEC Ammonia 17 11-32 umol/L Microbiology Date/Time Source Procedure Growth Status 11/25/24 09:35 Stool Stool Culture - Preliminary Resulted 11/25/24 09:35 Stool Shiga Toxin I & II Pending Resulted 11/23/24 14:30 Voided Urine Urine Culture - Preliminary Presumptive Brandi albicans Resulted 11/16/24 17:20 Sputum Gram Stain - Final Complete 11/16/24 17:20 Sputum Respiratory Culture - Final Complete 11/16/24 17:10 Nose MRSA Screen - Final Complete 11/13/24 20:26 Blood Blood Culture - Final NO GROWTH AFTER 5 DAYS OF INCUBATION. Complete Assessment CALLED TO SEE PT RE ILEOSTOMY FUNCTION S/P E LAP BY DR ARAIZA NO C/O ABD PAIN WOUND MILD ERYTHEMA ILEOSTOMY FUNCTIONAL MUCOSAL ISCHEMIA BUT APPEARS VIABLE CONTINUE CLOSE OBSERVATION Plan discussed with: Other HEVER SEBASTIAN MD Nov 26, 2024 13:45
[2024-11-26] MEDS: FUROSEMIDE 20 MG/2 ML VIAL IV ONE (15:39)
[2024-11-26] MEDS: FUROSEMIDE 20 MG/2 ML VIAL ONE (15:50)
--- NOTE | 2024-11-26 15:54 | DVH ---
CHEST RADIOGRAPH Indication: increased chest congestion, sob Technique: Single frontal view of the chest was obtained Comparison: XY CHEST XRAY 1 VIEW on DOS: 11/24/24, XY CHEST PORTABLE on DOS: 11/23/24, XY CHEST XRAY 1 VIEW on DOS: 11/22/24 FINDINGS: Lines and Tubes: None Lungs: Left lower lung zone opacification with obscuration of the left hemidiaphragm. No pneumothorax. Cardiomediastinal contours: Unremarkable Bones: No acute osseous abnormality. IMPRESSION: Left lower lung zone opacification with obscuration of the left hemidiaphragm which may be from overl vinicius cardiac silhouette with underlying effusion/atelectasis/ pneumonia not excluded.
[2024-11-26] MEDS: VANCOMYCIN 1GM/250ML KIT 250 ML IV SCH (15:58)
[2024-11-26 16:44] LABS: Base Excess 1.6 mmol/L (-2.0-3.0)
[2024-11-26 18:19] LABS: Red Cell Distribution Width 17.1 % (11.8-14.3)
[2024-11-26 18:25] LABS: Hematocrit 32.9 % (36.0-46.0); Hemoglobin 10.9 g/dL (12.2-16.2); Mean Corpuscular Hemoglobin 28.2 pg (28.0-32.0); Mean Corpuscular Hgb Conc. 33.2 g/dL (32.0-36.0); Mean Corpuscular Volume 84.9 fL (80.0-100.0); Platelet Count (auto) 299 10^3/uL (140-450); Red Blood Cells 3.87 10^6/uL (4.0-5.20); White Blood Cell 9.7 10^3/uL (4.4-10.8)
[2024-11-26 18:36] LABS: Basophils % (manual) 0 (0.0-2.0); Blast Cells 0; Eosinophils % (manual) 0 (0-7); Metamyelocytes % 0; Myelocytes % 0; Promyelocytes % 0; Reactive Lymphocytes 0
[2024-11-26] MEDS: MEROPENEM 1GM IVPB 50 ML IV SCH (18:40)
--- NOTE | 2024-11-26 18:48 | DVHINCON2 ---
DATE OF CONSULTATION: 11/26/2024 HISTORY OF PRESENT ILLNESS: This patient is referred to me from ICU. The patient is 64-year-old with past medical history of asthma, multiple sclerosis, cervical hematoma; presented to the Emergency Room on 11/14/2024, for abdominal pain; and with this diffuse abdominal pain, she also had nausea and vomiting. No diarrhea. No fever or chills. She was seen by Dr. Funez on 11/14/2024, and I am covering him, so I was asked to see with regards to the function of the colostomy that was performed by Dr. Funez. According to his notes, she was admitted with altered level of consciousness with abdominal pain, distention with history of morbid obesity; and CT of the abdomen and pelvis indicated a toxic colitis, and the patient was taken to surgery on 11/16/2024. She was diagnosed with ischemic bowel with colonic obstruction at the splenic flexure, secondary to obstructing adeno-CA and she had extensive intra-abdominal adhesions. So, she underwent a laparotomy with extended right hemicolectomy with ileostomy, splenic flexure takedown was done, and extensive lysis of adhesion was done. I was asked to see this patient with regards to the status of the ileostomy. PHYSICAL EXAMINATION: VITAL SIGNS: On examination, she is currently afebrile, extubated, stable signs. HEENT: With no evidence of pallor, cyanosis, or jaundice. NECK: Supple, nontender with no thyromegaly or lymphadenopathy. CHEST AND LUNGS: Clear. HEART: Within normal limits. ABDOMEN: Soft. She is morbidly obese. The wound itself is mildly erythematous, but there appears no drainage. The ileostomy seems to be functional. The mucocutaneous junction remains intact. CLINICAL IMPRESSION: There is some mild ischemia of the mucosal lining of the inferior portion of the ileostomy, but further examination of the ileostomy indicates it is seemingly viable and there is viable tissue proximal to the visible ischemic mucosal location. So, based upon that no urgent indication for surgery is there, and the patient needs close observation and consider surgery based upon ongoing evaluation with regards to an ileostomy malfunction. MD JENNA Man/KATJA TID: [id number] RECEIPT: [id number] cc: Dr. Funez
[2024-11-26 18:50] LABS: Band Neutrophils % (manual) 8; Lymphocytes % (manual) 2 (10.0-50.0); Monocytes % (manual) 5 (0-12); Platelet Estimate Adequate
--- NOTE | 2024-11-26 20:02 | DVHPN2 ---
Progress Note - Dictate Date Seen: Nov 26, 2024 Medical Necessity Reason Pt with a Central, PICC or Fol: Yes The following are medically ne: Central Line Reason for xiao catheter: Strict I&O Subjective overnight her mental status is worsened CT head: There is a 2.5 x 3.3 cm mass in the left thalamus extending into the left lateral ventricle with vasogenic edema in the left thalamus vital signs Vital Sign Date Time Temp Pulse Resp B/P (MAP) Pulse Ox O2 Delivery O2 Flow Rate FiO2 11/26/24 19:31 62 18 117/58 (77) 99 11/26/24 18:01 98.1 98.1 11/26/24 15:30 Facial BiPAP Mask 50 11/26/24 15:03 2.0 Total Intake and Output 11/25/24 11/25/24 11/26/24 15:00 23:00 07:00 Intake Total 201.875 ml 440 ml 0 ml Output Total 442 ml 1540 ml Balance 201.875 ml -2 ml -1540 ml medications Current Medications Medications Dose Ordered Sig/Sylvie Route Start Time Stop Time Status Last Admin Dose Admin Pantoprazole Sodium 40 mg DAILY IV 11/14/24 10:00 11/26/24 10:50 40 MG Nitroglycerin 0.4 mg Q5MINP PRN SL 11/13/24 23:00 Albuterol 2.5 mg Q6HP PRN NEB 11/14/24 06:00 11/26/24 15:03 2.5 MG Norepinephrine Bitartrate 32 mg/ Sodium Chloride 250 ml @ 0.938 mls/ hr Q24H IV 11/17/24 08:45 11/24/24 05:12 2.813 MLS/HR Nystatin 1 applic BID TOP 11/21/24 10:00 11/26/24 10:00 1 APPLIC Fat Emulsion Intravenous 150 ml/Sodium Phosphate 60 meq/ Potassium Phosphate 44 meq/ Magnesium Sulfate 12 meq/ Multivitamins 10 ml/Chromium/ Copper/Manganese/ Zinc 1 ml/Insulin Human Regular 12 units/Amino Acids/ Dextrose/Purified Water 1,439.12 ml @ 60 mls/hr Q24H IV 11/21/24 22:00 11/22/24 21:59 Cancel Morphine Sulfate 1 mg Q6HPRN PRN IV 11/22/24 04:30 11/24/24 13:48 1 MG Albuterol 2.5 mg Q12HR NEB 11/24/24 22:00 11/26/24 07:11 2.5 MG Morphine Sulfate 15 mg Q12HR PO 11/24/24 22:00 11/25/24 09:23 15 MG Ergocalciferol 50,000 unit Q7D PO 11/25/24 07:45 11/25/24 09:22 50,000 UNIT Acetaminophen 650 mg Q6HP PRN PO 11/25/24 08:45 Enoxaparin Sodium 30 mg BID SC 11/25/24 10:00 UNV Fluconazole 100 ml @ 100 mls/hr DAILY IV 11/26/24 10:00 11/26/24 10:50 100 MLS/HR Dexamethasone Sodium Phosphate 10 mg DAILY IV 11/26/24 10:00 11/26/24 10:50 10 MG Diagnostic Test (Pha) 1 strip Q6HR 11/26/24 12:00 11/26/24 18:00 1 STRIP Insulin Human Regular Q6HR SC 11/26/24 12:00 11/26/24 18:35 2 UNITS Dextrose 50 ml UD PRN IV 11/26/24 08:00 Vancomycin HCl 0 ml @ 0 mls/hr UD IV 11/26/24 13:15 Meropenem 50 ml @ 17 mls/hr Q8HR IV 11/26/24 14:00 11/26/24 18:40 17 MLS/HR Vancomycin HCl 250 ml @ 250 mls/hr Q8H IV 11/27/24 02:00 objective General examination- Morbidly obese female, Acute distress, urinary catheter in place, A0X2 HEENT: PEERLA, no acute nasal discharge Chest: tachycardiac, S1-S2 audible, rate and rhythm regular, no murmur Lung: CTAB, no wheeze or rhonchi Abdomen: exp lap, LIANNE drain +, ileostomy bag+ Musculoskeletal: no acute joint swelling or tenderness Lower extremity: leg edema Neurological change in mental status Psychiatry-- Normal mood and affect Skin- dry laboratory and microbiology Laboratory Tests 11/26/24 17:40 11/26/24 04:02 Test 11/26/24 04:02 Range/Units Serum Glucose 101 74-106 mg/dL Assessment/Plan PPatient is a 64-year-old female presented to the hospital with: change in mental status: 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 Bowel obstruction s/p exp lap right hemicolectomy terminal ileum perforation s/p partial resection of terminal ileum and caecum Urinary tract infection Acute hypoxic respiratory failure Morbid obesity Recommendations: Due to new change in mental status andCT head showing thalamic mass with vasogenic edema ? metastasis Plan for transfer to [facility] for neurosurgical intervention LIANNE drain is sero sanguinous she is switched to meropenem from Zosyn for total 5 days, stop date 11/25 c diff negative 11/13, urine culture showed: >100,000 CFU/mL Mixed Gram Positive Ca >3 Craig Type including Beta- Hemolytic Group B Streptococcus 11/16, repeat urine culture showed no growth after 48 hours of incubation. 11/25: LEFT Upper Extremity Venous Duplex report came back normal prognosis very gaurded Thank you for consult and for giving an opportunity to take care of this patient. Dietary Evaluation Review Comments: 1) Advance pt diet when medically feasible 2) Continue current plan of care Expected Outcomes/Goals: F/U in 2-3 days Plan discussed with: Other CC Plasma Assessment Blood Product Administration S: [id number] LAILA DRAKE MD Nov 26, 2024 20:02
--- NOTE | 2024-11-26 21:01 | DVHPN2 ---
Progress Note - Dictate Date Seen: Nov 26, 2024 Medical Necessity Reason Pt with a Central, PICC or Fol: Yes The following are medically ne: Central Line Reason for xiao catheter: Strict I&O Subjective Patient continues to be extubated She has passed swallow eval and is tolerating clear liquid diet Patient developed respiratory issues with moderate secretions She required BiPAP treatment this morning however patient is currently on 4 L nasal cannula because of discomfort with the BiPAP Surgical consult appreciated, continued observation of stomal condition Patient underwent CT head which was showing possible vasogenic edema with the left thalamus mass, attempt to transfer the patient for neurosurgery evaluation. Patient did have in the past prior craniotomy. Patient underwent a laparotomy with extended right hemicolectomy up to the proximal descending colon yesterday She was diagnosed with adenocarcinoma of the splenic flexure on colonoscopy biopsies and frozen section vital signs Vital Sign Date Time Temp Pulse Resp B/P (MAP) Pulse Ox O2 Delivery O2 Flow Rate FiO2 11/26/24 20:00 63 128/59 96 Facial BiPAP Mask 40 11/26/24 19:31 18 11/26/24 18:01 98.1 98.1 11/26/24 15:03 2.0 Total Intake and Output 11/25/24 11/25/24 11/26/24 15:00 23:00 07:00 Intake Total 201.875 ml 440 ml 0 ml Output Total 442 ml 1540 ml Balance 201.875 ml -2 ml -1540 ml medications Current Medications Medications Dose Ordered Sig/Sylvie Route Start Time Stop Time Status Last Admin Dose Admin Pantoprazole Sodium 40 mg DAILY IV 11/14/24 10:00 11/26/24 10:50 40 MG Nitroglycerin 0.4 mg Q5MINP PRN SL 11/13/24 23:00 Albuterol 2.5 mg Q6HP PRN NEB 11/14/24 06:00 11/26/24 15:03 2.5 MG Norepinephrine Bitartrate 32 mg/ Sodium Chloride 250 ml @ 0.938 mls/ hr Q24H IV 11/17/24 08:45 11/24/24 05:12 2.813 MLS/HR Nystatin 1 applic BID TOP 11/21/24 10:00 11/26/24 10:00 1 APPLIC Fat Emulsion Intravenous 150 ml/Sodium Phosphate 60 meq/ Potassium Phosphate 44 meq/ Magnesium Sulfate 12 meq/ Multivitamins 10 ml/Chromium/ Copper/Manganese/ Zinc 1 ml/Insulin Human Regular 12 units/Amino Acids/ Dextrose/Purified Water 1,439.12 ml @ 60 mls/hr Q24H IV 11/21/24 22:00 11/22/24 21:59 Cancel Morphine Sulfate 1 mg Q6HPRN PRN IV 11/22/24 04:30 11/24/24 13:48 1 MG Albuterol 2.5 mg Q12HR NEB 11/24/24 22:00 11/26/24 07:11 2.5 MG Morphine Sulfate 15 mg Q12HR PO 11/24/24 22:00 11/25/24 09:23 15 MG Ergocalciferol 50,000 unit Q7D PO 11/25/24 07:45 11/25/24 09:22 50,000 UNIT Acetaminophen 650 mg Q6HP PRN PO 11/25/24 08:45 Enoxaparin Sodium 30 mg BID SC 11/25/24 10:00 UNV Fluconazole 100 ml @ 100 mls/hr DAILY IV 11/26/24 10:00 11/26/24 10:50 100 MLS/HR Dexamethasone Sodium Phosphate 10 mg DAILY IV 11/26/24 10:00 11/26/24 10:50 10 MG Diagnostic Test (Pha) 1 strip Q6HR 11/26/24 12:00 11/26/24 18:00 1 STRIP Insulin Human Regular Q6HR SC 11/26/24 12:00 11/26/24 18:35 2 UNITS Dextrose 50 ml UD PRN IV 11/26/24 08:00 Vancomycin HCl 0 ml @ 0 mls/hr UD IV 11/26/24 13:15 Meropenem 50 ml @ 17 mls/hr Q8HR IV 11/26/24 14:00 11/26/24 18:40 17 MLS/HR Vancomycin HCl 250 ml @ 250 mls/hr Q8H IV 11/27/24 02:00 objective Gen: in awake alert edematous Cvs: N S1/S2, RRR Resp: On supplemental oxygen, extubated Abd: Morbidly Obese, ileostomy stoma looks well, incision site intact Medical Office Technologist: Sedated laboratory and microbiology Laboratory Tests 11/26/24 17:40 11/26/24 04:02 Test 11/26/24 04:02 Range/Units Serum Glucose 101 74-106 mg/dL Problems(with codes): (1) Left lower lobe pulmonary infiltrate (2) 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 (3) Colonic obstruction (4) Sepsis (5) UTI (urinary tract infection) (6) Ischemic stricture intestine (7) Mass of thalamus Prognosis Plan Continue supportive care Continue pulmonary toilet and respiratory support Patient was on IV antibiotics Protonix 40 mg daily Await final pathology results There was an attempt to transfer to higher level of care for possible neurosurgical evaluation and follow up Overall prognosis remains guarded Dietary Evaluation Review Comments: 1) Advance pt diet when medically feasible 2) Continue current plan of care Expected Outcomes/Goals: F/U in 2-3 days Plan discussed with: Other (ICU Nurse) CC Plasma Assessment Blood Product Administration S: [id number] HARJINDER SEBASTIAN MD Nov 26, 2024 21:01
--- NOTE | 2024-11-26 22:46 | DVHPN2 ---
Progress Note - Dictate Date Seen: Nov 26, 2024 Medical Necessity Reason Pt with a Central, PICC or Fol: Yes The following are medically ne: Central Line, Xiao Catheter Reason for xiao catheter: Strict I&O Subjective Patient seen and examined at bedside. Remains on supplemental oxygen Overnight events reviewed. vital signs Vital Sign Date Time Temp Pulse Resp B/P (MAP) Pulse Ox O2 Delivery O2 Flow Rate FiO2 11/26/24 22:10 64 18 99 11/26/24 20:00 Nasal Cannula* 4 36 11/26/24 20:00 128/59 11/26/24 18:01 98.1 98.1 Total Intake and Output 11/25/24 11/25/24 11/26/24 15:00 23:00 07:00 Intake Total 201.875 ml 440 ml 0 ml Output Total 442 ml 1540 ml Balance 201.875 ml -2 ml -1540 ml medications Current Medications Medications Dose Ordered Sig/Sylvie Route Start Time Stop Time Status Last Admin Dose Admin Pantoprazole Sodium 40 mg DAILY IV 11/14/24 10:00 11/26/24 10:50 40 MG Nitroglycerin 0.4 mg Q5MINP PRN SL 11/13/24 23:00 Albuterol 2.5 mg Q6HP PRN NEB 11/14/24 06:00 11/26/24 15:03 2.5 MG Norepinephrine Bitartrate 32 mg/ Sodium Chloride 250 ml @ 0.938 mls/ hr Q24H IV 11/17/24 08:45 11/24/24 05:12 2.813 MLS/HR Nystatin 1 applic BID TOP 11/21/24 10:00 11/26/24 21:50 1 APPLIC Fat Emulsion Intravenous 150 ml/Sodium Phosphate 60 meq/ Potassium Phosphate 44 meq/ Magnesium Sulfate 12 meq/ Multivitamins 10 ml/Chromium/ Copper/Manganese/ Zinc 1 ml/Insulin Human Regular 12 units/Amino Acids/ Dextrose/Purified Water 1,439.12 ml @ 60 mls/hr Q24H IV 11/21/24 22:00 11/22/24 21:59 Cancel Morphine Sulfate 1 mg Q6HPRN PRN IV 11/22/24 04:30 11/24/24 13:48 1 MG Albuterol 2.5 mg Q12HR NEB 11/24/24 22:00 11/26/24 22:01 2.5 MG Morphine Sulfate 15 mg Q12HR PO 11/24/24 22:00 11/25/24 09:23 15 MG Ergocalciferol 50,000 unit Q7D PO 11/25/24 07:45 11/25/24 09:22 50,000 UNIT Acetaminophen 650 mg Q6HP PRN PO 11/25/24 08:45 Enoxaparin Sodium 30 mg BID SC 11/25/24 10:00 UNV Fluconazole 100 ml @ 100 mls/hr DAILY IV 11/26/24 10:00 11/26/24 10:50 100 MLS/HR Dexamethasone Sodium Phosphate 10 mg DAILY IV 11/26/24 10:00 11/26/24 10:50 10 MG Diagnostic Test (Pha) 1 strip Q6HR 11/26/24 12:00 11/26/24 18:00 1 STRIP Insulin Human Regular Q6HR SC 11/26/24 12:00 11/26/24 18:35 2 UNITS Dextrose 50 ml UD PRN IV 11/26/24 08:00 Vancomycin HCl 0 ml @ 0 mls/hr UD IV 11/26/24 13:15 Meropenem 50 ml @ 17 mls/hr Q8HR IV 11/26/24 14:00 11/26/24 18:40 17 MLS/HR Vancomycin HCl 250 ml @ 250 mls/hr Q8H IV 11/27/24 02:00 objective Gen.: Patient lying in bed in no apparent distress. On supplemental oxygen. Head: Normocephalic, atraumatic. Eyes: EOMI/PERRLA. Ears: Normal hearing. Normal anatomy. Neck/trachea: Trachea midline, supple. Nose: Normal external anatomy. Mouth: Moist mucous membranes. Chest: Decreased air entry bilaterally. No wheezing or rhonchi. Bilateral crackles. Cardiovascular: Positive S1, positive S2. Regular rate and rhythm. Abdomen: Positive bowel sounds in all 4 quadrants. Soft, non-tender, non- distended. : Deferred. Rectal: Deferred. Skin: Warm, dry. Intact. Extremities: 2+ radial pulses bilaterally. No lower extremity edema. Neuro: Awake, alert, oriented x3. No gross motor or sensory deficits. Cranial nerves II through XII intact. Gait not assessed. laboratory and microbiology Laboratory Tests 11/26/24 17:40 11/26/24 04:02 Test 11/26/24 04:02 Range/Units Serum Glucose 101 74-106 mg/dL Assessment/Plan Impression: Acute hypoxic respiratory failure Colitis, toxic megacolon Urinary tract infection Leukocytosis Morbid obesity Events: Remains on supplemental oxygen On 15 LPM nonrebreather Taper O2 as tolerated Off sedation Off pressors, hemodynamically stable. Chest x-ray demonstrates pulmonary vascular congestion. Obtain STAT ABG. Recommend BiPAP /. Lasix 20 mg IVP x1 given Bilateral crackles noted on exam. Continue bronchodilators Head of bed elevation Aspiration precautions. Pain control Avoid oversedation Passed swallow eval - soft mechanical diet. Monitor renal function Monitor electrolytes. Supplement as necessary. Labs and imaging reviewed. Rest of plan as noted below. Plan: s/p extubation on 11/23/24 Supplemental oxygen Titrate to keep O2 sats above 92%. Bronchodilators Antibiotics Steroids tapered off Pressors if necessary for hemodynamic support Titrate to keep mean arterial pressure greater than 65 mmHg Monitor renal function Monitor electrolytes. Supplement as necessary. Monitor ins and outs. GI prophylaxis. DVT prophylaxis. Prognosis: Poor given patient's multiple co-morbidities. Condition: Critical Rest of plan per hospitalist and other consultants. A total of 35 minutes of critical care time was spent reviewing the patient record, examining the patient, making a diagnostic and therapeutic plan, discussing this plan with the medical personnel, following up on diagnostic studies and following the patient for clinical stability excluding any and all procedures. At least 50% of this time was spent in direct, [id number] contact. Thank you, Dr. Erazo, for allowing me to participate in this patient's care. Further recommendations will depend on the patient's clinical course. Please do not hesitate to contact me if you have any questions or concerns. This medical document was created using an electronic medical record system with [employer] dictation system. Although these documentations are being carefully reviewed, there may still be some phonetic and typographical changes. The errors are purely typographical, due to imperfection on the software program, and do not reflect any compromise in the patient's medical care. Dietary Evaluation Review Comments: 1) Advance pt diet when medically feasible 2) Continue current plan of care Expected Outcomes/Goals: F/U in 2-3 days Plan discussed with: Patient, Other (RN Nadia) CC Plasma Assessment Blood Product Administration S: [id number] ROSE MARY JOLLEY MD Nov 26, 2024 22:46
[2024-11-27] VITALS (33 sets, daily range): BP systolic 93–117; BP diastolic 47–78; PULSE 51–127; RESP 10–22; TEMP 97.1–98.9; O2SAT 81–100
[2024-11-27] MEDS: VANCOMYCIN 1GM/250ML KIT 250 ML IV SCH (01:59)
[2024-11-27 04:13] LABS: Anion Gap 4 (5-15); Carbon Dioxide 30 mmol/L (20-31); Potassium 3.6 mmol/L (3.5-5.1)
[2024-11-27 04:14] LABS: Basophils # (auto) 0 10 ^3/uL (0-0.2); Eosinophils # (auto) 0 10 ^3/uL (0-0.8); Hemoglobin 8.4 g/dL (12.2-16.2); Lymphocytes % (auto) 4.7 % (10.0-50.0); Monocytes # (auto) 0.4 10 ^3/uL (0-1.3)
[2024-11-27 04:17] LABS: Basophils % (auto) 0.1 % (0.0-2.0); Eosinophils % (auto) 0.1 % (0.0-7.0); Hematocrit 25.3 % (36.0-46.0); Lymphocytes # (auto) 0.4 10 ^3/uL (0.4-5.4); Mean Corpuscular Hemoglobin 28.7 pg (28.0-32.0); Mean Corpuscular Hgb Conc. 33.3 g/dL (32.0-36.0); Mean Corpuscular Volume 86.2 fL (80.0-100.0); Monocytes % (auto) 4.4 % (0.0-12.0); Neutrophils # (auto) 8.6 10 ^3/uL (1.6-8.6); Neutrophils % (auto) 90.7 % (37.0-80.0); Platelet Count (auto) 355 10^3/uL (140-450); Red Blood Cells 2.94 10^6/uL (4.0-5.20); Red Cell Distribution Width 16.9 % (11.8-14.3); White Blood Cell 9.5 10^3/uL (4.4-10.8)
[2024-11-27 04:19] LABS: BUN/Creatinine Ratio 26.1 (10.0-20.0); Blood Urea Nitrogen 12 mg/dL (9-23)
[2024-11-27 04:25] LABS: Chloride 97 mmol/L (98-107); Glucose 123 mg/dL (74-106); INR 1.11 (0.9-1.15); Partial Thromboplastin Time 27.1 SEC (24.5-34.5); Prothrombin Time 11.7 sec (9.3-11.8); Sodium 131 mmol/L (136-145)
[2024-11-27 04:26] LABS: Calcium 8.5 mg/dL (8.7-10.4)
[2024-11-27] MEDS ORDERED: POTASSIUM EFFERVESENT TAB 25 MEQ GT ONE (05:45)
[2024-11-27 07:27] LABS: Base Excess 1.5 mmol/L (-2.0-3.0)
--- NOTE | 2024-11-27 12:29 | DVHPN2 ---
Subjective Seen and examined at bedside, patients daughter atr bedside. Discussed need for MRI brain. DOWNGRADE TO MED SURGE Changes from previous H/P or p: No Changes Objective Vitals Vital Signs Date Time Temp Pulse Resp B/P (MAP) Pulse Ox O2 Delivery O2 Flow Rate FiO2 11/27/24 11:58 55 11/27/24 07:45 97.6 11 99 97.6 11/27/24 07:44 Nasal Cannula* 4 36 Intake/Output Intake and Output 11/27/24 07:00 Intake Total 1397 ml Output Total 3255 ml Balance -1858 ml Intake Oral 480 ml IV Total 917 ml Output Urine Total 2300 ml Stool Total 900 ml Drainage Total 55 ml Exam Gen: in bed NAD Cvs: N S1/S2, RRR Resp: BLAE Abd: Morbidly Obese, ileostomy Research Psychologist: Awake but confused General Appearance: Other (intuabed and sedated) Medications Current Medications Medications Dose Ordered Sig/Sylvie Route Start Time Stop Time Status Last Admin Dose Admin Pantoprazole Sodium 40 mg DAILY IV 11/14/24 10:00 11/27/24 10:10 40 MG Nitroglycerin 0.4 mg Q5MINP PRN SL 11/13/24 23:00 Albuterol 2.5 mg Q6HP PRN NEB 11/14/24 06:00 11/26/24 15:03 2.5 MG Norepinephrine Bitartrate 32 mg/ Sodium Chloride 250 ml @ 0.938 mls/ hr Q24H IV 11/17/24 08:45 11/24/24 05:12 2.813 MLS/HR Nystatin 1 applic BID TOP 11/21/24 10:00 11/27/24 10:10 1 APPLIC Fat Emulsion Intravenous 150 ml/Sodium Phosphate 60 meq/ Potassium Phosphate 44 meq/ Magnesium Sulfate 12 meq/ Multivitamins 10 ml/Chromium/ Copper/Manganese/ Zinc 1 ml/Insulin Human Regular 12 units/Amino Acids/ Dextrose/Purified Water 1,439.12 ml @ 60 mls/hr Q24H IV 11/21/24 22:00 11/22/24 21:59 Cancel Morphine Sulfate 1 mg Q6HPRN PRN IV 11/22/24 04:30 11/24/24 13:48 1 MG Albuterol 2.5 mg Q12HR NEB 11/24/24 22:00 11/27/24 07:03 2.5 MG Morphine Sulfate 15 mg Q12HR PO 11/24/24 22:00 11/27/24 10:10 15 MG Ergocalciferol 50,000 unit Q7D PO 11/25/24 07:45 11/25/24 09:22 50,000 UNIT Acetaminophen 650 mg Q6HP PRN PO 11/25/24 08:45 Enoxaparin Sodium 30 mg BID SC 11/25/24 10:00 UNV Fluconazole 100 ml @ 100 mls/hr DAILY IV 11/26/24 10:00 11/27/24 10:10 100 MLS/HR Dexamethasone Sodium Phosphate 10 mg DAILY IV 11/26/24 10:00 11/27/24 10:10 10 MG Diagnostic Test (Pha) 1 strip Q6HR 11/26/24 12:00 11/27/24 05:11 1 STRIP Insulin Human Regular Q6HR SC 11/26/24 12:00 11/26/24 18:35 2 UNITS Dextrose 50 ml UD PRN IV 11/26/24 08:00 Vancomycin HCl 0 ml @ 0 mls/hr UD IV 11/26/24 13:15 Meropenem 50 ml @ 17 mls/hr Q8HR IV 11/26/24 14:00 11/27/24 05:45 17 MLS/HR Vancomycin HCl 250 ml @ 250 mls/hr Q8H IV 11/27/24 02:00 11/27/24 10:10 250 MLS/HR Laboratory Results Laboratory Tests 11/27/24 03:28 Chemistry Test 11/27/24 03:28 Calcium Level 8.5 mg/dL (8.7-10.4) L Coagulation Test 11/27/24 03:28 Prothrombin Time 11.7 sec (9.3-11.8) Prothrombin Time INR 1.11 (0.9-1.15) Activated Partial Thromboplast Time 27.1 SEC (24.5-34.5) Urinalysis Test 11/13/24 21:25 11/14/24 13:20 Urine WBC Clumps Present /hpf (None Seen) Urine Color [place] (Yellow) H Urine Clarity Ex.turbid (Clear) Urine pH 6.5 (5.0-9.0) Urine Specific [employer] 1.037 (1.001-1.035) Urine Protein 2+ (Negative) H Urine Ketones Trace (Negative) Urine Blood 2+ /uL (Negative) H Urine Nitrite Negative (Negative) Urine Bilirubin 1+ (Negative) H Urine Urobilinogen 3 mg/dL (Negative) H Urine Leukocyte Esterase 3+ /uL (Negative) Urine RBC 81 /hpf (0 - 4) Urine WBC 330 /hpf (0 - 5) Urine Squamous Epithelial Cells Mod /hpf (<5) Urine Bacteria None seen /hpf (None Seen) Urine Mucus Few (None Seen) Urine Osmolality 824 mOsm/kg Urine Creatinine 94.06 mg/dL (30.0-125.0) Urine Protein/Creatinine Ratio 1.34 Urine Sodium < 10 mmol/L (40-220) L Urine Glucose Normal mg/dL (Normal) Urine Total Protein 126.5 mg/dL (1-14) H Blood Gas Results Test 11/26/24 16:35 11/27/24 07:18 Arterial Blood pH 7.572 (7.350-7.450) 7.458 (7.350-7.450) FiO2 % 50.0 36.0 Microbiology Microbiology Date/Time Source Procedure Growth Status 11/25/24 09:35 Stool Stool Culture - Final Complete 11/25/24 09:35 Stool Shiga Toxin I & II - Final Complete 11/23/24 14:30 Voided Urine Urine Culture - Final Presumptive Brandi albicans Complete 11/16/24 17:20 Sputum Gram Stain - Final Complete 11/16/24 17:20 Sputum Respiratory Culture - Final Complete 11/16/24 17:10 Nose MRSA Screen - Final Complete 11/13/24 20:26 Blood Blood Culture - Final NO GROWTH AFTER 5 DAYS OF INCUBATION. Complete Assessment/Plan Assessment/Plan # Left Thalamus Mass with Vasogenic Edema - Transfer for Neurosurgery Eval - MRI BRAIN # Sepsis due to Toxic Megacolon - Abx # Possible Ischemic Colitis vs Malignancy - Ileostomy. s/p Right Hemicolectomy # Hyponatremia - Improving # Morbidly Obese Critical care time 40 mins Plan discussed with: Patient, Daughter My Orders Orders - ALFRED ORELLANA MD Procedure Category Date Status Time Wound Culture W/ Gs LUCILLE 11/26/24 Logged 13:14 Vancomycin Per PHA 11/26/24 In Process Pharmacy 13:15 Meropenem 1gm Ivpb PHA 11/26/24 In Process (Merrem 1gm/ Ns) 14:00 Respiratory Culture LUCILLE 11/26/24 Uncollected W/ Gs 13:33 Blood Culture LUCILLE 11/26/24 Uncollected 13:33 * Picc Line Consult CONS 11/26/24 Transmitted 13:33 Chest Portable XY 11/26/24 Resulted 15:12 Abg W/ Co-Ox RT 11/26/24 Logged 15:25 Vancomycin 1gm/250ml PHA 11/27/24 In Process Kit 02:00 Vancomycin Per MADDY 11/27/24 In Process Pharmacy Protoc 18:00 Vancomycin,Trough LAB 11/27/24 Logged 17:00 Transfer Orders XFER 11/27/24 Transmitted 12:12 Date of Service: Nov 27, 2024 Billing Provider: ALFRED ORELLANA MD Common Visit Codes: 22621-[id number] CARE 30-74 MIN ALFRED ORELLANA MD Nov 27, 2024 12:29
--- NOTE | 2024-11-27 13:24 | DVHPN2 ---
Progress Note - Dictate Date Seen: Nov 27, 2024 Medical Necessity Reason Pt with a Central, PICC or Fol: Yes The following are medically ne: Central Line Reason for xiao catheter: Strict I&O Subjective Patient is on 4 L NC saturating at 93 % Ileostomy functional Tolerating mechanical soft diet Surgical consult appreciated, continued observation of stomal condition Patient underwent CT head which was showing possible vasogenic edema with the left thalamus mass, attempt to transfer the patient for neurosurgery evaluation. Patient did have in the past prior craniotomy. Patient underwent a laparotomy with extended right hemicolectomy up to the proximal descending colon yesterday She was diagnosed with adenocarcinoma of the splenic flexure on colonoscopy biopsies and frozen section vital signs Vital Sign Date Time Temp Pulse Resp B/P (MAP) Pulse Ox O2 Delivery O2 Flow Rate FiO2 11/27/24 11:58 55 11/27/24 07:45 97.6 11 99 97.6 11/27/24 07:44 Nasal Cannula* 4 36 Total Intake and Output 11/26/24 11/26/24 11/27/24 15:00 23:00 07:00 Intake Total 340 ml 550 ml 507 ml Output Total 525 ml 1050 ml 1680 ml Balance -185 ml -500 ml -1173 ml medications Current Medications Medications Dose Ordered Sig/Sylvie Route Start Time Stop Time Status Last Admin Dose Admin Pantoprazole Sodium 40 mg DAILY IV 11/14/24 10:00 11/27/24 10:10 40 MG Nitroglycerin 0.4 mg Q5MINP PRN SL 11/13/24 23:00 Albuterol 2.5 mg Q6HP PRN NEB 11/14/24 06:00 11/26/24 15:03 2.5 MG Norepinephrine Bitartrate 32 mg/ Sodium Chloride 250 ml @ 0.938 mls/ hr Q24H IV 11/17/24 08:45 11/24/24 05:12 2.813 MLS/HR Nystatin 1 applic BID TOP 11/21/24 10:00 11/27/24 10:10 1 APPLIC Fat Emulsion Intravenous 150 ml/Sodium Phosphate 60 meq/ Potassium Phosphate 44 meq/ Magnesium Sulfate 12 meq/ Multivitamins 10 ml/Chromium/ Copper/Manganese/ Zinc 1 ml/Insulin Human Regular 12 units/Amino Acids/ Dextrose/Purified Water 1,439.12 ml @ 60 mls/hr Q24H IV 11/21/24 22:00 11/22/24 21:59 Cancel Morphine Sulfate 1 mg Q6HPRN PRN IV 11/22/24 04:30 11/24/24 13:48 1 MG Albuterol 2.5 mg Q12HR NEB 11/24/24 22:00 11/27/24 07:03 2.5 MG Morphine Sulfate 15 mg Q12HR PO 11/24/24 22:00 11/27/24 10:10 15 MG Ergocalciferol 50,000 unit Q7D PO 11/25/24 07:45 11/25/24 09:22 50,000 UNIT Acetaminophen 650 mg Q6HP PRN PO 11/25/24 08:45 Enoxaparin Sodium 30 mg BID SC 11/25/24 10:00 UNV Fluconazole 100 ml @ 100 mls/hr DAILY IV 11/26/24 10:00 11/27/24 10:10 100 MLS/HR Dexamethasone Sodium Phosphate 10 mg DAILY IV 11/26/24 10:00 11/27/24 10:10 10 MG Diagnostic Test (Pha) 1 strip Q6HR 11/26/24 12:00 11/27/24 05:11 1 STRIP Insulin Human Regular Q6HR SC 11/26/24 12:00 11/26/24 18:35 2 UNITS Dextrose 50 ml UD PRN IV 11/26/24 08:00 Vancomycin HCl 0 ml @ 0 mls/hr UD IV 11/26/24 13:15 Meropenem 50 ml @ 17 mls/hr Q8HR IV 11/26/24 14:00 11/27/24 05:45 17 MLS/HR Vancomycin HCl 250 ml @ 250 mls/hr Q8H IV 11/27/24 02:00 11/27/24 10:10 250 MLS/HR objective Gen: in awake alert edematous Cvs: N S1/S2, RRR Resp: On supplemental oxygen, extubated Abd: Morbidly Obese, ileostomy stoma looks well, incision site intact Forestry Engineer: Sedated laboratory and microbiology Laboratory Tests 11/27/24 03:28 Test 11/27/24 03:28 Range/Units Serum Glucose 123 H 74-106 mg/dL Problems(with codes): (1) 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 (2) Ischemic stricture intestine (3) Colonic obstruction (4) UTI (urinary tract infection) (5) Sepsis (6) Left lower lobe pulmonary infiltrate (7) Mass of thalamus Prognosis Plan Patient will be downgraded to the floor today She is awaiting a possible MRI of the brain Possible transfer to higher level of care for neurosurgical evaluation Awaiting final pathology report Elective oncology evaluation pending final pathology results Continue Protonix 40 mg IV daily Continue diet as tolerated Monitor labs Prognosis remains guarded due to multiple comorbidities Dietary Evaluation Review Comments: 1) Advance pt diet when medically feasible 2) Continue current plan of care Expected Outcomes/Goals: F/U in 2-3 days Plan discussed with: Other (ICU Nurse) CC Plasma Assessment Blood Product Administration S: [id number] HARJINDER SEBASTIAN MD Nov 27, 2024 13:24
--- NOTE | 2024-11-27 20:12 | DVHPN2 ---
Progress Note - Dictate Date Seen: Nov 27, 2024 Medical Necessity Reason Pt with a Central, PICC or Fol: Yes The following are medically ne: Central Line, Xiao Catheter Reason for xiao catheter: Strict I&O Subjective Patient is awake and but confused Patient underwent CT head which was showing possible vasogenic edema with the left thalamus mass, plan to transfer the patient for neurosurgery evaluation. Patient did have in the past prior craniotomy. vital signs Vital Sign Date Time Temp Pulse Resp B/P (MAP) Pulse Ox O2 Delivery O2 Flow Rate FiO2 11/27/24 17:40 97.7 57 19 106/57 (73) 96 97.7 11/27/24 15:00 Nasal Cannula* 4 36 Total Intake and Output 11/26/24 11/26/24 11/27/24 15:00 23:00 07:00 Intake Total 340 ml 550 ml 507 ml Output Total 525 ml 1050 ml 1680 ml Balance -185 ml -500 ml -1173 ml medications Current Medications Medications Dose Ordered Sig/Sylvie Route Start Time Stop Time Status Last Admin Dose Admin Pantoprazole Sodium 40 mg DAILY IV 11/14/24 10:00 11/27/24 10:10 40 MG Nitroglycerin 0.4 mg Q5MINP PRN SL 11/13/24 23:00 Albuterol 2.5 mg Q6HP PRN NEB 11/14/24 06:00 11/26/24 15:03 2.5 MG Nystatin 1 applic BID TOP 11/21/24 10:00 11/27/24 10:10 1 APPLIC Fat Emulsion Intravenous 150 ml/Sodium Phosphate 60 meq/ Potassium Phosphate 44 meq/ Magnesium Sulfate 12 meq/ Multivitamins 10 ml/Chromium/ Copper/Manganese/ Zinc 1 ml/Insulin Human Regular 12 units/Amino Acids/ Dextrose/Purified Water 1,439.12 ml @ 60 mls/hr Q24H IV 11/21/24 22:00 11/22/24 21:59 Cancel Morphine Sulfate 1 mg Q6HPRN PRN IV 11/22/24 04:30 11/24/24 13:48 1 MG Albuterol 2.5 mg Q12HR NEB 11/24/24 22:00 11/27/24 07:03 2.5 MG Morphine Sulfate 15 mg Q12HR PO 11/24/24 22:00 11/27/24 10:10 15 MG Ergocalciferol 50,000 unit Q7D PO 11/25/24 07:45 11/25/24 09:22 50,000 UNIT Acetaminophen 650 mg Q6HP PRN PO 11/25/24 08:45 Enoxaparin Sodium 30 mg BID SC 11/25/24 10:00 UNV Fluconazole 100 ml @ 100 mls/hr DAILY IV 11/26/24 10:00 11/27/24 10:10 100 MLS/HR Dexamethasone Sodium Phosphate 10 mg DAILY IV 11/26/24 10:00 11/27/24 10:10 10 MG Diagnostic Test (Pha) 1 strip Q6HR 11/26/24 12:00 11/27/24 18:10 1 STRIP Insulin Human Regular Q6HR SC 11/26/24 12:00 11/26/24 18:35 2 UNITS Dextrose 50 ml UD PRN IV 11/26/24 08:00 Vancomycin HCl 0 ml @ 0 mls/hr UD IV 11/26/24 13:15 Meropenem 50 ml @ 17 mls/hr Q8HR IV 11/26/24 14:00 11/27/24 05:45 17 MLS/HR objective General examination- Morbidly obese female, Acute distress, urinary catheter in place, A0X2 HEENT: PEERLA, no acute nasal discharge Chest: tachycardiac, S1-S2 audible, rate and rhythm regular, no murmur Lung: CTAB, no wheeze or rhonchi Abdomen: exp lap, LIANNE drain +, ileostomy bag+ Musculoskeletal: no acute joint swelling or tenderness Lower extremity: leg edema Neurological:alert but confused Skin- dry laboratory and microbiology Laboratory Tests 11/27/24 03:28 Test 11/27/24 03:28 Range/Units Serum Glucose 123 H 74-106 mg/dL Assessment/Plan Patient is a 64-year-old female presented to the hospital with: change in mental status: 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 Bowel obstruction s/p exp lap right hemicolectomy terminal ileum perforation s/p partial resection of terminal ileum and caecum Urinary tract infection Acute hypoxic respiratory failure Morbid obesity Recommendations: Due to new change in mental status andCT head showing thalamic mass with vasogenic edema ? metastasis Plan for transfer to [facility] for neurosurgical intervention LIANNE drain is sero sanguinous she is switched to meropenem from Zosyn for total 5 days, initial stop date was 11/25 c diff negative 11/13, urine culture showed: >100,000 CFU/mL Mixed Gram Positive Ca >3 [place] Type including Beta- Hemolytic Group B Streptococcus 11/16, repeat urine culture showed no growth after 48 hours of incubation. 11/25: LEFT Upper Extremity Venous Duplex report came back normal prognosis very gaurded Thank you for consult and for giving an opportunity to take care of this patient. Dietary Evaluation Review Comments: 1) Advance pt diet when medically feasible 2) Continue current plan of care Expected Outcomes/Goals: F/U in 2-3 days Plan discussed with: Other CC Plasma Assessment Blood Product Administration S: [id number] LAILA DRAKE MD Nov 27, 2024 20:12
--- NOTE | 2024-11-27 21:26 | DVHPN2 ---
Progress Note - Dictate Date Seen: Nov 27, 2024 Medical Necessity Reason Pt with a Central, PICC or Fol: Yes The following are medically ne: Central Line, Xiao Catheter Reason for xiao catheter: Strict I&O Subjective Patient seen and examined at bedside. Remains on supplemental oxygen Overnight events reviewed. vital signs Vital Sign Date Time Temp Pulse Resp B/P (MAP) Pulse Ox O2 Delivery O2 Flow Rate FiO2 11/27/24 17:40 97.7 57 19 106/57 (73) 96 97.7 11/27/24 15:00 Nasal Cannula* 4 36 Total Intake and Output 11/26/24 11/26/24 11/27/24 15:00 23:00 07:00 Intake Total 340 ml 550 ml 507 ml Output Total 525 ml 1050 ml 1680 ml Balance -185 ml -500 ml -1173 ml medications Current Medications Medications Dose Ordered Sig/Sylvie Route Start Time Stop Time Status Last Admin Dose Admin Pantoprazole Sodium 40 mg DAILY IV 11/14/24 10:00 11/27/24 10:10 40 MG Nitroglycerin 0.4 mg Q5MINP PRN SL 11/13/24 23:00 Albuterol 2.5 mg Q6HP PRN NEB 11/14/24 06:00 11/26/24 15:03 2.5 MG Nystatin 1 applic BID TOP 11/21/24 10:00 11/27/24 10:10 1 APPLIC Fat Emulsion Intravenous 150 ml/Sodium Phosphate 60 meq/ Potassium Phosphate 44 meq/ Magnesium Sulfate 12 meq/ Multivitamins 10 ml/Chromium/ Copper/Manganese/ Zinc 1 ml/Insulin Human Regular 12 units/Amino Acids/ Dextrose/Purified Water 1,439.12 ml @ 60 mls/hr Q24H IV 11/21/24 22:00 11/22/24 21:59 Cancel Morphine Sulfate 1 mg Q6HPRN PRN IV 11/22/24 04:30 11/24/24 13:48 1 MG Albuterol 2.5 mg Q12HR NEB 11/24/24 22:00 11/27/24 07:03 2.5 MG Morphine Sulfate 15 mg Q12HR PO 11/24/24 22:00 11/27/24 10:10 15 MG Ergocalciferol 50,000 unit Q7D PO 11/25/24 07:45 11/25/24 09:22 50,000 UNIT Acetaminophen 650 mg Q6HP PRN PO 11/25/24 08:45 Enoxaparin Sodium 30 mg BID SC 11/25/24 10:00 UNV Fluconazole 100 ml @ 100 mls/hr DAILY IV 11/26/24 10:00 11/27/24 10:10 100 MLS/HR Dexamethasone Sodium Phosphate 10 mg DAILY IV 11/26/24 10:00 11/27/24 10:10 10 MG Diagnostic Test (Pha) 1 strip Q6HR 11/26/24 12:00 11/27/24 18:10 1 STRIP Insulin Human Regular Q6HR SC 11/26/24 12:00 11/26/24 18:35 2 UNITS Dextrose 50 ml UD PRN IV 11/26/24 08:00 Vancomycin HCl 0 ml @ 0 mls/hr UD IV 11/26/24 13:15 Meropenem 50 ml @ 17 mls/hr Q8HR IV 11/26/24 14:00 11/27/24 05:45 17 MLS/HR objective Gen.: Patient lying in bed in no apparent distress. On supplemental oxygen. Head: Normocephalic, atraumatic. Eyes: EOMI/PERRLA. Ears: Normal hearing. Normal anatomy. Neck/trachea: Trachea midline, supple. Nose: Normal external anatomy. Mouth: Moist mucous membranes. Chest: Decreased air entry bilaterally. No wheezing or rhonchi. Bilateral crackles. Cardiovascular: Positive S1, positive S2. Regular rate and rhythm. Abdomen: Positive bowel sounds in all 4 quadrants. Soft, non-tender, non- distended. : Deferred. Rectal: Deferred. Skin: Warm, dry. Intact. Extremities: 2+ radial pulses bilaterally. No lower extremity edema. Neuro: Awake, alert, oriented x3. No gross motor or sensory deficits. Cranial nerves II through XII intact. Gait not assessed. laboratory and microbiology Laboratory Tests 11/27/24 03:28 Test 11/27/24 03:28 Range/Units Serum Glucose 123 H 74-106 mg/dL Assessment/Plan Impression: Acute hypoxic respiratory failure Colitis, toxic megacolon Urinary tract infection Leukocytosis Morbid obesity Events: Remains on supplemental oxygen On 4 LPM NC Taper O2 as tolerated Improved O2 requirements. Awaiting HLOC due to brain mass. Off sedation Off pressors, hemodynamically stable. ABG notable for alkalemia. Continue bronchodilators Head of bed elevation Aspiration precautions. Pain control Avoid oversedation Passed swallow eval - soft mechanical diet. Monitor renal function Monitor electrolytes. Supplement as necessary. Patient is stable for downgrade from the pulmonary standpoint. Labs and imaging reviewed. Rest of plan as noted below. Plan: s/p extubation on 11/23/24 Supplemental oxygen Titrate to keep O2 sats above 92%. Bronchodilators Antibiotics Steroids tapered off Pressors if necessary for hemodynamic support Titrate to keep mean arterial pressure greater than 65 mmHg Monitor renal function Monitor electrolytes. Supplement as necessary. Monitor ins and outs. GI prophylaxis. DVT prophylaxis. Prognosis: Poor given patient's multiple co-morbidities. Rest of plan per hospitalist and other consultants. Thank you, Dr. Erazo, for allowing me to participate in this patient's care. Further recommendations will depend on the patient's clinical course. Please do not hesitate to contact me if you have any questions or concerns. This medical document was created using an electronic medical record system with [employer] dictation system. Although these documentations are being carefully reviewed, there may still be some phonetic and typographical changes. The errors are purely typographical, due to imperfection on the software program, and do not reflect any compromise in the patient's medical care. Dietary Evaluation Review Comments: 1) Advance pt diet when medically feasible 2) Continue current plan of care Expected Outcomes/Goals: F/U in 2-3 days Plan discussed with: Patient, Other (JOSH Rader) CC Plasma Assessment Blood Product Administration S: [id number] ROSE MARY JOLLEY MD Nov 27, 2024 21:26
[2024-11-28] VITALS (12 sets, daily range): BP systolic 105–123; BP diastolic 40–72; PULSE 56–70; RESP 16–22; TEMP 97.3–98; O2SAT 93–100
[2024-11-28] MEDS: MEROPENEM 1GM IVPB 50 ML IV SCH (08:39)
[2024-11-28] MEDS: LIDOCAINE 1% (LOCAL ANESTH.) PF 5ml SDV ID ONE (13:04)
[2024-11-28] MEDS: POTASSIUM EFFERVESENT TAB 25 MEQ PO ONE (15:00)
--- NOTE | 2024-11-28 16:25 | DVHPN2 ---
Progress Note Date Seen: Nov 28, 2024 Resident Creating Document: SAY GR RESIDENT Medical Necessity Reason Pt with a Central, PICC or Fol: Yes The following are medically ne: Central Line, Xiao Catheter Reason for xiao catheter: Strict I&O Medical Necessity Reason S/P hemicolectomy up to the proximal descending colon for adenocarcinoma of the splenic flexure Subjective Review of Systems Patient seen and examined today on the floor. The nurse and the nurses aid's both present and cleaning her . Patient noted to have sores or open wounds in her skin folds. Patient is s/p laparotomy with extended right hemicolectomy up to the proximal descending colon for adenocarcinoma of the splenic flexure on colonoscopy biopsies and frozen section Patients is not coherent. She underwent CT head which was showing possible vasogenic edema with the left thalamus mass, pending MRI and attempt to transfer the patient for neurosurgery evaluation. Patient did have in the past prior craniotomy. She is currently on advanced diet Objective vital signs Vital Sign Date Time Temp Pulse Resp B/P (MAP) Pulse Ox O2 Delivery O2 Flow Rate FiO2 11/28/24 13:00 97.6 58 22 109/50 (69) 100 97.6 11/28/24 06:43 Nasal Cannula* 3 32 Total Intake and Output 11/27/24 11/27/24 11/28/24 15:00 23:00 07:00 Intake Total 0 ml 50 ml Output Total 1200 ml Balance -1200 ml 50 ml medications Current Medications Medications Dose Ordered Sig/Sylvie Route Start Time Stop Time Status Last Admin Dose Admin Pantoprazole Sodium 40 mg DAILY IV 11/14/24 10:00 11/28/24 10:48 40 MG Nitroglycerin 0.4 mg Q5MINP PRN SL 11/13/24 23:00 Albuterol 2.5 mg Q6HP PRN NEB 11/14/24 06:00 11/26/24 15:03 2.5 MG Nystatin 1 applic BID TOP 11/21/24 10:00 11/28/24 10:50 1 APPLIC Fat Emulsion Intravenous 150 ml/Sodium Phosphate 60 meq/ Potassium Phosphate 44 meq/ Magnesium Sulfate 12 meq/ Multivitamins 10 ml/Chromium/ Copper/Manganese/ Zinc 1 ml/Insulin Human Regular 12 units/Amino Acids/ Dextrose/Purified Water 1,439.12 ml @ 60 mls/hr Q24H IV 11/21/24 22:00 11/22/24 21:59 Cancel Morphine Sulfate 1 mg Q6HPRN PRN IV 11/22/24 04:30 11/24/24 13:48 1 MG Albuterol 2.5 mg Q12HR NEB 11/24/24 22:00 11/28/24 06:42 2.5 MG Morphine Sulfate 15 mg Q12HR PO 11/24/24 22:00 11/28/24 10:49 15 MG Ergocalciferol 50,000 unit Q7D PO 11/25/24 07:45 11/25/24 09:22 50,000 UNIT Acetaminophen 650 mg Q6HP PRN PO 11/25/24 08:45 Enoxaparin Sodium 30 mg BID SC 11/25/24 10:00 UNV Fluconazole 100 ml @ 100 mls/hr DAILY IV 11/26/24 10:00 11/28/24 10:50 100 MLS/HR Diagnostic Test (Pha) 1 strip Q6HR 11/26/24 12:00 11/28/24 12:46 1 STRIP Insulin Human Regular Q6HR SC 11/26/24 12:00 11/27/24 23:26 2 UNITS Dextrose 50 ml UD PRN IV 11/26/24 08:00 Meropenem 50 ml @ 17 mls/hr Q8H IV 11/28/24 08:00 11/28/24 16:11 17 MLS/HR Dexamethasone Sodium Phosphate 4 mg BID IV 11/28/24 22:00 Sodium Chloride 10 ml QSHIFT@10,22 IV 11/28/24 22:00 Examination General examination- Not in acute distress, AOx1, morbidly obese HEENT: PEERLA, no acute nasal discharge Chest: S1-S2 audible, rate and rhythm regular, no murmur Lung: CTAB, no wheeze or rhonchi Abdomen: Soft, Mild BS+, tender, soft, staple pins noted in the lower abdomen Musculoskeletal: no acute joint swelling or tenderness Lower extremity: leg edema with compression stockings present Neurological: cranial nerves intact, no acute dysarthria or dysphagia Psychiatry-- Normal mood and affect Skin- no acute rash or purpura laboratory and microbiology Laboratory Tests 11/27/24 03:28 Test 11/27/24 03:28 Range/Units Serum Glucose 123 H 74-106 mg/dL Microbiology Date/Time Source Procedure Growth Status 11/25/24 09:35 Stool Stool Culture - Final Complete 11/25/24 09:35 Stool Shiga Toxin I & II - Final Complete 11/23/24 14:30 Voided Urine Urine Culture - Final Presumptive Brandi albicans Complete 11/16/24 17:20 Sputum Gram Stain - Final Complete 11/16/24 17:20 Sputum Respiratory Culture - Final Complete 11/16/24 17:10 Nose MRSA Screen - Final Complete 11/13/24 20:26 Blood Blood Culture - Final NO GROWTH AFTER 5 DAYS OF INCUBATION. 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 Patient did have in the past prior craniotomy. ( 8) Vasogenic edema Prognosis Plan Pending MRI and possible transfer to [facility] for neurosurgery consult Awaiting final pathology report Elective oncology evaluation pending final pathology results Continue Protonix 40 mg IV daily Continue soft mechanical diet Monitor labs Prognosis remains guarded due to multiple comorbidities Goal of care discussed for more than 40 minutes case and plan discussed with Dr. Edith Dalal Thank you for allowing us to participate in the care of this patient. Please call if you have any questions or concerns. Plan discussed with: Other (Nurse) Dietary Evaluation Review Comments: 1) Advance pt diet when medically feasible 2) Continue current plan of care Expected Outcomes/Goals: F/U in 2-3 days CC Plasma Assessment Blood Product Administration S: [id number] SAY GR RESIDENT Nov 28, 2024 16:25
--- NOTE | 2024-11-28 19:19 | DVHPNRES ---
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 On arrival patient had temperature of 97.6, pulse 126 bpm, respiratory rate 17, blood pressure 154/88, saturating 95 on room air. WBC count was 21.5 with 89% neutrophils and 600 platelets. Lactic acid was elevated at 2.4. 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 Subsequent CT abdomen completed 11/16 showed marked dilation of the right and transverse colon with a transition point at the level of the sigmoid flexure. Associated wall thickening in this region. Suspicious of an underlying lesion resulting in obstruction. Small left pleural effusion with basilar atelectasis. Consequently GI Dr. Dalal did a sigmoidoscopy up to the splenic flexure with biopsy and colonic decompression on 11/15 and an abnormal area was found in the splenic flexure with the sigmoid diverticular disease, moderate amount of retained stool in the rectosigmoid. So surgeon was consulted and patient underwent exploratory laparotomy with extended right hemicolectomy with ileostomy on 11/16 secondary to ischemic bowel with colonic obstruction at the splenic flexure. Distal ileum to the proximal descending colon was resected and a distal ileum perforation was found during the procedure. Lysis of adhesions were performed. Patient received 3 L of NS +500 mL of 5% albumin and 100 mL of 25% albumin during the procedure. Following the procedure patient was hypotensive and therefore could not be extubated and therefore which he was transferred to ICU for further management. 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 Quit smoking about 2 years ago when she had PE. Home medications: Glatopa 20 mg every morning, lidocaine patch q.12 hours p.r.n., Paxil tablet 10 mg daily, ropinirole 5 mg 2 tablets at bedtime, tolterodine 4 mg once daily, baclofen 10 mg b.i.d., albuterol 90 mcg. 11/17-Patient seen and examined at bed 109. She was started on 50% FiO2 which was downtrended to 35% FiO2 right now. Urine culture is growing greater than 1 lac Gram-positive species including GBS. Started vancomycin 11/17. ABGs show non-anion gap metabolic acidosis along with respiratory acidosis, likely secondary to hyperchloremia. DC 0.5 NS. Respiratory rate increased from 14-16. Sodium bicarbonate started at 100 mL/hour. Both LIANNE drains drained 25 and 30 mL serosanguineous. Xiao draining 90 mL overnight and 90 mL during the day. 11/18-patient seen and examined. He is not stable for CPAP. DC Versed. DC cefepime DC bicarb. Overnight 20 mL drainage from the right LIANNE, 25 from the left LIANNE 11/21 - over the weekend stress dose steroids started. Patient was started on Zosyn since . DC Flagyl today. Cumulative I/O shows positive 15 L. Lasix 40 mg IV started. Patient tolerated CPAP trial very well, extubated. Bilateral upper extremity ultrasound ordered. ET tube advanced 2 cm. 11/22 -seen and examined at the bedside. Overnight morphine started for pain. patient is saturating 98 on 2 L. 1 unit of packed RBCs administered. Swallow eval completed, recommended soft diet. DC TPN, DC Lasix. Vaginal discharge resolved. Transferred to [facility]. PICC line consult placed. Started on pressors for cephalic vein thrombosis. PT eval requested. 11/23 - A&O x4. Levophed increased to 8 overnight from 2. Overnight patient ran 99.1 F. DC Xiao. Ordered urine culture. Incentive spirometry Q 1 hour. Repeat blood culture today. Lower extremity Doppler was a limited study with nonvisualization of bilateral femoral vein and popliteal vein. 11/24- overnight Levophed requirement went up from 2 to 8. Dark green tarry stool seen in ileostomy. LIANNE drain output is decreasing. Chest x-ray shows left lower lobe opacity. Id recommended DC Zosyn on . UA showing UTI, patient refusing change of Xiao. Discussed risk and benefits. Patient agreed. WBC downtrending 11/25 overnight patient was febrile at 99.7. Overnight patient received 1 IV calcium. Xiao catheter change today. Patient reports cold and shivering. WBC increased to 20. Stool occult is negative. Stool WBC negative. Ordered midline. DC left subclavian CVC. Discontinued Zosyn. Lasix 20 mg IV once given. IV fluconazole started. Patient is experiencing paroxysmal atrial fibrillation intermittently, rate goes up to 150s, multiple episodes throughout the day, lasts less than 1 minute. Consider starting IV digoxin if symptomatic. 11/28 - over the weekend, patient was altered and head CT performed which showed 2.5 X 3.3 cm left thalamus mass extending into the left lateral ventricle with vasogenic edema. Patient decided into early 80s was put on BiPAP. ABG at the time showed respiratory alkalosis. Urine culture shows Brandi. Stool cultures negative. Chest x-ray shows left lower lobe atelectasis versus effusion. WBC count trending down. Discontinued vancomycin. Bilateral inner thigh and genital area macerations and redness, no discharge noticed. Objective vital signs Vital Sign Date Time Temp Pulse Resp B/P (MAP) Pulse Ox O2 Delivery O2 Flow Rate FiO2 11/28/24 18:12 66 16 100 11/28/24 18:03 Nasal Cannula* 4 36 11/28/24 17:00 97.4 122/49 (73) 97.4 Total Intake and Output 11/27/24 11/27/24 11/28/24 15:00 23:00 07:00 Intake Total 0 ml 50 ml Output Total 1200 ml Balance -1200 ml 50 ml medications Current Medications Medications Dose Ordered Sig/Sylvie Route Start Time Stop Time Status Last Admin Dose Admin Pantoprazole Sodium 40 mg DAILY IV 11/14/24 10:00 11/28/24 10:48 40 MG Nitroglycerin 0.4 mg Q5MINP PRN SL 11/13/24 23:00 Albuterol 2.5 mg Q6HP PRN NEB 11/14/24 06:00 11/26/24 15:03 2.5 MG Nystatin 1 applic BID TOP 11/21/24 10:00 11/28/24 10:50 1 APPLIC Fat Emulsion Intravenous 150 ml/Sodium Phosphate 60 meq/ Potassium Phosphate 44 meq/ Magnesium Sulfate 12 meq/ Multivitamins 10 ml/Chromium/ Copper/Manganese/ Zinc 1 ml/Insulin Human Regular 12 units/Amino Acids/ Dextrose/Purified Water 1,439.12 ml @ 60 mls/hr Q24H IV 11/21/24 22:00 11/22/24 21:59 Cancel Morphine Sulfate 1 mg Q6HPRN PRN IV 11/22/24 04:30 11/24/24 13:48 1 MG Albuterol 2.5 mg Q12HR NEB 11/24/24 22:00 11/28/24 18:02 2.5 MG Morphine Sulfate 15 mg Q12HR PO 11/24/24 22:00 11/28/24 10:49 15 MG Ergocalciferol 50,000 unit Q7D PO 11/25/24 07:45 11/25/24 09:22 50,000 UNIT Acetaminophen 650 mg Q6HP PRN PO 11/25/24 08:45 Enoxaparin Sodium 30 mg BID SC 11/25/24 10:00 UNV Fluconazole 100 ml @ 100 mls/hr DAILY IV 11/26/24 10:00 11/28/24 10:50 100 MLS/HR Diagnostic Test (Pha) 1 strip Q6HR 11/26/24 12:00 11/28/24 12:46 1 STRIP Insulin Human Regular Q6HR SC 11/26/24 12:00 11/27/24 23:26 2 UNITS Dextrose 50 ml UD PRN IV 11/26/24 08:00 Dexamethasone Sodium Phosphate 4 mg BID IV 11/28/24 22:00 Sodium Chloride 10 ml QSHIFT@10,22 IV 11/28/24 22:00 Examination Morbidly obese female patient lying in bed, extubated. General: Morbidly obese, afebrile, palor, mucosae are moist A&O x4. Cardiovascular: Regular S1 and S2. No murmurs, gallops or rubs. No JVD elevation. 1+ nonpitting edema in the lower extremity Respiratory: Bilateral dull breath sounds heard , saturating 98% on 2 L NC. Abdomen: Abdomen is soft but hypoactive bowel sounds. Dressing dry clean and intact. Sutures intact with minimal drainage. Two LIANNE drains attached. Maceration, erythema noted beneath the skin fold beneath the umbilicus. Ileostomy seen with dark green /tarry 60ml secretions with white cottage cheese appearance. Bilateral inner thigh and genital area macerations and redness, no discharge noticed. Genitourinary: Redness in the skin folds. MSK/skin: Skin is dry and warm B/l upper and lower ext edema Neurological: Pupils are constricted and sluggish to response. No icterus seen. laboratory and microbiology Laboratory Tests 11/27/24 03:28 Test 11/27/24 03:28 Range/Units Serum Glucose 123 H 74-106 mg/dL Microbiology Date/Time Source Procedure Growth Status 11/25/24 09:35 Stool Stool Culture - Final Complete 11/25/24 09:35 Stool Shiga Toxin I & II - Final Complete 11/23/24 14:30 Voided Urine Urine Culture - Final Presumptive Brandi albicans Complete 11/16/24 17:20 Sputum Gram Stain - Final Complete 11/16/24 17:20 Sputum Respiratory Culture - Final Complete 11/16/24 17:10 Nose MRSA Screen - Final Complete 11/13/24 20:26 Blood Blood Culture - Final NO GROWTH AFTER 5 DAYS OF INCUBATION. 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 There is vasogenic edema in the left thalamus. There is generalized cerebral volume loss with concordant prominence of the subarachnoid spaces and ventricles. MR brain could not be completed given the patient's habitus Dexamethasone 4 mg IV b.i.d. CARDIOVASCULAR Septic shock secondary to toxic megacolon Lactic acidosis-resolved Paroxysmal atrial fibrillation-CHADS2 Vasc score 3, has bled score 1 Discontinued Zosyn 11/19 till 11/28 DC vancomycin 11/17 till 11/21 and DC IV metronidazole, patient received from 11/15 to 11/21 DC IV cefepime 11/18 Preliminary blood cultures negative Lasix 20 mg IV given once 11/25 Repeat blood culture 11/23 Consider starting digoxin if AFib becomes symptomatic RESPIRATORY Acute hypoxic respiratory failure secondary to septic shock Chronic nicotine dependence Respiratory acidosis History of PE Non-anion gap metabolic acidosis secondary to hyperchloremia Left sided pleural effusion with associated basilar atelectasis consolidation Intubated from 11/16 till 11/21 Respiratory culture and Gram stain shows no growth ABGs 11/17 shows non-anion gap metabolic acidosis with respiratory acidosis Discontinue sodium bicarbonate 100 mL/hour 11/17 till 11/18 Incentive spirometry Q 1 hour GI Sepsis secondary to toxic megacolon secondary to primary adenocarcinoma of the descending colon and splenic flexure 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 Associated wall thickening in this region. Suspect an underlying lesion resulting in obstruction. Associated small bowel obstruction. Findings are similar to prior exam. Await final pathology results P.o. morphine for pain control Stool culture negative. Stool WBC negative. /KIDNEY Acute cystitis Yellow colored vaginal discharge Final urine culture showed >100,000 CFU/mL Mixed Gram Positive Ca >3 [place] Types, including Beta-Hemolytic Group B Streptococcus Repeat urine culture 11/16 is negative Discontinued IV Zosyn Repeat urine culture 11/23 shows greater than [id number] CFU yeast Started IV Diflucan 11/25 METABOLIC Hyponatremia, corrected Hypomagnesemia, supplement Morbid obese Non-anion gap metabolic acidosis Vitamin-D deficiency Hypercalcemia: Corrected calcium 7.5 Received 1 g IV 11/25 overnight Vitamin-D supplemented SKIN Intertrigo Medial thigh maceration - nystatin powder HEM-ONCO Anemia, likely normocytic secondary to blood loss Superficial venous thrombosis in the right cephalic Hemoglobin dropped from 16-10 from 11/14 to 11/17 Retic count 1.23, lactate dehydrogenase 330 11/22 1 unit of packed RBC administered Continue warm compresses to right arm LINES Intubated on 11/16 till 11/21 Left SUBCLAVIAN CVC 11/16 till 11/28 PICC line inserted 11/28 Xiao catheter 11/13, changed on 11/24 DRIPS LEVOPHED off 11/25 VASOPRESSIN off since 11/11 FENTANYL DC VERSED DC NUTRITION; Clinimix starting 11/17, TPN starting 11/18 till 11/22, started soft diet 11/22 DVT; Lovenox 40 mg sc daily Physical therapy-recommended discharge back to board and care facility or convalescent home. Recommended home health. Goals of care/advance care planning; FULL CODE; discussed on for 24 minutes. PUD prophylaxis: Pantoprazole 40 mg IV daily DVT prophylaxis: Lovenox 40 mg sc daily Plan discussed with patient's daughter Paula [phone] over the phone call for more than 20 minutes, code status full code. Tried to contact son Willam Padilla over the phone, was unreachable Case discussed with Dr. Barker. Critical care time including review of the chart, and discussion with the patient's family excluding procedures 37 minutes Plan discussed with: Patient Dietary Evaluation Review Comments: 1) Advance pt diet when medically feasible 2) Continue current plan of care Expected Outcomes/Goals: F/U in 2-3 days CC Plasma Assessment Blood Product Administration S: [id number] Date of Service: Nov 28, 2024 Billing Provider: HARRY BARKER MD Common Visit Codes: 53310-EGZKGITH CARE 30-74 MIN SARA PAULA RESIDENT Nov 28, 2024 19:19 HARRY BARKER MD Nov 29, 2024 16:17
--- NOTE | 2024-11-28 20:13 | DVHPN2 ---
Progress Note - Dictate Date Seen: Nov 28, 2024 Medical Necessity Reason Pt with a Central, PICC or Fol: Yes The following are medically ne: Central Line, Xiao Catheter Reason for xiao catheter: Strict I&O Subjective Patient is awake and but confused patient was altered and head CT performed which showed 2.5 X 3.3 cm left thalamus mass extending into the left lateral ventricle with vasogenic edema. Patient decided into early 80s was put on BiPAP. ABG at the time showed respiratory alkalosis. Bilateral inner thigh and genital area macerations and redness. vital signs Vital Sign Date Time Temp Pulse Resp B/P (MAP) Pulse Ox O2 Delivery O2 Flow Rate FiO2 11/28/24 18:12 66 16 100 11/28/24 18:03 Nasal Cannula* 4 36 11/28/24 17:00 97.4 122/49 (73) 97.4 Total Intake and Output 11/27/24 11/27/24 11/28/24 15:00 23:00 07:00 Intake Total 0 ml 50 ml Output Total 1200 ml Balance -1200 ml 50 ml medications Current Medications Medications Dose Ordered Sig/Sylvie Route Start Time Stop Time Status Last Admin Dose Admin Pantoprazole Sodium 40 mg DAILY IV 11/14/24 10:00 11/28/24 10:48 40 MG Nitroglycerin 0.4 mg Q5MINP PRN SL 11/13/24 23:00 Albuterol 2.5 mg Q6HP PRN NEB 11/14/24 06:00 11/26/24 15:03 2.5 MG Nystatin 1 applic BID TOP 11/21/24 10:00 11/28/24 10:50 1 APPLIC Fat Emulsion Intravenous 150 ml/Sodium Phosphate 60 meq/ Potassium Phosphate 44 meq/ Magnesium Sulfate 12 meq/ Multivitamins 10 ml/Chromium/ Copper/Manganese/ Zinc 1 ml/Insulin Human Regular 12 units/Amino Acids/ Dextrose/Purified Water 1,439.12 ml @ 60 mls/hr Q24H IV 11/21/24 22:00 11/22/24 21:59 Cancel Morphine Sulfate 1 mg Q6HPRN PRN IV 11/22/24 04:30 11/24/24 13:48 1 MG Albuterol 2.5 mg Q12HR NEB 11/24/24 22:00 11/28/24 18:02 2.5 MG Morphine Sulfate 15 mg Q12HR PO 11/24/24 22:00 11/28/24 10:49 15 MG Ergocalciferol 50,000 unit Q7D PO 11/25/24 07:45 11/25/24 09:22 50,000 UNIT Acetaminophen 650 mg Q6HP PRN PO 11/25/24 08:45 Enoxaparin Sodium 30 mg BID SC 11/25/24 10:00 UNV Fluconazole 100 ml @ 100 mls/hr DAILY IV 11/26/24 10:00 11/28/24 10:50 100 MLS/HR Diagnostic Test (Pha) 1 strip Q6HR 11/26/24 12:00 11/28/24 18:00 1 STRIP Insulin Human Regular Q6HR SC 11/26/24 12:00 11/27/24 23:26 2 UNITS Dextrose 50 ml UD PRN IV 11/26/24 08:00 Dexamethasone Sodium Phosphate 4 mg BID IV 11/28/24 22:00 Sodium Chloride 10 ml QSHIFT@10,22 IV 11/28/24 22:00 objective General examination- Morbidly obese female, Acute distress, urinary catheter in place, A0X2 HEENT: PEERLA, no acute nasal discharge Chest: tachycardiac, S1-S2 audible, rate and rhythm regular, no murmur Lung: CTAB, no wheeze or rhonchi Abdomen: exp lap, LIANNE drain +, ileostomy bag+ Musculoskeletal: no acute joint swelling or tenderness Lower extremity: leg edema Neurological:alert but confused Skin- dry laboratory and microbiology Laboratory Tests 11/27/24 03:28 Test 11/27/24 03:28 Range/Units Serum Glucose 123 H 74-106 mg/dL Assessment/Plan Patient is a 64-year-old female presented to the hospital with: change in mental status: 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 Bowel obstruction s/p exp lap right hemicolectomy terminal ileum perforation s/p partial resection of terminal ileum and caecum Urinary tract infection Acute hypoxic respiratory failure Morbid obesity Recommendations: Due to new change in mental status andCT head showing thalamic mass with vasogenic edema ? metastasis Plan for transfer to [facility] for neurosurgical intervention LIANNE drain is sero sanguinous she is switched to meropenem from Zosyn for total 5 days, initial stop date was 11/25 c diff negative 11/13, urine culture showed: >100,000 CFU/mL Mixed Gram Positive Ca >3 [place] Type including Beta- Hemolytic Group B Streptococcus 11/16, repeat urine culture showed no growth after 48 hours of incubation. 11/25: LEFT Upper Extremity Venous Duplex report came back normal Urine culture shows Brandi. Stool cultures negative. Chest x-ray shows left lower lobe atelectasis versus effusion. WBC count trending down. prognosis very gaurded Thank you for consult and for giving an opportunity to take care of this patient. Dietary Evaluation Review Comments: 1) Advance pt diet when medically feasible 2) Continue current plan of care Expected Outcomes/Goals: F/U in 2-3 days Plan discussed with: Other CC Plasma Assessment Blood Product Administration S: [id number] LAILA DRAKE MD Nov 28, 2024 20:13
[2024-11-28] MEDS: DexAMETHasone SOD PHOS 10MG/1ML VIAL INJ IV SCH (22:04)
[2024-11-28] MEDS: SODIUM CHLOR 0.9% PF (SALINE LOCK) 10ML VIAL/SYR IV SCH (22:05)
[2024-11-29] VITALS (11 sets, daily range): BP systolic 109–135; BP diastolic 53–81; PULSE 55–74; RESP 16–20; TEMP 97.4–98.1; O2SAT 92–98
[2024-11-29 02:01] LABS: Basophils # (auto) 0 10 ^3/uL (0-0.2); Basophils % (auto) 0.1 % (0.0-2.0); Eosinophils # (auto) 0 10 ^3/uL (0-0.8); Hematocrit 27.4 % (36.0-46.0); Lymphocytes # (auto) 0.5 10 ^3/uL (0.4-5.4); Mean Corpuscular Hemoglobin 28.5 pg (28.0-32.0); Mean Corpuscular Hgb Conc. 32.7 g/dL (32.0-36.0); Monocytes # (auto) 0.4 10 ^3/uL (0-1.3); Monocytes % (auto) 5.3 % (0.0-12.0); Neutrophils # (auto) 7.4 10 ^3/uL (1.6-8.6); Neutrophils % (auto) 88.6 % (37.0-80.0); Platelet Count (auto) 432 10^3/uL (140-450); Red Blood Cells 3.15 10^6/uL (4.0-5.20); Red Cell Distribution Width 17.3 % (11.8-14.3); White Blood Cell 8.3 10^3/uL (4.4-10.8)
[2024-11-29 07:32] LABS: Basophils # (auto) 0 10 ^3/uL (0-0.2); Basophils % (auto) 0.1 % (0.0-2.0); Eosinophils # (auto) 0 10 ^3/uL (0-0.8); Hematocrit 26.2 % (36.0-46.0); Hemoglobin 8.8 g/dL (12.2-16.2); Lymphocytes # (auto) 0.7 10 ^3/uL (0.4-5.4); Lymphocytes % (auto) 7.5 % (10.0-50.0); Mean Corpuscular Hemoglobin 28.8 pg (28.0-32.0); Mean Corpuscular Hgb Conc. 33.4 g/dL (32.0-36.0); Mean Corpuscular Volume 86.1 fL (80.0-100.0); Monocytes # (auto) 0.7 10 ^3/uL (0-1.3); Monocytes % (auto) 6.9 % (0.0-12.0); Neutrophils % (auto) 85.5 % (37.0-80.0); Platelet Count (auto) 438 10^3/uL (140-450); Red Blood Cells 3.04 10^6/uL (4.0-5.20); Red Cell Distribution Width 17.3 % (11.8-14.3); White Blood Cell 9.4 10^3/uL (4.4-10.8)
[2024-11-29 07:47] LABS: Anion Gap 5 (5-15); BUN/Creatinine Ratio 27.9 (10.0-20.0); Blood Urea Nitrogen 12 mg/dL (9-23); Carbon Dioxide 30 mmol/L (20-31); Chloride 105 mmol/L (98-107); Magnesium 2.1 mg/dL (1.6-2.6); Sodium 140 mmol/L (136-145)
[2024-11-29 07:48] LABS: Bilirubin, Total 0.4 mg/dL (0.2-1.0)
[2024-11-29 07:54] LABS: Alanine Aminotransferase 122 U/L (7-40); Albumin 2.7 g/dL (3.2-4.8); Alkaline Phosphatase 138 U/L (46-116); Aspartate Aminotransferase 89 U/L (13-40); Glucose 123 mg/dL (74-106); Total Protein 4.9 g/dL (5.7-8.2)
--- NOTE | 2024-11-29 08:19 | DVHPN2 ---
Progress Note - Dictate Date Seen: Nov 29, 2024 Medical Necessity Reason Pt with a Central, PICC or Fol: Yes The following are medically ne: Central Line, Xiao Catheter Reason for xiao catheter: Strict I&O Subjective no new complaints vital signs Vital Sign Date Time Temp Pulse Resp B/P (MAP) Pulse Ox O2 Delivery O2 Flow Rate FiO2 11/29/24 07:41 62 20 98 11/29/24 07:36 Room Air 0.0 11/29/24 07:36 21 11/29/24 05:00 98.0 117/67 (84) 98.0 Total Intake and Output 11/28/24 11/28/24 11/29/24 15:00 23:00 07:00 Intake Total 150 ml 750 ml Output Total 1500 ml Balance 150 ml -750 ml medications Current Medications Medications Dose Ordered Sig/Sylvie Route Start Time Stop Time Status Last Admin Dose Admin Pantoprazole Sodium 40 mg DAILY IV 11/14/24 10:00 11/28/24 10:48 40 MG Nitroglycerin 0.4 mg Q5MINP PRN SL 11/13/24 23:00 Albuterol 2.5 mg Q6HP PRN NEB 11/14/24 06:00 11/26/24 15:03 2.5 MG Nystatin 1 applic BID TOP 11/21/24 10:00 11/28/24 10:50 1 APPLIC Fat Emulsion Intravenous 150 ml/Sodium Phosphate 60 meq/ Potassium Phosphate 44 meq/ Magnesium Sulfate 12 meq/ Multivitamins 10 ml/Chromium/ Copper/Manganese/ Zinc 1 ml/Insulin Human Regular 12 units/Amino Acids/ Dextrose/Purified Water 1,439.12 ml @ 60 mls/hr Q24H IV 11/21/24 22:00 11/22/24 21:59 Cancel Morphine Sulfate 1 mg Q6HPRN PRN IV 11/22/24 04:30 11/24/24 13:48 1 MG Albuterol 2.5 mg Q12HR NEB 11/24/24 22:00 11/29/24 07:36 2.5 MG Morphine Sulfate 15 mg Q12HR PO 11/24/24 22:00 11/28/24 22:06 15 MG Ergocalciferol 50,000 unit Q7D PO 11/25/24 07:45 11/25/24 09:22 50,000 UNIT Acetaminophen 650 mg Q6HP PRN PO 11/25/24 08:45 Enoxaparin Sodium 30 mg BID SC 11/25/24 10:00 UNV Fluconazole 100 ml @ 100 mls/hr DAILY IV 11/26/24 10:00 11/28/24 10:50 100 MLS/HR Diagnostic Test (Pha) 1 strip Q6HR 11/26/24 12:00 11/29/24 06:14 1 STRIP Insulin Human Regular Q6HR SC 11/26/24 12:00 11/27/24 23:26 2 UNITS Dextrose 50 ml UD PRN IV 11/26/24 08:00 Dexamethasone Sodium Phosphate 4 mg BID IV 11/28/24 22:00 11/28/24 22:04 4 MG Sodium Chloride 10 ml QSHIFT@10,22 IV 11/28/24 22:00 11/28/24 22:05 10 ML objective General examination- Morbidly obese female, Acute distress, urinary catheter in place, A0X2 HEENT: PEERLA, no acute nasal discharge Chest: tachycardiac, S1-S2 audible, rate and rhythm regular, no murmur Lung: CTAB, no wheeze or rhonchi Abdomen: exp lap, LIANNE drain +, ileostomy bag+ Musculoskeletal: no acute joint swelling or tenderness Lower extremity: leg edema Neurological:alert but confused Skin- dry laboratory and microbiology Laboratory Tests 11/29/24 06:51 Test 11/29/24 06:51 Range/Units Serum Glucose 123 H 74-106 mg/dL Assessment/Plan Patient is a 64-year-old female presented to the hospital with: change in mental status: 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 Bowel obstruction s/p exp lap right hemicolectomy terminal ileum perforation s/p partial resection of terminal ileum and caecum Urinary tract infection Acute hypoxic respiratory failure Morbid obesity Recommendations: Due to new change in mental status andCT head showing thalamic mass with vasogenic edema ? metastasis Plan for transfer to [facility] for neurosurgical intervention LIANNE drain is sero sanguinous she was switched to Meropenem from Zosyn for total 5 days, [Last dose given yesterday] c diff negative 11/13, urine culture showed: >100,000 CFU/mL Mixed Gram Positive Ca >3 [place] Type including Beta- Hemolytic Group B Streptococcus 11/16, repeat urine culture showed no growth after 48 hours of incubation. 11/25: LEFT Upper Extremity Venous Duplex report came back normal Urine culture shows Brandi. Stool cultures negative. Chest x-ray shows left lower lobe atelectasis versus effusion. WBC count trending down. prognosis very gaurded Thank you for consult and for giving an opportunity to take care of this patient. Dietary Evaluation Review Comments: 1) Advance pt diet when medically feasible 2) Continue current plan of care Expected Outcomes/Goals: F/U in 2-3 days Plan discussed with: Other CC Plasma Assessment Blood Product Administration S: [id number] LAILA DRAKE MD Nov 29, 2024 08:19
--- NOTE | 2024-11-29 09:30 | DVH ---
Exam: US US GUIDED VASCULAR ACCESS Clinical History: picc line insertion Comparison: None Findings: Targeted sonographic evaluation of the arm vein was obtained utilizing grayscale and color Doppler im aging. IMPRESSION: Sonographic assistance for peripheral central line placement. Please refer to procedural report for d etailed findings.
--- NOTE | 2024-11-29 09:44 | DVH ---
INDICATION: transaminitis TECHNIQUE: Multiple real-time sonographic images were obtained of the right upper quadrant. COMPARISON: US ABDOMEN LIMITED on DOS: 11/13/24 FINDINGS: The liver demonstrates heterogeneous echotexture with possible underlying hepatic masses. T he liver measures 17 cm. There is extrahepatic ductal dilatation. The common duct measures 13 mm w hich may be related to reservoir effect given post cholecystectomy state. Gallbladder is surgically absent. The right kidney measures 11 cm. The right kidney is normal in contour, size, and shape. The echog enicity is normal. There is no hydronephrosis. The pancreas is not well visualized due to overlying bowel gas. IMPRESSION: Heterogeneous liver echotexture with possible hepatic masses which is limited on this exam. Recommen d further evaluation with a MRI or CT multiphase liver protocol.
--- NOTE | 2024-11-29 17:23 | DVHPN2 ---
Progress Note Date Seen: Nov 29, 2024 Resident Creating Document: SAY GR RESIDENT Medical Necessity Reason Pt with a Central, PICC or Fol: Yes The following are medically ne: Central Line, Xiao Catheter Reason for xiao catheter: Strict I&O Medical Necessity Reason S/P hemicolectomy mildly altered Subjective Review of Systems GI progress note 11/29/2024 Patient seen and examined today with Dr. Dalal Patient is awake and still altered. Expressed that she is hungry. She tonie intact. still pain in the abdomen Bilateral inner thigh, genital and lower abdomen (skin folds) area macerations and redness. Objective vital signs Vital Sign Date Time Temp Pulse Resp B/P (MAP) Pulse Ox O2 Delivery O2 Flow Rate FiO2 11/29/24 13:17 97.4 67 20 134/76 (95) 98 97.4 11/29/24 08:20 Nasal Cannula* 4 36 Total Intake and Output 11/28/24 11/28/24 11/29/24 15:00 23:00 07:00 Intake Total 150 ml 750 ml Output Total 1500 ml Balance 150 ml -750 ml medications Current Medications Medications Dose Ordered Sig/Sylvie Route Start Time Stop Time Status Last Admin Dose Admin Pantoprazole Sodium 40 mg DAILY IV 11/14/24 10:00 11/29/24 11:22 40 MG Nitroglycerin 0.4 mg Q5MINP PRN SL 11/13/24 23:00 Albuterol 2.5 mg Q6HP PRN NEB 11/14/24 06:00 11/26/24 15:03 2.5 MG Nystatin 1 applic BID TOP 11/21/24 10:00 11/29/24 15:46 1 APPLIC Fat Emulsion Intravenous 150 ml/Sodium Phosphate 60 meq/ Potassium Phosphate 44 meq/ Magnesium Sulfate 12 meq/ Multivitamins 10 ml/Chromium/ Copper/Manganese/ Zinc 1 ml/Insulin Human Regular 12 units/Amino Acids/ Dextrose/Purified Water 1,439.12 ml @ 60 mls/hr Q24H IV 11/21/24 22:00 11/22/24 21:59 Cancel Morphine Sulfate 1 mg Q6HPRN PRN IV 11/22/24 04:30 11/24/24 13:48 1 MG Albuterol 2.5 mg Q12HR NEB 11/24/24 22:00 11/29/24 07:36 2.5 MG Morphine Sulfate 15 mg Q12HR PO 11/24/24 22:00 11/29/24 11:23 15 MG Ergocalciferol 50,000 unit Q7D PO 11/25/24 07:45 11/25/24 09:22 50,000 UNIT Acetaminophen 650 mg Q6HP PRN PO 11/25/24 08:45 Enoxaparin Sodium 30 mg BID SC 11/25/24 10:00 UNV Fluconazole 100 ml @ 100 mls/hr DAILY IV 11/26/24 10:00 11/29/24 11:28 100 MLS/HR Diagnostic Test (Pha) 1 strip Q6HR 11/26/24 12:00 11/29/24 12:46 1 STRIP Insulin Human Regular Q6HR SC 11/26/24 12:00 11/27/24 23:26 2 UNITS Dextrose 50 ml UD PRN IV 11/26/24 08:00 Dexamethasone Sodium Phosphate 4 mg BID IV 11/28/24 22:00 11/29/24 11:22 4 MG Sodium Chloride 10 ml QSHIFT@10,22 IV 11/28/24 22:00 11/29/24 11:23 10 ML Examination General examination- Not in acute distress, AOx1, morbidly obese HEENT: PEERLA, no acute nasal discharge Chest: S1-S2 audible, rate and rhythm regular, no murmur Lung: CTAB, no wheeze or rhonchi Abdomen: Soft, Mild BS+, tender, soft, staple pins noted in the lower abdomen Musculoskeletal: no acute joint swelling or tenderness Lower extremity: leg edema with compression stockings present Neurological: cranial nerves intact, no acute dysarthria or dysphagia Psychiatry-- Normal mood and affect Skin- no acute rash or purpura laboratory and microbiology Laboratory Tests 11/29/24 06:51 Test 11/29/24 06:51 Range/Units Serum Glucose 123 H 74-106 mg/dL Microbiology Date/Time Source Procedure Growth Status 11/25/24 09:35 Stool Stool Culture - Final Complete 11/25/24 09:35 Stool Shiga Toxin I & II - Final Complete 11/23/24 14:30 Voided Urine Urine Culture - Final Presumptive Brandi albicans Complete 11/16/24 17:20 Sputum Gram Stain - Final Complete 11/16/24 17:20 Sputum Respiratory Culture - Final Complete 11/16/24 17:10 Nose MRSA Screen - Final Complete 11/13/24 20:26 Blood Blood Culture - Final NO GROWTH AFTER 5 DAYS OF INCUBATION. 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 Patient did have in the past prior craniotomy. ( 8) Vasogenic edema Prognosis Plan Pending MRI and possible transfer to [facility] for neurosurgery consult Awaiting final pathology report Elective oncology evaluation pending final pathology results Continue Protonix 40 mg IV daily Continue soft mechanical diet/ advance as tolerate Monitor labs Prognosis remains guarded due to multiple comorbidities Goal of care discussed for more than 30 minutes case and plan discussed with Thank you for allowing us to participate in the care of this patient. Please call if you have any questions or concerns. Plan discussed with: Other (Nurse) Dietary Evaluation Review Comments: 1) Advance pt diet when medically feasible 2) Continue current plan of care Expected Outcomes/Goals: F/U in 2-3 days CC Plasma Assessment Blood Product Administration S: 2240 SAY GR RESIDENT Nov 29, 2024 17:23
--- NOTE | 2024-11-29 18:29 | DVHPNRES ---
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 On arrival patient had temperature of 97.6, pulse 126 bpm, respiratory rate 17, blood pressure 154/88, saturating 95 on room air. WBC count was 21.5 with 89% neutrophils and 600 platelets. Lactic acid was elevated at 2.4. CT abdomen pelvis completed 11/13 showed gas distended colon with air bubbles international account representative of toxic colitis. Subsequent CT abdomen completed 11/16 showed marked dilation of the right and transverse colon with a transition point at the level of the sigmoid flexure. Associated wall thickening in this region. Suspicious of an underlying lesion resulting in obstruction. Small left pleural effusion with basilar atelectasis. Consequently GI Dr. Dalal did a sigmoidoscopy up to the splenic flexure with biopsy and colonic decompression on 11/15 and an abnormal area was found in the splenic flexure with the sigmoid diverticular disease, moderate amount of retained stool in the rectosigmoid. So surgeon was consulted and patient underwent exploratory laparotomy with extended right hemicolectomy with ileostomy on 11/16 secondary to ischemic bowel with colonic obstruction at the splenic flexure. Distal ileum to the proximal descending colon was resected and a distal ileum perforation was found during the procedure. Lysis of adhesions were performed. Patient received 3 L of NS +500 mL of 5% albumin and 100 mL of 25% albumin during the procedure. Following the procedure patient was hypotensive and therefore could not be extubated and therefore which he was transferred to ICU for further management. 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 Quit smoking about 2 years ago when she had PE. Home medications: Glatopa 20 mg every morning, lidocaine patch q.12 hours p.r.n., Paxil tablet 10 mg daily, ropinirole 5 mg 2 tablets at bedtime, tolterodine 4 mg once daily, baclofen 10 mg b.i.d., albuterol 90 mcg. 11/17-Patient seen and examined at bed 109. She was started on 50% FiO2 which was downtrended to 35% FiO2 right now. Urine culture is growing greater than 1 lac Gram-positive species including GBS. Started vancomycin 11/17. ABGs show non-anion gap metabolic acidosis along with respiratory acidosis, likely secondary to hyperchloremia. DC 0.5 NS. Respiratory rate increased from 14-16. Sodium bicarbonate started at 100 mL/hour. Both LIANNE drains drained 25 and 30 mL serosanguineous. Xiao draining 90 mL overnight and 90 mL during the day. 11/18-patient seen and examined. He is not stable for CPAP. DC Versed. DC cefepime DC bicarb. Overnight 20 mL drainage from the right LIANNE, 25 from the left LIANNE 11/21 - over the weekend stress dose steroids started. Patient was started on Zosyn since . DC Flagyl today. Cumulative I/O shows positive 15 L. Lasix 40 mg IV started. Patient tolerated CPAP trial very well, extubated. Bilateral upper extremity ultrasound ordered. ET tube advanced 2 cm. 11/22 -seen and examined at the bedside. Overnight morphine started for pain. patient is saturating 98 on 2 L. 1 unit of packed RBCs administered. Swallow eval completed, recommended soft diet. DC TPN, DC Lasix. Vaginal discharge resolved. Transferred to [facility]. PICC line consult placed. Started on pressors for cephalic vein thrombosis. PT eval requested. 11/23 - A&O x4. Levophed increased to 8 overnight from 2. Overnight patient ran 99.1 F. DC Xiao. Ordered urine culture. Incentive spirometry Q 1 hour. Repeat blood culture today. Lower extremity Doppler was a limited study with nonvisualization of bilateral femoral vein and popliteal vein. 11/24- overnight Levophed requirement went up from 2 to 8. Dark green tarry stool seen in ileostomy. LIANNE drain output is decreasing. Chest x-ray shows left lower lobe opacity. Id recommended DC Zosyn on . UA showing UTI, patient refusing change of Xiao. Discussed risk and benefits. Patient agreed. WBC downtrending 11/25 overnight patient was febrile at 99.7. Overnight patient received 1 IV calcium. Xiao catheter change today. Patient reports cold and shivering. WBC increased to 20. Stool occult is negative. Stool WBC negative. Ordered midline. DC left subclavian CVC. Discontinued Zosyn. Lasix 20 mg IV once given. IV fluconazole started. Patient is experiencing paroxysmal atrial fibrillation intermittently, rate goes up to 150s, multiple episodes throughout the day, lasts less than 1 minute. Consider starting IV digoxin if symptomatic. 11/28 - over the weekend, patient was altered and head CT performed which showed 2.5 X 3.3 cm left thalamus mass extending into the left lateral ventricle with vasogenic edema. Patient decided into early 80s was put on BiPAP. ABG at the time showed respiratory alkalosis. Urine culture shows Brandi. Stool cultures negative. Chest x-ray shows left lower lobe atelectasis versus effusion. WBC count trending down. Discontinued vancomycin. Bilateral inner thigh and genital area macerations and redness, no discharge noticed. 11/29 - patient is A&O x4. LFTs increasing, liver ultrasound shows multiple heterogeneous echotexture lesions, metastatic lesions. Contrast surgeon could not be completed since the patient is allergic to iodine. Heme oncology consulted. Objective vital signs Vital Sign Date Time Temp Pulse Resp B/P (MAP) Pulse Ox O2 Delivery O2 Flow Rate FiO2 11/29/24 13:17 97.4 67 20 134/76 (95) 98 97.4 11/29/24 08:20 Nasal Cannula* 4 36 Total Intake and Output 11/28/24 11/28/24 11/29/24 15:00 23:00 07:00 Intake Total 150 ml 750 ml Output Total 1500 ml Balance 150 ml -750 ml medications Current Medications Medications Dose Ordered Sig/Sylvie Route Start Time Stop Time Status Last Admin Dose Admin Pantoprazole Sodium 40 mg DAILY IV 11/14/24 10:00 11/29/24 11:22 40 MG Nitroglycerin 0.4 mg Q5MINP PRN SL 11/13/24 23:00 Albuterol 2.5 mg Q6HP PRN NEB 11/14/24 06:00 11/26/24 15:03 2.5 MG Nystatin 1 applic BID TOP 11/21/24 10:00 11/29/24 15:46 1 APPLIC Fat Emulsion Intravenous 150 ml/Sodium Phosphate 60 meq/ Potassium Phosphate 44 meq/ Magnesium Sulfate 12 meq/ Multivitamins 10 ml/Chromium/ Copper/Manganese/ Zinc 1 ml/Insulin Human Regular 12 units/Amino Acids/ Dextrose/Purified Water 1,439.12 ml @ 60 mls/hr Q24H IV 11/21/24 22:00 11/22/24 21:59 Cancel Morphine Sulfate 1 mg Q6HPRN PRN IV 11/22/24 04:30 11/24/24 13:48 1 MG Albuterol 2.5 mg Q12HR NEB 11/24/24 22:00 11/29/24 18:14 2.5 MG Morphine Sulfate 15 mg Q12HR PO 11/24/24 22:00 11/29/24 11:23 15 MG Ergocalciferol 50,000 unit Q7D PO 11/25/24 07:45 11/25/24 09:22 50,000 UNIT Acetaminophen 650 mg Q6HP PRN PO 11/25/24 08:45 Enoxaparin Sodium 30 mg BID SC 11/25/24 10:00 UNV Fluconazole 100 ml @ 100 mls/hr DAILY IV 11/26/24 10:00 11/29/24 11:28 100 MLS/HR Diagnostic Test (Pha) 1 strip Q6HR 11/26/24 12:00 11/29/24 18:19 1 STRIP Insulin Human Regular Q6HR SC 11/26/24 12:00 11/27/24 23:26 2 UNITS Dextrose 50 ml UD PRN IV 11/26/24 08:00 Dexamethasone Sodium Phosphate 4 mg BID IV 11/28/24 22:00 11/29/24 11:22 4 MG Sodium Chloride 10 ml QSHIFT@10,22 IV 11/28/24 22:00 11/29/24 11:23 10 ML Examination Morbidly obese female patient lying in bed, extubated. General: Morbidly obese, afebrile, palor, mucosae are moist A&O x4. Cardiovascular: Regular S1 and S2. No murmurs, gallops or rubs. No JVD elevation. 1+ nonpitting edema in the lower extremity Respiratory: Bilateral dull breath sounds heard , saturating 98% on 4 L NC. Abdomen: Abdomen is soft but hypoactive bowel sounds. Dressing dry clean and intact. Sutures intact with minimal drainage. Two LIANNE drains attached. Maceration, erythema noted beneath the skin fold beneath the umbilicus. Ileostomy seen with dark green /tarry 60ml secretions with white cottage cheese appearance. Bilateral inner thigh and genital area macerations and redness, no discharge noticed. Genitourinary: Redness in the skin folds. MSK/skin: Skin is dry and warm B/l upper and lower ext edema Neurological: Pupils are constricted and sluggish to response. No icterus seen. laboratory and microbiology Laboratory Tests 11/29/24 06:51 Test 11/29/24 06:51 Range/Units Serum Glucose 123 H 74-106 mg/dL Microbiology Date/Time Source Procedure Growth Status 11/25/24 09:35 Stool Stool Culture - Final Complete 11/25/24 09:35 Stool Shiga Toxin I & II - Final Complete 11/23/24 14:30 Voided Urine Urine Culture - Final Presumptive Brandi albicans Complete 11/16/24 17:20 Sputum Gram Stain - Final Complete 11/16/24 17:20 Sputum Respiratory Culture - Final Complete 11/16/24 17:10 Nose MRSA Screen - Final Complete 11/13/24 20:26 Blood Blood Culture - Final NO GROWTH AFTER 5 DAYS OF INCUBATION. 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 There is vasogenic edema in the left thalamus. There is generalized cerebral volume loss with concordant prominence of the subarachnoid spaces and ventricles. MR brain could not be completed given the patient's habitus Dexamethasone 4 mg IV b.i.d. CARDIOVASCULAR Septic shock secondary to toxic megacolon Lactic acidosis-resolved Paroxysmal atrial fibrillation-CHADS2 Vasc score 3, has bled score 1 Discontinued Zosyn 11/19 till 11/28 DC vancomycin 11/17 till 11/21 and DC IV metronidazole, patient received from 11/15 to 11/21 DC IV cefepime 11/18 Preliminary blood cultures negative Lasix 20 mg IV given once 11/25 Repeat blood culture 11/23 Consider starting digoxin if AFib becomes symptomatic RESPIRATORY Acute hypoxic respiratory failure secondary to septic shock Chronic nicotine dependence Respiratory acidosis History of PE Non-anion gap metabolic acidosis secondary to hyperchloremia Left sided pleural effusion with associated basilar atelectasis consolidation Intubated from 11/16 till 11/21 Respiratory culture and Gram stain shows no growth ABGs 11/17 shows non-anion gap metabolic acidosis with respiratory acidosis Discontinue sodium bicarbonate 100 mL/hour 11/17 till 11/18 Incentive spirometry Q 1 hour GI Sepsis secondary to toxic megacolon secondary to primary adenocarcinoma of the descending colon and splenic flexure 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 Associated wall thickening in this region. Suspect an underlying lesion resulting in obstruction. Associated small bowel obstruction. Findings are similar to prior exam. Await final pathology results P.o. morphine for pain control Stool culture negative. Stool WBC negative. LFTs increasing, liver ultrasound shows multiple heterogeneous echotexture lesions, metastatic lesions. Contrast surgeon could not be completed since the patient is allergic to iodine. Heme oncology consulted. /KIDNEY Acute cystitis Yellow colored vaginal discharge Final urine culture showed >100,000 CFU/mL Mixed Gram Positive Ca >3 [place] Types, including Beta-Hemolytic Group B Streptococcus Repeat urine culture 11/16 is negative Discontinued IV Zosyn Repeat urine culture 11/23 shows greater than [id number] CFU yeast Started IV Diflucan 11/25 METABOLIC Hyponatremia, corrected Hypomagnesemia, supplement Morbid obese Non-anion gap metabolic acidosis Vitamin-D deficiency Hypercalcemia: Corrected calcium 7.5 Received 1 g IV 11/25 overnight Vitamin-D supplemented SKIN Intertrigo Medial thigh maceration - nystatin powder HEM-ONCO Anemia, likely normocytic secondary to blood loss Superficial venous thrombosis in the right cephalic Hemoglobin dropped from 16-10 from 11/14 to 11/17 Retic count 1.23, lactate dehydrogenase 330 11/22 1 unit of packed RBC administered Continue warm compresses to right arm LINES Intubated on 11/16 till 11/21 Left SUBCLAVIAN CVC 11/16 till 11/28 PICC line inserted 11/28 Xiao catheter 11/13, changed on 11/24 DRIPS LEVOPHED off 11/25 VASOPRESSIN off since 11/11 FENTANYL DC VERSED DC NUTRITION; Clinimix starting 11/17, TPN starting 11/18 till 11/22, started soft diet 11/22 DVT; Lovenox 40 mg sc daily Physical therapy-recommended [facility] or [facility]val[facility] home. Recommended home health. Goals of care/advance care planning; FULL CODE; discussed on for 24 minutes. PUD prophylaxis: Pantoprazole 40 mg IV daily DVT prophylaxis: Lovenox 40 mg sc daily Plan discussed with patient's daughter Paula [phone] over the phone call for more than 20 minutes, code status full code. Tried to contact son Willam Padilla over the phone, was unreachable Case discussed with Dr. Barker. Heme oncology consulted. Critical care time including review of the chart, and discussion with the patient's family excluding procedures 54 minutes Plan discussed with: Patient My Orders My Orders Orders - SARA PAULA Procedure Category Date Status Time LIVER US 11/29/24 Resulted 08:04 Dietary Evaluation Review Comments: 1) Advance pt diet when medically feasible 2) Continue current plan of care Expected Outcomes/Goals: F/U in 2-3 days CC Plasma Assessment Blood Product Administration S: 2240 Date of Service: Nov 29, 2024 Billing Provider: HARRY BARKER MD Common Visit Codes: 50341-WCDTIFNR CARE 30-74 MIN SARA PAULA Nov 29, 2024 18:29 HARRY BARKER MD Nov 30, 2024 15:52
[2024-11-30] VITALS (9 sets, daily range): BP systolic 101–140; BP diastolic 47–79; PULSE 58–82; RESP 12–22; TEMP 97.3–98.4; O2SAT 92–98
[2024-11-30 06:55] LABS: Basophils # (auto) 0 10 ^3/uL (0-0.2); Basophils % (auto) 0.2 % (0.0-2.0); Eosinophils # (auto) 0 10 ^3/uL (0-0.8); Hemoglobin 9.6 g/dL (12.2-16.2); Lymphocytes # (auto) 0.7 10 ^3/uL (0.4-5.4); Lymphocytes % (auto) 6.4 % (10.0-50.0); Mean Corpuscular Hemoglobin 29.3 pg (28.0-32.0); Mean Corpuscular Hgb Conc. 34.1 g/dL (32.0-36.0); Mean Corpuscular Volume 85.8 fL (80.0-100.0); Monocytes # (auto) 0.4 10 ^3/uL (0-1.3); Monocytes % (auto) 3.7 % (0.0-12.0); Neutrophils # (auto) 9.9 10 ^3/uL (1.6-8.6); Neutrophils % (auto) 89.7 % (37.0-80.0); Platelet Count (auto) 397 10^3/uL (140-450); Red Blood Cells 3.26 10^6/uL (4.0-5.20); Red Cell Distribution Width 17.2 % (11.8-14.3); White Blood Cell 11.1 10^3/uL (4.4-10.8)
[2024-11-30 07:15] LABS: Anion Gap 7 (5-15); Blood Urea Nitrogen 13 mg/dL (9-23); Calcium 9.2 mg/dL (8.7-10.4); Carbon Dioxide 29 mmol/L (20-31); Chloride 104 mmol/L (98-107); Sodium 140 mmol/L (136-145)
[2024-11-30 07:16] LABS: Bilirubin, Total 0.5 mg/dL (0.2-1.0)
[2024-11-30 07:25] LABS: Alanine Aminotransferase 123 U/L (7-40); Albumin 2.9 g/dL (3.2-4.8); Alkaline Phosphatase 153 U/L (46-116); Aspartate Aminotransferase 67 U/L (13-40); Glucose 107 mg/dL (74-106); Total Protein 5.3 g/dL (5.7-8.2)
--- NOTE | 2024-11-30 13:06 | DVH ---
INDICATION: vaginal bleed TECHNIQUE: Multiple real-time grayscale transabdominal sonographic images along with color and duplex Doppler of the uterus and ovaries were obtained. COMPARISON: None FINDINGS: The uterus measures 8 x 4 x 4 cm. The endometrial stripe measures 0.7 cm. ovaries not seen IMPRESSION: 1. Grossly unremarkable pelvic ultrasound.
--- NOTE | 2024-11-30 14:41 | ECG ---
[facility] Test Date: 2024-11-25 Test Time: 21:03:29 Pat Name: [place] Department: Room: 0298T A Gender: F Senior Trial Attorney: DARLIN : 1960 Requested By: SARA PAULA Order Number: [id number] Reading MD: Amie Ronquillo Measurements Intervals [place] Rate: 92 P: 47 NC: 132 QRS: -5 QRSD: 74 T: 18 QT: 384 QTc: 474 Interpretive Statements Sinus rhythm with marked sinus arrhythmia Low voltage QRS Probable Inferior infarct , old Cannot rule out Anterior infarct , old Electronically Signed On 11-30-2024 20:39:22 PST by Amie Ronquillo Please click the below link to view image of tracing.
--- NOTE | 2024-11-30 14:41 | ECG ---
[facility] Test Date: 2024-11-25 Test Time: 21:04:08 Pat Name: GAIL LAKE Department: Room: 0298T A Gender: F Test Facility Engineer: DARLIN : 1960 Requested By: ALFRED ORELLANA Order Number: [id number] Reading MD: Amie Ronquillo Measurements Intervals [place] Rate: 91 P: 43 WA: 138 QRS: 4 QRSD: 70 T: 11 QT: 342 QTc: 420 Interpretive Statements Sinus rhythm with fusion complexes and premature atrial complexes Low voltage QRS Electronically Signed On 11-30-2024 20:39:58 PST by Amie Ronquillo Please click the below link to view image of tracing.
--- NOTE | 2024-11-30 16:52 | DVHPN2 ---
Progress Note - Dictate Date Seen: Nov 30, 2024 Medical Necessity Reason Pt with a Central, PICC or Fol: Yes The following are medically ne: PICC Line, Xiao Catheter Reason for xiao catheter: Strict I&O Subjective Patient is awake and still altered. Still pain in the abdomen. Bilateral inner thigh, genital and lower abdomen (skin folds) area macerations and redness. vital signs Vital Sign Date Time Temp Pulse Resp B/P (MAP) Pulse Ox O2 Delivery O2 Flow Rate FiO2 11/30/24 16:00 82 18 140/79 94 3.0 32 11/30/24 13:00 98.4 98.4 11/29/24 20:00 Nasal Cannula* Total Intake and Output 11/29/24 11/29/24 11/30/24 15:00 23:00 07:00 Intake Total 100 ml Output Total 50 ml Balance 50 ml medications Current Medications Medications Dose Ordered Sig/Sylvie Route Start Time Stop Time Status Last Admin Dose Admin Pantoprazole Sodium 40 mg DAILY IV 11/14/24 10:00 11/30/24 10:20 40 MG Nitroglycerin 0.4 mg Q5MINP PRN SL 11/13/24 23:00 Albuterol 2.5 mg Q6HP PRN NEB 11/14/24 06:00 11/26/24 15:03 2.5 MG Nystatin 1 applic BID TOP 11/21/24 10:00 11/30/24 10:48 1 APPLIC Fat Emulsion Intravenous 150 ml/Sodium Phosphate 60 meq/ Potassium Phosphate 44 meq/ Magnesium Sulfate 12 meq/ Multivitamins 10 ml/Chromium/ Copper/Manganese/ Zinc 1 ml/Insulin Human Regular 12 units/Amino Acids/ Dextrose/Purified Water 1,439.12 ml @ 60 mls/hr Q24H IV 11/21/24 22:00 11/22/24 21:59 Cancel Morphine Sulfate 1 mg Q6HPRN PRN IV 11/22/24 04:30 11/24/24 13:48 1 MG Albuterol 2.5 mg Q12HR NEB 11/24/24 22:00 11/30/24 06:41 2.5 MG Morphine Sulfate 15 mg Q12HR PO 11/24/24 22:00 11/30/24 10:21 15 MG Ergocalciferol 50,000 unit Q7D PO 11/25/24 07:45 11/25/24 09:22 50,000 UNIT Acetaminophen 650 mg Q6HP PRN PO 11/25/24 08:45 Enoxaparin Sodium 30 mg BID SC 11/25/24 10:00 UNV Fluconazole 100 ml @ 100 mls/hr DAILY IV 11/26/24 10:00 11/30/24 10:20 100 MLS/HR Diagnostic Test (Pha) 1 strip Q6HR 11/26/24 12:00 11/30/24 11:54 1 STRIP Insulin Human Regular Q6HR SC 11/26/24 12:00 11/30/24 11:54 2 UNITS Dextrose 50 ml UD PRN IV 11/26/24 08:00 Dexamethasone Sodium Phosphate 4 mg BID IV 11/28/24 22:00 11/30/24 10:20 4 MG Sodium Chloride 10 ml QSHIFT@10,22 IV 11/28/24 22:00 11/30/24 10:20 10 ML objective General examination- Morbidly obese female, Acute distress, urinary catheter in place, A0X2 HEENT: PEERLA, no acute nasal discharge Chest: tachycardiac, S1-S2 audible, rate and rhythm regular, no murmur Lung: CTAB, no wheeze or rhonchi Abdomen: exp lap, LIANNE drain +, ileostomy bag+ Musculoskeletal: no acute joint swelling or tenderness Lower extremity: leg edema Neurological:alert but confused Skin- dry laboratory and microbiology Laboratory Tests 11/30/24 05:33 Test 11/30/24 05:33 Range/Units Serum Glucose 107 H 74-106 mg/dL Assessment/Plan Patient is a 64-year-old female presented to the hospital with: change in mental status: 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 Bowel obstruction s/p exp lap right hemicolectomy terminal ileum perforation s/p partial resection of terminal ileum and caecum Urinary tract infection Acute hypoxic respiratory failure Morbid obesity Recommendations: Due to new change in mental status and CT head showing thalamic mass with vasogenic edema ? metastasis Plan for transfer to [facility] for neurosurgical intervention LIANNE drain is sero sanguinous she was switched to Meropenem from Zosyn for total 5 days, [Last dose was given on 11/28] 11/20, c diff negative 11/25, Stool cultures negative. 11/26, Chest x-ray shows left lower lobe atelectasis versus effusion. WBC count trending up 11/13, urine culture showed: >100,000 CFU/mL Mixed Gram Positive Ca >3 [place] Type including Beta- Hemolytic Group B Streptococcus 11/16, repeat urine culture showed no growth after 48 hours of incubation. 11/23, Urine culture shows Brandi. prognosis very guarded Thank you for consult and for giving an opportunity to take care of this patient. Dietary Evaluation Review Comments: 1) Advance pt diet when medically feasible 2) Continue current plan of care Expected Outcomes/Goals: F/U in 2-3 days CC Plasma Assessment Blood Product Administration S: [id number] LAILA DRAKE MD Nov 30, 2024 16:52
--- NOTE | 2024-11-30 18:57 | DVHPNRES ---
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 On arrival patient had temperature of 97.6, pulse 126 bpm, respiratory rate 17, blood pressure 154/88, saturating 95 on room air. WBC count was 21.5 with 89% neutrophils and 600 platelets. Lactic acid was elevated at 2.4. CT abdomen pelvis completed 11/13 showed gas distended colon with air bubbles entry level marketing representative of toxic colitis. Subsequent CT abdomen completed 11/16 showed marked dilation of the right and transverse colon with a transition point at the level of the sigmoid flexure. Associated wall thickening in this region. Suspicious of an underlying lesion resulting in obstruction. Small left pleural effusion with basilar atelectasis. Consequently GI Dr. Dalal did a sigmoidoscopy up to the splenic flexure with biopsy and colonic decompression on 11/15 and an abnormal area was found in the splenic flexure with the sigmoid diverticular disease, moderate amount of retained stool in the rectosigmoid. So surgeon was consulted and patient underwent exploratory laparotomy with extended right hemicolectomy with ileostomy on 11/16 secondary to ischemic bowel with colonic obstruction at the splenic flexure. Distal ileum to the proximal descending colon was resected and a distal ileum perforation was found during the procedure. Lysis of adhesions were performed. Patient received 3 L of NS +500 mL of 5% albumin and 100 mL of 25% albumin during the procedure. Following the procedure patient was hypotensive and therefore could not be extubated and therefore which he was transferred to ICU for further management. 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 Quit smoking about 2 years ago when she had PE. Home medications: Glatopa 20 mg every morning, lidocaine patch q.12 hours p.r.n., Paxil tablet 10 mg daily, ropinirole 5 mg 2 tablets at bedtime, tolterodine 4 mg once daily, baclofen 10 mg b.i.d., albuterol 90 mcg. 11/17-Patient seen and examined at bed 109. She was started on 50% FiO2 which was downtrended to 35% FiO2 right now. Urine culture is growing greater than 1 lac Gram-positive species including GBS. Started vancomycin 11/17. ABGs show non-anion gap metabolic acidosis along with respiratory acidosis, likely secondary to hyperchloremia. DC 0.5 NS. Respiratory rate increased from 14-16. Sodium bicarbonate started at 100 mL/hour. Both LIANNE drains drained 25 and 30 mL serosanguineous. Xaio draining 90 mL overnight and 90 mL during the day. 11/18-patient seen and examined. He is not stable for CPAP. DC Versed. DC cefepime DC bicarb. Overnight 20 mL drainage from the right LIANNE, 25 from the left LIANNE 11/21 - over the weekend stress dose steroids started. Patient was started on Zosyn since . DC Flagyl today. Cumulative I/O shows positive 15 L. Lasix 40 mg IV started. Patient tolerated CPAP trial very well, extubated. Bilateral upper extremity ultrasound ordered. ET tube advanced 2 cm. 11/22 -seen and examined at the bedside. Overnight morphine started for pain. patient is saturating 98 on 2 L. 1 unit of packed RBCs administered. Swallow eval completed, recommended soft diet. DC TPN, DC Lasix. Vaginal discharge resolved. Transferred to [facility]. PICC line consult placed. Started on pressors for cephalic vein thrombosis. PT eval requested. 11/23 - A&O x4. Levophed increased to 8 overnight from 2. Overnight patient ran 99.1 F. DC Xiao. Ordered urine culture. Incentive spirometry Q 1 hour. Repeat blood culture today. Lower extremity Doppler was a limited study with nonvisualization of bilateral femoral vein and popliteal vein. 11/24- overnight Levophed requirement went up from 2 to 8. Dark green tarry stool seen in ileostomy. LIANNE drain output is decreasing. Chest x-ray shows left lower lobe opacity. Id recommended DC Zosyn on . UA showing UTI, patient refusing change of Xiao. Discussed risk and benefits. Patient agreed. WBC downtrending 11/25 overnight patient was febrile at 99.7. Overnight patient received 1 IV calcium. Xiao catheter change today. Patient reports cold and shivering. WBC increased to 20. Stool occult is negative. Stool WBC negative. Ordered midline. DC left subclavian CVC. Discontinued Zosyn. Lasix 20 mg IV once given. IV fluconazole started. Patient is experiencing paroxysmal atrial fibrillation intermittently, rate goes up to 150s, multiple episodes throughout the day, lasts less than 1 minute. Consider starting IV digoxin if symptomatic. 11/28 - over the weekend, patient was altered and head CT performed which showed 2.5 X 3.3 cm left thalamus mass extending into the left lateral ventricle with vasogenic edema. Patient decided into early 80s was put on BiPAP. ABG at the time showed respiratory alkalosis. Urine culture shows Brandi. Stool cultures negative. Chest x-ray shows left lower lobe atelectasis versus effusion. WBC count trending down. Discontinued vancomycin. Bilateral inner thigh and genital area macerations and redness, no discharge noticed. 11/29 - patient is A&O x4. LFTs increasing, liver ultrasound shows multiple heterogeneous echotexture lesions, metastatic lesions. Contrast surgeon could not be completed since the patient is allergic to iodine. Heme oncology consulted. 11/30 - patient seen and examined at the bedside. Vaginal bleeding noticed, pelvic ultrasound unremarkable. Heme oncology consult pending. DC prophylactic Lovenox. Objective vital signs Vital Sign Date Time Temp Pulse Resp B/P (MAP) Pulse Ox O2 Delivery O2 Flow Rate FiO2 11/30/24 17:00 97.3 68 18 119/62 (81) 96 97.3 11/30/24 16:00 3.0 32 11/30/24 07:30 Room Air* Total Intake and Output 11/29/24 11/29/24 11/30/24 15:00 23:00 07:00 Intake Total 100 ml Output Total 50 ml Balance 50 ml medications Current Medications Medications Dose Ordered Sig/Sylvie Route Start Time Stop Time Status Last Admin Dose Admin Pantoprazole Sodium 40 mg DAILY IV 11/14/24 10:00 11/30/24 10:20 40 MG Nitroglycerin 0.4 mg Q5MINP PRN SL 11/13/24 23:00 Albuterol 2.5 mg Q6HP PRN NEB 11/14/24 06:00 11/26/24 15:03 2.5 MG Nystatin 1 applic BID TOP 11/21/24 10:00 11/30/24 10:48 1 APPLIC Fat Emulsion Intravenous 150 ml/Sodium Phosphate 60 meq/ Potassium Phosphate 44 meq/ Magnesium Sulfate 12 meq/ Multivitamins 10 ml/Chromium/ Copper/Manganese/ Zinc 1 ml/Insulin Human Regular 12 units/Amino Acids/ Dextrose/Purified Water 1,439.12 ml @ 60 mls/hr Q24H IV 11/21/24 22:00 11/22/24 21:59 Cancel Morphine Sulfate 1 mg Q6HPRN PRN IV 11/22/24 04:30 11/24/24 13:48 1 MG Albuterol 2.5 mg Q12HR NEB 11/24/24 22:00 11/30/24 06:41 2.5 MG Morphine Sulfate 15 mg Q12HR PO 11/24/24 22:00 11/30/24 10:21 15 MG Ergocalciferol 50,000 unit Q7D PO 11/25/24 07:45 11/25/24 09:22 50,000 UNIT Acetaminophen 650 mg Q6HP PRN PO 11/25/24 08:45 Enoxaparin Sodium 30 mg BID SC 11/25/24 10:00 UNV Fluconazole 100 ml @ 100 mls/hr DAILY IV 11/26/24 10:00 11/30/24 10:20 100 MLS/HR Diagnostic Test (Pha) 1 strip Q6HR 11/26/24 12:00 11/30/24 17:25 1 STRIP Insulin Human Regular Q6HR SC 11/26/24 12:00 11/30/24 17:24 2 UNITS Dextrose 50 ml UD PRN IV 11/26/24 08:00 Dexamethasone Sodium Phosphate 4 mg BID IV 11/28/24 22:00 11/30/24 10:20 4 MG Sodium Chloride 10 ml QSHIFT@10,22 IV 11/28/24 22:00 11/30/24 10:20 10 ML Examination Morbidly obese female patient lying in bed, extubated. General: Morbidly obese, afebrile, palor, mucosae are moist A&O x4. Cardiovascular: Regular S1 and S2. No murmurs, gallops or rubs. No JVD elevation. 1+ nonpitting edema in the lower extremity Respiratory: Bilateral dull breath sounds heard , saturating 98% on 4 L NC. Abdomen: Abdomen is soft but hypoactive bowel sounds. Dressing dry clean and intact. Sutures intact with minimal drainage. Two LIANNE drains attached. Maceration, erythema noted beneath the skin fold beneath the umbilicus. Ileostomy seen with dark green /tarry 60ml secretions with white cottage cheese appearance. Bilateral inner thigh and genital area macerations and redness, no discharge noticed. Fresh red vaginal bleeding noticed. Genitourinary: Redness in the skin folds. MSK/skin: Skin is dry and warm B/l upper and lower ext edema Neurological: Pupils are constricted and sluggish to response. No icterus seen. laboratory and microbiology Laboratory Tests 11/30/24 05:33 Test 11/30/24 05:33 Range/Units Serum Glucose 107 H 74-106 mg/dL Microbiology Date/Time Source Procedure Growth Status 11/25/24 09:35 Stool Stool Culture - Final Complete 11/25/24 09:35 Stool Shiga Toxin I & II - Final Complete 11/23/24 14:30 Voided Urine Urine Culture - Final Presumptive Brandi albicans Complete 11/16/24 17:20 Sputum Gram Stain - Final Complete 11/16/24 17:20 Sputum Respiratory Culture - Final Complete 11/16/24 17:10 Nose MRSA Screen - Final Complete 11/13/24 20:26 Blood Blood Culture - Final NO GROWTH AFTER 5 DAYS OF INCUBATION. 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 There is vasogenic edema in the left thalamus. There is generalized cerebral volume loss with concordant prominence of the subarachnoid spaces and ventricles. MR brain could not be completed given the patient's habitus Dexamethasone 4 mg IV b.i.d. CARDIOVASCULAR Septic shock secondary to toxic megacolon Lactic acidosis-resolved Paroxysmal atrial fibrillation-CHADS2 Vasc score 3, has bled score 1 Discontinued Zosyn 11/19 till 11/28 DC vancomycin 11/17 till 11/21 and DC IV metronidazole, patient received from 11/15 to 11/21 DC IV cefepime 11/18 Preliminary blood cultures negative Lasix 20 mg IV given once 11/25 Repeat blood culture 11/23 Consider starting digoxin if AFib becomes symptomatic RESPIRATORY Acute hypoxic respiratory failure secondary to septic shock Chronic nicotine dependence Respiratory acidosis History of PE Non-anion gap metabolic acidosis secondary to hyperchloremia Left sided pleural effusion with associated basilar atelectasis consolidation Intubated from 11/16 till 11/21 Respiratory culture and Gram stain shows no growth ABGs 11/17 shows non-anion gap metabolic acidosis with respiratory acidosis Discontinue sodium bicarbonate 100 mL/hour 11/17 till 11/18 Incentive spirometry Q 1 hour GI Sepsis secondary to toxic megacolon secondary to primary adenocarcinoma of the descending colon and splenic flexure 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 Associated wall thickening in this region. Suspect an underlying lesion resulting in obstruction. Associated small bowel obstruction. Findings are similar to prior exam. Await final pathology results P.o. morphine for pain control Stool culture negative. Stool WBC negative. LFTs increasing, liver ultrasound shows multiple heterogeneous echotexture lesions, metastatic lesions. Contrast surgeon could not be completed since the patient is allergic to iodine. Heme oncology consulted. /KIDNEY Acute cystitis Yellow colored vaginal discharge Final urine culture showed >100,000 CFU/mL Mixed Gram Positive Ca >3 [place] Types, including Beta-Hemolytic Group B Streptococcus Repeat urine culture 11/16 is negative Discontinued IV Zosyn Repeat urine culture 11/23 shows greater than 156172 CFU yeast Started IV Diflucan 11/25 OBGYN Vaginal bleeding Pelvic ultrasound 1+1 is unremarkable METABOLIC Hyponatremia, corrected Hypomagnesemia, supplement Morbid obese Non-anion gap metabolic acidosis Vitamin-D deficiency Hypercalcemia: Corrected calcium 7.5 Received 1 g IV 11/25 overnight Vitamin-D supplemented SKIN Intertrigo Medial thigh maceration - nystatin powder HEM-ONCO Anemia, likely normocytic secondary to blood loss Superficial venous thrombosis in the right cephalic Hemoglobin dropped from 16-10 from 11/14 to 11/17 Retic count 1.23, lactate dehydrogenase 330 11/22 1 unit of packed RBC administered Continue warm compresses to right arm LINES Intubated on 11/16 till 11/21 Left SUBCLAVIAN CVC 11/16 till 11/28 PICC line inserted 11/28 Xiao catheter 11/13, changed on 11/24 DRIPS LEVOPHED off 11/25 VASOPRESSIN off since 11/11 FENTANYL DC VERSED DC NUTRITION; Clinimix starting 11/17, TPN starting 11/18 till 11/22, started soft diet 11/22 DVT; Lovenox 40 mg sc daily Physical therapy-recommended discharge back [facility] or convalescent home. Recommended home health. Goals of care/advance care planning; FULL CODE; discussed on for 24 minutes. PUD prophylaxis: Pantoprazole 40 mg IV daily DVT prophylaxis: Discontinued Lovenox 11/30 9 given the vaginal bleeding Plan discussed with patient's daughter Paula [phone] over the phone call for more than 20 minutes, code status full code. Discussed with patient's son over the phone, all questions have been answered Case discussed with Dr. Barker. Heme oncology consulted. Critical care time including review of the chart, and discussion with the patient's family excluding procedures 44 minutes Plan discussed with: Patient, Daughter, Son (Over the phone call) My Orders My Orders Orders - SARA PAULA Procedure Category Date Status Time Pelvic US 11/30/24 Resulted 11:41 * Dietary Consult CONS 11/30/24 Transmitted 14:23 Dietary Evaluation Review Comments: 1) Advance pt diet when medically feasible 2) Continue current plan of care Expected Outcomes/Goals: F/U in 2-3 days CC Plasma Assessment Blood Product Administration S: [id number] Date of Service: Nov 30, 2024 Billing Provider: HARRY BARKER MD Common Visit Codes: 01969-[id number] INP/OBS CARE(HIGH) Secondary Visit Codes: 27218-[id number] CARE PLAN 30 MINUTES SARA PAULA Nov 30, 2024 18:57 HARRY BARKER MD Dec 01, 2024 10:26
--- NOTE | 2024-11-30 20:45 | DVHPN2 ---
Progress Note - Dictate Date Seen: Nov 30, 2024 Medical Necessity Reason Pt with a Central, PICC or Fol: Yes The following are medically ne: PICC Line, Xiao Catheter Reason for xiao catheter: Strict I&O Subjective Patient is on saturating well on room air Ileostomy functional Tolerating mechanical soft diet Surgical consult appreciated, continued observation of stomal condition Patient underwent CT head which was showing possible vasogenic edema with the left thalamus mass, attempt to transfer the patient for neurosurgery evaluation. Patient did have in the past prior craniotomy. Patient underwent a laparotomy with extended right hemicolectomy up to the proximal descending colon yesterday She was diagnosed with adenocarcinoma of the splenic flexure on colonoscopy biopsies and frozen section vital signs Vital Sign Date Time Temp Pulse Resp B/P (MAP) Pulse Ox O2 Delivery O2 Flow Rate FiO2 11/30/24 20:00 Room Air* 0 21 11/30/24 17:00 97.3 68 18 119/62 (81) 96 97.3 Total Intake and Output 11/29/24 11/29/24 11/30/24 15:00 23:00 07:00 Intake Total 100 ml Output Total 50 ml Balance 50 ml medications Current Medications Medications Dose Ordered Sig/Sylvie Route Start Time Stop Time Status Last Admin Dose Admin Pantoprazole Sodium 40 mg DAILY IV 11/14/24 10:00 11/30/24 10:20 40 MG Nitroglycerin 0.4 mg Q5MINP PRN SL 11/13/24 23:00 Albuterol 2.5 mg Q6HP PRN NEB 11/14/24 06:00 11/26/24 15:03 2.5 MG Nystatin 1 applic BID TOP 11/21/24 10:00 11/30/24 10:48 1 APPLIC Fat Emulsion Intravenous 150 ml/Sodium Phosphate 60 meq/ Potassium Phosphate 44 meq/ Magnesium Sulfate 12 meq/ Multivitamins 10 ml/Chromium/ Copper/Manganese/ Zinc 1 ml/Insulin Human Regular 12 units/Amino Acids/ Dextrose/Purified Water 1,439.12 ml @ 60 mls/hr Q24H IV 11/21/24 22:00 11/22/24 21:59 Cancel Morphine Sulfate 1 mg Q6HPRN PRN IV 11/22/24 04:30 11/24/24 13:48 1 MG Albuterol 2.5 mg Q12HR NEB 11/24/24 22:00 11/30/24 06:41 2.5 MG Morphine Sulfate 15 mg Q12HR PO 11/24/24 22:00 11/30/24 10:21 15 MG Ergocalciferol 50,000 unit Q7D PO 11/25/24 07:45 11/25/24 09:22 50,000 UNIT Acetaminophen 650 mg Q6HP PRN PO 11/25/24 08:45 Enoxaparin Sodium 30 mg BID SC 11/25/24 10:00 UNV Fluconazole 100 ml @ 100 mls/hr DAILY IV 11/26/24 10:00 11/30/24 10:20 100 MLS/HR Diagnostic Test (Pha) 1 strip Q6HR 11/26/24 12:00 11/30/24 17:25 1 STRIP Insulin Human Regular Q6HR SC 11/26/24 12:00 11/30/24 17:24 2 UNITS Dextrose 50 ml UD PRN IV 11/26/24 08:00 Dexamethasone Sodium Phosphate 4 mg BID IV 11/28/24 22:00 11/30/24 10:20 4 MG Sodium Chloride 10 ml QSHIFT@10,22 IV 11/28/24 22:00 11/30/24 10:20 10 ML objective Gen: in awake alert edematous Cvs: N S1/S2, RRR Resp: On supplemental oxygen, extubated Abd: Morbidly Obese, ileostomy stoma looks well, incision site intact Crib Tender: Sedated laboratory and microbiology Laboratory Tests 11/30/24 05:33 Test 11/30/24 05:33 Range/Units Serum Glucose 107 H 74-106 mg/dL Problems(with codes): (1) Mass of thalamus (2) Left lower lobe pulmonary infiltrate (3) 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 (4) Ischemic stricture intestine (5) Colonic obstruction (6) UTI (urinary tract infection) Prognosis Plan Continue supportive care Physical therapy Discharge planning is in progress Possible referral to [facility] when bed is available neuro surgical evaluation Dietary Evaluation Review Comments: 1) Advance pt diet when medically feasible 2) Continue current plan of care Expected Outcomes/Goals: F/U in 2-3 days Plan discussed with: Patient CC Plasma Assessment Blood Product Administration S: [id number] HARJINDER SEBASTIAN MD Nov 30, 2024 20:45
[2024-12-01] VITALS (12 sets, daily range): BP systolic 100–150; BP diastolic 38–100; PULSE 59–77; RESP 13–20; TEMP 97.5–98.3; O2SAT 8–100
--- NOTE | 2024-12-01 09:01 | DVHINCON2 ---
Date of service: Dec 01, [address] Zia Stokes Reason for Consultation Colon carcinoma status post surgery History of Present Illness 64 years old obese female who is not a good historian. 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 She was admitted with the abdominal pains nausea vomiting and abdominal distention CT of the abdomen pelvis on 11/13/2024 showed distended colon with air bubbles and a repeat CT on 11/16/2024 showed marked dilatation of the right and the transverse colon with a transition point at the level of the sigmoid flexure and associated wall thickening in this region suspicious for obstructing lesion, small left pleural effusion with basilar atelectasis. The patient had sigmoid scope up to splenic flexure with biopsy on 11/15/2024 and the biopsy showed has adenocarcinoma The patient underwent exploratory lap with extended right hemicolectomy with ileostomy on 11/16/2024 and was found to have ischemic bowel with colonic obstruction at the splenic flexure The pathology showed 4.0 cm tumor with no macroscopic perforation, adenocarcinoma, moderately to poorly differentiated (G2-G3) tumor invades the visceral peritoneum. Proximal and distal margins were negative and mesenteric margin was negative for carcinoma. LVI was present and PNI was present there were five tumor deposits. Twelve lymph glands were examined and five were invol ledy PT4a, pN2a. No loss of nuclear expression of tumor proteins, low probability of MSI-H The patient had a complicated course The CT of the abdomen pelvis without contrast raised concern about hepatocellular disease and guaiac concern about some hepatic masses 11/28/2024 the patient had a CT of the brain which showed a 2.5 x 3.3 cm left thalamic mass extending into the left lateral ventricle with vasogenic edema Urine culture showed Brandi and chest x-ray showed left lower lobe atelectasis versus effusion The patient is alert at present and oriented slow in responding. Her colostomy is functioning Past Medical History History of multiple sclerosis Obesity PE and not much details available Left leg deformity History of craniotomy as a child for cerebral hematoma Family History: Cancer Family history: Cardiovascular disease Family History She says mother had some cancer Social History History of smoking. No alcohol or drugs Allergies: Coded Allergies: Iodine (Verified Allergy, Unknown, 11/15/24) Home Meds Reported Medications Glatiramer Acetate (Copaxone) 20 Mg/Ml Kit, SC 11/15/24 Tolterodine Tartrate (Tolterodine Tartrate ER) 4 Mg Cap, 1 CAP PO DAILY 11/15/24 Paroxetine Hydrochloride (Paroxetine Hydrochloride) 10 Mg Tab, 1 TAB PO DAILY 11/15/24 Ropinirole Hydrochloride (Ropinirole Hcl) 0.25 Mg Tab, 1 PO DAILY 11/15/24 Albuterol Sulfate (Albuterol Sulfate Hfa) 108 Mcg/Act Aer, INH 11/15/24 Baclofen (Baclofen) 10 Mg Tab, 1 TAB PO BID 11/15/24 Paroxetine (PAXIL TABLET) 20 Mg Tb, 12.5 MG PO DAILY 04/03/14 Vital Signs Vital Signs Date Time Temp Pulse Resp B/P (MAP) Pulse Ox O2 Delivery O2 Flow Rate FiO2 12/01/24 08:15 68 18 8 12/01/24 08:12 Room Air* 0 21 12/01/24 04:41 97.9 100/38 (58) 97.9 Physical Exam Obese female in no acute distress she is alert and oriented but slow to respond No jaundice Head and neck: Unremarkable for any masses or neck nodes. No conjunctival or mucosal hemorrhage Lungs: Clear Cardiovascular: S1-S2 heard well Abdomen: No organomegaly, tenderness or ascites. Bowel sounds are present. Status post surgery and has a left right lower colostomy Extremities: No clubbing edema cyanosis or calf tenderness. Left lower extremity deformity. Has an IV on the left arm has some swelling of the right upper extremity without any tenderness and has some ecchymosis in the right upper extremity Skin: Unremarkable for petechia purpura ecchymosis Lymphadenopathy: None Neurological exam: No focal deficit Labs/Diagnostic Data Labs Test 12/01/24 05:11 11/30/24 05:33 11/27/24 18:11 11/27/24 07:18 Range/Units POC Glucose 112 H 70-106 mg/dl White Blood Count 11.1 H 4.4-10.8 10^3/uL Red Blood Count 3.26 L 4.0-5.20 10^6/uL Hemoglobin 9.6 L 12.2-16.2 g/dL Hematocrit 28.0 L 36.0-46.0 % Mean Corpuscular Volume 85.8 80.0-100.0 fL Mean Corpuscular Hemoglobin 29.3 28.0-32.0 pg Mean Corpuscular Hemoglobin Concent 34.1 32.0-36.0 g/dL Red Cell Distribution Width 17.2 H 11.8-14.3 % Platelet Count 397 140-450 10^3/uL Mean Platelet Volume 7.8 6.9-10.8 fL Neutrophils (%) (Auto) 89.7 H 37.0-80.0 % Lymphocytes (%) (Auto) 6.4 L 10.0-50.0 % Monocytes (%) (Auto) 3.7 0.0-12.0 % Eosinophils (%) (Auto) 0.0 0.0-7.0 % Basophils (%) (Auto) 0.2 0.0-2.0 % Neutrophils # (Auto) 9.9 H 1.6-8.6 10 ^3/uL Lymphocytes # (Auto) 0.7 0.4-5.4 10 ^3/uL Monocytes # (Auto) 0.4 0-1.3 10 ^3/uL Eosinophils # (Auto) 0 0-0.8 10 ^3/uL Basophils # (Auto) 0 0-0.2 10 ^3/uL Nucleated Red Blood Cells 0.0 % Sodium Level 140 136-145 mmol/L Potassium Level 4.0 3.5-5.1 mmol/L Chloride Level 104 98-107 mmol/L Carbon Dioxide Level 29 20-31 mmol/L Anion Gap 7 5-15 Blood Urea Nitrogen 13 9-23 mg/dL Creatinine 0.42 L 0.550-1.02 mg/dL Glomerular Filtration Rate Calc 109 >90 mL/min BUN/Creatinine Ratio 31.0 H 10.0-20.0 Serum Glucose 107 H 74-106 mg/dL Calcium Level 9.2 8.7-10.4 mg/dL Magnesium Level 2.0 1.6-2.6 mg/dL Total Bilirubin 0.5 0.2-1.0 mg/dL Aspartate Amino Transferase (AST) 67 H 13-40 U/L Alanine Aminotransferase (ALT) 123 H 7-40 U/L Alkaline Phosphatase 153 H 46-116 U/L Total Protein 5.3 L 5.7-8.2 g/dL Albumin 2.9 L 3.2-4.8 g/dL Vancomycin Level Trough 24.6 H 5-10 ug/mL Blood Gas Specimen Type Arterial Blood Gas Sample Site Left radial Blood Gas Patient Temperature 37.0 Arterial Blood Date Drawn [id number] Arterial Blood pH 7.458 H 7.350-7.450 Arterial Blood Partial Pressure CO2 36.6 32.0-45.0 mmHg Arterial Blood Partial Pressure O2 82.0 L 83.0-108.0 mmHg Arterial Blood HCO3 25.3 21.0-28.0 mmol/L Arterial Blood Oxygen Saturation 95.8 94.0-98.0 % Arterial Blood Base Excess 1.5 -2.0-3.0 mmol/L Arterial Blood Oxyhemoglobin 95.3 94.0-98.0 % Arterial Blood Carboxyhemoglobin 0.2 L 0.5-1.5 % Arterial Blood Methemoglobin 0.3 0.0-1.5 % Abilio Test Yes Blood Gas Total Hemoglobin 9.40 L 12.0-16.0 g/dL Blood Gas Liter Flow 4.00 Blood Gas Modality Nasal cannula FiO2 % 36.0 Test 11/27/24 03:28 11/26/24 17:40 11/26/24 16:35 11/25/24 09:35 Range/Units Prothrombin Time 11.7 9.3-11.8 sec Prothrombin Time INR 1.11 0.9-1.15 Activated Partial Thromboplast Time 27.1 24.5-34.5 SEC Differential Total Cells Counted 100.0 100 Neutrophils % (Manual) 85 H 37.0-80.0 Band Neutrophils % (Manual) 8 Lymphocytes % (Manual) 2 L 10.0-50.0 Monocytes % (Manual) 5 0-12 Eosinophils % (Manual) 0 0-7 Basophils % (Manual) 0 0.0-2.0 Metamyelocytes % (manual) 0 Myelocytes % (Manual) 0 Promyelocytes % (Manual) 0 Blast Cells % (Manual) 0 Reactive Lymphocytes 0 Platelet Estimate Adequate Blood Gas Tidal Volume 16.0 Blood Gas EPAP 8 Blood Gas IPAP 16 Blood Gas Critical Value Read Back Yes Blood Gas Notified Whom eliana Nicole Blood Gas Notified Time [id number] Blood Gas Notified By Property Management Specialist adrian mckinney Stool Occult Blood Negative Negative Stool Occult Blood Sample #3 Negative Stool for White Cells None seen Test 11/22/24 03:33 11/21/24 12:26 11/21/24 07:15 11/20/24 08:17 Range/Units Phosphorus Level 3.4 2.4-5.1 mg/dL Blood Gas Pressure Support 5 Blood Gas PEEP or CPAP 5.0 Blood Gas Set Respiration Rate 16.0 Blood Gas Spontaneous Rate 16 Test 11/20/24 03:35 11/18/24 03:00 11/17/24 07:04 11/16/24 05:23 Range/Units Random Vancomycin Level 16.1 H 5-10 ug/mL Reticulocyte Count (auto) 1.23 0.5-1.5 % Lactate Dehydrogenase 330 H 120-246 U/L Triglycerides Level 65 < 150 mg/dL Blood Gas Inspiratory Pressure 24.0 Bl Gas Inspiratory/Expiratory Ratio 1:2.8 Specimen Drawn By nba rt Carcinoembryonic Antigen 45.58 <=5.0 ng/mL Test 11/15/24 22:22 11/14/24 21:07 11/14/24 13:20 11/14/24 09:04 Range/Units Hemoglobin A1c 5.7 <5.7 % A1C Thyroid Stimulating Hormone (TSH) 1.83 0.55-4.78 uIU/mL B-Type Natriuretic Peptide 29.44 0-100 pg/mL Vitamin D 25-Hydroxy 4.6 L 30.0-100 ng/mL Urine Color [place] H Yellow Urine Clarity Ex.turbid Clear Urine pH 6.5 5.0-9.0 Urine Specific [place] 1.037 H 1.001-1.035 Urine Protein 2+ H Negative Urine Ketones Trace Negative Urine Blood 2+ H Negative /uL Urine Nitrite Negative Negative Urine Bilirubin 1+ H Negative Urine Urobilinogen 3 H Negative mg/dL Urine Leukocyte Esterase 3+ Negative /uL Urine RBC 81 0 - 4 /hpf Urine WBC 330 0 - 5 /hpf Urine Squamous Epithelial Cells Mod <5 /hpf Urine Bacteria None seen None Seen /hpf Urine Mucus Few None Seen Urine Osmolality 824 mOsm/kg Urine Creatinine 94.06 30.0-125.0 mg/dL Urine Protein/Creatinine Ratio 1.34 Urine Sodium < 10 L 40-220 mmol/L Urine Glucose Normal Normal mg/dL Urine Total Protein 126.5 H 1-14 mg/dL Lactic Acid Level 2.0 0.4-2.0 mmol/L Test 11/14/24 05:51 11/13/24 23:00 11/13/24 21:25 11/13/24 20:10 Range/Units Parathyroid Hormone (Intact) 115.5 H 18.4-80.1 pg/mL Troponin I High Sensitivity 3 L </=34 ng/L Urine WBC Clumps Present None Seen /hpf Lipase 30 12-53 U/L Plasma/Serum Blood Alcohol < 3.0 <10 mg/dL Test 11/13/24 19:07 Range/Units Ammonia 17 11-32 umol/L Microbiology Date/Time Source Procedure Growth Status 11/25/24 09:35 Stool Stool Culture - Final Complete 11/25/24 09:35 Stool Shiga Toxin I & II - Final Complete 11/23/24 14:30 Voided Urine Urine Culture - Final Presumptive Brandi albicans Complete 11/16/24 17:20 Sputum Gram Stain - Final Complete 11/16/24 17:20 Sputum Respiratory Culture - Final Complete 11/16/24 17:10 Nose MRSA Screen - Final Complete 11/13/24 20:26 Blood Blood Culture - Final NO GROWTH AFTER 5 DAYS OF INCUBATION. Complete Assessment 1. Status post extended right hemicolectomy with moderately to poorly differentiated splenic flexure adenocarcinoma with obstruction no gross perforation, 5/12 lymph glands positive with no malignancy in the transverse colon cecum ascending colon terminal ileum and appendix and jejunum. Pathological stage pT4a, pN2a and CMX Immunohistochemical testing for mismatch repair proteins showed no loss of nuclear expression of MMR proteins. Low probability of MSI-H the surgery done on 11/16/2024 On the ultrasound of the abdomen some concern about hepatocellular disease and some hepatic masses. CT of the abdomen pelvis done without contrast 2.Thalamic mass with the vasogenic edema 3. Left lower lobe pulmonary infiltrate 4. UTI 5. obesity 6. History of multiple sclerosis 7. anemia secondary to 1. Plan/Recommendation Do an MRI of the brain and MRI of the abdomen with and without contrast The thalamic mass needs to be evaluated by a neurosurgeon at a higher level of care We will check a CEA For the colon cancer the patient will need adjuvant chemotherapy because of obstruction and the staging The patient should follow up with me after discharge If no clinical contraindication the patient could be given Decadron 4 mg IV or p.o. twice a day to help with the vasogenic edema Plan discussed with: Patient ADALBERTO LOUIS MD Dec 01, 2024 09:01
[2024-12-01] MEDS: GADOTERATE MEG 10 MMOL/20ml INJ (0.5MMOL/ml) IV ONE (11:36)
[2024-12-01 11:46] LABS: Basophils # (auto) 0 10 ^3/uL (0-0.2); Basophils % (auto) 0.1 % (0.0-2.0); Eosinophils # (auto) 0 10 ^3/uL (0-0.8); Eosinophils % (auto) 0.1 % (0.0-7.0); Hematocrit 26.4 % (36.0-46.0); Hemoglobin 8.5 g/dL (12.2-16.2); Lymphocytes # (auto) 1.1 10 ^3/uL (0.4-5.4); Lymphocytes % (auto) 9.2 % (10.0-50.0); Mean Corpuscular Hemoglobin 28.5 pg (28.0-32.0); Mean Corpuscular Hgb Conc. 32.3 g/dL (32.0-36.0); Mean Corpuscular Volume 88.3 fL (80.0-100.0); Monocytes # (auto) 0.6 10 ^3/uL (0-1.3); Monocytes % (auto) 4.7 % (0.0-12.0); Neutrophils # (auto) 10.1 10 ^3/uL (1.6-8.6); Neutrophils % (auto) 85.9 % (37.0-80.0); Platelet Count (auto) 333 10^3/uL (140-450); Red Blood Cells 2.99 10^6/uL (4.0-5.20); Red Cell Distribution Width 17.4 % (11.8-14.3); White Blood Cell 11.7 10^3/uL (4.4-10.8)
[2024-12-01 12:01] LABS: Anion Gap 6 (5-15); Aspartate Aminotransferase 36 U/L (13-40); BUN/Creatinine Ratio 33.3 (10.0-20.0); Bilirubin, Total 0.4 mg/dL (0.2-1.0); Blood Urea Nitrogen 12 mg/dL (9-23); Carbon Dioxide 25 mmol/L (20-31); Glucose 88 mg/dL (74-106); Magnesium 1.7 mg/dL (1.6-2.6); Potassium 3.6 mmol/L (3.5-5.1); Sodium 139 mmol/L (136-145)
[2024-12-01 12:15] LABS: Alanine Aminotransferase 81 U/L (7-40); Albumin 2.5 g/dL (3.2-4.8); Alkaline Phosphatase 137 U/L (46-116); Chloride 108 mmol/L (98-107); Total Protein 4.6 g/dL (5.7-8.2)
--- NOTE | 2024-12-01 17:08 | DVHPN2 ---
Progress Note - Dictate Medical Necessity Reason Pt with a Central, PICC or Fol: Yes The following are medically ne: PICC Line, Xiao Catheter Reason for xiao catheter: Strict I&O Subjective Patient is awake and still altered. Bilateral inner thigh, genital and lower abdomen (skin folds) area macerations and redness. vital signs Vital Sign Date Time Temp Pulse Resp B/P (MAP) Pulse Ox O2 Delivery O2 Flow Rate FiO2 12/01/24 13:00 97.9 66 20 110/57 (74) 93 97.9 12/01/24 08:12 Room Air* 0 21 Total Intake and Output 11/30/24 11/30/24 12/01/24 15:00 23:00 07:00 Intake Total 100 ml 450 ml Output Total 1550 ml Balance 100 ml -1100 ml medications Current Medications Medications Dose Ordered Sig/Sylvie Route Start Time Stop Time Status Last Admin Dose Admin Pantoprazole Sodium 40 mg DAILY IV 11/14/24 10:00 12/01/24 10:34 40 MG Nitroglycerin 0.4 mg Q5MINP PRN SL 11/13/24 23:00 Albuterol 2.5 mg Q6HP PRN NEB 11/14/24 06:00 11/26/24 15:03 2.5 MG Nystatin 1 applic BID TOP 11/21/24 10:00 12/01/24 10:34 1 APPLIC Fat Emulsion Intravenous 150 ml/Sodium Phosphate 60 meq/ Potassium Phosphate 44 meq/ Magnesium Sulfate 12 meq/ Multivitamins 10 ml/Chromium/ Copper/Manganese/ Zinc 1 ml/Insulin Human Regular 12 units/Amino Acids/ Dextrose/Purified Water 1,439.12 ml @ 60 mls/hr Q24H IV 11/21/24 22:00 11/22/24 21:59 Cancel Albuterol 2.5 mg Q12HR NEB 11/24/24 22:00 12/01/24 08:09 2.5 MG Morphine Sulfate 15 mg Q12HR PO 11/24/24 22:00 12/01/24 10:35 15 MG Ergocalciferol 50,000 unit Q7D PO 11/25/24 07:45 11/25/24 09:22 50,000 UNIT Acetaminophen 650 mg Q6HP PRN PO 11/25/24 08:45 Enoxaparin Sodium 30 mg BID SC 11/25/24 10:00 UNV Fluconazole 100 ml @ 100 mls/hr DAILY IV 11/26/24 10:00 12/01/24 10:34 100 MLS/HR Diagnostic Test (Pha) 1 strip Q6HR 11/26/24 12:00 12/01/24 05:16 1 STRIP Insulin Human Regular Q6HR SC 11/26/24 12:00 11/30/24 17:24 2 UNITS Dextrose 50 ml UD PRN IV 11/26/24 08:00 Dexamethasone Sodium Phosphate 4 mg BID IV 11/28/24 22:00 12/01/24 10:34 4 MG Sodium Chloride 10 ml QSHIFT@10,22 IV 11/28/24 22:00 12/01/24 10:34 10 ML objective General examination- Morbidly obese female, Acute distress, urinary catheter in place, A0X2 HEENT: PEERLA, no acute nasal discharge Chest: tachycardiac, S1-S2 audible, rate and rhythm regular, no murmur Lung: CTAB, no wheeze or rhonchi Abdomen: exp lap, LIANNE drain +, ileostomy bag+ Musculoskeletal: no acute joint swelling or tenderness Lower extremity: leg edema Neurological:alert but confused Skin- dry laboratory and microbiology Laboratory Tests 12/01/24 11:10 Test 12/01/24 11:10 Range/Units Serum Glucose 88 74-106 mg/dL Assessment/Plan Patient is a 64-year-old female presented to the hospital with: change in mental status: 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 Bowel obstruction s/p exp lap right hemicolectomy terminal ileum perforation s/p partial resection of terminal ileum and caecum Urinary tract infection Acute hypoxic respiratory failure Morbid obesity Recommendations: Due to new change in mental status and CT head showing thalamic mass with vasogenic edema ? metastasis Plan for transfer to [facility] for neurosurgical intervention LIANNE drain is sero sanguinous she was switched to meropenem from Zosyn for total 5 days, [Last dose given on 11/28] 11/20, c diff negative 11/25, Stool cultures negative. 11/26, Chest x-ray shows left lower lobe atelectasis versus effusion. WBC count trending up 11/13, urine culture showed: >100,000 CFU/mL Mixed Gram Positive Ca >3 Scott Type including Beta- Hemolytic Group B Streptococcus 11/16, repeat urine culture showed no growth after 48 hours of incubation. 11/23, Urine culture shows Brandi. prognosis very guarded Thank you for consult and for giving an opportunity to take care of this patient. Dietary Evaluation Review Comments: 1) Advance pt diet when medically feasible 2) Continue current plan of care Expected Outcomes/Goals: F/U in 2-3 days CC Plasma Assessment Blood Product Administration S: [id number] LAILA DRAKE MD Dec 01, 2024 17:08
--- NOTE | 2024-12-01 19:39 | DVHPNRES ---
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 On arrival patient had temperature of 97.6, pulse 126 bpm, respiratory rate 17, blood pressure 154/88, saturating 95 on room air. WBC count was 21.5 with 89% neutrophils and 600 platelets. Lactic acid was elevated at 2.4. 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 Subsequent CT abdomen completed 11/16 showed marked dilation of the right and transverse colon with a transition point at the level of the sigmoid flexure. Associated wall thickening in this region. Suspicious of an underlying lesion resulting in obstruction. Small left pleural effusion with basilar atelectasis. Consequently GI Dr. Dalal did a sigmoidoscopy up to the splenic flexure with biopsy and colonic decompression on 11/15 and an abnormal area was found in the splenic flexure with the sigmoid diverticular disease, moderate amount of retained stool in the rectosigmoid. So surgeon was consulted and patient underwent exploratory laparotomy with extended right hemicolectomy with ileostomy on 11/16 secondary to ischemic bowel with colonic obstruction at the splenic flexure. Distal ileum to the proximal descending colon was resected and a distal ileum perforation was found during the procedure. Lysis of adhesions were performed. Patient received 3 L of NS +500 mL of 5% albumin and 100 mL of 25% albumin during the procedure. Following the procedure patient was hypotensive and therefore could not be extubated and therefore which he was transferred to ICU for further management. 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 Quit smoking about 2 years ago when she had PE. Home medications: Glatopa 20 mg every morning, lidocaine patch q.12 hours p.r.n., Paxil tablet 10 mg daily, ropinirole 5 mg 2 tablets at bedtime, tolterodine 4 mg once daily, baclofen 10 mg b.i.d., albuterol 90 mcg. 11/17-Patient seen and examined at bed 109. She was started on 50% FiO2 which was downtrended to 35% FiO2 right now. Urine culture is growing greater than 1 lac Gram-positive species including GBS. Started vancomycin 11/17. ABGs show non-anion gap metabolic acidosis along with respiratory acidosis, likely secondary to hyperchloremia. DC 0.5 NS. Respiratory rate increased from 14-16. Sodium bicarbonate started at 100 mL/hour. Both LIANNE drains drained 25 and 30 mL serosanguineous. Xiao draining 90 mL overnight and 90 mL during the day. 11/18-patient seen and examined. He is not stable for CPAP. DC Versed. DC cefepime DC bicarb. Overnight 20 mL drainage from the right LIANNE, 25 from the left LIANNE 11/21 - over the weekend stress dose steroids started. Patient was started on Zosyn since . DC Flagyl today. Cumulative I/O shows positive 15 L. Lasix 40 mg IV started. Patient tolerated CPAP trial very well, extubated. Bilateral upper extremity ultrasound ordered. ET tube advanced 2 cm. 11/22 -seen and examined at the bedside. Overnight morphine started for pain. patient is saturating 98 on 2 L. 1 unit of packed RBCs administered. Swallow eval completed, recommended soft diet. DC TPN, DC Lasix. Vaginal discharge resolved. Transferred to [facility]. PICC line consult placed. Started on pressors for cephalic vein thrombosis. PT eval requested. 11/23 - A&O x4. Levophed increased to 8 overnight from 2. Overnight patient ran 99.1 F. DC Xiao. Ordered urine culture. Incentive spirometry Q 1 hour. Repeat blood culture today. Lower extremity Doppler was a limited study with nonvisualization of bilateral femoral vein and popliteal vein. 11/24- overnight Levophed requirement went up from 2 to 8. Dark green tarry stool seen in ileostomy. LIANNE drain output is decreasing. Chest x-ray shows left lower lobe opacity. Id recommended DC Zosyn on . UA showing UTI, patient refusing change of Xiao. Discussed risk and benefits. Patient agreed. WBC downtrending 11/25 overnight patient was febrile at 99.7. Overnight patient received 1 IV calcium. Xiao catheter change today. Patient reports cold and shivering. WBC increased to 20. Stool occult is negative. Stool WBC negative. Ordered midline. DC left subclavian CVC. Discontinued Zosyn. Lasix 20 mg IV once given. IV fluconazole started. Patient is experiencing paroxysmal atrial fibrillation intermittently, rate goes up to 150s, multiple episodes throughout the day, lasts less than 1 minute. Consider starting IV digoxin if symptomatic. 11/28 - over the weekend, patient was altered and head CT performed which showed 2.5 X 3.3 cm left thalamus mass extending into the left lateral ventricle with vasogenic edema. Patient decided into early 80s was put on BiPAP. ABG at the time showed respiratory alkalosis. Urine culture shows Brandi. Stool cultures negative. Chest x-ray shows left lower lobe atelectasis versus effusion. WBC count trending down. Discontinued vancomycin. Bilateral inner thigh and genital area macerations and redness, no discharge noticed. 11/29 - patient is A&O x4. LFTs increasing, liver ultrasound shows multiple heterogeneous echotexture lesions, metastatic lesions. Contrast surgeon could not be completed since the patient is allergic to iodine. Heme oncology consulted. 11/30 - patient seen and examined at the bedside. Vaginal bleeding noticed, pelvic ultrasound unremarkable. Heme oncology consult pending. DC prophylactic Lovenox. 12/01 - patient seen and examined at the bedside. Oncologist recommended MRI brain and abdomen which could not be completed because of the patient's habitus, CT brain and abdomen with and without contrast pending given the need of protocol. Objective vital signs Vital Sign Date Time Temp Pulse Resp B/P (MAP) Pulse Ox O2 Delivery O2 Flow Rate FiO2 12/01/24 17:00 97.5 69 20 150/100 (117) 98 97.5 12/01/24 08:12 Room Air* 0 21 Total Intake and Output 11/30/24 11/30/24 12/01/24 15:00 23:00 07:00 Intake Total 100 ml 450 ml Output Total 1550 ml Balance 100 ml -1100 ml medications Current Medications Medications Dose Ordered Sig/Sylvie Route Start Time Stop Time Status Last Admin Dose Admin Pantoprazole Sodium 40 mg DAILY IV 11/14/24 10:00 12/01/24 10:34 40 MG Nitroglycerin 0.4 mg Q5MINP PRN SL 11/13/24 23:00 Albuterol 2.5 mg Q6HP PRN NEB 11/14/24 06:00 11/26/24 15:03 2.5 MG Nystatin 1 applic BID TOP 11/21/24 10:00 12/01/24 10:34 1 APPLIC Fat Emulsion Intravenous 150 ml/Sodium Phosphate 60 meq/ Potassium Phosphate 44 meq/ Magnesium Sulfate 12 meq/ Multivitamins 10 ml/Chromium/ Copper/Manganese/ Zinc 1 ml/Insulin Human Regular 12 units/Amino Acids/ Dextrose/Purified Water 1,439.12 ml @ 60 mls/hr Q24H IV 11/21/24 22:00 11/22/24 21:59 Cancel Albuterol 2.5 mg Q12HR NEB 11/24/24 22:00 12/01/24 08:09 2.5 MG Morphine Sulfate 15 mg Q12HR PO 11/24/24 22:00 12/01/24 10:35 15 MG Ergocalciferol 50,000 unit Q7D PO 11/25/24 07:45 11/25/24 09:22 50,000 UNIT Acetaminophen 650 mg Q6HP PRN PO 11/25/24 08:45 Enoxaparin Sodium 30 mg BID SC 11/25/24 10:00 UNV Fluconazole 100 ml @ 100 mls/hr DAILY IV 11/26/24 10:00 12/01/24 10:34 100 MLS/HR Diagnostic Test (Pha) 1 strip Q6HR 11/26/24 12:00 12/01/24 05:16 1 STRIP Insulin Human Regular Q6HR SC 11/26/24 12:00 11/30/24 17:24 2 UNITS Dextrose 50 ml UD PRN IV 11/26/24 08:00 Dexamethasone Sodium Phosphate 4 mg BID IV 11/28/24 22:00 12/01/24 10:34 4 MG Sodium Chloride 10 ml QSHIFT@10,22 IV 11/28/24 22:00 12/01/24 10:34 10 ML Prednisone 50 mg PRN PRN PO 12/02/24 07:00 UNV Examination Morbidly obese female patient lying in bed, extubated. General: Morbidly obese, afebrile, palor, mucosae are moist A&O x4. Cardiovascular: Regular S1 and S2. No murmurs, gallops or rubs. No JVD elevation. 1+ nonpitting edema in the lower extremity Respiratory: Bilateral dull breath sounds heard , saturating 98% on 4 L NC. Abdomen: Abdomen is soft but hypoactive bowel sounds. Dressing dry clean and intact. Sutures intact with minimal drainage. Two LIANNE drains attached. Maceration, erythema noted beneath the skin fold beneath the umbilicus. Ileostomy seen with dark green /tarry 60ml secretions with white cottage cheese appearance. Bilateral inner thigh and genital area macerations and redness, no discharge noticed. Fresh red vaginal bleeding noticed. Genitourinary: Redness in the skin folds. MSK/skin: Skin is dry and warm B/l upper and lower ext edema Neurological: Pupils are constricted and sluggish to response. No icterus seen. laboratory and microbiology Laboratory Tests 12/01/24 11:10 Test 12/01/24 11:10 Range/Units Serum Glucose 88 74-106 mg/dL Microbiology Date/Time Source Procedure Growth Status 11/25/24 09:35 Stool Stool Culture - Final Complete 11/25/24 09:35 Stool Shiga Toxin I & II - Final Complete 11/23/24 14:30 Voided Urine Urine Culture - Final Presumptive Brandi albicans Complete 11/16/24 17:20 Sputum Gram Stain - Final Complete 11/16/24 17:20 Sputum Respiratory Culture - Final Complete 11/16/24 17:10 Nose MRSA Screen - Final Complete 11/13/24 20:26 Blood Blood Culture - Final NO GROWTH AFTER 5 DAYS OF INCUBATION. 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 There is vasogenic edema in the left thalamus. There is generalized cerebral volume loss with concordant prominence of the subarachnoid spaces and ventricles. MR brain could not be completed given the patient's habitus Dexamethasone 4 mg IV b.i.d. CARDIOVASCULAR Septic shock secondary to toxic megacolon Lactic acidosis-resolved Paroxysmal atrial fibrillation-CHADS2 Vasc score 3, has bled score 1 Discontinued Zosyn 11/19 till 11/28 DC vancomycin 11/17 till 11/21 and DC IV metronidazole, patient received from 11/15 to 11/21 DC IV cefepime 11/18 Preliminary blood cultures negative Lasix 20 mg IV given once 11/25 Repeat blood culture 11/23 Consider starting digoxin if AFib becomes symptomatic RESPIRATORY Acute hypoxic respiratory failure secondary to septic shock Chronic nicotine dependence Respiratory acidosis History of PE Non-anion gap metabolic acidosis secondary to hyperchloremia Left sided pleural effusion with associated basilar atelectasis consolidation Intubated from 11/16 till 11/21 Respiratory culture and Gram stain shows no growth ABGs 11/17 shows non-anion gap metabolic acidosis with respiratory acidosis Discontinue sodium bicarbonate 100 mL/hour 11/17 till 11/18 Incentive spirometry Q 1 hour GI Sepsis secondary to toxic megacolon secondary to primary adenocarcinoma of the descending colon and splenic flexure Metastatic 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 Associated wall thickening in this region. Suspect an underlying lesion resulting in obstruction. Associated small bowel obstruction. Findings are similar to prior exam. Pathology Report: 4.0 cm tumor with no macroscopic perforation, adenocarcinoma, moderately to poorly differentiated (G2-G3) tumor invades the visceral peritoneum. Proximal and distal margins were negative and mesenteric margin was negative for carcinoma. LVI was present and PNI was present there were five tumor deposits. Twelve lymph glands were examined and five were involved PT4a, pN2a. No loss of nuclear expression of tumor proteins, low probability of MSI-H P.o. morphine for pain control Stool culture negative. Stool WBC negative. LFTs increasing, liver ultrasound shows multiple heterogeneous echotexture lesions, metastatic lesions. Contrast surgeon could not be completed since the patient is allergic to iodine. Heme oncology consulted. /KIDNEY Acute cystitis Yellow colored vaginal discharge Final urine culture showed >100,000 CFU/mL Mixed Gram Positive Ca >3 [place] Types, including Beta-Hemolytic Group B Streptococcus Repeat urine culture 11/16 is negative Discontinued IV Zosyn Repeat urine culture 11/23 shows greater than [id number] CFU yeast Started IV Diflucan 11/25 OBGYN Vaginal bleeding Pelvic ultrasound 1+1 is unremarkable METABOLIC Hyponatremia, corrected Hypomagnesemia, supplement Morbid obese Non-anion gap metabolic acidosis Vitamin-D deficiency Hypercalcemia: Corrected calcium 7.5 Received 1 g IV 11/25 overnight Vitamin-D supplemented SKIN Intertrigo Medial thigh maceration - nystatin powder HEM-ONCO Anemia, likely normocytic secondary to blood loss Superficial venous thrombosis in the right cephalic Hemoglobin dropped from 16-10 from 11/14 to 11/17 Retic count 1.23, lactate dehydrogenase 330 11/22 1 unit of packed RBC administered Continue warm compresses to right arm Heme oncologist consulted, recommended CT brain and abdomen with and without contrast. MRI could not be completed because of the patient's habitus. Patient will need adjuvant chemotherapy because of obstruction and staging. LINES Intubated on 11/16 till 11/21 Left SUBCLAVIAN CVC 11/16 till 11/28 PICC line inserted 11/28 Xiao catheter 11/13, changed on 11/24 DRIPS LEVOPHED off 11/25 VASOPRESSIN off since 11/11 FENTANYL DC VERSED DC NUTRITION; Clinimix starting 11/17, TPN starting 11/18 till 11/22, started soft diet 11/22 DVT; Lovenox 40 mg sc daily Physical therapy-recommended discharge back to [facility] or convalescent home. Recommended home health. Goals of care/advance care planning; FULL CODE; discussed on for 24 minutes. PUD prophylaxis: Pantoprazole 40 mg IV daily DVT prophylaxis: Discontinued Lovenox 11/30 9 given the vaginal bleeding Plan discussed with patient's daughter Paula [phone] over the phone call for more than 20 minutes, code status full code. Discussed with patient's son over the phone, all questions have been answered Case discussed with Dr. Barker. Heme oncology on the case. Critical care time including review of the chart, and discussion with the patient's family excluding procedures 54 minutes Plan discussed with: Patient My Orders My Orders Orders - SARA PAULA RESIDENT Procedure Category Date Status Time Chst Ab Pel W Wo CT 12/02/24 Logged Con-Iv Only 09:00 Dietary Evaluation Review Comments: 1) Advance pt diet when medically feasible 2) Continue current plan of care Expected Outcomes/Goals: F/U in 2-3 days CC Plasma Assessment Blood Product Administration S: 2240 Date of Service: Dec 01, 2024 Billing Provider: HARRY BARKER MD Common Visit Codes: [id number]-[id number] CARE 30-74 MIN SARA PAULA RESIDENT Dec 01, 2024 19:39 HARRY BARKER MD Dec 04, 2024 11:18
[2024-12-01] MEDS: POTASSIUM EFFERVESENT TAB 25 MEQ PO ONE (20:04)
[2024-12-01] MEDS: MAGNESIUM SULFATE 1GM/100ML 100 ML IV ONE (20:06)
--- NOTE | 2024-12-01 20:07 | DVHPN2 ---
Progress Note Date Seen: Dec 01, 2024 Resident Creating Document: SAY GR RESIDENT Medical Necessity Reason Pt with a Central, PICC or Fol: Yes The following are medically ne: PICC Line, Xiao Catheter Reason for xiao catheter: Strict I&O Medical Necessity Reason s/p hemicoloectomy thalamic mass, pending transfer to [facility] Subjective Review of Systems PN 12/01/2023 :Patient sending and examined She is s/p sigmoidoscopy and exploratory laparotomy and extended right hemicolectomy and ileostomy 11/16. She is AOX43 She has no new complaints today. Less pain in the abdomen. Could not do the MRI because patient unable to fit into the MRI machine Pathology report showed 4.0 cm tumor with no macroscopic perforation, adenocarcinoma, moderately to poorly differentiated (G2-G3) tumor invades the visceral peritoneum. Proximal and distal margins were negative and mesenteric margin was negative for carcinoma. LVI was present and PNI was present there were five tumor deposits. Twelve lymph glands were examined and five were involved. PT4a, pN2a. No loss of nuclear expression of tumor proteins, low probability of MSI-H Liver enzymes mildly trending up, US liver showed Heterogeneous liver echotexture with possible hepatic masses which is limited on this exam. Objective vital signs Vital Sign Date Time Temp Pulse Resp B/P (MAP) Pulse Ox O2 Delivery O2 Flow Rate FiO2 12/01/24 17:00 97.5 69 20 150/100 (117) 98 97.5 12/01/24 08:12 Room Air* 0 21 Total Intake and Output 11/30/24 11/30/24 12/01/24 15:00 23:00 07:00 Intake Total 100 ml 450 ml Output Total 1550 ml Balance 100 ml -1100 ml medications Current Medications Medications Dose Ordered Sig/Sylvie Route Start Time Stop Time Status Last Admin Dose Admin Pantoprazole Sodium 40 mg DAILY IV 11/14/24 10:00 12/01/24 10:34 40 MG Nitroglycerin 0.4 mg Q5MINP PRN SL 11/13/24 23:00 Albuterol 2.5 mg Q6HP PRN NEB 11/14/24 06:00 11/26/24 15:03 2.5 MG Nystatin 1 applic BID TOP 11/21/24 10:00 12/01/24 10:34 1 APPLIC Fat Emulsion Intravenous 150 ml/Sodium Phosphate 60 meq/ Potassium Phosphate 44 meq/ Magnesium Sulfate 12 meq/ Multivitamins 10 ml/Chromium/ Copper/Manganese/ Zinc 1 ml/Insulin Human Regular 12 units/Amino Acids/ Dextrose/Purified Water 1,439.12 ml @ 60 mls/hr Q24H IV 11/21/24 22:00 11/22/24 21:59 Cancel Albuterol 2.5 mg Q12HR NEB 11/24/24 22:00 12/01/24 08:09 2.5 MG Morphine Sulfate 15 mg Q12HR PO 11/24/24 22:00 12/01/24 10:35 15 MG Ergocalciferol 50,000 unit Q7D PO 11/25/24 07:45 11/25/24 09:22 50,000 UNIT Acetaminophen 650 mg Q6HP PRN PO 11/25/24 08:45 Enoxaparin Sodium 30 mg BID SC 11/25/24 10:00 UNV Fluconazole 100 ml @ 100 mls/hr DAILY IV 11/26/24 10:00 12/01/24 10:34 100 MLS/HR Diagnostic Test (Pha) 1 strip Q6HR 11/26/24 12:00 12/01/24 05:16 1 STRIP Insulin Human Regular Q6HR SC 11/26/24 12:00 11/30/24 17:24 2 UNITS Dextrose 50 ml UD PRN IV 11/26/24 08:00 Dexamethasone Sodium Phosphate 4 mg BID IV 11/28/24 22:00 12/01/24 10:34 4 MG Sodium Chloride 10 ml QSHIFT@10,22 IV 11/28/24 22:00 12/01/24 10:34 10 ML Prednisone 50 mg PRN PRN PO 12/02/24 07:00 UNV Examination General examination- Not in acute distress, AOx3, morbidly obese HEENT: PEERLA, no acute nasal discharge Chest: S1-S2 audible, rate and rhythm regular, no murmur Lung: CTAB, no wheeze or rhonchi Abdomen: Soft, Mild BS+, tender, soft, incision site intact. no pus or bleed seen. Musculoskeletal: no acute joint swelling or tenderness Lower extremity: leg edema with compression stockings present Neurological: cranial nerves intact, no acute dysarthria or dysphagia Psychiatry-- Normal mood and affect Skin- no acute rash or purpura laboratory and microbiology Laboratory Tests 12/01/24 11:10 Test 12/01/24 11:10 Range/Units Serum Glucose 88 74-106 mg/dL Microbiology Date/Time Source Procedure Growth Status 11/25/24 09:35 Stool Stool Culture - Final Complete 11/25/24 09:35 Stool Shiga Toxin I & II - Final Complete 11/23/24 14:30 Voided Urine Urine Culture - Final Presumptive Brandi albicans Complete 11/16/24 17:20 Sputum Gram Stain - Final Complete 11/16/24 17:20 Sputum Respiratory Culture - Final Complete 11/16/24 17:10 Nose MRSA Screen - Final Complete 11/13/24 20:26 Blood Blood Culture - Final NO GROWTH AFTER 5 DAYS OF INCUBATION. Complete Problem List/Assessment/Plan Problem List/Assessment/Plan (1) 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 -->Status post sigmoidoscopy and exploratory laparotomy and extended right hemicolectomy and ileostomy 11/16 --> CEA level 45 --> Pathology report: metastatic adenocarcinoma, moderately to poorly differentiated (G2-G3) tumor invades the visceral peritoneum and LN, Possible liver mets as well --> Oncologist following (2) Ischemic stricture intestine (3) Colonic obstruction (4) UTI (urinary tract infection) (5) Sepsis (6) Left lower lobe pulmonary infiltrate (7) Altered; CT head which was showing possible vasogenic edema with the left thalamus mass, attempt to transfer the patient for neurosurgery evaluation. Patient did have in the past prior craniotomy. ( 8) Vasogenic edema Prognosis Plan possible transfer to [facility] for neurosurgery consult Continue Protonix 40 mg IV daily Continue soft mechanical diet Monitor labs Prognosis remains guarded due to multiple comorbidities -recommend Hospice Goal of care discussed for more than 30 minutes case and plan discussed with Dr. Edith Dalal Thank you for allowing us to participate in the care of this patient. Please call if you have any questions or concerns. Plan discussed with: Patient, Other Dietary Evaluation Review Comments: 1) Advance pt diet when medically feasible 2) Continue current plan of care Expected Outcomes/Goals: F/U in 2-3 days CC Plasma Assessment Blood Product Administration S: 2240 SAY GR RESIDENT Dec 01, 2024 20:07
[2024-12-01] MEDS: predniSONE 20 MG TAB PO ONE (20:42)
[2024-12-02] VITALS (12 sets, daily range): BP systolic 104–129; BP diastolic 32–85; PULSE 54–69; RESP 16–20; TEMP 97.4–98.7; O2SAT 94–100
[2024-12-02] MEDS: predniSONE 20 MG TAB PO ONE ×2 (01:52→08:15)
[2024-12-02 07:35] LABS: Chloride 104 mmol/L (98-107); Potassium 4.7 mmol/L (3.5-5.1)
[2024-12-02 07:36] LABS: Anion Gap 6 (5-15); Carbon Dioxide 25 mmol/L (20-31); Sodium 135 mmol/L (136-145)
[2024-12-02 07:41] LABS: BUN/Creatinine Ratio 26.1 (10.0-20.0); Blood Urea Nitrogen 12 mg/dL (9-23); Magnesium 2.2 mg/dL (1.6-2.6)
[2024-12-02 07:47] LABS: Glucose 131 mg/dL (74-106)
[2024-12-02] MEDS: diphenhdrAMINE HCL 25 MG CAP PO ONE (08:15)
[2024-12-02] MEDS: IOHEXOL 300 MG/ML 100ML BOTTLE IJ ONE (09:07)
--- NOTE | 2024-12-02 10:04 | DVH ---
Exam: CT CHST AB PEL W WO CON-IV ONLY History: SIGMOID ADENOCARCINOMA Comparison Study: None available at time of dictation. Technique: Multidetector spiral CT of the chest, abdomen and pelvis was performed from lower neck to pubic symphysis with and without intravenous contrast. 100 cc Omni 300 intravenous contrast was admin istered during this examination. Portal venous imaging was obtained. Axial, coronal and sagittal mu ltiplanar reformats were performed by the technologist on a separate workstation. Radiation Dose : Chest/Abdomen/Pelvis: CTDIvol 57 mGy, DLP 3838.36 mGy*cm. Findings: Lower neck: Left upper extremity central venous catheter in place. Question of some thrombus associa amaris with the tip of the catheter. Lungs: Atelectasis and consolidation in the lung bases. Heart/Vascular Structures: Normal heart size. No pericardial effusion. Lymph Nodes: No adenopathy Pleura: Small bilateral pleural effusions left greater than right. Liver: Multiple liver masses replacing the left lobe of the liver as well as 1 in the dome of the rig ht lobe of the liver. Largest mass in the left lobe of the liver measures up to 99 mm. Gallbladder and biliary Tree: Gallbladder is surgically absent. Spleen: Cystic lesion measuring up to 25 mm. Pancreas: The pancreas is normal in appearance without focal lesions or abnormal enhancement. Adrenal Glands: Unremarkable Kidneys: Kidneys demonstrate normal symmetric enhancement without focal lesions, calculi or hydroneph rosis. Bladder: Bladder is decompressed with a Valencia catheter and cannot be adequately assessed. Bowel: The stomach is grossly normal in appearance. Postsurgical changes in the bowel of the right lo wer quadrant ileostomy. No evidence of obstruction. The appendix is not visualized; however, no seco ndary findings of acute appendicitis identified. Ascites: Absent Lymphadenopathy: Enlarged periportal and gastrohepatic lymph nodes, largest measuring up to 39 mm. Abdominal wall and Mesentery: Postsurgical changes. Bilateral surgical drains in place. No significa nt fluid collection associated with the surgical drains. No loculated abscess. Vasculature: Calcified atherosclerotic disease. Pelvic Organs: Unremarkable Musculoskeletal: Mild loss of vertebral height at multiple levels. Multilevel degenerative disease. IMPRESSION: 1. Left upper extremity central venous catheter with possible thrombus associated with the tip. Clini randy correlation and continued follow-up is recommended. 2. Bilateral pleural effusions with associated bibasilar atelectasis and consolidation. 3. Multiple liver metastases replacing most of the left lobe of the liver and involving the dome of t he right lobe of the liver. Multiple metastatic periportal and gastrohepatic lymph nodes. 4. Cystic lesion in the spleen is nonspecific. Consider further evaluation MRI of the with contrast. Attention on follow-up is recommended. 5. Postsurgical changes in the bowel. Right lower quadrant ileostomy. Bilateral surgical drains in place. No associated fluid collection. No loculated abscess. HS:Y
[2024-12-02 11:20] LABS: Hematocrit 28.9 % (36.0-46.0); Hemoglobin 9.7 g/dL (12.2-16.2); Mean Corpuscular Hemoglobin 28.8 pg (28.0-32.0); Mean Corpuscular Hgb Conc. 33.4 g/dL (32.0-36.0); Mean Corpuscular Volume 86.3 fL (80.0-100.0); Platelet Count (auto) 349 10^3/uL (140-450); Red Blood Cells 3.35 10^6/uL (4.0-5.20); Red Cell Distribution Width 17.4 % (11.8-14.3); White Blood Cell 10.2 10^3/uL (4.4-10.8)
[2024-12-02 11:24] LABS: Band Neutrophils % (manual) 0; Basophils % (manual) 0 (0.0-2.0); Blast Cells 0; Eosinophils % (manual) 0 (0-7); Metamyelocytes % 0; Myelocytes % 0; Promyelocytes % 0; Reactive Lymphocytes 0
[2024-12-02 12:57] LABS: Lymphocytes % (manual) 7 (10.0-50.0); Monocytes % (manual) 3 (0-12); Platelet Estimate Adequate
--- NOTE | 2024-12-02 16:02 | DVHPNRES ---
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 with a chief complaint of abdominal pain, nausea, vomiting and distention for the past 4 days. On arrival patient had temperature of 97.6, pulse 126 bpm, respiratory rate 17, blood pressure 154/88, saturating 95 on room air. WBC count was 21.5 with 89% neutrophils and 600 platelets. Lactic acid was elevated at 2.4. CT abdomen pelvis completed 11/13 showed gas distended colon with air bubbles marketing development representative of toxic colitis. Subsequent CT abdomen completed 11/16 showed marked dilation of the right and transverse colon with a transition point at the level of the sigmoid flexure. Associated wall thickening in this region. Suspicious of an underlying lesion resulting in obstruction. Small left pleural effusion with basilar atelectasis. Consequently GI Dr. Dalal did a sigmoidoscopy up to the splenic flexure with biopsy and colonic decompression on 11/15 and an abnormal area was found in the splenic flexure with the sigmoid diverticular disease, moderate amount of retained stool in the rectosigmoid. So surgeon was consulted and patient underwent exploratory laparotomy with extended right hemicolectomy with ileostomy on 11/16 secondary to ischemic bowel with colonic obstruction at the splenic flexure. Distal ileum to the proximal descending colon was resected and a distal ileum perforation was found during the procedure. Lysis of adhesions were performed. Patient received 3 L of NS +500 mL of 5% albumin and 100 mL of 25% albumin during the procedure. Following the procedure patient was hypotensive and therefore could not be extubated and therefore which he was transferred to ICU for further management. 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 Quit smoking about 2 years ago when she had PE. Home medications: Glatopa 20 mg every morning, lidocaine patch q.12 hours p.r.n., Paxil tablet 10 mg daily, ropinirole 5 mg 2 tablets at bedtime, tolterodine 4 mg once daily, baclofen 10 mg b.i.d., albuterol 90 mcg. 11/17-Patient seen and examined at bed 109. She was started on 50% FiO2 which was downtrended to 35% FiO2 right now. Urine culture is growing greater than 1 lac Gram-positive species including GBS. Started vancomycin 11/17. ABGs show non-anion gap metabolic acidosis along with respiratory acidosis, likely secondary to hyperchloremia. DC 0.5 NS. Respiratory rate increased from 14-16. Sodium bicarbonate started at 100 mL/hour. Both LIANNE drains drained 25 and 30 mL serosanguineous. Xiao draining 90 mL overnight and 90 mL during the day. 11/18-patient seen and examined. He is not stable for CPAP. DC Versed. DC cefepime DC bicarb. Overnight 20 mL drainage from the right LIANNE, 25 from the left LIANNE 11/21 - over the weekend stress dose steroids started. Patient was started on Zosyn since . DC Flagyl today. Cumulative I/O shows positive 15 L. Lasix 40 mg IV started. Patient tolerated CPAP trial very well, extubated. Bilateral upper extremity ultrasound ordered. ET tube advanced 2 cm. 11/22 -seen and examined at the bedside. Overnight morphine started for pain. patient is saturating 98 on 2 L. 1 unit of packed RBCs administered. Swallow eval completed, recommended soft diet. DC TPN, DC Lasix. Vaginal discharge resolved. Transferred to [facility]. PICC line consult placed. Started on pressors for cephalic vein thrombosis. PT eval requested. 11/23 - A&O x4. Levophed increased to 8 overnight from 2. Overnight patient ran 99.1 F. DC Xiao. Ordered urine culture. Incentive spirometry Q 1 hour. Repeat blood culture today. Lower extremity Doppler was a limited study with nonvisualization of bilateral femoral vein and popliteal vein. 11/24- overnight Levophed requirement went up from 2 to 8. Dark green tarry stool seen in ileostomy. LIANNE drain output is decreasing. Chest x-ray shows left lower lobe opacity. Id recommended DC Zosyn on . UA showing UTI, patient refusing change of Xiao. Discussed risk and benefits. Patient agreed. WBC downtrending 11/25 overnight patient was febrile at 99.7. Overnight patient received 1 IV calcium. Xiao catheter change today. Patient reports cold and shivering. WBC increased to 20. Stool occult is negative. Stool WBC negative. Ordered midline. DC left subclavian CVC. Discontinued Zosyn. Lasix 20 mg IV once given. IV fluconazole started. Patient is experiencing paroxysmal atrial fibrillation intermittently, rate goes up to 150s, multiple episodes throughout the day, lasts less than 1 minute. Consider starting IV digoxin if symptomatic. 11/28 - over the weekend, patient was altered and head CT performed which showed 2.5 X 3.3 cm left thalamus mass extending into the left lateral ventricle with vasogenic edema. Patient decided into early 80s was put on BiPAP. ABG at the time showed respiratory alkalosis. Urine culture shows Brandi. Stool cultures negative. Chest x-ray shows left lower lobe atelectasis versus effusion. WBC count trending down. Discontinued vancomycin. Bilateral inner thigh and genital area macerations and redness, no discharge noticed. 11/29 - patient is A&O x4. LFTs increasing, liver ultrasound shows multiple heterogeneous echotexture lesions, metastatic lesions. Contrast surgeon could not be completed since the patient is allergic to iodine. Heme oncology consulted. 11/30 - patient seen and examined at the bedside. Vaginal bleeding noticed, pelvic ultrasound unremarkable. Heme oncology consult pending. DC prophylactic Lovenox. 12/01 - patient seen and examined at the bedside. Oncologist recommended MRI brain and abdomen which could not be completed because of the patient's habitus, CT brain and abdomen with and without contrast pending given the need of protocol. 12/02 - patient seen and examined at bedside. Reports feeling cold. Underwent CT chest/abdomen/pelvis with protocol, shows multiple liver metastasis replacing most of the left lobe of the liver. Metastatic periportal and gastrohepatic lymph nodes. Cystic lesions of the liver is nonspecific. Bilateral pleural effusion with associated bilateral atelectasis and consolidation. Objective vital signs Vital Sign Date Time Temp Pulse Resp B/P (MAP) Pulse Ox O2 Delivery O2 Flow Rate FiO2 12/02/24 13:00 97.5 63 20 129/85 (100) 100 97.5 12/02/24 07:55 Room Air* 0 21 Total Intake and Output 1/01/2412/01/24 12/02/24 14:59 22:59 06:59 Intake Total 600 ml Output Total 2000 ml 1550 ml Balance -1400 ml -1550 ml medications Current Medications Medications Dose Ordered Sig/Sylvie Route Start Time Stop Time Status Last Admin Dose Admin Pantoprazole Sodium 40 mg DAILY IV 11/14/24 10:00 12/02/24 10:42 40 MG Nitroglycerin 0.4 mg Q5MINP PRN SL 11/13/24 23:00 Albuterol 2.5 mg Q6HP PRN NEB 11/14/24 06:00 11/26/24 15:03 2.5 MG Fat Emulsion Intravenous 150 ml/Sodium Phosphate 60 meq/ Potassium Phosphate 44 meq/ Magnesium Sulfate 12 meq/ Multivitamins 10 ml/Chromium/ Copper/Manganese/ Zinc 1 ml/Insulin Human Regular 12 units/Amino Acids/ Dextrose/Purified Water 1,439.12 ml @ 60 mls/hr Q24H IV 11/21/24 22:00 11/22/24 21:59 Cancel Albuterol 2.5 mg Q12HR NEB 11/24/24 22:00 12/02/24 07:36 2.5 MG Morphine Sulfate 15 mg Q12HR PO 11/24/24 22:00 12/02/24 10:43 15 MG Ergocalciferol 50,000 unit Q7D PO 11/25/24 07:45 12/02/24 08:15 50,000 UNIT Acetaminophen 650 mg Q6HP PRN PO 11/25/24 08:45 Enoxaparin Sodium 30 mg BID SC 11/25/24 10:00 UNV Fluconazole 100 ml @ 100 mls/hr DAILY IV 11/26/24 10:00 12/02/24 10:42 100 MLS/HR Diagnostic Test (Pha) 1 strip Q6HR 11/26/24 12:00 12/02/24 11:39 1 STRIP Insulin Human Regular Q6HR SC 11/26/24 12:00 12/01/24 23:45 2 UNITS Dextrose 50 ml UD PRN IV 11/26/24 08:00 Dexamethasone Sodium Phosphate 4 mg BID IV 11/28/24 22:00 12/02/24 10:42 4 MG Sodium Chloride 10 ml QSHIFT@10,22 IV 11/28/24 22:00 12/02/24 10:42 10 ML Examination Morbidly obese female patient lying in bed, extubated. General: Morbidly obese, afebrile, palor, mucosae are moist A&O x4. Cardiovascular: Regular S1 and S2. No murmurs, gallops or rubs. No JVD elevation. 1+ nonpitting edema in the lower extremity Respiratory: Bilateral dull breath sounds heard , saturating 94 on room air Abdomen: Abdomen is soft but hypoactive bowel sounds. Dressing dry clean and intact. Sutures intact with minimal drainage. Two LIANNE drains attached. Maceration, erythema noted beneath the skin fold beneath the umbilicus. Ileostomy seen with dark green /tarry 60ml secretions with white cottage cheese appearance. Bilateral inner thigh and genital area macerations and redness, no discharge noticed. Fresh red vaginal bleeding noticed. Genitourinary: Redness in the skin folds. Fresh red vaginal bleeding noticed. MSK/skin: Skin is dry and warm B/l upper and lower ext edema Neurological: Pupils are constricted and sluggish to response. No icterus seen. laboratory and microbiology Laboratory Tests 12/02/24 09:50 12/02/24 07:00 Test 12/02/24 07:00 Range/Units Serum Glucose 131 H 74-106 mg/dL Microbiology Date/Time Source Procedure Growth Status 11/30/24 21:00 Blood Blood Culture - Preliminary NO GROWTH AFTER 24 HOURS OF INCUBATION. 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 There is vasogenic edema in the left thalamus. There is generalized cerebral volume loss with concordant prominence of the subarachnoid spaces and ventricles. MR brain could not be completed given the patient's habitus Dexamethasone 4 mg IV b.i.d. CARDIOVASCULAR Septic shock secondary to toxic megacolon Lactic acidosis-resolved Paroxysmal atrial fibrillation-CHADS2 Vasc score 3, has bled score 1 Discontinued Zosyn 11/19 till 11/28 DC vancomycin 11/17 till 11/21 and DC IV metronidazole, patient received from 11/15 to 11/21 DC IV cefepime 11/18 Preliminary blood cultures negative Lasix 20 mg IV given once 11/25 Repeat blood culture 11/23 Consider starting digoxin if AFib becomes symptomatic RESPIRATORY Acute hypoxic respiratory failure secondary to septic shock Chronic nicotine dependence Respiratory acidosis History of PE Non-anion gap metabolic acidosis secondary to hyperchloremia Bilateral pleural effusion with associated bilateral atelectasis Intubated from 11/16 till 11/21 Respiratory culture and Gram stain shows no growth ABGs 11/17 shows non-anion gap metabolic acidosis with respiratory acidosis Discontinue sodium bicarbonate 100 mL/hour 11/17 till 11/18 Incentive spirometry Q 1 hour GI Sepsis secondary to toxic megacolon secondary to primary adenocarcinoma of the descending colon and splenic flexure 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 Associated wall thickening in this region. Suspect an underlying lesion resulting in obstruction. Associated small bowel obstruction. Findings are similar to prior exam. Pathology Report: 4.0 cm tumor with no macroscopic perforation, adenocarcinoma, moderately to poorly differentiated (G2-G3) tumor invades the visceral peritoneum. Proximal and distal margins were negative and mesenteric margin was negative for carcinoma. LVI was present and PNI was present there were five tumor deposits. Twelve lymph glands were examined and five were involved PT4a, pN2a. No loss of nuclear expression of tumor proteins, low probability of MSI-H P.o. morphine for pain control Stool culture negative. Stool WBC negative. LFTs increasing, liver ultrasound shows multiple heterogeneous echotexture lesions, metastatic lesions. Contrast surgeon could not be completed since the patient is allergic to iodine. Heme oncology consulted. 12/02-CT chest/abdomen/pelvis with protocol, shows multiple liver metastasis replacing most of the left lobe of the liver. Metastatic periportal and gastrohepatic lymph nodes. Cystic lesions of the liver is nonspecific. Bilateral pleural effusion with associated bilateral atelectasis and consolidation.. /KIDNEY Acute cystitis Yellow colored vaginal discharge Final urine culture showed >100,000 CFU/mL Mixed Gram Positive Ca >3 [place] Types, including Beta-Hemolytic Group B Streptococcus Repeat urine culture 11/16 is negative Discontinued IV Zosyn Repeat urine culture 11/23 shows greater than 004505 CFU yeast Started IV Diflucan 11/25 OBGYN Normal uterine bleeding Pelvic ultrasound 11/30/23 is unremarkable OBGYN consulted METABOLIC Hyponatremia, corrected Hypomagnesemia, supplement Morbid obese Non-anion gap metabolic acidosis Vitamin-D deficiency Hypercalcemia: Corrected calcium 7.5 Received 1 g IV 11/25 overnight Vitamin-D supplemented SKIN Intertrigo Medial thigh maceration - nystatin powder HEM-ONCO Anemia, likely normocytic secondary to blood loss Superficial venous thrombosis in the right cephalic Hemoglobin dropped from 16-10 from 11/14 to 11/17 Retic count 1.23, lactate dehydrogenase 330 11/22 1 unit of packed RBC administered Continue warm compresses to right arm Heme oncologist consulted, recommended CT brain and abdomen with and without contrast. MRI could not be completed because of the patient's habitus. Patient will need adjuvant chemotherapy because of obstruction and staging. LINES Intubated on 11/16 till 11/21 Left SUBCLAVIAN CVC 11/16 till 11/28 PICC line inserted 11/28 Xiao catheter 11/13, changed on 11/24 DRIPS LEVOPHED off 11/25 VASOPRESSIN off since 11/11 FENTANYL DC VERSED DC NUTRITION; Clinimix starting 11/17, TPN starting 11/18 till 11/22, started soft diet 11/22 DVT; Lovenox 40 mg sc daily Physical therapy-recommended discharge back to [facility] or convalescent home. Recommended home health. Goals of care/advance care planning; FULL CODE; discussed on for 24 minutes. PUD prophylaxis: Pantoprazole 40 mg IV daily DVT prophylaxis: Discontinued Lovenox 11/30 9 given the vaginal bleeding Plan discussed with patient's daughter Paula [phone] over the phone call for more than 20 minutes, code status full code. Discussed with patient's son over the phone, all questions have been answered Case discussed with Dr. Nath. OBGYN consulted. Heme oncology on the case. Critical care time including review of the chart, and discussion with the patient's family excluding procedures 54 minutes Plan discussed with: Patient, Daughter (At the bedside) My Orders My Orders Orders - SARA PAULA Procedure Category Date Status Time Chst Ab Pel W Wo CT 12/02/24 Resulted Con-Iv Only 09:00 Dietary Evaluation Review Comments: 1) Advance pt diet when medically feasible 2) Continue current plan of care Expected Outcomes/Goals: F/U in 2-3 days CC Plasma Assessment Blood Product Administration S: 2240 Date of Service: Dec 02, 2024 Billing Provider: FAZAL NATH MD Common Visit Codes: 24157-[id number] INP/OBS CARE(HIGH) SARA PAULA Dec 02, 2024 16:02 FAZAL NATH MD Dec 04, 2024 21:50
--- NOTE | 2024-12-02 17:46 | DVHPN2 ---
Progress Note Date Seen: Dec 02, 2024 Resident Creating Document: SAY GR RESIDENT Medical Necessity Reason Pt with a Central, PICC or Fol: Yes The following are medically ne: PICC Line, Xiao Catheter Reason for xiao catheter: Strict I&O Medical Necessity Reason Metastatic adenocarcinoma Subjective Review of Systems Patient seen and examined No significant changes from the previous days. She complained of chills after CT scan She had a CT of the abdomen that revealed: 1. Left upper extremity central venous catheter with possible thrombus associated with the tip. Clinical correlation and continued follow-up is recommended. 2. Bilateral pleural effusions with associated bibasilar atelectasis and consolidation. 3. Multiple liver metastases replacing most of the left lobe of the liver and involving the dome of the right lobe of the liver. Multiple metastatic periportal and gastrohepatic lymph nodes. Objective vital signs Vital Sign Date Time Temp Pulse Resp B/P (MAP) Pulse Ox O2 Delivery O2 Flow Rate FiO2 12/02/24 17:00 97.8 56 20 104/42 (62) 94 97.8 12/02/24 07:55 Room Air* 0 21 Total Intake and Output 12/01/24 12/01/24 12/02/24 15:00 23:00 07:00 Intake Total 600 ml Output Total 2000 ml 1550 ml Balance -1400 ml -1550 ml medications Current Medications Medications Dose Ordered Sig/Sylvie Route Start Time Stop Time Status Last Admin Dose Admin Pantoprazole Sodium 40 mg DAILY IV 11/14/24 10:00 12/02/24 10:42 40 MG Nitroglycerin 0.4 mg Q5MINP PRN SL 11/13/24 23:00 Albuterol 2.5 mg Q6HP PRN NEB 11/14/24 06:00 11/26/24 15:03 2.5 MG Fat Emulsion Intravenous 150 ml/Sodium Phosphate 60 meq/ Potassium Phosphate 44 meq/ Magnesium Sulfate 12 meq/ Multivitamins 10 ml/Chromium/ Copper/Manganese/ Zinc 1 ml/Insulin Human Regular 12 units/Amino Acids/ Dextrose/Purified Water 1,439.12 ml @ 60 mls/hr Q24H IV 11/21/24 22:00 11/22/24 21:59 Cancel Albuterol 2.5 mg Q12HR NEB 11/24/24 22:00 12/02/24 07:36 2.5 MG Morphine Sulfate 15 mg Q12HR PO 11/24/24 22:00 12/02/24 10:43 15 MG Ergocalciferol 50,000 unit Q7D PO 11/25/24 07:45 12/02/24 08:15 50,000 UNIT Acetaminophen 650 mg Q6HP PRN PO 11/25/24 08:45 Enoxaparin Sodium 30 mg BID SC 11/25/24 10:00 UNV Fluconazole 100 ml @ 100 mls/hr DAILY IV 11/26/24 10:00 12/02/24 10:42 100 MLS/HR Diagnostic Test (Pha) 1 strip Q6HR 11/26/24 12:00 12/02/24 17:01 1 STRIP Insulin Human Regular Q6HR SC 11/26/24 12:00 12/02/24 17:02 2 UNITS Dextrose 50 ml UD PRN IV 11/26/24 08:00 Dexamethasone Sodium Phosphate 4 mg BID IV 11/28/24 22:00 12/02/24 10:42 4 MG Sodium Chloride 10 ml QSHIFT@10,22 IV 11/28/24 22:00 12/02/24 10:42 10 ML Examination General: No acute distress HEENT: PEERLA, no acute nasal discharge Chest: S1-S2 audible, rate and rhythm regular, no murmur Lung: CTAB, no wheeze or rhonchi Abdomen: Soft, Mild BS+, tender, soft, incision site intact. no pus or bleed seen. Musculoskeletal: no acute joint swelling or tenderness Lower extremity: leg edema with compression stockings present Neurological: cranial nerves intact, no acute dysarthria or dysphagia Psychiatry-- Normal mood and affect Skin- no acute rash or purpura laboratory and microbiology Laboratory Tests 12/02/24 09:50 12/02/24 07:00 Test 12/02/24 07:00 Range/Units Serum Glucose 131 H 74-106 mg/dL Microbiology Date/Time Source Procedure Growth Status 11/30/24 21:00 Blood Blood Culture - Preliminary NO GROWTH AFTER 24 HOURS OF INCUBATION. Resulted 11/25/24 09:35 Stool Stool Culture - Final Complete 11/25/24 09:35 Stool Shiga Toxin I & II - Final Complete 11/23/24 14:30 Voided Urine Urine Culture - Final Presumptive Brandi albicans Complete 11/16/24 17:20 Sputum Gram Stain - Final Complete 11/16/24 17:20 Sputum Respiratory Culture - Final Complete 11/16/24 17:10 Nose MRSA Screen - Final Complete Problem List/Assessment/Plan Problem List/Assessment/Plan (1) 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 -->Status post sigmoidoscopy and exploratory laparotomy and extended right hemicolectomy and ileostomy 11/16 --> CEA level 45 --> Pathology report: metastatic adenocarcinoma, moderately to poorly differentiated (G2-G3) tumor invades the visceral peritoneum and LN, Possible liver mets as well --> Oncologist following (2) Ischemic stricture intestine (3) Colonic obstruction (4) UTI (urinary tract infection) (5) Sepsis (6) Left lower lobe pulmonary infiltrate (7) Altered; CT head which was showing possible vasogenic edema with the left thalamus mass, attempt to transfer the patient for neurosurgery evaluation. Patient did have in the past prior craniotomy. ( 8) Vasogenic edema (9) Protein malnutrition, r/t poor nutrition intake, aeb mechanical soft diet 25% consumption (10) Morbid obesity R/T history of excessive oral intake AEB BMI 45.1 (11) Left upper extremity DVT ( Thrombus noted at catheter tip) Plan possible transfer to [facility] for neurosurgery consult Continue Protonix 40 mg IV daily Continue soft mechanical diet; Encourage and monitor PO feedings to meet 75% of her needs Monitor labs Prognosis remains guarded due to multiple comorbidities --> recommend Hospice Goal of care discussed for more than 30 minutes case and plan discussed with Dr. Edith Dalal Thank you for allowing us to participate in the care of this patient. Please call if you have any questions or concerns. Plan discussed with: Patient, Other (Nurse) Dietary Evaluation Review Comments: 1) Advance pt diet when medically feasible 2) Continue current plan of care Expected Outcomes/Goals: F/U in 2-3 days CC Plasma Assessment Blood Product Administration S: [id number] SAY GR RESIDENT Dec 02, 2024 17:46
--- NOTE | 2024-12-02 20:15 | DVHPN2 ---
Progress Note - Dictate Date Seen: Dec 02, 2024 Medical Necessity Reason Pt with a Central, PICC or Fol: Yes The following are medically ne: PICC Line, Xiao Catheter Reason for xiao catheter: Strict I&O Subjective Patient reports that she has been feeling cold. Underwent CT chest/abdomen/pelvis with protocol, shows multiple liver metastasis replacing most of the left lobe of the liver. Metastatic periportal and gastrohepatic lymph nodes. Cystic lesions of the liver is nonspecific. Bilateral pleural effusion with associated bilateral atelectasis and consolidation. vital signs Vital Sign Date Time Temp Pulse Resp B/P (MAP) Pulse Ox O2 Delivery O2 Flow Rate FiO2 12/02/24 17:00 97.8 56 20 104/42 (62) 94 97.8 12/02/24 07:55 Room Air* 0 21 Total Intake and Output 12/01/24 12/01/24 12/02/24 15:00 23:00 07:00 Intake Total 600 ml Output Total 2000 ml 1550 ml Balance -1400 ml -1550 ml medications Current Medications Medications Dose Ordered Sig/Sylvie Route Start Time Stop Time Status Last Admin Dose Admin Pantoprazole Sodium 40 mg DAILY IV 11/14/24 10:00 12/02/24 10:42 40 MG Nitroglycerin 0.4 mg Q5MINP PRN SL 11/13/24 23:00 Albuterol 2.5 mg Q6HP PRN NEB 11/14/24 06:00 11/26/24 15:03 2.5 MG Fat Emulsion Intravenous 150 ml/Sodium Phosphate 60 meq/ Potassium Phosphate 44 meq/ Magnesium Sulfate 12 meq/ Multivitamins 10 ml/Chromium/ Copper/Manganese/ Zinc 1 ml/Insulin Human Regular 12 units/Amino Acids/ Dextrose/Purified Water 1,439.12 ml @ 60 mls/hr Q24H IV 11/21/24 22:00 11/22/24 21:59 Cancel Albuterol 2.5 mg Q12HR NEB 11/24/24 22:00 12/02/24 07:36 2.5 MG Morphine Sulfate 15 mg Q12HR PO 11/24/24 22:00 12/02/24 10:43 15 MG Ergocalciferol 50,000 unit Q7D PO 11/25/24 07:45 12/02/24 08:15 50,000 UNIT Acetaminophen 650 mg Q6HP PRN PO 11/25/24 08:45 Enoxaparin Sodium 30 mg BID SC 11/25/24 10:00 UNV Fluconazole 100 ml @ 100 mls/hr DAILY IV 11/26/24 10:00 12/02/24 10:42 100 MLS/HR Diagnostic Test (Pha) 1 strip Q6HR 11/26/24 12:00 12/02/24 17:01 1 STRIP Insulin Human Regular Q6HR SC 11/26/24 12:00 12/02/24 17:02 2 UNITS Dextrose 50 ml UD PRN IV 11/26/24 08:00 Dexamethasone Sodium Phosphate 4 mg BID IV 11/28/24 22:00 12/02/24 10:42 4 MG Sodium Chloride 10 ml QSHIFT@10,22 IV 11/28/24 22:00 12/02/24 10:42 10 ML objective General examination- Morbidly obese female, Acute distress, urinary catheter in place, A0X2 HEENT: PEERLA, no acute nasal discharge Chest: tachycardiac, S1-S2 audible, rate and rhythm regular, no murmur Lung: CTAB, no wheeze or rhonchi Abdomen: exp lap, LIANNE drain +, ileostomy bag+ Musculoskeletal: no acute joint swelling or tenderness Lower extremity: leg edema Neurological:alert but confused Skin- dry laboratory and microbiology Laboratory Tests 12/02/24 09:50 12/02/24 07:00 Test 12/02/24 07:00 Range/Units Serum Glucose 131 H 74-106 mg/dL Assessment/Plan Patient is a 64-year-old female presented to the hospital with: change in mental status: 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 Bowel obstruction s/p exp lap right hemicolectomy terminal ileum perforation s/p partial resection of terminal ileum and caecum Urinary tract infection Acute hypoxic respiratory failure Morbid obesity Recommendations: Due to new change in mental status and CT head showing thalamic mass with vasogenic edema ? metastasis Plan for transfer to [facility] for neurosurgical intervention LIANNE drain is sero sanguinous she was switched to Meropenem from Zosyn for total 5 days, [Last dose given 11/30] c diff negative 11/13, urine culture showed: >100,000 CFU/mL Mixed Gram Positive Ca >3 [place] Type including Beta- Hemolytic Group B Streptococcus 11/16, repeat urine culture showed no growth after 48 hours of incubation. 11/25: LEFT Upper Extremity Venous Duplex report came back normal Urine culture shows Brandi. Stool cultures negative. Chest x-ray shows left lower lobe atelectasis versus effusion. WBC count trending down. prognosis very gaurded Thank you for consult and for giving an opportunity to take care of this patient. Dietary Evaluation Review Comments: 1) Advance pt diet when medically feasible 2) Continue current plan of care Expected Outcomes/Goals: F/U in 2-3 days CC Plasma Assessment Blood Product Administration S: [id number] LAILA DRAKE MD Dec 02, 2024 20:15
[2024-12-03] VITALS (13 sets, daily range): BP systolic 94–129; BP diastolic 46–90; PULSE 66–103; RESP 18–22; TEMP 97.2–98.6; O2SAT 91–100
--- NOTE | 2024-12-03 09:08 | DVHINCON2 ---
DATE OF CONSULTATION: 12/03/2024 REASON FOR CONSULTATION: Rule out uterine cancer. HISTORY OF PRESENT ILLNESS: The patient is a 64-year-old female who was brought in from a [facility] for abdominal pain. The patient underwent partial resection of ileum as she was diagnosed with adenocarcinoma of colon with mets to the liver, appeared to have some vaginal bleeding. Her pelvic ultrasound reveals 8-week size uterus, endometrium shows a thickness of 0.7 cm. Ovaries are grossly normal appearing. The patient cannot give any history. She is confused and very uncooperative. PAST MEDICAL HISTORY: Asthma per medical records. PAST SURGICAL HISTORY: Status post exploratory laparotomy, partial resection of ileum. SOCIAL HISTORY: Unknown. FAMILY HISTORY: Unknown. ALLERGIES: No known drug allergies. REVIEW OF SYSTEMS: Consistent with HPI. PHYSICAL EXAMINATION: GENERAL APPEARANCE: Morbidly obese patient, in no acute distress, unable to give any history. BREASTS: Symmetrical. No masses. ABDOMEN: Obese. Surgical scar noted. Dressing intact. PELVIC: Valencia in place. The patient is uncooperative. No active bleeding is noted. The patient is not allowing me to examine her with nurse present in the room. The pelvic exam was incomplete as the patient did not cooperate. EXTREMITIES: Positive edema. IMPRESSION: * Vaginal bleeding that appears to be scant. I do not believe it is from the uterus. I do not believe the patient has endometrial cancer at this point based on the findings. The patient has not had a Pap smear in many years. Currently, the patient is not bleeding actively. * Morbid obesity. * Postmenopausal bleeding at this point can be ruled out. RECOMMENDATION: Supportive care. We will sign off. Thank you very much for this consultation. DO AARON Lee TID: [id number] RECEIPT: [id number]
--- NOTE | 2024-12-03 15:41 | DVHPN2 ---
Subjective seen by OB today, no significant bleeding. for transfer to [facility] pending bed Changes from previous H/P or p: No Changes Objective Vitals Vital Signs Date Time Temp Pulse Resp B/P (MAP) Pulse Ox O2 Delivery O2 Flow Rate FiO2 12/03/24 13:00 97.8 89 19 109/46 (67) 91 97.8 12/03/24 08:00 Room Air* 0 21 Intake/Output Intake and Output 12/03/24 07:00 Intake Total 980 ml Output Total 1100 ml Balance -120 ml Intake Oral 880 ml IV Total 100 ml Output Urine Total 1100 ml General Appearance: Other (intuabed and sedated) Medications Current Medications Medications Dose Ordered Sig/Sylvie Route Start Time Stop Time Status Last Admin Dose Admin Pantoprazole Sodium 40 mg DAILY IV 11/14/24 10:00 12/03/24 10:33 40 MG Nitroglycerin 0.4 mg Q5MINP PRN SL 11/13/24 23:00 Albuterol 2.5 mg Q6HP PRN NEB 11/14/24 06:00 11/26/24 15:03 2.5 MG Fat Emulsion Intravenous 150 ml/Sodium Phosphate 60 meq/ Potassium Phosphate 44 meq/ Magnesium Sulfate 12 meq/ Multivitamins 10 ml/Chromium/ Copper/Manganese/ Zinc 1 ml/Insulin Human Regular 12 units/Amino Acids/ Dextrose/Purified Water 1,439.12 ml @ 60 mls/hr Q24H IV 11/21/24 22:00 11/22/24 21:59 Cancel Albuterol 2.5 mg Q12HR NEB 11/24/24 22:00 12/03/24 10:34 2.5 MG Morphine Sulfate 15 mg Q12HR PO 11/24/24 22:00 12/03/24 10:34 15 MG Ergocalciferol 50,000 unit Q7D PO 11/25/24 07:45 12/02/24 08:15 50,000 UNIT Acetaminophen 650 mg Q6HP PRN PO 11/25/24 08:45 Enoxaparin Sodium 30 mg BID SC 11/25/24 10:00 UNV Fluconazole 100 ml @ 100 mls/hr DAILY IV 11/26/24 10:00 12/03/24 10:33 100 MLS/HR Diagnostic Test (Pha) 1 strip Q6HR 11/26/24 12:12/03/24 12:10 1 STRIP Insulin Human Regular Q6HR SC 11/26/24 12:00 12/03/24 12:11 3 UNITS Dextrose 50 ml UD PRN IV 11/26/24 08:00 Dexamethasone Sodium Phosphate 4 mg BID IV 11/28/24 22:00 12/03/24 10:33 4 MG Sodium Chloride 10 ml QSHIFT@10,22 IV 11/28/24 22:00 12/03/24 10:35 10 ML Laboratory Results Laboratory Tests 12/02/24 07:00 12/02/24 09:50 Urinalysis Test 11/13/24 21:25 11/14/24 13:20 Urine WBC Clumps Present /hpf (None Seen) Urine Color [place] (Yellow) H Urine Clarity Ex.turbid (Clear) Urine pH 6.5 (5.0-9.0) Urine Specific [place] 1.037 (1.001-1.035) Urine Protein 2+ (Negative) H Urine Ketones Trace (Negative) Urine Blood 2+ /uL (Negative) H Urine Nitrite Negative (Negative) Urine Bilirubin 1+ (Negative) H Urine Urobilinogen 3 mg/dL (Negative) H Urine Leukocyte Esterase 3+ /uL (Negative) Urine RBC 81 /hpf (0 - 4) Urine WBC 330 /hpf (0 - 5) Urine Squamous Epithelial Cells Mod /hpf (<5) Urine Bacteria None seen /hpf (None Seen) Urine Mucus Few (None Seen) Urine Osmolality 824 mOsm/kg Urine Creatinine 94.06 mg/dL (30.0-125.0) Urine Protein/Creatinine Ratio 1.34 Urine Sodium < 10 mmol/L (40-220) L Urine Glucose Normal mg/dL (Normal) Urine Total Protein 126.5 mg/dL (1-14) H Microbiology Microbiology Date/Time Source Procedure Growth Status 11/30/24 21:00 Blood Blood Culture - Preliminary NO GROWTH AFTER 48 HOURS OF INCUBATION. 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 There is vasogenic edema in the left thalamus. There is generalized cerebral volume loss with concordant prominence of the subarachnoid spaces and ventricles. MR brain could not be completed given the patient's habitus Dexamethasone 4 mg IV b.i.d. CARDIOVASCULAR Septic shock secondary to toxic megacolon Lactic acidosis-resolved Paroxysmal atrial fibrillation-CHADS2 Vasc score 3, has bled score 1 Discontinued Zosyn 11/19 till 11/28 DC vancomycin 11/17 till 11/21 and DC IV metronidazole, patient received from 11/15 to 11/21 DC IV cefepime 11/18 Preliminary blood cultures negative Lasix 20 mg IV given once 11/25 Repeat blood culture 11/23 Consider starting digoxin if AFib becomes symptomatic RESPIRATORY Acute hypoxic respiratory failure secondary to septic shock Chronic nicotine dependence Respiratory acidosis History of PE Non-anion gap metabolic acidosis secondary to hyperchloremia Bilateral pleural effusion with associated bilateral atelectasis Intubated from 11/16 till 11/21 Respiratory culture and Gram stain shows no growth ABGs 11/17 shows non-anion gap metabolic acidosis with respiratory acidosis Discontinue sodium bicarbonate 100 mL/hour 11/17 till 11/18 Incentive spirometry Q 1 hour GI Sepsis secondary to toxic megacolon secondary to primary adenocarcinoma of the descending colon and splenic flexure 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 Associated wall thickening in this region. Suspect an underlying lesion resulting in obstruction. Associated small bowel obstruction. Findings are similar to prior exam. Pathology Report: 4.0 cm tumor with no macroscopic perforation, adenocarcinoma, moderately to poorly differentiated (G2-G3) tumor invades the visceral peritoneum. Proximal and distal margins were negative and mesenteric margin was negative for carcinoma. LVI was present and PNI was present there were five tumor deposits. Twelve lymph glands were examined and five were involved PT4a, pN2a. No loss of nuclear expression of tumor proteins, low probability of MSI-H P.o. morphine for pain control Stool culture negative. Stool WBC negative. LFTs increasing, liver ultrasound shows multiple heterogeneous echotexture lesions, metastatic lesions. Contrast surgeon could not be completed since the patient is allergic to iodine. Heme oncology consulted. 12/02-CT chest/abdomen/pelvis with protocol, shows multiple liver metastasis replacing most of the left lobe of the liver. Metastatic periportal and gastrohepatic lymph nodes. Cystic lesions of the liver is nonspecific. Bilateral pleural effusion with associated bilateral atelectasis and consolidation.. /KIDNEY Acute cystitis Yellow colored vaginal discharge Final urine culture showed >100,000 CFU/mL Mixed Gram Positive Ca >3 [place] Types, including Beta-Hemolytic Group B Streptococcus Repeat urine culture 11/16 is negative Discontinued IV Zosyn Repeat urine culture 11/23 shows greater than 654255 CFU yeast Started IV Diflucan 11/25 OBGYN Normal uterine bleeding Pelvic ultrasound 11/30/23 is unremarkable OBGYN consulted METABOLIC Hyponatremia, corrected Hypomagnesemia, supplement Morbid obese Non-anion gap metabolic acidosis Vitamin-D deficiency Hypercalcemia: Corrected calcium 7.5 Received 1 g IV 11/25 overnight Vitamin-D supplemented SKIN Intertrigo Medial thigh maceration - nystatin powder HEM-ONCO Anemia, likely normocytic secondary to blood loss Superficial venous thrombosis in the right cephalic Hemoglobin dropped from 16-10 from 11/14 to 11/17 Retic count 1.23, lactate dehydrogenase 330 11/22 1 unit of packed RBC administered Continue warm compresses to right arm Heme oncologist consulted, recommended CT brain and abdomen with and without contrast. MRI could not be completed because of the patient's habitus. Patient will need adjuvant chemotherapy because of obstruction and staging. LINES Intubated on 11/16 till 11/21 Left SUBCLAVIAN CVC 11/16 till 11/28 PICC line inserted 11/28 [place] catheter 11/13, changed on 11/24 DRIPS LEVOPHED off 11/25 VASOPRESSIN off since 11/11 FENTANYL DC VERSED DC NUTRITION; Clinimix starting 11/17, TPN starting 11/18 till 11/22, started soft diet 11/22 DVT; Lovenox 40 mg sc daily Physical therapy-recommended discharge back to [facility] [place] [facility] care facility or convalescent home. Recommended home health. Plan discussed with: Other Date of Service: Dec 03, 2024 Billing Provider: FAZAL DUNAWAY MD Common Visit Codes: [id number] INP/OBS CARE(HIGH) FAZAL DUNAWAY MD Dec 03, 2024 15:40
--- NOTE | 2024-12-03 16:04 | DVHPN2 ---
Progress Note Date Seen: Dec 03, 2024 Medical Necessity Reason Pt with a Central, PICC or Fol: Yes The following are medically ne: PICC Line, Xiao Catheter Reason for xiao catheter: Strict I&O Objective vital signs Vital Sign Date Time Temp Pulse Resp B/P (MAP) Pulse Ox O2 Delivery O2 Flow Rate FiO2 12/03/24 15:36 71 18 111/49 93 0.0 21 12/03/24 13:00 97.8 97.8 12/03/24 08:00 Room Air* Total Intake and Output 12/02/24 12/02/24 12/03/24 15:00 23:00 07:00 Intake Total 100 ml 880 ml Output Total 1100 ml Balance 100 ml -220 ml medications Current Medications Medications Dose Ordered Sig/Sylvie Route Start Time Stop Time Status Last Admin Dose Admin Pantoprazole Sodium 40 mg DAILY IV 11/14/24 10:00 12/03/24 10:33 40 MG Nitroglycerin 0.4 mg Q5MINP PRN SL 11/13/24 23:00 Albuterol 2.5 mg Q6HP PRN NEB 11/14/24 06:00 11/26/24 15:03 2.5 MG Fat Emulsion Intravenous 150 ml/Sodium Phosphate 60 meq/ Potassium Phosphate 44 meq/ Magnesium Sulfate 12 meq/ Multivitamins 10 ml/Chromium/ Copper/Manganese/ Zinc 1 ml/Insulin Human Regular 12 units/Amino Acids/ Dextrose/Purified Water 1,439.12 ml @ 60 mls/hr Q24H IV 11/21/24 22:00 11/22/24 21:59 Cancel Albuterol 2.5 mg Q12HR NEB 11/24/24 22:00 12/03/24 10:34 2.5 MG Morphine Sulfate 15 mg Q12HR PO 11/24/24 22:00 12/03/24 10:34 15 MG Ergocalciferol 50,000 unit Q7D PO 11/25/24 07:45 12/02/24 08:15 50,000 UNIT Acetaminophen 650 mg Q6HP PRN PO 11/25/24 08:45 Enoxaparin Sodium 30 mg BID SC 11/25/24 10:00 UNV Fluconazole 100 ml @ 100 mls/hr DAILY IV 11/26/24 10:00 12/03/24 10:33 100 MLS/HR Diagnostic Test (Pha) 1 strip Q6HR 11/26/24 12:00 12/03/24 12:10 1 STRIP Insulin Human Regular Q6HR SC 11/26/24 12:00 12/03/24 12:11 3 UNITS Dextrose 50 ml UD PRN IV 11/26/24 08:00 Dexamethasone Sodium Phosphate 4 mg BID IV 11/28/24 22:00 12/03/24 10:33 4 MG Sodium Chloride 10 ml QSHIFT@10,22 IV 11/28/24 22:00 12/03/24 10:35 10 ML laboratory and microbiology Laboratory Tests 12/02/24 09:50 12/02/24 07:00 Test 12/02/24 07:00 Range/Units Serum Glucose 131 H 74-106 mg/dL Microbiology Date/Time Source Procedure Growth Status 11/30/24 21:00 Blood Blood Culture - Preliminary NO GROWTH AFTER 48 HOURS OF INCUBATION. Resulted 11/25/24 09:35 Stool Stool Culture - Final Complete 11/25/24 09:35 Stool Shiga Toxin I & II - Final Complete 11/23/24 14:30 Voided Urine Urine Culture - Final Presumptive Brandi albicans Complete 11/16/24 17:20 Sputum Gram Stain - Final Complete 11/16/24 17:20 Sputum Respiratory Culture - Final Complete 11/16/24 17:10 Nose MRSA Screen - Final Complete Problem List/Assessment/Plan Problem List/Assessment/Plan AFEBRILE VSS S/P E LAP CALLED TO EVALUATE ABD WOUND MILD DEHISCENCE SOME DRAINAGE ILEOSTOMY VIABLE AND FUNCTIONAL CONTINUE CLOSE OBSERVATION IV ABX NURSE AT BEDSIDE Plan discussed with: Patient Dietary Evaluation Review Comments: 1) Advance pt diet when medically feasible 2) Continue current plan of care Expected Outcomes/Goals: F/U in 2-3 days CC Plasma Assessment Blood Product Administration S: [id number] HEVER SEBASTIAN MD Dec 03, 2024 16:04
[2024-12-03] MEDS: CLINDAMYCIN 300MG IV 50 ML IV ONE (18:30)
--- NOTE | 2024-12-03 19:54 | DVHPN2 ---
Progress Note Date Seen: Dec 03, 2024 Resident Creating Document: SAY GR Medical Necessity Reason Pt with a Central, PICC or Fol: Yes The following are medically ne: PICC Line, Xiao Catheter Reason for xiao catheter: Strict I&O Medical Necessity Reason Colon cancer pathology report shows adenocarcinoma with metastasis Subjective Review of Systems PN: 12/03/2024 Patient seen and examined. She is still complaining for feeling cold. her hands are cold. patient covered in blanket. She is looking slightly improved in terms of a physical appearance. Patient is noted to have wound dehiscence and surgery has been notified. We have discussed with the patient about the surgery and the pathology report. Patient said she lives alone and she makes decisions for herself. Therefore, we discussed with her that she needs to let us know what she would like us to do going forward regarding her current state. CT abdomen/pelvic 12/02/2024: 1. Left upper extremity central venous catheter with possible thrombus associated with the tip. Clinical correlation and continued follow-up is recommended. 2. Bilateral pleural effusions with associated bibasilar atelectasis and consolidation. 3. Multiple liver metastases replacing most of the left lobe of the liver and involving the dome of the right lobe of the liver. Multiple metastatic periportal and gastrohepatic lymph nodes. Objective vital signs Vital Sign Date Time Temp Pulse Resp B/P (MAP) Pulse Ox O2 Delivery O2 Flow Rate FiO2 12/03/24 18:47 75 20 100 12/03/24 18:37 Room Air 0.0 12/03/24 18:37 21 12/03/24 16:57 97.6 129/ 97.6 Total Intake and Output 12/02/24 12/02/24 12/03/24 15:00 23:00 07:00 Intake Total 100 ml 880 ml Output Total 1100 ml Balance 100 ml -220 ml medications Current Medications Medications Dose Ordered Sig/Sylvie Route Start Time Stop Time Status Last Admin Dose Admin Pantoprazole Sodium 40 mg DAILY IV 11/14/24 10:00 12/03/24 10:33 40 MG Nitroglycerin 0.4 mg Q5MINP PRN SL 11/13/24 23:00 Albuterol 2.5 mg Q6HP PRN NEB 11/14/24 06:00 11/26/24 15:03 2.5 MG Fat Emulsion Intravenous 150 ml/Sodium Phosphate 60 meq/ Potassium Phosphate 44 meq/ Magnesium Sulfate 12 meq/ Multivitamins 10 ml/Chromium/ Copper/Manganese/ Zinc 1 ml/Insulin Human Regular 12 units/Amino Acids/ Dextrose/Purified Water 1,439.12 ml @ 60 mls/hr Q24H IV 11/21/24 22:00 11/22/24 21:59 Cancel Albuterol 2.5 mg Q12HR NEB 11/24/24 22:00 12/03/24 18:37 2.5 MG Morphine Sulfate 15 mg Q12HR PO 11/24/24 22:00 12/03/24 10:34 15 MG Ergocalciferol 50,000 unit Q7D PO 11/25/24 07:45 12/02/24 08:15 50,000 UNIT Acetaminophen 650 mg Q6HP PRN PO 11/25/24 08:45 Enoxaparin Sodium 30 mg BID SC 11/25/24 10:00 UNV Fluconazole 100 ml @ 100 mls/hr DAILY IV 11/26/24 10:00 12/03/24 10:33 100 MLS/HR Diagnostic Test (Pha) 1 strip Q6HR 11/26/24 12:00 12/03/24 17:26 1 STRIP Insulin Human Regular Q6HR SC 11/26/24 12:00 12/03/24 12:11 3 UNITS Dextrose 50 ml UD PRN IV 11/26/24 08:00 Dexamethasone Sodium Phosphate 4 mg BID IV 11/28/24 22:00 12/03/24 10:33 4 MG Sodium Chloride 10 ml QSHIFT@10,22 IV 11/28/24 22:00 12/03/24 10:35 10 ML Clindamycin Phosphate 50 ml @ 50 mls/hr Q8HR IV 12/03/24 23:59 Examination General: No acute distress, easily agitated HEENT: PEERLA, no acute nasal discharge Chest: S1-S2 audible, rate and rhythm regular, no murmur Lung: CTAB, no wheeze or rhonchi Abdomen: Soft, Mild BS+, tender, Wound dehiscence noted. colostomy bag functional Musculoskeletal: no acute joint swelling or tenderness Lower extremity: leg edema with compression stockings present Neurological: cranial nerves intact, no acute dysarthria or dysphagia Psychiatry-- Normal mood and affect Skin- no acute rash or purpura laboratory and microbiology Laboratory Tests 12/02/24 09:50 12/02/24 07:00 Test 12/02/24 07:00 Range/Units Serum Glucose 131 H 74-106 mg/dL Microbiology Date/Time Source Procedure Growth Status 11/30/24 21:00 Blood Blood Culture - Preliminary NO GROWTH AFTER 48 HOURS OF INCUBATION. Resulted 11/25/24 09:35 Stool Stool Culture - Final Complete 11/25/24 09:35 Stool Shiga Toxin I & II - Final Complete 11/23/24 14:30 Voided Urine Urine Culture - Final Presumptive Brandi albicans Complete 11/16/24 17:20 Sputum Gram Stain - Final Complete 11/16/24 17:20 Sputum Respiratory Culture - Final Complete 11/16/24 17:10 Nose MRSA Screen - Final Complete Problem List/Assessment/Plan Problem List/Assessment/Plan (1) 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 -->Status post sigmoidoscopy and exploratory laparotomy and extended right hemicolectomy and ileostomy 11/16 --> CEA level 45 --> Pathology report: metastatic adenocarcinoma, moderately to poorly differentiated (G2-G3) tumor invades the visceral peritoneum and LN, Possible liver mets as well --> Oncologist following --> Mild wound dehiscence with some drainage ( 12/03/2024): Continue to monitor (2) Ischemic stricture intestine (3) Colonic obstruction (4) UTI (urinary tract infection) (5) Sepsis (6) Left lower lobe pulmonary infiltrate (7) Altered; CT head which was showing possible vasogenic edema with the left thalamus mass, attempt to transfer the patient for neurosurgery evaluation. Patient did have in the past prior craniotomy. ( 8) Vasogenic edema (9) Protein malnutrition, r/t poor nutrition intake, aeb mechanical soft diet 25% consumption (10) Morbid obesity R/T history of excessive oral intake AEB BMI 45.1 (11) Left upper extremity DVT ( Thrombus noted at catheter tip) Plan possible transfer to [facility] for neurosurgery consult Continue Protonix 40 mg IV daily Continue soft mechanical diet; Encourage and monitor PO feedings to meet 75% of her needs Monitor labs Prognosis is poor due to multiple co-morbidities We spoke to the patient today regarding the pathology report of her surgery that she has metastatic cancer. We asked the patient if she has any power of health care attorney. She said no. She lives by herself and makes all her decision for herself. We ask that she lets us know what she would like us to do going forward. Recommend Hospice Goal of care discussed for more than 25 minutes case and plan discussed with Dr. Edith Dalal Thank you for allowing us to participate in the care of this patient. Please call if you have any questions or concerns. Plan discussed with: Patient, Other (nurse) Dietary Evaluation Review Comments: 1) Advance pt diet when medically feasible 2) Continue current plan of care Expected Outcomes/Goals: F/U in 2-3 days CC Plasma Assessment Blood Product Administration S: [id number] SAY GR RESIDENT Dec 03, 2024 19:54
[2024-12-03] MEDS: CLINDAMYCIN 600MG IV 50 ML IV SCH (21:48)
--- NOTE | 2024-12-03 22:02 | DVHPN2 ---
Progress Note - Dictate Date Seen: Dec 03, 2024 Medical Necessity Reason Pt with a Central, PICC or Fol: Yes The following are medically ne: PICC Line, Xiao Catheter Reason for xiao catheter: Strict I&O Subjective Patient reports that she has been feeling cold. She is looking slightly improved in terms of a physical appearance. Patient is noted to have wound dehiscence and surgery has been notified. Underwent CT chest/abdomen/pelvis with protocol, shows multiple liver metastasis replacing most of the left lobe of the liver. Metastatic periportal and gastrohepatic lymph nodes. Cystic lesions of the liver is nonspecific. Bilateral pleural effusion with associated bilateral atelectasis and consolidation. vital signs Vital Sign Date Time Temp Pulse Resp B/P (MAP) Pulse Ox O2 Delivery O2 Flow Rate FiO2 12/03/24 21:00 97.9 103 20 103/49 (67) 95 97.9 12/03/24 20:00 Room Air* 0 21 Total Intake and Output 12/02/24 12/02/24 12/03/24 15:00 23:00 07:00 Intake Total 100 ml 880 ml Output Total 1100 ml Balance 100 ml -220 ml medications Current Medications Medications Dose Ordered Sig/Sylvie Route Start Time Stop Time Status Last Admin Dose Admin Pantoprazole Sodium 40 mg DAILY IV 11/14/24 10:00 12/03/24 10:33 40 MG Nitroglycerin 0.4 mg Q5MINP PRN SL 11/13/24 23:00 Albuterol 2.5 mg Q6HP PRN NEB 11/14/24 06:00 11/26/24 15:03 2.5 MG Fat Emulsion Intravenous 150 ml/Sodium Phosphate 60 meq/ Potassium Phosphate 44 meq/ Magnesium Sulfate 12 meq/ Multivitamins 10 ml/Chromium/ Copper/Manganese/ Zinc 1 ml/Insulin Human Regular 12 units/Amino Acids/ Dextrose/Purified Water 1,439.12 ml @ 60 mls/hr Q24H IV 11/21/24 22:00 11/22/24 21:59 Cancel Albuterol 2.5 mg Q12HR NEB 11/24/24 22:00 12/03/24 18:37 2.5 MG Morphine Sulfate 15 mg Q12HR PO 11/24/24 22:00 12/03/24 21:49 15 MG Ergocalciferol 50,000 unit Q7D PO 11/25/24 07:45 12/02/24 08:15 50,000 UNIT Acetaminophen 650 mg Q6HP PRN PO 11/25/24 08:45 Enoxaparin Sodium 30 mg BID SC 11/25/24 10:00 UNV Fluconazole 100 ml @ 100 mls/hr DAILY IV 11/26/24 10:00 12/03/24 10:33 100 MLS/HR Diagnostic Test (Pha) 1 strip Q6HR 11/26/24 12:00 12/03/24 17:26 1 STRIP Insulin Human Regular Q6HR SC 11/26/24 12:00 12/03/24 12:11 3 UNITS Dextrose 50 ml UD PRN IV 11/26/24 08:00 Dexamethasone Sodium Phosphate 4 mg BID IV 11/28/24 22:00 12/03/24 21:50 4 MG Sodium Chloride 10 ml QSHIFT@10,22 IV 11/28/24 22:00 12/03/24 21:50 10 ML Clindamycin Phosphate 50 ml @ 50 mls/hr Q8HR IV 12/03/24 23:59 12/03/24 21:48 50 MLS/HR objective General examination- Morbidly obese female, Acute distress, urinary catheter in place, A0X2 HEENT: PEERLA, no acute nasal discharge Chest: tachycardiac, S1-S2 audible, rate and rhythm regular, no murmur Lung: CTAB, no wheeze or rhonchi Abdomen: exp lap, LIANNE drain +, ileostomy bag+ Musculoskeletal: no acute joint swelling or tenderness Lower extremity: leg edema Neurological:alert but confused Skin- dry laboratory and microbiology Laboratory Tests 12/02/24 09:50 12/02/24 07:00 Test 12/02/24 07:00 Range/Units Serum Glucose 131 H 74-106 mg/dL Assessment/Plan Patient is a 64-year-old female presented to the hospital with: change in mental status: 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 Bowel obstruction s/p exp lap right hemicolectomy terminal ileum perforation s/p partial resection of terminal ileum and caecum Urinary tract infection Acute hypoxic respiratory failure Morbid obesity Recommendations: Due to new change in mental status and CT head showing thalamic mass with vasogenic edema ? metastasis Plan for transfer to [facility] for neurosurgical intervention LIANNE drain is sero sanguinous she was switched to Meropenem from Zosyn for total 5 days, [Last dose given 11/30] c diff negative 11/13, urine culture showed: >100,000 CFU/mL Mixed Gram Positive Ca >3 [place] Type including Beta- Hemolytic Group B Streptococcus 11/16, repeat urine culture showed no growth after 48 hours of incubation. 11/25: LEFT Upper Extremity Venous Duplex report came back normal Urine culture shows Brandi. Stool cultures negative. Chest x-ray shows left lower lobe atelectasis versus effusion. WBC count trending down. prognosis very gaurded Thank you for consult and for giving an opportunity to take care of this patient. Dietary Evaluation Review Comments: 1) Advance pt diet when medically feasible 2) Continue current plan of care Expected Outcomes/Goals: F/U in 2-3 days CC Plasma Assessment Blood Product Administration S: [id number] LAILA DRAKE MD Dec 03, 2024 22:02
[2024-12-04] VITALS (11 sets, daily range): BP systolic 103–109; BP diastolic 53–61; PULSE 63–94; RESP 16–20; TEMP 97.8–98.8; O2SAT 93–100
--- NOTE | 2024-12-04 12:12 | DVHPN2 ---
Progress Note - Dictate Date Seen: Dec 04, 2024 Medical Necessity Reason Pt with a Central, PICC or Fol: Yes The following are medically ne: PICC Line, Xiao Catheter Reason for xiao catheter: Strict I&O Subjective Patient seen and examined. She is still complaining for feeling cold. her hands are cold. patient covered in blanket. She is looking slightly improved in terms of a physical appearance. Patient continues to be noncompliant and sometimes non cooperative Patient is noted to have wound dehiscence and surgery has seen the pt We have discussed with the patient about the surgery and the pathology report and CT Scan suggesting metastatic liver disease Patient said she lives alone and she makes decisions for herself. Therefore, we discussed with her that she needs to let us know what she would like us to do going forward regarding her current state. Patient underwent CT head which was showing possible vasogenic edema with the left thalamus mass, attempt to transfer the patient for neurosurgery evaluation. Patient did have in the past prior craniotomy. [facility] aware vital signs Vital Sign Date Time Temp Pulse Resp B/P (MAP) Pulse Ox O2 Delivery O2 Flow Rate FiO2 12/04/24 09:59 67 16 100 12/04/24 08:00 Room Air* 0 21 12/04/24 05:00 98.5 103/61 (75) 98.5 Total Intake and Output 12/03/24 12/03/24 12/04/24 15:00 23:00 07:00 Intake Total 480 ml 50 ml 200 ml Output Total 850 ml 1185 ml Balance -370 ml 50 ml -985 ml medications Current Medications Medications Dose Ordered Sig/Sylvie Route Start Time Stop Time Status Last Admin Dose Admin Pantoprazole Sodium 40 mg DAILY IV 11/14/24 10:00 12/04/24 10:17 40 MG Nitroglycerin 0.4 mg Q5MINP PRN SL 11/13/24 23:00 Albuterol 2.5 mg Q6HP PRN NEB 11/14/24 06:00 11/26/24 15:03 2.5 MG Fat Emulsion Intravenous 150 ml/Sodium Phosphate 60 meq/ Potassium Phosphate 44 meq/ Magnesium Sulfate 12 meq/ Multivitamins 10 ml/Chromium/ Copper/Manganese/ Zinc 1 ml/Insulin Human Regular 12 units/Amino Acids/ Dextrose/Purified Water 1,439.12 ml @ 60 mls/hr Q24H IV 11/21/24 22:00 11/22/24 21:59 Cancel Albuterol 2.5 mg Q12HR NEB 11/24/24 22:00 12/04/24 09:49 2.5 MG Ergocalciferol 50,000 unit Q7D PO 11/25/24 07:45 12/02/24 08:15 50,000 UNIT Acetaminophen 650 mg Q6HP PRN PO 11/25/24 08:45 Enoxaparin Sodium 30 mg BID SC 11/25/24 10:00 UNV Fluconazole 100 ml @ 100 mls/hr DAILY IV 11/26/24 10:00 12/04/24 10:17 100 MLS/HR Diagnostic Test (Pha) 1 strip Q6HR 11/26/24 12:00 12/04/24 05:01 1 STRIP Insulin Human Regular Q6HR SC 11/26/24 12:00 12/04/24 05:11 2 UNITS Dextrose 50 ml UD PRN IV 11/26/24 08:00 Dexamethasone Sodium Phosphate 4 mg BID IV 11/28/24 22:00 12/04/24 10:17 4 MG Sodium Chloride 10 ml QSHIFT@10,22 IV 11/28/24 22:00 12/04/24 10:17 10 ML Clindamycin Phosphate 50 ml @ 50 mls/hr Q8HR IV 12/03/24 23:59 12/04/24 05:00 50 MLS/HR objective Gen: in awake alert edematous Cvs: N S1/S2, RRR Resp: On supplemental oxygen, extubated Abd: Morbidly Obese, ileostomy stoma looks well, incision site intact [employer]: Sedated laboratory and microbiology Laboratory Tests 12/02/24 09:50 12/02/24 07:00 Test 12/02/24 07:00 Range/Units Serum Glucose 131 H 74-106 mg/dL Problems(with codes): (1) Left lower lobe pulmonary infiltrate (2) Mass of thalamus (3) 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 (4) Ischemic stricture intestine (5) Colonic obstruction (6) Metastases to the liver Prognosis Plan Overall this patient's condition is poor with underlying multiple comorbidities She appears to have advanced metastatic adenocarcinoma of the liver with the primary from the colon S/P laparotomy with colon resection currently with LIANNE drains She also has a thalamic mass with mild vasogenic edema Primary team to discuss with patient and family She would be a good candidate for hospice evaluation Dietary Evaluation Review Comments: 1) Advance pt diet when medically feasible 2) Continue current plan of care Expected Outcomes/Goals: F/U in 2-3 days Plan discussed with: Patient, Other (Kim Mckay) CC Plasma Assessment Blood Product Administration S: [id number] HARJINDER SEBASTIAN MD Dec 04, 2024 12:12
--- NOTE | 2024-12-04 18:35 | DVHPN2 ---
Subjective HLOC transfer pending bed, wound dehisence seen by surgery, patient was warm but feeling cold, will recheck cbc and culture, start bairhugger Changes from previous H/P or p: No Changes Objective Vitals Vital Signs Date Time Temp Pulse Resp B/P (MAP) Pulse Ox O2 Delivery O2 Flow Rate FiO2 12/04/24 17:00 98.1 89 17 109/57 (74) 94 98.1 12/04/24 08:00 Room Air* 0 21 Intake/Output Intake and Output 12/04/24 07:00 Intake Total 730 ml Output Total 2035 ml Balance -1305 ml Intake Oral 630 ml IV Total 100 ml Output Urine Total 1800 ml Stool Total 200 ml Drainage Total 35 ml General Appearance: Other (intuabed and sedated) Medications Current Medications Medications Dose Ordered Sig/Sylvie Route Start Time Stop Time Status Last Admin Dose Admin Pantoprazole Sodium 40 mg DAILY IV 11/14/24 10:00 12/04/24 10:17 40 MG Nitroglycerin 0.4 mg Q5MINP PRN SL 11/13/24 23:00 Albuterol 2.5 mg Q6HP PRN NEB 11/14/24 06:00 11/26/24 15:03 2.5 MG Fat Emulsion Intravenous 150 ml/Sodium Phosphate 60 meq/ Potassium Phosphate 44 meq/ Magnesium Sulfate 12 meq/ Multivitamins 10 ml/Chromium/ Copper/Manganese/ Zinc 1 ml/Insulin Human Regular 12 units/Amino Acids/ Dextrose/Purified Water 1,439.12 ml @ 60 mls/hr Q24H IV 11/21/24 22:00 11/22/24 21:59 Cancel Albuterol 2.5 mg Q12HR NEB 11/24/24 22:00 12/04/24 09:49 2.5 MG Ergocalciferol 50,000 unit Q7D PO 11/25/24 07:45 12/02/24 08:15 50,000 UNIT Acetaminophen 650 mg Q6HP PRN PO 11/25/24 08:45 Enoxaparin Sodium 30 mg BID SC 11/25/24 10:00 UNV Fluconazole 100 ml @ 100 mls/hr DAILY IV 11/26/24 10:00 12/04/24 10:17 100 MLS/HR Diagnostic Test (Pha) 1 strip Q6HR 11/26/24 12:00 12/04/24 12:00 1 STRIP Insulin Human Regular Q6HR SC 11/26/24 12:00 12/04/24 12:00 2 UNITS Dextrose 50 ml UD PRN IV 11/26/24 08:00 Dexamethasone Sodium Phosphate 4 mg BID IV 11/28/24 22:00 12/04/24 10:17 4 MG Sodium Chloride 10 ml QSHIFT@10,22 IV 11/28/24 22:00 12/04/24 10:17 10 ML Clindamycin Phosphate 50 ml @ 50 mls/hr Q8HR IV 12/03/24 23:59 12/04/24 15:09 50 MLS/HR Laboratory Results Laboratory Tests 12/02/24 07:00 12/02/24 09:50 Urinalysis Test 11/13/24 21:25 11/14/24 13:20 Urine WBC Clumps Present /hpf (None Seen) Urine Color Tensas (Yellow) H Urine Clarity Ex.turbid (Clear) Urine pH 6.5 (5.0-9.0) Urine Specific [place] 1.037 (1.001-1.035) Urine Protein 2+ (Negative) H Urine Ketones Trace (Negative) Urine Blood 2+ /uL (Negative) H Urine Nitrite Negative (Negative) Urine Bilirubin 1+ (Negative) H Urine Urobilinogen 3 mg/dL (Negative) H Urine Leukocyte Esterase 3+ /uL (Negative) Urine RBC 81 /hpf (0 - 4) Urine WBC 330 /hpf (0 - 5) Urine Squamous Epithelial Cells Mod /hpf (<5) Urine Bacteria None seen /hpf (None Seen) Urine Mucus Few (None Seen) Urine Osmolality 824 mOsm/kg Urine Creatinine 94.06 mg/dL (30.0-125.0) Urine Protein/Creatinine Ratio 1.34 Urine Sodium < 10 mmol/L (40-220) L Urine Glucose Normal mg/dL (Normal) Urine Total Protein 126.5 mg/dL (1-14) H Microbiology Microbiology Date/Time Source Procedure Growth Status 12/03/24 17:30 Abdomen Gram Stain - Final Resulted 12/03/24 17:30 Abdomen Wound Culture - Preliminary Resulted 11/30/24 21:00 Blood Blood Culture - Preliminary NO GROWTH AFTER 72 HOURS OF INCUBATION. Resulted 11/25/24 09:35 Stool Stool Culture - Final Complete 11/25/24 09:35 Stool Shiga Toxin I & II - Final Complete 11/23/24 14:30 Voided Urine Urine Culture - Final Presumptive Brandi albicans Complete 11/16/24 17:20 Sputum Gram Stain - Final Complete 11/16/24 17:20 Sputum Respiratory Culture - Final Complete Assessment/Plan Assessment/Plan NEUROLOGY Multiple sclerosis Wheelchair-bound History of cerebral hematoma status post craniectomy as a child Left thalamic mass Extubated 11/21 CT head completed 11/25 shows 2.5 x 3.3 cm mass in the left thalamus extending into the left lateral ventricle on series 2, image 30. There is vasogenic edema in the left thalamus. There is generalized cerebral volume loss with concordant prominence of the subarachnoid spaces and ventricles. MR brain could not be completed given the patient's habitus Dexamethasone 4 mg IV b.i.d. CARDIOVASCULAR Septic shock secondary to toxic megacolon Lactic acidosis-resolved Paroxysmal atrial fibrillation-CHADS2 Vasc score 3, has bled score 1 Discontinued Zosyn 11/19 till 11/28 DC vancomycin 11/17 till 11/21 and DC IV metronidazole, patient received from 11/15 to 11/21 DC IV cefepime 11/18 Preliminary blood cultures negative Lasix 20 mg IV given once 11/25 Repeat blood culture 11/23 Consider starting digoxin if AFib becomes symptomatic RESPIRATORY Acute hypoxic respiratory failure secondary to septic shock Chronic nicotine dependence Respiratory acidosis History of PE Non-anion gap metabolic acidosis secondary to hyperchloremia Bilateral pleural effusion with associated bilateral atelectasis Intubated from 11/16 till 11/21 Respiratory culture and Gram stain shows no growth ABGs 11/17 shows non-anion gap metabolic acidosis with respiratory acidosis Discontinue sodium bicarbonate 100 mL/hour 11/17 till 11/18 Incentive spirometry Q 1 hour GI Sepsis secondary to toxic megacolon secondary to primary adenocarcinoma of the descending colon and splenic flexure 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 Associated wall thickening in this region. Suspect an underlying lesion resulting in obstruction. Associated small bowel obstruction. Findings are similar to prior exam. Pathology Report: 4.0 cm tumor with no macroscopic perforation, adenocarcinoma, moderately to poorly differentiated (G2-G3) tumor invades the visceral peritoneum. Proximal and distal margins were negative and mesenteric margin was negative for carcinoma. LVI was present and PNI was present there were five tumor deposits. Twelve lymph glands were examined and five were involved PT4a, pN2a. No loss of nuclear expression of tumor proteins, low probability of MSI-H P.o. morphine for pain control Stool culture negative. Stool WBC negative. LFTs increasing, liver ultrasound shows multiple heterogeneous echotexture lesions, metastatic lesions. Contrast surgeon could not be completed since the patient is allergic to iodine. Heme oncology consulted. 12/02-CT chest/abdomen/pelvis with protocol, shows multiple liver metastasis replacing most of the left lobe of the liver. Metastatic periportal and gastrohepatic lymph nodes. Cystic lesions of the liver is nonspecific. Bilateral pleural effusion with associated bilateral atelectasis and consolidation.. /KIDNEY Acute cystitis Yellow colored vaginal discharge Final urine culture showed >100,000 CFU/mL Mixed Gram Positive Ca >3 [place] Types, including Beta-Hemolytic Group B Streptococcus Repeat urine culture 11/16 is negative Discontinued IV Zosyn Repeat urine culture 11/23 shows greater than [id number] CFU yeast Started IV Diflucan 11/25 OBGYN Normal uterine bleeding Pelvic ultrasound 11/30/23 is unremarkable OBGYN consulted METABOLIC Hyponatremia, corrected Hypomagnesemia, supplement Morbid obese Non-anion gap metabolic acidosis Vitamin-D deficiency Hypercalcemia: Corrected calcium 7.5 Received 1 g IV 11/25 overnight Vitamin-D supplemented SKIN Intertrigo Medial thigh maceration - nystatin powder HEM-ONCO Anemia, likely normocytic secondary to blood loss Superficial venous thrombosis in the right cephalic Hemoglobin dropped from 16-10 from 11/14 to 11/17 Retic count 1.23, lactate dehydrogenase 330 11/22 1 unit of packed RBC administered Continue warm compresses to right arm Heme oncologist consulted, recommended CT brain and abdomen with and without contrast. MRI could not be completed because of the patient's habitus. Patient will need adjuvant chemotherapy because of obstruction and staging. LINES Intubated on 11/16 till 11/21 Left SUBCLAVIAN CVC 11/16 till 11/28 PICC line inserted 11/28 [place] catheter 11/13, changed on 11/24 DRIPS LEVOPHED off 11/25 VASOPRESSIN off since 11/11 FENTANYL DC VERSED DC NUTRITION; Clinimix starting 11/17, TPN starting 11/18 till 11/22, started soft diet 11/22 DVT; Lovenox 40 mg sc daily Physical therapy-recommended discharge back to [facility] or convalescent home. Recommended home health. Plan discussed with: Patient Date of Service: Dec 04, 2024 Billing Provider: FAZAL DUNAWAY MD Common Visit Codes: 94162-IMLPKRPMOP INP/OBS CARE(HIGH) FAZAL DUNAWAY MD Dec 04, 2024 18:35
--- NOTE | 2024-12-04 20:06 | DVHPN2 ---
Progress Note - Dictate Date Seen: Dec 04, 2024 Medical Necessity Reason Pt with a Central, PICC or Fol: Yes The following are medically ne: PICC Line, Xiao Catheter Reason for xiao catheter: Strict I&O Subjective HLOC transfer pending bed, wound dehisence seen by surgery, patient was warm but feeling cold. vital signs Vital Sign Date Time Temp Pulse Resp B/P (MAP) Pulse Ox O2 Delivery O2 Flow Rate FiO2 12/04/24 17:00 98.1 89 17 109/57 (74) 94 98.1 12/04/24 08:00 Room Air* 0 21 Total Intake and Output 12/03/24 12/03/24 12/04/24 15:00 23:00 07:00 Intake Total 480 ml 50 ml 200 ml Output Total 850 ml 1185 ml Balance -370 ml 50 ml -985 ml medications Current Medications Medications Dose Ordered Sig/Sylvie Route Start Time Stop Time Status Last Admin Dose Admin Pantoprazole Sodium 40 mg DAILY IV 11/14/24 10:00 12/04/24 10:17 40 MG Nitroglycerin 0.4 mg Q5MINP PRN SL 11/13/24 23:00 Albuterol 2.5 mg Q6HP PRN NEB 11/14/24 06:00 11/26/24 15:03 2.5 MG Fat Emulsion Intravenous 150 ml/Sodium Phosphate 60 meq/ Potassium Phosphate 44 meq/ Magnesium Sulfate 12 meq/ Multivitamins 10 ml/Chromium/ Copper/Manganese/ Zinc 1 ml/Insulin Human Regular 12 units/Amino Acids/ Dextrose/Purified Water 1,439.12 ml @ 60 mls/hr Q24H IV 11/21/24 22:00 11/22/24 21:59 Cancel Albuterol 2.5 mg Q12HR NEB 11/24/24 22:00 12/04/24 09:49 2.5 MG Ergocalciferol 50,000 unit Q7D PO 11/25/24 07:45 12/02/24 08:15 50,000 UNIT Acetaminophen 650 mg Q6HP PRN PO 11/25/24 08:45 Enoxaparin Sodium 30 mg BID SC 11/25/24 10:00 UNV Fluconazole 100 ml @ 100 mls/hr DAILY IV 11/26/24 10:00 12/04/24 10:17 100 MLS/HR Diagnostic Test (Pha) 1 strip Q6HR 11/26/24 12:00 12/04/24 18:00 1 STRIP Insulin Human Regular Q6HR SC 11/26/24 12:00 12/04/24 12:00 2 UNITS Dextrose 50 ml UD PRN IV 11/26/24 08:00 Dexamethasone Sodium Phosphate 4 mg BID IV 11/28/24 22:00 12/04/24 10:17 4 MG Sodium Chloride 10 ml QSHIFT@10,22 IV 11/28/24 22:00 12/04/24 10:17 10 ML Clindamycin Phosphate 50 ml @ 50 mls/hr Q8HR IV 12/03/24 23:59 12/04/24 15:09 50 MLS/HR objective General examination- Morbidly obese female, Acute distress, urinary catheter in place, A0X2 HEENT: PEERLA, no acute nasal discharge Chest: tachycardiac, S1-S2 audible, rate and rhythm regular, no murmur Lung: CTAB, no wheeze or rhonchi Abdomen: exp lap, LIANNE drain +, ileostomy bag+ Musculoskeletal: no acute joint swelling or tenderness Lower extremity: leg edema Neurological:alert but confused Skin- dry laboratory and microbiology Laboratory Tests 12/02/24 09:50 12/02/24 07:00 Test 12/02/24 07:00 Range/Units Serum Glucose 131 H 74-106 mg/dL Assessment/Plan Patient is a 64-year-old female presented to the hospital with: change in mental status: 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 Bowel obstruction s/p exp lap right hemicolectomy terminal ileum perforation s/p partial resection of terminal ileum and caecum Urinary tract infection Acute hypoxic respiratory failure Morbid obesity Recommendations: 12/04, Urine culture preliminary showed >100,000 CFU/mL Yeast 12/04, Blood culture showed no growth 12/03, Wound cultures showed Escherichia col and Proteus mirabilis Wound Culture Preliminary : Many growth: Gram Negative Rods, Possible 2 [place] Types, Identification and Susceptibilty test to follow. Due to new change in mental status and CT head showing thalamic mass with vasogenic edema ? metastasis LIANNE drain is sero sanguinous she was switched to Meropenem from Zosyn for total 5 days, [Last dose given 11/30] c diff negative 11/13, urine culture showed: >100,000 CFU/mL Mixed Gram Positive Ca >3 [place] Type including Beta- Hemolytic Group B Streptococcus 11/16, repeat urine culture showed no growth after 48 hours of incubation. 11/25: LEFT Upper Extremity Venous Duplex report came back normal Urine culture shows Brandi. Stool cultures negative. Chest x-ray shows left lower lobe atelectasis versus effusion. WBC count trending down. prognosis very gaurded Thank you for consult and for giving an opportunity to take care of this patient. Dietary Evaluation Review Comments: 1) Advance pt diet when medically feasible 2) Continue current plan of care Expected Outcomes/Goals: F/U in 2-3 days CC Plasma Assessment Blood Product Administration S: [id number] LAILA DRAKE MD Dec 04, 2024 20:06
[2024-12-05] VITALS (9 sets, daily range): BP systolic 88–113; BP diastolic 40–67; PULSE 63–75; RESP 16–20; TEMP 97.5–98.8; O2SAT 95–100
[2024-12-05 02:09] LABS: Urine Bacteria None Seen /hpf (None Seen); Urine Blood Negative /uL (Negative); Urine Budding Yeast FEW /hpf (None Seen); Urine Clarity Clear (Clear); Urine Color Light-Yellow (Yellow); Urine Mucus FEW (None Seen); Urine Protein, UAD Negative (Negative); Urine Specific Gravity 1.014 (1.001-1.035); Urine Squamous Epithelial Cell FEW /hpf (<5); Urine Urobilinogen Normal (Negative); Urine WBC 1 /hpf (0 - 5)
[2024-12-05 07:50] LABS: Anion Gap 7 (5-15); Calcium 9.1 mg/dL (8.7-10.4); Carbon Dioxide 23 mmol/L (20-31); Chloride 102 mmol/L (98-107); Potassium 4.8 mmol/L (3.5-5.1)
[2024-12-05 07:56] LABS: BUN/Creatinine Ratio 26.3 (10.0-20.0); Blood Urea Nitrogen 15 mg/dL (9-23)
[2024-12-05 07:59] LABS: Sodium 132 mmol/L (136-145)
[2024-12-05 08:04] LABS: Glucose 110 mg/dL (74-106)
[2024-12-05 08:28] LABS: Basophils # (auto) 0 10 ^3/uL (0-0.2); Basophils % (auto) 0.1 % (0.0-2.0); Eosinophils # (auto) 0 10 ^3/uL (0-0.8); Eosinophils % (auto) 0.1 % (0.0-7.0); Hematocrit 34.3 % (36.0-46.0); Hemoglobin 11.3 g/dL (12.2-16.2); Lymphocytes # (auto) 0.6 10 ^3/uL (0.4-5.4); Lymphocytes % (auto) 5.8 % (10.0-50.0); Mean Corpuscular Hemoglobin 29.2 pg (28.0-32.0); Mean Corpuscular Volume 88.6 fL (80.0-100.0); Monocytes # (auto) 0.7 10 ^3/uL (0-1.3); Monocytes % (auto) 7.8 % (0.0-12.0); Neutrophils # (auto) 8.3 10 ^3/uL (1.6-8.6); Neutrophils % (auto) 86.2 % (37.0-80.0); Nucleated Red Blood Cells % 0.1 %; Platelet Count (auto) 184 10^3/uL (140-450); Red Blood Cells 3.87 10^6/uL (4.0-5.20); Red Cell Distribution Width 18.8 % (11.8-14.3); White Blood Cell 9.6 10^3/uL (4.4-10.8)
[2024-12-05] MEDS: cefTRIAXone 1GM/50ML D5W 50 ML IV SCH (10:26)
--- NOTE | 2024-12-05 13:31 | DVHPN2 ---
Progress Note - Dictate Date Seen: Dec 05, 2024 Medical Necessity Reason Pt with a Central, PICC or Fol: Yes The following are medically ne: PICC Line, Xiao Catheter Reason for xiao catheter: Strict I&O Subjective E: skin incision dehiscence. vital signs Vital Sign Date Time Temp Pulse Resp B/P (MAP) Pulse Ox O2 Delivery O2 Flow Rate FiO2 12/05/24 12:51 97.6 64 18 113/67 (82) 96 97.6 12/05/24 08:00 Room Air* 0 21 Total Intake and Output 12/04/24 12/04/24 12/05/24 15:00 23:00 07:00 Intake Total 336 ml 460 ml 750 ml Output Total 850 ml 1370 ml Balance 336 ml -390 ml -620 ml medications Current Medications Medications Dose Ordered Sig/Sylvie Route Start Time Stop Time Status Last Admin Dose Admin Pantoprazole Sodium 40 mg DAILY IV 11/14/24 10:00 12/05/24 10:29 40 MG Nitroglycerin 0.4 mg Q5MINP PRN SL 11/13/24 23:00 Albuterol 2.5 mg Q6HP PRN NEB 11/14/24 06:00 11/26/24 15:03 2.5 MG Fat Emulsion Intravenous 150 ml/Sodium Phosphate 60 meq/ Potassium Phosphate 44 meq/ Magnesium Sulfate 12 meq/ Multivitamins 10 ml/Chromium/ Copper/Manganese/ Zinc 1 ml/Insulin Human Regular 12 units/Amino Acids/ Dextrose/Purified Water 1,439.12 ml @ 60 mls/hr Q24H IV 11/21/24 22:00 11/22/24 21:59 Cancel Albuterol 2.5 mg Q12HR NEB 11/24/24 22:00 12/04/24 22:17 2.5 MG Ergocalciferol 50,000 unit Q7D PO 11/25/24 07:45 12/02/24 08:15 50,000 UNIT Acetaminophen 650 mg Q6HP PRN PO 11/25/24 08:45 Enoxaparin Sodium 30 mg BID SC 11/25/24 10:00 UNV Fluconazole 100 ml @ 100 mls/hr DAILY IV 11/26/24 10:00 12/05/24 12:09 100 MLS/HR Diagnostic Test (Pha) 1 strip Q6HR 11/26/24 12:00 12/05/24 12:09 1 STRIP Insulin Human Regular Q6HR SC 11/26/24 12:00 12/05/24 00:00 2 UNITS Dextrose 50 ml UD PRN IV 11/26/24 08:00 Dexamethasone Sodium Phosphate 4 mg BID IV 11/28/24 22:00 12/05/24 10:29 4 MG Sodium Chloride 10 ml QSHIFT@10,22 IV 11/28/24 22:00 12/05/24 10:29 10 ML Ceftriaxone Sodium 50 ml @ 100 mls/hr DAILY@09 IV 12/05/24 09:45 12/05/24 10:26 100 MLS/HR objective GEN: NAD ABD: 10 cm skin dehiscence without fascial dehiscence. relatively clean. laboratory and microbiology Laboratory Tests 12/05/24 07:07 Test 12/05/24 07:07 Range/Units Serum Glucose 110 H 74-106 mg/dL Assessment/Plan A 1. s/p ex lap with extended right colectomy (to prox descending colon) with ileostomy with extensive lysis of adhesions 2. wound dehiscence P: 1. local wound care with BID NS moist to dry Dietary Evaluation Review Comments: 1) Advance pt diet when medically feasible 2) Continue current plan of care Expected Outcomes/Goals: F/U in 2-3 days Plan discussed with: Patient CC Plasma Assessment Blood Product Administration S: [id number] MARTHA ARAIZA MD Dec 05, 2024 13:31
--- NOTE | 2024-12-05 13:45 | DVHPN2 ---
Progress Note - Dictate Date Seen: Dec 05, 2024 Medical Necessity Reason Pt with a Central, PICC or Fol: Yes The following are medically ne: PICC Line, Xiao Catheter Reason for xiao catheter: Strict I&O Subjective No new complaints Ileostomy bag change because of leakage Patient has some wound dehiscence Patient is on IV antibiotics and her leukocytosis is improving LIANNE drain output is minimal Surgical follow up appreciated We have discussed with the patient about the surgery and the pathology report and CT Scan suggesting metastatic liver disease Patient said she lives alone and she makes decisions for herself. Therefore, we discussed with her that she needs to let us know what she would like us to do going forward regarding her current state. Patient underwent CT head which was showing possible vasogenic edema with the left thalamus mass, attempt to transfer the patient for neurosurgery evaluation. Patient did have in the past prior craniotomy. [facility] aware vital signs Vital Sign Date Time Temp Pulse Resp B/P (MAP) Pulse Ox O2 Delivery O2 Flow Rate FiO2 12/05/24 12:51 97.6 64 18 113/67 (82) 96 97.6 12/05/24 08:00 Room Air* 0 21 Total Intake and Output 12/04/24 12/04/24 12/05/24 15:00 23:00 07:00 Intake Total 336 ml 460 ml 750 ml Output Total 850 ml 1370 ml Balance 336 ml -390 ml -620 ml medications Current Medications Medications Dose Ordered Sig/Sylvie Route Start Time Stop Time Status Last Admin Dose Admin Pantoprazole Sodium 40 mg DAILY IV 11/14/24 10:00 12/05/24 10:29 40 MG Nitroglycerin 0.4 mg Q5MINP PRN SL 11/13/24 23:00 Albuterol 2.5 mg Q6HP PRN NEB 11/14/24 06:00 11/26/24 15:03 2.5 MG Fat Emulsion Intravenous 150 ml/Sodium Phosphate 60 meq/ Potassium Phosphate 44 meq/ Magnesium Sulfate 12 meq/ Multivitamins 10 ml/Chromium/ Copper/Manganese/ Zinc 1 ml/Insulin Human Regular 12 units/Amino Acids/ Dextrose/Purified Water 1,439.12 ml @ 60 mls/hr Q24H IV 11/21/24 22:00 11/22/24 21:59 Cancel Albuterol 2.5 mg Q12HR NEB 11/24/24 22:00 12/04/24 22:17 2.5 MG Ergocalciferol 50,000 unit Q7D PO 11/25/24 07:45 12/02/24 08:15 50,000 UNIT Acetaminophen 650 mg Q6HP PRN PO 11/25/24 08:45 Enoxaparin Sodium 30 mg BID SC 11/25/24 10:00 UNV Fluconazole 100 ml @ 100 mls/hr DAILY IV 11/26/24 10:00 12/05/24 12:09 100 MLS/HR Diagnostic Test (Pha) 1 strip Q6HR 11/26/24 12:00 12/05/24 12:09 1 STRIP Insulin Human Regular Q6HR SC 11/26/24 12:00 12/05/24 00:00 2 UNITS Dextrose 50 ml UD PRN IV 11/26/24 08:00 Dexamethasone Sodium Phosphate 4 mg BID IV 11/28/24 22:00 12/05/24 10:29 4 MG Sodium Chloride 10 ml QSHIFT@10,22 IV 11/28/24 22:00 12/05/24 10:29 10 ML Ceftriaxone Sodium 50 ml @ 100 mls/hr DAILY@09 IV 12/05/24 09:45 12/05/24 10:26 100 MLS/HR objective Gen: in awake alert edematous Cvs: N S1/S2, RRR Resp: On supplemental oxygen, extubated Abd: Morbidly Obese, ileostomy stoma looks well, incision site intact 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 Laboratory Tests 12/05/24 07:07 Test 12/05/24 07:07 Range/Units Serum Glucose 110 H 74-106 mg/dL Problems(with codes): (1) Metastases to the liver (2) Mass of thalamus (3) Left lower lobe pulmonary infiltrate (4) 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 (5) Ischemic stricture intestine (6) Colonic obstruction (7) UTI (urinary tract infection) (8) Sepsis Prognosis Plan Overall this patient's condition is poor with underlying multiple comorbidities She appears to have advanced metastatic adenocarcinoma of the liver with the primary from the colon S/P laparotomy with colon resection currently with LIANNE drains She also has a thalamic mass with mild vasogenic edema Primary team to discuss with patient and family She would be a good candidate for hospice evaluation Dietary Evaluation Review Comments: 1) Advance pt diet when medically feasible 2) Continue current plan of care Expected Outcomes/Goals: F/U in 2-3 days Plan discussed with: Patient, Other (Kim Mckay) CC Plasma Assessment Blood Product Administration S: [id number] HARJINDER SEBASTIAN MD Dec 05, 2024 13:45
--- NOTE | 2024-12-05 17:40 | DVHPN2 ---
Progress Note Date Seen: Dec 05, 2024 Resident Creating Document: SAY GR RESIDENT Medical Necessity Reason Pt with a Central, PICC or Fol: Yes The following are medically ne: PICC Line, Xiao Catheter Reason for xiao catheter: Strict I&O Subjective Review of Systems Patient seen and examined. No significant changes from yesterday. She is still complaining for feeling cold. her hands are cold. patient covered in blanket. She is looking slightly improved in terms of a physical appearance. Patient continues to be noncompliant and sometimes non cooperative. Patient is noted to have wound dehiscence and surgery has seen the patient. We have discussed with the patient about the surgery and the pathology report and CT Scan suggesting metastatic liver disease. Patient said she lives alone and she makes decisions for herself. Therefore, we discussed with her that she needs to let us know what she would like us to do going forward regarding her current state. Patient underwent CT head which was showing possible vasogenic edema with the left thalamus mass, attempt to transfer the patient for neurosurgery evaluation. Patient did have in the past prior craniotomy. [facility] aware Objective vital signs Vital Sign Date Time Temp Pulse Resp B/P (MAP) Pulse Ox O2 Delivery O2 Flow Rate FiO2 12/05/24 17:00 97.6 63 18 105/55 (72) 98 97.6 12/05/24 08:00 Room Air* 0 21 Total Intake and Output 12/04/24 12/04/24 12/05/24 15:00 23:00 07:00 Intake Total 336 ml 460 ml 750 ml Output Total 850 ml 1370 ml Balance 336 ml -390 ml -620 ml medications Current Medications Medications Dose Ordered Sig/Sylvie Route Start Time Stop Time Status Last Admin Dose Admin Pantoprazole Sodium 40 mg DAILY IV 11/14/24 10:00 12/05/24 10:29 40 MG Nitroglycerin 0.4 mg Q5MINP PRN SL 11/13/24 23:00 Albuterol 2.5 mg Q6HP PRN NEB 11/14/24 06:00 11/26/24 15:03 2.5 MG Fat Emulsion Intravenous 150 ml/Sodium Phosphate 60 meq/ Potassium Phosphate 44 meq/ Magnesium Sulfate 12 meq/ Multivitamins 10 ml/Chromium/ Copper/Manganese/ Zinc 1 ml/Insulin Human Regular 12 units/Amino Acids/ Dextrose/Purified Water 1,439.12 ml @ 60 mls/hr Q24H IV 11/21/24 22:00 11/22/24 21:59 Cancel Albuterol 2.5 mg Q12HR NEB 11/24/24 22:00 12/04/24 22:17 2.5 MG Ergocalciferol 50,000 unit Q7D PO 11/25/24 07:45 12/02/24 08:15 50,000 UNIT Acetaminophen 650 mg Q6HP PRN PO 11/25/24 08:45 Enoxaparin Sodium 30 mg BID SC 11/25/24 10:00 UNV Fluconazole 100 ml @ 100 mls/hr DAILY IV 11/26/24 10:00 12/05/24 12:09 100 MLS/HR Diagnostic Test (Pha) 1 strip Q6HR 11/26/24 12:00 12/05/24 16:49 1 STRIP Insulin Human Regular Q6HR SC 11/26/24 12:00 12/05/24 00:00 2 UNITS Dextrose 50 ml UD PRN IV 11/26/24 08:00 Dexamethasone Sodium Phosphate 4 mg BID IV 11/28/24 22:00 12/05/24 10:29 4 MG Sodium Chloride 10 ml QSHIFT@10,22 IV 11/28/24 22:00 12/05/24 10:29 10 ML Ceftriaxone Sodium 50 ml @ 100 mls/hr DAILY@09 IV 12/05/24 09:45 12/05/24 10:26 100 MLS/HR Examination General: No acute distress, sleeping, but easily aroused HEENT: PEERLA, no acute nasal discharge Chest: S1-S2 audible, rate and rhythm regular, no murmur Lung: CTAB, no wheeze or rhonchi Abdomen: Soft, Mild BS+, tender, Wound dehiscence covered. colostomy bag functional Musculoskeletal: no acute joint swelling or tenderness Lower extremity: leg edema with compression stockings present Neurological: cranial nerves intact, no acute dysarthria or dysphagia Psychiatry-- Normal mood and affect Skin- no acute rash or purpura laboratory and microbiology Laboratory Tests 12/05/24 07:07 Test 12/05/24 07:07 Range/Units Serum Glucose 110 H 74-106 mg/dL Microbiology Date/Time Source Procedure Growth Status 12/03/24 17:30 Abdomen Gram Stain - Final Resulted 12/03/24 17:30 Wound Culture - Preliminary Escherichia coli Resulted 11/30/24 21:00 Blood Blood Culture - Preliminary NO GROWTH AFTER 72 HOURS OF INCUBATION. 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 -->Status post sigmoidoscopy and exploratory laparotomy and extended right hemicolectomy and ileostomy 11/16 --> CEA level 45 --> Pathology report: metastatic adenocarcinoma, moderately to poorly differentiated (G2-G3) tumor invades the visceral peritoneum and LN, Possible liver mets as well --> Oncologist following --> Mild wound dehiscence with some drainage ( 12/03/2024): Continue to monitor (2) Ischemic stricture intestine (3) Colonic obstruction (4) UTI (urinary tract infection) (5) Sepsis (6) Left lower lobe pulmonary infiltrate (7) Altered; CT head which was showing possible vasogenic edema with the left thalamus mass, attempt to transfer the patient for neurosurgery evaluation. Patient did have in the past prior craniotomy. ( 8) Vasogenic edema (9) Protein malnutrition, r/t poor nutrition intake, aeb mechanical soft diet 25% consumption (10) Morbid obesity R/T history of excessive oral intake AEB BMI 45.1 (11) Left upper extremity DVT ( Thrombus noted at catheter tip) Plan Overall this patient's condition is poor with underlying multiple comorbidities She appears to have advanced metastatic adenocarcinoma of the liver with the primary from the colon S/P laparotomy with colon resection currently with LIANNE drains She also has a thalamic mass with mild vasogenic edema Primary team to discuss with patient and family She would be a good candidate for hospice evaluation Goal of care discussed for more than 25 minutes case and plan discussed with Dr. Edith Dalal Thank you for allowing us to participate in the care of this patient. Please call if you have any questions or concerns. Plan discussed with: Patient Dietary Evaluation Review Comments: 1) Advance pt diet when medically feasible 2) Continue current plan of care Expected Outcomes/Goals: F/U in 2-3 days CC Plasma Assessment Blood Product Administration S: [id number] SAY GR RESIDENT Dec 05, 2024 17:40
--- NOTE | 2024-12-05 19:08 | DVHPN2 ---
Progress Note - Dictate Date Seen: Dec 05, 2024 Medical Necessity Reason Pt with a Central, PICC or Fol: Yes The following are medically ne: PICC Line, Xiao Catheter Reason for xiao catheter: Strict I&O Subjective Patient is still complaining for feeling cold. Patient is noted to have wound dehiscence and surgery has seen the patient. Patient underwent CT head which showed possible vasogenic edema with the left thalamus mass, attempt to transfer the patient for neurosurgery evaluation. Patient had prior craniotomy. [facility] aware vital signs Vital Sign Date Time Temp Pulse Resp B/P (MAP) Pulse Ox O2 Delivery O2 Flow Rate FiO2 12/05/24 17:00 97.6 63 18 105/55 (72) 98 97.6 12/05/24 08:00 Room Air* 0 21 Total Intake and Output 12/04/24 12/04/24 12/05/24 15:00 23:00 07:00 Intake Total 336 ml 460 ml 750 ml Output Total 850 ml 1370 ml Balance 336 ml -390 ml -620 ml medications Current Medications Medications Dose Ordered Sig/Sylvie Route Start Time Stop Time Status Last Admin Dose Admin Pantoprazole Sodium 40 mg DAILY IV 11/14/24 10:00 12/05/24 10:29 40 MG Nitroglycerin 0.4 mg Q5MINP PRN SL 11/13/24 23:00 Albuterol 2.5 mg Q6HP PRN NEB 11/14/24 06:00 11/26/24 15:03 2.5 MG Fat Emulsion Intravenous 150 ml/Sodium Phosphate 60 meq/ Potassium Phosphate 44 meq/ Magnesium Sulfate 12 meq/ Multivitamins 10 ml/Chromium/ Copper/Manganese/ Zinc 1 ml/Insulin Human Regular 12 units/Amino Acids/ Dextrose/Purified Water 1,439.12 ml @ 60 mls/hr Q24H IV 11/21/24 22:00 11/22/24 21:59 Cancel Albuterol 2.5 mg Q12HR NEB 11/24/24 22:00 12/04/24 22:17 2.5 MG Ergocalciferol 50,000 unit Q7D PO 11/25/24 07:45 12/02/24 08:15 50,000 UNIT Acetaminophen 650 mg Q6HP PRN PO 11/25/24 08:45 Enoxaparin Sodium 30 mg BID SC 11/25/24 10:00 UNV Fluconazole 100 ml @ 100 mls/hr DAILY IV 11/26/24 10:00 12/05/24 12:09 100 MLS/HR Diagnostic Test (Pha) 1 strip Q6HR 11/26/24 12:00 12/05/24 16:49 1 STRIP Insulin Human Regular Q6HR SC 11/26/24 12:00 12/05/24 00:00 2 UNITS Dextrose 50 ml UD PRN IV 11/26/24 08:00 Dexamethasone Sodium Phosphate 4 mg BID IV 11/28/24 22:00 12/05/24 10:29 4 MG Sodium Chloride 10 ml QSHIFT@10,22 IV 11/28/24 22:00 12/05/24 10:29 10 ML Ceftriaxone Sodium 50 ml @ 100 mls/hr DAILY@09 IV 12/05/24 09:45 12/05/24 10:26 100 MLS/HR objective General examination- Morbidly obese female, Acute distress, urinary catheter in place, A0X2 HEENT: PEERLA, no acute nasal discharge Chest: tachycardiac, S1-S2 audible, rate and rhythm regular, no murmur Lung: CTAB, no wheeze or rhonchi Abdomen: exp lap, LIANNE drain +, ileostomy bag+ Musculoskeletal: no acute joint swelling or tenderness Lower extremity: leg edema Neurological:alert but confused Skin- dry laboratory and microbiology Laboratory Tests 12/05/24 07:07 Test 12/05/24 07:07 Range/Units Serum Glucose 110 H 74-106 mg/dL Assessment/Plan Patient is a 64-year-old female presented to the hospital with: Change in mental status: 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 Bowel obstruction s/p exp lap right hemicolectomy terminal ileum perforation s/p partial resection of terminal ileum and caecum Urinary tract infection Acute hypoxic respiratory failure Morbid obesity Recommendations: Current Antibiotics: Ceftriaxone IV [Started 12/05] 12/04, Urine culture preliminary showed >100,000 CFU/mL Yeast 12/04, Blood culture showed no growth 12/03, Wound cultures showed Escherichia col and Proteus mirabilis 11/30, Wound Culture Preliminary showed Many growth: Gram Negative Rods, Possible 2 [place] Types, Identification and Susceptibility test to follow. Due to new change in mental status and CT head showing thalamic mass with vasogenic edema ? metastasis LIANNE drain is sero sanguinous she was switched to Meropenem from Zosyn for total 5 days, [Last dose given 11/30] WBC count normal. Prognosis very guarded Thank you for consult and for giving an opportunity to take care of this patient. Dietary Evaluation Review Comments: 1) Advance pt diet when medically feasible 2) Continue current plan of care Expected Outcomes/Goals: F/U in 2-3 days CC Plasma Assessment Blood Product Administration S: [id number] LAILA DRAKE MD Dec 05, 2024 19:08
--- NOTE | 2024-12-05 20:01 | DVHPNRES ---
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 On arrival patient had temperature of 97.6, pulse 126 bpm, respiratory rate 17, blood pressure 154/88, saturating 95 on room air. WBC count was 21.5 with 89% neutrophils and 600 platelets. Lactic acid was elevated at 2.4. 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 Subsequent CT abdomen completed 11/16 showed marked dilation of the right and transverse colon with a transition point at the level of the sigmoid flexure. Associated wall thickening in this region. Suspicious of an underlying lesion resulting in obstruction. Small left pleural effusion with basilar atelectasis. Consequently GI Dr. Dalal did a sigmoidoscopy up to the splenic flexure with biopsy and colonic decompression on 11/15 and an abnormal area was found in the splenic flexure with the sigmoid diverticular disease, moderate amount of retained stool in the rectosigmoid. So surgeon was consulted and patient underwent exploratory laparotomy with extended right hemicolectomy with ileostomy on 11/16 secondary to ischemic bowel with colonic obstruction at the splenic flexure. Distal ileum to the proximal descending colon was resected and a distal ileum perforation was found during the procedure. Lysis of adhesions were performed. Patient received 3 L of NS +500 mL of 5% albumin and 100 mL of 25% albumin during the procedure. Following the procedure patient was hypotensive and therefore could not be extubated and therefore which he was transferred to ICU for further management. 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 Quit smoking about 2 years ago when she had PE. Home medications: Glatopa 20 mg every morning, lidocaine patch q.12 hours p.r.n., Paxil tablet 10 mg daily, ropinirole 5 mg 2 tablets at bedtime, tolterodine 4 mg once daily, baclofen 10 mg b.i.d., albuterol 90 mcg. 11/17-Patient seen and examined at bed 109. She was started on 50% FiO2 which was downtrended to 35% FiO2 right now. Urine culture is growing greater than 1 lac Gram-positive species including GBS. Started vancomycin 11/17. ABGs show non-anion gap metabolic acidosis along with respiratory acidosis, likely secondary to hyperchloremia. DC 0.5 NS. Respiratory rate increased from 14-16. Sodium bicarbonate started at 100 mL/hour. Both LIANNE drains drained 25 and 30 mL serosanguineous. Xiao draining 90 mL overnight and 90 mL during the day. 11/18-patient seen and examined. He is not stable for CPAP. DC Versed. DC cefepime DC bicarb. Overnight 20 mL drainage from the right LIANNE, 25 from the left LIANNE 11/21 - over the weekend stress dose steroids started. Patient was started on Zosyn since . DC Flagyl today. Cumulative I/O shows positive 15 L. Lasix 40 mg IV started. Patient tolerated CPAP trial very well, extubated. Bilateral upper extremity ultrasound ordered. ET tube advanced 2 cm. 11/22 -seen and examined at the bedside. Overnight morphine started for pain. patient is saturating 98 on 2 L. 1 unit of packed RBCs administered. Swallow eval completed, recommended soft diet. DC TPN, DC Lasix. Vaginal discharge resolved. Transferred to [facility]. PICC line consult placed. Started on pressors for cephalic vein thrombosis. PT eval requested. 11/23 - A&O x4. Levophed increased to 8 overnight from 2. Overnight patient ran 99.1 F. DC Xiao. Ordered urine culture. Incentive spirometry Q 1 hour. Repeat blood culture today. Lower extremity Doppler was a limited study with nonvisualization of bilateral femoral vein and popliteal vein. 11/24- overnight Levophed requirement went up from 2 to 8. Dark green tarry stool seen in ileostomy. LIANNE drain output is decreasing. Chest x-ray shows left lower lobe opacity. Id recommended DC Zosyn on . UA showing UTI, patient refusing change of Xiao. Discussed risk and benefits. Patient agreed. WBC downtrending 11/25 overnight patient was febrile at 99.7. Overnight patient received 1 IV calcium. Xiao catheter change today. Patient reports cold and shivering. WBC increased to 20. Stool occult is negative. Stool WBC negative. Ordered midline. DC left subclavian CVC. Discontinued Zosyn. Lasix 20 mg IV once given. IV fluconazole started. Patient is experiencing paroxysmal atrial fibrillation intermittently, rate goes up to 150s, multiple episodes throughout the day, lasts less than 1 minute. Consider starting IV digoxin if symptomatic. 11/28 - over the weekend, patient was altered and head CT performed which showed 2.5 X 3.3 cm left thalamus mass extending into the left lateral ventricle with vasogenic edema. Patient decided into early 80s was put on BiPAP. ABG at the time showed respiratory alkalosis. Urine culture shows Brandi. Stool cultures negative. Chest x-ray shows left lower lobe atelectasis versus effusion. WBC count trending down. Discontinued vancomycin. Bilateral inner thigh and genital area macerations and redness, no discharge noticed. 11/29 - patient is A&O x4. LFTs increasing, liver ultrasound shows multiple heterogeneous echotexture lesions, metastatic lesions. Contrast surgeon could not be completed since the patient is allergic to iodine. Heme oncology consulted. 11/30 - patient seen and examined at the bedside. Vaginal bleeding noticed, pelvic ultrasound unremarkable. Heme oncology consult pending. DC prophylactic Lovenox. 12/01 - patient seen and examined at the bedside. Oncologist recommended MRI brain and abdomen which could not be completed because of the patient's habitus, CT brain and abdomen with and without contrast pending given the need of protocol. 12/02 - patient seen and examined at bedside. Reports feeling cold. Underwent CT chest/abdomen/pelvis with protocol, shows multiple liver metastasis replacing most of the left lobe of the liver. Metastatic periportal and gastrohepatic lymph nodes. Cystic lesions of the liver is nonspecific. Bilateral pleural effusion with associated bilateral atelectasis and consolidation. 12/05 - patient seen and examined. 12/03-wound culture shows E coli sensitive. IV ceftriaxone started. DC clindamycin Objective vital signs Vital Sign Date Time Temp Pulse Resp B/P (MAP) Pulse Ox O2 Delivery O2 Flow Rate FiO2 12/05/24 17:00 97.6 63 18 105/55 (72) 98 97.6 1/6/25 08:00 Room Air* 0 21 Total Intake and Output 12/04/24 12/04/24 12/05/24 15:00 23:00 07:00 Intake Total 336 ml 460 ml 750 ml Output Total 850 ml 1370 ml Balance 336 ml -390 ml -620 ml medications Current Medications Medications Dose Ordered Sig/Sylvie Route Start Time Stop Time Status Last Admin Dose Admin Pantoprazole Sodium 40 mg DAILY IV 11/14/24 10:00 12/05/24 10:29 40 MG Nitroglycerin 0.4 mg Q5MINP PRN SL 11/13/24 23:00 Albuterol 2.5 mg Q6HP PRN NEB 11/14/24 06:00 11/26/24 15:03 2.5 MG Fat Emulsion Intravenous 150 ml/Sodium Phosphate 60 meq/ Potassium Phosphate 44 meq/ Magnesium Sulfate 12 meq/ Multivitamins 10 ml/Chromium/ Copper/Manganese/ Zinc 1 ml/Insulin Human Regular 12 units/Amino Acids/ Dextrose/Purified Water 1,439.12 ml @ 60 mls/hr Q24H IV 11/21/24 22:00 11/22/24 21:59 Cancel Albuterol 2.5 mg Q12HR NEB 11/24/24 22:00 12/04/24 22:17 2.5 MG Ergocalciferol 50,000 unit Q7D PO 11/25/24 07:45 12/02/24 08:15 50,000 UNIT Acetaminophen 650 mg Q6HP PRN PO 11/25/24 08:45 Enoxaparin Sodium 30 mg BID SC 11/25/24 10:00 UNV Fluconazole 100 ml @ 100 mls/hr DAILY IV 11/26/24 10:00 12/05/24 12:09 100 MLS/HR Diagnostic Test (Pha) 1 strip Q6HR 11/26/24 12:00 12/05/24 16:49 1 STRIP Insulin Human Regular Q6HR SC 11/26/24 12:00 12/05/24 00:00 2 UNITS Dextrose 50 ml UD PRN IV 11/26/24 08:00 Dexamethasone Sodium Phosphate 4 mg BID IV 11/28/24 22:00 12/05/24 10:29 4 MG Sodium Chloride 10 ml QSHIFT@,22 IV 11/28/24 22:00 12/05/24 10:29 10 ML Ceftriaxone Sodium 50 ml @ 100 mls/hr DAILY@09 IV 12/05/24 09:45 12/05/24 10:26 100 MLS/HR Examination Morbidly obese female patient lying in bed, extubated. General: Morbidly obese, afebrile, palor, mucosae are moist A&O x4. Cardiovascular: Regular S1 and S2. No murmurs, gallops or rubs. No JVD elevation. 1+ nonpitting edema in the lower extremity Respiratory: Bilateral dull breath sounds heard , saturating 94 on room air Abdomen: Abdomen is soft but hypoactive bowel sounds. Dressing dirty with ileostomy leakage. Superficial wound dehiscence noted. Two LIANNE drains attached. Maceration, erythema noted beneath the skin fold beneath the umbilicus. Ileostomy bag leaking. Bilateral inner thigh and genital area macerations and redness, no discharge noticed. Fresh red vaginal bleeding noticed. Genitourinary: Redness in the skin folds. Fresh red vaginal bleeding has resolved. MSK/skin: Skin is dry and warm B/l upper and lower ext edema Neurological: Pupils are constricted and sluggish to response. No icterus seen. laboratory and microbiology Laboratory Tests 12/05/24 07:07 Test 12/05/24 07:07 Range/Units Serum Glucose 110 H 74-106 mg/dL Microbiology Date/Time Source Procedure Growth Status 12/03/24 17:30 Abdomen Gram Stain - Final Resulted 12/03/24 17:30 Wound Culture - Preliminary Escherichia coli Resulted 11/30/24 21:00 Blood Blood Culture - Preliminary NO GROWTH AFTER 72 HOURS OF INCUBATION. 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 There is vasogenic edema in the left thalamus. There is generalized cerebral volume loss with concordant prominence of the subarachnoid spaces and ventricles. MR brain could not be completed given the patient's habitus Dexamethasone 4 mg IV b.i.d. CARDIOVASCULAR Septic shock secondary to toxic megacolon Lactic acidosis-resolved Paroxysmal atrial fibrillation-CHADS2 Vasc score 3, has bled score 1 Discontinued Zosyn 11/19 till 11/28 DC vancomycin 11/17 till 11/21 and DC IV metronidazole, patient received from 11/15 to 11/21 DC IV cefepime 11/18 Preliminary blood cultures negative Lasix 20 mg IV given once 11/25 Repeat blood culture 11/23 Consider starting digoxin if AFib becomes symptomatic RESPIRATORY Acute hypoxic respiratory failure secondary to septic shock Chronic nicotine dependence Respiratory acidosis History of PE Non-anion gap metabolic acidosis secondary to hyperchloremia Bilateral pleural effusion with associated bilateral atelectasis Intubated from 11/16 till 11/21 Respiratory culture and Gram stain shows no growth ABGs 11/17 shows non-anion gap metabolic acidosis with respiratory acidosis Discontinue sodium bicarbonate 100 mL/hour 11/17 till 11/18 Incentive spirometry Q 1 hour GI Sepsis secondary to toxic megacolon secondary to primary adenocarcinoma of the descending colon and splenic flexure 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 Associated wall thickening in this region. Suspect an underlying lesion resulting in obstruction. Associated small bowel obstruction. Findings are similar to prior exam. Pathology Report: 4.0 cm tumor with no macroscopic perforation, adenocarcinoma, moderately to poorly differentiated (G2-G3) tumor invades the visceral peritoneum. Proximal and distal margins were negative and mesenteric margin was negative for carcinoma. LVI was present and PNI was present there were five tumor deposits. Twelve lymph glands were examined and five were involved PT4a, pN2a. No loss of nuclear expression of tumor proteins, low probability of MSI-H P.o. morphine for pain control Stool culture negative. Stool WBC negative. LFTs increasing, liver ultrasound shows multiple heterogeneous echotexture lesions, metastatic lesions. Contrast surgeon could not be completed since the patient is allergic to iodine. Heme oncology consulted. 12/02-CT chest/abdomen/pelvis with protocol, shows multiple liver metastasis replacing most of the left lobe of the liver. Metastatic periportal and gastrohepatic lymph nodes. Cystic lesions of the liver is nonspecific. Bilateral pleural effusion with associated bilateral atelectasis and consolidation.. IV ceftriaxone starting 12/05 12/03-wound culture growing E coli /KIDNEY Acute cystitis Yellow colored vaginal discharge Final urine culture showed >100,000 CFU/mL Mixed Gram Positive Ca >3 [employer] Types, including Beta-Hemolytic Group B Streptococcus Repeat urine culture 11/16 is negative Discontinued IV Zosyn Repeat urine culture 11/23 shows greater than 390602 CFU yeast Started IV Diflucan 11/25 OBGYN Normal uterine bleeding Pelvic ultrasound 11/30/23 is unremarkable OBGYN consulted METABOLIC Hyponatremia, corrected Hypomagnesemia, supplement Morbid obese Non-anion gap metabolic acidosis Vitamin-D deficiency Hypercalcemia: Corrected calcium 7.5 Received 1 g IV 11/25 overnight Vitamin-D supplemented SKIN Intertrigo Medial thigh maceration Abdominal wound superficial dehescience - nystatin powder HEM-ONCO Anemia, likely normocytic secondary to blood loss Superficial venous thrombosis in the right cephalic Hemoglobin dropped from 16-10 from 11/14 to 11/17 Retic count 1.23, lactate dehydrogenase 330 11/22 1 unit of packed RBC administered Continue warm compresses to right arm Heme oncologist consulted, recommended CT brain and abdomen with and without contrast. MRI could not be completed because of the patient's habitus. Patient will need adjuvant chemotherapy because of obstruction and staging. LINES Intubated on 11/16 till 11/21 Left SUBCLAVIAN CVC 11/16 till 11/28 PICC line inserted 11/28 Xiao catheter 11/13, changed on 11/24 DRIPS LEVOPHED off 11/25 VASOPRESSIN off since 11/11 FENTANYL DC VERSED DC NUTRITION; Clinimix starting 11/17, TPN starting 11/18 till 11/22, started soft diet 11/22 DVT; Lovenox 40 mg sc daily Physical therapy-recommended discharge back to [facility] facility or convalescent home. Recommended home health. Goals of care/advance care planning; FULL CODE; discussed on for 24 minutes. PUD prophylaxis: Pantoprazole 40 mg IV daily DVT prophylaxis: Discontinued Lovenox 11/30 9 given the vaginal bleeding Plan discussed with patient's daughter Paula [phone] over the phone call for more than 20 minutes, code status full code. Discussed with patient's son over the phone, all questions have been answered Case discussed with Dr. Barker. Heme oncology on the case. Critical care time including review of the chart, and discussion with the patient's family excluding procedures 57 minutes Plan discussed with: Patient, Son (Spoke to son over the phone.) My Orders My Orders Orders - SARA PAULA Procedure Category Date Status Time Ceftriaxone 1gm/50ml PHA 12/05/24 In Process D5w (Rocephin) 09:45 Dietary Evaluation Review Comments: 1) Advance pt diet when medically feasible 2) Continue current plan of care Expected Outcomes/Goals: F/U in 2-3 days CC Plasma Assessment Blood Product Administration S: 2240 Date of Service: Dec 05, 2024 Billing Provider: HARRY BARKER MD Common Visit Codes: [id number] CARE 30-74 MIN SARA PAULA Dec 05, 2024 20:01 HARRY BARKER MD Dec 06, 2024 12:03
[2024-12-06] VITALS (13 sets, daily range): BP systolic 88–128; BP diastolic 28–77; PULSE 55–79; RESP 16–22; TEMP 97.2–99.1; O2SAT 90–100
[2024-12-06 07:04] LABS: Basophils # (auto) 0 10 ^3/uL (0-0.2); Basophils % (auto) 0.1 % (0.0-2.0); Eosinophils # (auto) 0 10 ^3/uL (0-0.8); Eosinophils % (auto) 0.4 % (0.0-7.0); Hematocrit 31.6 % (36.0-46.0); Hemoglobin 10.6 g/dL (12.2-16.2); Lymphocytes # (auto) 0.4 10 ^3/uL (0.4-5.4); Lymphocytes % (auto) 5.7 % (10.0-50.0); Mean Corpuscular Hgb Conc. 33.4 g/dL (32.0-36.0); Mean Corpuscular Volume 86.8 fL (80.0-100.0); Monocytes # (auto) 0.5 10 ^3/uL (0-1.3); Monocytes % (auto) 6.2 % (0.0-12.0); Neutrophils # (auto) 6.9 10 ^3/uL (1.6-8.6); Neutrophils % (auto) 87.6 % (37.0-80.0); Nucleated Red Blood Cells % 0.1 %; Platelet Count (auto) 172 10^3/uL (140-450); Red Blood Cells 3.64 10^6/uL (4.0-5.20); White Blood Cell 7.9 10^3/uL (4.4-10.8)
[2024-12-06 07:10] LABS: Anion Gap 5 (5-15); Carbon Dioxide 24 mmol/L (20-31); Chloride 103 mmol/L (98-107); Potassium 4.3 mmol/L (3.5-5.1)
[2024-12-06 07:11] LABS: Calcium 8.8 mg/dL (8.7-10.4)
[2024-12-06 07:17] LABS: BUN/Creatinine Ratio 27.8 (10.0-20.0); Blood Urea Nitrogen 15 mg/dL (9-23); Magnesium 1.9 mg/dL (1.6-2.6)
[2024-12-06 07:19] LABS: Glucose 143 mg/dL (74-106); Sodium 132 mmol/L (136-145)
--- NOTE | 2024-12-06 16:20 | DVHPNRES ---
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 On arrival patient had temperature of 97.6, pulse 126 bpm, respiratory rate 17, blood pressure 154/88, saturating 95 on room air. WBC count was 21.5 with 89% neutrophils and 600 platelets. Lactic acid was elevated at 2.4. 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 Subsequent CT abdomen completed 11/16 showed marked dilation of the right and transverse colon with a transition point at the level of the sigmoid flexure. Associated wall thickening in this region. Suspicious of an underlying lesion resulting in obstruction. Small left pleural effusion with basilar atelectasis. Consequently GI Dr. Dalal did a sigmoidoscopy up to the splenic flexure with biopsy and colonic decompression on 11/15 and an abnormal area was found in the splenic flexure with the sigmoid diverticular disease, moderate amount of retained stool in the rectosigmoid. So surgeon was consulted and patient underwent exploratory laparotomy with extended right hemicolectomy with ileostomy on 11/16 secondary to ischemic bowel with colonic obstruction at the splenic flexure. Distal ileum to the proximal descending colon was resected and a distal ileum perforation was found during the procedure. Lysis of adhesions were performed. Patient received 3 L of NS +500 mL of 5% albumin and 100 mL of 25% albumin during the procedure. Following the procedure patient was hypotensive and therefore could not be extubated and therefore which he was transferred to ICU for further management. 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 Quit smoking about 2 years ago when she had PE. Home medications: Glatopa 20 mg every morning, lidocaine patch q.12 hours p.r.n., Paxil tablet 10 mg daily, ropinirole 5 mg 2 tablets at bedtime, tolterodine 4 mg once daily, baclofen 10 mg b.i.d., albuterol 90 mcg. Patient is seen and examined at the bedside. Family meeting conducted today, opted for hospice. Wound culture shows E coli and Proteus, pansensitive. Continue IV ceftriaxone Objective vital signs Vital Sign Date Time Temp Pulse Resp B/P (MAP) Pulse Ox O2 Delivery O2 Flow Rate FiO2 12/06/24 13:00 97.9 63 17 128/56 (80) 95 97.9 12/06/24 12:42 Room Air* 0 21 Total Intake and Output 12/05/24 12/05/24 12/06/24 15:00 23:00 07:00 Intake Total 150 ml 650 ml 100 ml Output Total 1650 ml 1425 ml Balance 150 ml -1000 ml -1325 ml medications Current Medications Medications Dose Ordered Sig/Sylvie Route Start Time Stop Time Status Last Admin Dose Admin Pantoprazole Sodium 40 mg DAILY IV 11/14/24 10:00 12/06/24 09:50 40 MG Nitroglycerin 0.4 mg Q5MINP PRN SL 11/13/24 23:00 Albuterol 2.5 mg Q6HP PRN NEB 11/14/24 06:00 11/26/24 15:03 2.5 MG Fat Emulsion Intravenous 150 ml/Sodium Phosphate 60 meq/ Potassium Phosphate 44 meq/ Magnesium Sulfate 12 meq/ Multivitamins 10 ml/Chromium/ Copper/Manganese/ Zinc 1 ml/Insulin Human Regular 12 units/Amino Acids/ Dextrose/Purified Water 1,439.12 ml @ 60 mls/hr Q24H IV 11/21/24 22:00 11/22/24 21:59 Cancel Albuterol 2.5 mg Q12HR NEB 11/24/24 22:00 12/06/24 07:16 2.5 MG Ergocalciferol 50,000 unit Q7D PO 11/25/24 07:45 12/02/24 08:15 50,000 UNIT Acetaminophen 650 mg Q6HP PRN PO 11/25/24 08:45 Enoxaparin Sodium 30 mg BID SC 11/25/24 10:00 UNV Fluconazole 100 ml @ 100 mls/hr DAILY IV 11/26/24 10:00 12/06/24 10:32 100 MLS/HR Diagnostic Test (Pha) 1 strip Q6HR 11/26/24 12:00 12/06/24 12:10 1 STRIP Insulin Human Regular Q6HR SC 11/26/24 12:00 12/06/24 12:10 2 UNITS Dextrose 50 ml UD PRN IV 11/26/24 08:00 Dexamethasone Sodium Phosphate 4 mg BID IV 11/28/24 22:00 12/06/24 09:50 4 MG Sodium Chloride 10 ml QSHIFT@10,22 IV 11/28/24 22:00 12/06/24 09:50 10 ML Ceftriaxone Sodium 50 ml @ 100 mls/hr DAILY@09 IV 12/05/24 09:45 12/06/24 09:49 100 MLS/HR Examination Morbidly obese female patient lying in bed, extubated. General: Morbidly obese, afebrile, palor, mucosae are moist A&O x4. Cardiovascular: Regular S1 and S2. No murmurs, gallops or rubs. No JVD elevation. 1+ nonpitting edema in the lower extremity Respiratory: Bilateral dull breath sounds heard , saturating 94 on room air Abdomen: Abdomen is soft but hypoactive bowel sounds. Dressing dirty with ileostomy leakage. Superficial wound dehiscence noted. Two LIANNE drains attached. Maceration, erythema noted beneath the skin fold beneath the umbilicus. Ileostomy bag leaking. Bilateral inner thigh and genital area macerations and redness, no discharge noticed. Fresh red vaginal bleeding noticed. Genitourinary: Redness in the skin folds. Fresh red vaginal bleeding has resolved. MSK/skin: Skin is dry and warm B/l upper and lower ext edema Neurological: Pupils are constricted and sluggish to response. No icterus seen. laboratory and microbiology Laboratory Tests 12/06/24 05:40 Test 12/06/24 05:40 Range/Units Serum Glucose 143 H 74-106 mg/dL Microbiology Date/Time Source Procedure Growth Status 12/04/24 23:30 Urine - Xiao Port Urine Culture - Preliminary Resulted 12/04/24 23:30 Blood Blood Culture - Preliminary NO GROWTH AFTER 24 HOURS OF INCUBATION. 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 There is vasogenic edema in the left thalamus. There is generalized cerebral volume loss with concordant prominence of the subarachnoid spaces and ventricles. MR brain could not be completed given the patient's habitus Dexamethasone 4 mg IV b.i.d. CARDIOVASCULAR Septic shock secondary to toxic megacolon Lactic acidosis-resolved Paroxysmal atrial fibrillation-CHADS2 Vasc score 3, has bled score 1 Discontinued Zosyn 11/19 till 11/28 DC vancomycin 11/17 till 11/21 and DC IV metronidazole, patient received from 11/15 to 11/21 DC IV cefepime 11/18 Preliminary blood cultures negative Lasix 20 mg IV given once 11/25 Repeat blood culture 11/23 Consider starting digoxin if AFib becomes symptomatic RESPIRATORY Acute hypoxic respiratory failure secondary to septic shock Chronic nicotine dependence Respiratory acidosis History of PE Non-anion gap metabolic acidosis secondary to hyperchloremia Bilateral pleural effusion with associated bilateral atelectasis Intubated from 11/16 till 11/21 Respiratory culture and Gram stain shows no growth ABGs 11/17 shows non-anion gap metabolic acidosis with respiratory acidosis Discontinue sodium bicarbonate 100 mL/hour 11/17 till 11/18 Incentive spirometry Q 1 hour GI Sepsis secondary to toxic megacolon secondary to primary adenocarcinoma of the descending colon and splenic flexure 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 Associated wall thickening in this region. Suspect an underlying lesion resulting in obstruction. Associated small bowel obstruction. Findings are similar to prior exam. Pathology Report: 4.0 cm tumor with no macroscopic perforation, adenocarcinoma, moderately to poorly differentiated (G2-G3) tumor invades the visceral peritoneum. Proximal and distal margins were negative and mesenteric margin was negative for carcinoma. LVI was present and PNI was present there were five tumor deposits. Twelve lymph glands were examined and five were involved PT4a, pN2a. No loss of nuclear expression of tumor proteins, low probability of MSI-H P.o. morphine for pain control Stool culture negative. Stool WBC negative. LFTs increasing, liver ultrasound shows multiple heterogeneous echotexture lesions, metastatic lesions. Contrast surgeon could not be completed since the patient is allergic to iodine. Heme oncology consulted. 12/02-CT chest/abdomen/pelvis with protocol, shows multiple liver metastasis replacing most of the left lobe of the liver. Metastatic periportal and gastrohepatic lymph nodes. Cystic lesions of the liver is nonspecific. Bilateral pleural effusion with associated bilateral atelectasis and consolidation.. IV ceftriaxone starting 12/05 12/03-wound culture growing E coli and Proteus, pansensitive. /KIDNEY Acute cystitis Yellow colored vaginal discharge Final urine culture showed >100,000 CFU/mL Mixed Gram Positive Ca >3 [place] Types, including Beta-Hemolytic Group B Streptococcus Repeat urine culture 11/16 is negative Discontinued IV Zosyn Repeat urine culture 11/23 shows greater than 299499 CFU yeast Repeat urine culture 12/04 shows yeast Started IV Diflucan 11/25 OBGYN Normal uterine bleeding Pelvic ultrasound 11/30/23 is unremarkable OBGYN consulted METABOLIC Hyponatremia, corrected Hypomagnesemia, supplement Morbid obese Non-anion gap metabolic acidosis Vitamin-D deficiency Hypercalcemia: Corrected calcium 7.5 Received 1 g IV 11/25 overnight Vitamin-D supplemented SKIN Intertrigo Medial thigh maceration Abdominal wound superficial dehescience - nystatin powder HEM-ONCO Anemia, likely normocytic secondary to blood loss Superficial venous thrombosis in the right cephalic Hemoglobin dropped from 16-10 from 11/14 to 11/17 Retic count 1.23, lactate dehydrogenase 330 11/22 1 unit of packed RBC administered Continue warm compresses to right arm Heme oncologist consulted, recommended CT brain and abdomen with and without contrast. MRI could not be completed because of the patient's habitus. Patient will need adjuvant chemotherapy because of obstruction and staging. LINES Intubated on 11/16 till 11/21 Left SUBCLAVIAN CVC 11/16 till 11/28 PICC line inserted 11/28 Xiao catheter 11/13, changed on 11/24 DRIPS LEVOPHED off 11/25 VASOPRESSIN off since 11/11 FENTANYL DC VERSED DC NUTRITION; Clinimix starting 11/17, TPN starting 11/18 till 11/22, started soft diet 11/22 DVT; Lovenox 40 mg sc daily Physical therapy-recommended discharge back to [facility] or convalescent home. Recommended home health. Goals of care/advance care planning; FULL CODE; discussed on for 24 minutes. PUD prophylaxis: Pantoprazole 40 mg IV daily DVT prophylaxis: Discontinued Lovenox 11/30 9 given the vaginal bleeding Plan discussed with patient's daughter Paula [phone] over the phone call for more than 20 minutes, code status full code. Discussed with patient's son over the phone, all questions have been answered Family meeting conducted 12/06 with patient's son, daughter at the bedside. Opted hospice. Supervisor Boarding consulted for hospice care. Case discussed with Dr. Barker. Heme oncology on the case. Critical care time including review of the chart, and discussion with the patient's family in detail excluding procedures 83 minutes Plan discussed with: Patient, Daughter (At the bedside), Son (At the bedside) My Orders My Orders Orders - SARA PAULA Procedure Category Date Status Time * Supervisor Boarding CONS 12/06/24 Transmitted Consult Dietary Evaluation Review Comments: 1) Advance pt diet when medically feasible 2) Continue current plan of care Expected Outcomes/Goals: F/U in 2-3 days CC Plasma Assessment Blood Product Administration S: 2240 Date of Service: Dec 06, 2024 Billing Provider: HARRY BARKER MD Common Visit Codes: [id number] CARE 30-74 MIN, [id number] CARE-EACH +30MIN SARA PAULA Dec 06, 2024 16:20 HARRY BARKER MD Dec 07, 2024 10:55
--- NOTE | 2024-12-06 18:49 | DVHPN2 ---
Progress Note - Dictate Date Seen: Dec 06, 2024 Medical Necessity Reason Pt with a Central, PICC or Fol: Yes The following are medically ne: PICC Line, Xiao Catheter Reason for xiao catheter: Strict I&O Subjective Patient is noted to have wound dehiscence and surgery has seen the patient. Wound culture shows E coli and Proteus, pansensitive. vital signs Vital Sign Date Time Temp Pulse Resp B/P (MAP) Pulse Ox O2 Delivery O2 Flow Rate FiO2 12/06/24 17:00 97.2 55 17 109/62 (78) 98 97.2 12/06/24 12:42 Room Air* 0 21 Total Intake and Output 12/05/24 12/05/24 12/06/24 15:00 23:00 07:00 Intake Total 150 ml 650 ml 100 ml Output Total 1650 ml 1425 ml Balance 150 ml -1000 ml -1325 ml medications Current Medications Medications Dose Ordered Sig/Sylvie Route Start Time Stop Time Status Last Admin Dose Admin Pantoprazole Sodium 40 mg DAILY IV 11/14/24 10:00 12/06/24 09:50 40 MG Nitroglycerin 0.4 mg Q5MINP PRN SL 11/13/24 23:00 Albuterol 2.5 mg Q6HP PRN NEB 11/14/24 06:00 11/26/24 15:03 2.5 MG Fat Emulsion Intravenous 150 ml/Sodium Phosphate 60 meq/ Potassium Phosphate 44 meq/ Magnesium Sulfate 12 meq/ Multivitamins 10 ml/Chromium/ Copper/Manganese/ Zinc 1 ml/Insulin Human Regular 12 units/Amino Acids/ Dextrose/Purified Water 1,439.12 ml @ 60 mls/hr Q24H IV 11/21/24 22:00 11/22/24 21:59 Cancel Albuterol 2.5 mg Q12HR NEB 11/24/24 22:00 12/06/24 07:16 2.5 MG Ergocalciferol 50,000 unit Q7D PO 11/25/24 07:45 12/02/24 08:15 50,000 UNIT Acetaminophen 650 mg Q6HP PRN PO 11/25/24 08:45 Enoxaparin Sodium 30 mg BID SC 11/25/24 10:00 UNV Fluconazole 100 ml @ 100 mls/hr DAILY IV 11/26/24 10:00 12/06/24 10:32 100 MLS/HR Diagnostic Test (Pha) 1 strip Q6HR 11/26/24 12:00 12/06/24 18:02 1 STRIP Insulin Human Regular Q6HR SC 11/26/24 12:00 12/06/24 12:10 2 UNITS Dextrose 50 ml UD PRN IV 11/26/24 08:00 Dexamethasone Sodium Phosphate 4 mg BID IV 11/28/24 22:00 12/06/24 09:50 4 MG Sodium Chloride 10 ml QSHIFT@10,22 IV 11/28/24 22:00 12/06/24 09:50 10 ML Ceftriaxone Sodium 50 ml @ 100 mls/hr DAILY@09 IV 12/05/24 09:45 12/06/24 09:49 100 MLS/HR objective General examination- Morbidly obese female, Acute distress, urinary catheter in place, A0X2 HEENT: PEERLA, no acute nasal discharge Chest: tachycardiac, S1-S2 audible, rate and rhythm regular, no murmur Lung: CTAB, no wheeze or rhonchi Abdomen: exp lap, LIANNE drain +, ileostomy bag+ Musculoskeletal: no acute joint swelling or tenderness Lower extremity: leg edema Neurological:alert but confused Skin- dry laboratory and microbiology Laboratory Tests 12/06/24 05:40 Test 12/06/24 05:40 Range/Units Serum Glucose 143 H 74-106 mg/dL Assessment/Plan Patient is a 64-year-old female presented to the hospital with: Change in mental status: 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 Bowel obstruction s/p exp lap right hemicolectomy terminal ileum perforation s/p partial resection of terminal ileum and caecum Urinary tract infection Acute hypoxic respiratory failure Morbid obesity Recommendations: Current Antibiotics: Ceftriaxone IV [Started 12/05] 12/04, Urine culture preliminary showed >100,000 CFU/mL Yeast 12/04, Blood culture showed no growth 12/03, Wound cultures showed Escherichia col and Proteus mirabilis 11/30, Wound Culture Preliminary showed Many growth: Gram Negative Rods, Possible 2 [place] Types, Identification and Susceptibility test to follow. Due to new change in mental status and CT head showing thalamic mass with vasogenic edema ? metastasis LIANNE drain is sero sanguinous she was switched to Meropenem from Zosyn for total 5 days, [Last dose given 11/30] WBC count normal. Prognosis very guarded Thank you for consult and for giving an opportunity to take care of this patient. Dietary Evaluation Review Comments: 1) Advance pt diet when medically feasible 2) Continue current plan of care Expected Outcomes/Goals: F/U in 2-3 days CC Plasma Assessment Blood Product Administration S: 2240 LAILA DRAKE MD Dec 06, 2024 18:49
--- NOTE | 2024-12-06 19:30 | DVHPN2 ---
Progress Note Date Seen: Dec 06, 2024 Resident Creating Document: SAY GR RESIDENT Medical Necessity Reason Pt with a Central, PICC or Fol: No The following are medically ne: PICC Line, Xiao Catheter Reason for xiao catheter: Strict I&O Medical Necessity Reason For hospice Subjective Review of Systems Seen and examined today. The bedside no significant changes from yesterday. At the time of my evaluation, her colostomy bag seems to be leaking. Nurse and I addressed it. Early to day, patient's family was present and they discussed the need for hospice. All family members are in agreement for hospice. Going to hospice soon. Objective vital signs Vital Sign Date Time Temp Pulse Resp B/P (MAP) Pulse Ox O2 Delivery O2 Flow Rate FiO2 12/06/24 17:00 97.2 55 17 109/62 (78) 98 97.2 12/06/24 12:42 Room Air* 0 21 Total Intake and Output 12/05/24 12/05/24 12/06/24 15:00 23:00 07:00 Intake Total 150 ml 650 ml 100 ml Output Total 1650 ml 1425 ml Balance 150 ml -1000 ml -1325 ml medications Current Medications Medications Dose Ordered Sig/Sylvie Route Start Time Stop Time Status Last Admin Dose Admin Pantoprazole Sodium 40 mg DAILY IV 11/14/24 10:00 12/06/24 09:50 40 MG Nitroglycerin 0.4 mg Q5MINP PRN SL 11/13/24 23:00 Albuterol 2.5 mg Q6HP PRN NEB 11/14/24 06:00 11/26/24 15:03 2.5 MG Fat Emulsion Intravenous 150 ml/Sodium Phosphate 60 meq/ Potassium Phosphate 44 meq/ Magnesium Sulfate 12 meq/ Multivitamins 10 ml/Chromium/ Copper/Manganese/ Zinc 1 ml/Insulin Human Regular 12 units/Amino Acids/ Dextrose/Purified Water 1,439.12 ml @ 60 mls/hr Q24H IV 11/21/24 22:00 11/22/24 21:59 Cancel Albuterol 2.5 mg Q12HR NEB 11/24/24 22:00 12/06/24 07:16 2.5 MG Ergocalciferol 50,000 unit Q7D PO 11/25/24 07:45 12/02/24 08:15 50,000 UNIT Acetaminophen 650 mg Q6HP PRN PO 11/25/24 08:45 Enoxaparin Sodium 30 mg BID SC 11/25/24 10:00 UNV Fluconazole 100 ml @ 100 mls/hr DAILY IV 11/26/24 10:00 12/06/24 10:32 100 MLS/HR Diagnostic Test (Pha) 1 strip Q6HR 11/26/24 12:00 12/06/24 18:02 1 STRIP Insulin Human Regular Q6HR SC 11/26/24 12:00 12/06/24 12:10 2 UNITS Dextrose 50 ml UD PRN IV 11/26/24 08:00 Dexamethasone Sodium Phosphate 4 mg BID IV 11/28/24 22:00 12/06/24 09:50 4 MG Sodium Chloride 10 ml QSHIFT@ IV 11/28/24 22:00 12/06/24 09:50 10 ML Ceftriaxone Sodium 50 ml @ 100 mls/hr DAILY@09 IV 12/05/24 09:45 12/06/24 09:49 100 MLS/HR Examination General: No acute distress, sleeping, but easily aroused HEENT: PEERLA, no acute nasal discharge Chest: S1-S2 audible, rate and rhythm regular, no murmur Lung: CTAB, no wheeze or rhonchi Abdomen: Soft, Mild BS+, tender, Wound dehiscence covered. colostomy bag leaking Musculoskeletal: no acute joint swelling or tenderness Lower extremity: leg edema with compression stockings present Neurological: cranial nerves intact, no acute dysarthria or dysphagia Psychiatry-- Normal mood and affect Skin- no acute rash or purpura laboratory and microbiology Laboratory Tests 12/06/24 05:40 Test 12/06/24 05:40 Range/Units Serum Glucose 143 H 74-106 mg/dL Microbiology Date/Time Source Procedure Growth Status 12/04/24 23:30 Urine - Xiao Port Urine Culture - Preliminary Resulted 12/04/24 23:30 Blood Blood Culture - Preliminary NO GROWTH AFTER 24 HOURS OF INCUBATION. Resulted 12/03/24 17:30 Abdomen Gram Stain - Final Resulted 12/03/24 17:30 Wound Culture - Preliminary Escherichia coli Proteus mirabilis Resulted 11/25/24 09:35 Stool Stool Culture - Final Complete 11/25/24 09:35 Stool Shiga Toxin I & II - Final Complete 11/16/24 17:20 Sputum Gram Stain - Final Complete 11/16/24 17:20 Sputum Respiratory Culture - Final Complete Problem List/Assessment/Plan Problem List/Assessment/Plan (1) 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 with metastasis to liver -->Status post sigmoidoscopy and exploratory laparotomy and extended right hemicolectomy and ileostomy 11/16 --> CEA level 45 --> Pathology report: metastatic adenocarcinoma, moderately to poorly differentiated (G2-G3) tumor invades the visceral peritoneum and LN, Possible liver mets as well --> Oncologist following --> Mild wound dehiscence with some drainage ( 12/03/2024): Continue to monitor (2) Ischemic stricture intestine (3) Colonic obstruction (4) UTI (urinary tract infection) (5) Sepsis (6) Left lower lobe pulmonary infiltrate (7) Altered; CT head which was showing possible vasogenic edema with the left thalamus mass, attempt to transfer the patient for neurosurgery evaluation. Patient did have in the past prior craniotomy. ( 8) Vasogenic edema (9) Protein malnutrition, r/t poor nutrition intake, aeb mechanical soft diet 25% consumption (10) Morbid obesity R/T history of excessive oral intake AEB BMI 45.1 (11) Left upper extremity DVT ( Thrombus noted at catheter tip) Plan Overall this patient's condition is poor with underlying multiple comorbidities She appears to have advanced metastatic adenocarcinoma of the liver with the primary from the colon S/P laparotomy with colon resection currently with LIANNE drains She also has a thalamic mass with mild vasogenic edema Primary team to discuss with patient and family For Hospice per family Goal of care discussed for more than 25 minutes case and plan discussed with Dr. Edith Dalal Thank you for allowing us to participate in the care of this patient. Please call if you have any questions or concerns. Plan discussed with: Patient, Daughter, Other Dietary Evaluation Review Comments: 1) Advance pt diet when medically feasible 2) Continue current plan of care Expected Outcomes/Goals: F/U in 2-3 days CC Plasma Assessment Blood Product Administration S: 2240 SAY GR RESIDENT Dec 06, 2024 19:30
[2024-12-07] VITALS (8 sets, daily range): BP systolic 106–114; BP diastolic 57–66; PULSE 65–77; RESP 16–20; TEMP 97.3–98.8; O2SAT 93–99
[2024-12-07 07:24] LABS: Basophils # (auto) 0 10 ^3/uL (0-0.2); Basophils % (auto) 0.1 % (0.0-2.0); Eosinophils # (auto) 0 10 ^3/uL (0-0.8); Eosinophils % (auto) 0.1 % (0.0-7.0); Hemoglobin 10.9 g/dL (12.2-16.2); Lymphocytes # (auto) 0.7 10 ^3/uL (0.4-5.4); Lymphocytes % (auto) 7.9 % (10.0-50.0); Mean Corpuscular Hemoglobin 28.6 pg (28.0-32.0); Mean Corpuscular Hgb Conc. 33.1 g/dL (32.0-36.0); Mean Corpuscular Volume 86.3 fL (80.0-100.0); Monocytes # (auto) 0.6 10 ^3/uL (0-1.3); Monocytes % (auto) 6.9 % (0.0-12.0); Neutrophils # (auto) 7.6 10 ^3/uL (1.6-8.6); Platelet Count (auto) 188 10^3/uL (140-450); Red Blood Cells 3.82 10^6/uL (4.0-5.20); Red Cell Distribution Width 18.5 % (11.8-14.3); White Blood Cell 8.9 10^3/uL (4.4-10.8)
[2024-12-07 07:48] LABS: Chloride 103 mmol/L (98-107); Potassium 4.3 mmol/L (3.5-5.1)
[2024-12-07 07:49] LABS: Anion Gap 9 (5-15); Carbon Dioxide 22 mmol/L (20-31)
[2024-12-07 07:50] LABS: Sodium 134 mmol/L (136-145)
[2024-12-07 07:54] LABS: BUN/Creatinine Ratio 31.3 (10.0-20.0); Blood Urea Nitrogen 15 mg/dL (9-23)
[2024-12-07 07:55] LABS: Magnesium 1.9 mg/dL (1.6-2.6)
[2024-12-07 08:06] LABS: Glucose 134 mg/dL (74-106)
--- NOTE | 2024-12-07 18:35 | DVHPNRES ---
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 On arrival patient had temperature of 97.6, pulse 126 bpm, respiratory rate 17, blood pressure 154/88, saturating 95 on room air. WBC count was 21.5 with 89% neutrophils and 600 platelets. Lactic acid was elevated at 2.4. CT abdomen pelvis completed 11/13 showed gas distended colon with air bubbles insurance verification representative of toxic colitis. Subsequent CT abdomen completed 11/16 showed marked dilation of the right and transverse colon with a transition point at the level of the sigmoid flexure. Associated wall thickening in this region. Suspicious of an underlying lesion resulting in obstruction. Small left pleural effusion with basilar atelectasis. Consequently GI Dr. Dalal did a sigmoidoscopy up to the splenic flexure with biopsy and colonic decompression on 11/15 and an abnormal area was found in the splenic flexure with the sigmoid diverticular disease, moderate amount of retained stool in the rectosigmoid. So surgeon was consulted and patient underwent exploratory laparotomy with extended right hemicolectomy with ileostomy on 11/16 secondary to ischemic bowel with colonic obstruction at the splenic flexure. Distal ileum to the proximal descending colon was resected and a distal ileum perforation was found during the procedure. Lysis of adhesions were performed. Patient received 3 L of NS +500 mL of 5% albumin and 100 mL of 25% albumin during the procedure. Following the procedure patient was hypotensive and therefore could not be extubated and therefore which he was transferred to ICU for further management. 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 Quit smoking about 2 years ago when she had PE. Home medications: Glatopa 20 mg every morning, lidocaine patch q.12 hours p.r.n., Paxil tablet 10 mg daily, ropinirole 5 mg 2 tablets at bedtime, tolterodine 4 mg once daily, baclofen 10 mg b.i.d., albuterol 90 mcg. Seen and examined at the bedside. No acute complaint. Objective vital signs Vital Sign Date Time Temp Pulse Resp B/P (MAP) Pulse Ox O2 Delivery O2 Flow Rate FiO2 12/07/24 12:47 97.3 70 17 96 12/07/24 11:54 114/57 (76) 12/07/24 08:00 Room Air* 0 21 Total Intake and Output 12/06/24 12/06/24 12/07/24 15:00 23:00 07:00 Intake Total 150 ml 500 ml 400 ml Output Total 510 ml 1500 ml Balance 150 ml -10 ml -1100 ml medications Current Medications Medications Dose Ordered Sig/Sylvie Route Start Time Stop Time Status Last Admin Dose Admin Fat Emulsion Intravenous 150 ml/Sodium Phosphate 60 meq/ Potassium Phosphate 44 meq/ Magnesium Sulfate 12 meq/ Multivitamins 10 ml/Chromium/ Copper/Manganese/ Zinc 1 ml/Insulin Human Regular 12 units/Amino Acids/ Dextrose/Purified Water 1,439.12 ml @ 60 mls/hr Q24H IV 11/21/24 22:00 11/22/24 21:59 Cancel Enoxaparin Sodium 30 mg BID SC 11/25/24 10:00 UNV laboratory and microbiology Laboratory Tests 12/07/24 06:28 Test 12/07/24 06:28 Range/Units Serum Glucose 134 H 74-106 mg/dL Microbiology Date/Time Source Procedure Growth Status 12/04/24 23:30 Urine - Xiao Port Urine Culture - Preliminary Resulted 12/04/24 23:30 Blood Blood Culture - Preliminary NO GROWTH AFTER 48 HOURS OF INCUBATION. 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 There is vasogenic edema in the left thalamus. There is generalized cerebral volume loss with concordant prominence of the subarachnoid spaces and ventricles. MR brain could not be completed given the patient's habitus Dexamethasone 4 mg IV b.i.d. CARDIOVASCULAR Septic shock secondary to toxic megacolon Lactic acidosis-resolved Paroxysmal atrial fibrillation-CHADS2 Vasc score 3, has bled score 1 Discontinued Zosyn 11/19 till 11/28 DC vancomycin 11/17 till 11/21 and DC IV metronidazole, patient received from 11/15 to 11/21 DC IV cefepime 11/18 Preliminary blood cultures negative Lasix 20 mg IV given once 11/25 Repeat blood culture 11/23 Consider starting digoxin if AFib becomes symptomatic RESPIRATORY Acute hypoxic respiratory failure secondary to septic shock Chronic nicotine dependence Respiratory acidosis History of PE Non-anion gap metabolic acidosis secondary to hyperchloremia Bilateral pleural effusion with associated bilateral atelectasis Intubated from 11/16 till 11/21 Respiratory culture and Gram stain shows no growth ABGs 11/17 shows non-anion gap metabolic acidosis with respiratory acidosis Discontinue sodium bicarbonate 100 mL/hour 11/17 till 11/18 Incentive spirometry Q 1 hour GI Sepsis secondary to toxic megacolon secondary to primary adenocarcinoma of the descending colon and splenic flexure 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 Associated wall thickening in this region. Suspect an underlying lesion resulting in obstruction. Associated small bowel obstruction. Findings are similar to prior exam. Pathology Report: 4.0 cm tumor with no macroscopic perforation, adenocarcinoma, moderately to poorly differentiated (G2-G3) tumor invades the visceral peritoneum. Proximal and distal margins were negative and mesenteric margin was negative for carcinoma. LVI was present and PNI was present there were five tumor deposits. Twelve lymph glands were examined and five were involved PT4a, pN2a. No loss of nuclear expression of tumor proteins, low probability of MSI-H P.o. morphine for pain control Stool culture negative. Stool WBC negative. LFTs increasing, liver ultrasound shows multiple heterogeneous echotexture lesions, metastatic lesions. Contrast surgeon could not be completed since the patient is allergic to iodine. Heme oncology consulted. 12/02-CT chest/abdomen/pelvis with protocol, shows multiple liver metastasis replacing most of the left lobe of the liver. Metastatic periportal and gastrohepatic lymph nodes. Cystic lesions of the liver is nonspecific. Bilateral pleural effusion with associated bilateral atelectasis and consolidation.. IV ceftriaxone starting 12/05 12/03-wound culture growing E coli and Proteus, pansensitive. /KIDNEY Acute cystitis Yellow colored vaginal discharge Final urine culture showed >100,000 CFU/mL Mixed Gram Positive Ca >3 Lowry Types, including Beta-Hemolytic Group B Streptococcus Repeat urine culture 11/16 is negative Discontinued IV Zosyn Repeat urine culture 11/23 shows greater than [id number] CFU yeast Repeat urine culture 12/04 shows yeast Started IV Diflucan 11/25 OBGYN Normal uterine bleeding Pelvic ultrasound 11/30/23 is unremarkable OBGYN consulted METABOLIC Hyponatremia, corrected Hypomagnesemia, supplement Morbid obese Non-anion gap metabolic acidosis Vitamin-D deficiency Hypercalcemia: Corrected calcium 7.5 Received 1 g IV 11/25 overnight Vitamin-D supplemented SKIN Intertrigo Medial thigh maceration Abdominal wound superficial dehescience - nystatin powder HEM-ONCO Anemia, likely normocytic secondary to blood loss Superficial venous thrombosis in the right cephalic Hemoglobin dropped from 16-10 from 11/14 to 11/17 Retic count 1.23, lactate dehydrogenase 330 11/22 1 unit of packed RBC administered Continue warm compresses to right arm Heme oncologist consulted, recommended CT brain and abdomen with and without contrast. MRI could not be completed because of the patient's habitus. Patient will need adjuvant chemotherapy because of obstruction and staging. LINES Intubated on 11/16 till 11/21 Left SUBCLAVIAN CVC 11/16 till 11/28 PICC line inserted 11/28 Xiao catheter 11/13, changed on 11/24 DRIPS LEVOPHED off 11/25 VASOPRESSIN off since 11/11 FENTANYL DC VERSED DC NUTRITION; Clinimix starting 11/17, TPN starting 11/18 till 11/22, started soft diet 11/22 DVT; Lovenox 40 mg sc daily Physical therapy-recommended discharge back to [facility] care facility or convalescent home. Recommended home health. Goals of care/advance care planning; FULL CODE; discussed on for 24 minutes. PUD prophylaxis: Pantoprazole 40 mg IV daily DVT prophylaxis: Discontinued Lovenox 11/30 9 given the vaginal bleeding Plan discussed with patient's daughter Paula [phone] over the phone call for more than 20 minutes, code status full code. Discussed with patient's son over the phone, all questions have been answered Family meeting conducted 12/06 with patient's son, daughter at the bedside. Patient will be discharged with hospice Case discussed with Dr. Cardoza. Heme oncology on the case. Plan discussed with: Patient, Daughter Dietary Evaluation Review Comments: 1) Advance pt diet when medically feasible 2) Continue current plan of care Expected Outcomes/Goals: F/U in 2-3 days CC Plasma Assessment Blood Product Administration S: [id number] SARA PAULA RESIDENT Dec 07, 2024 18:35
--- NOTE | 2024-12-07 18:50 | DVHDSRES ---
Discharge Summary Date of Admission Resident Creating Document: SARA PAULA RESIDENT Nov 13, 2024 at 23:07 Date of Discharge: Dec 07, 2024 Labs/Diagnostic Data: Laboratory Results Test 12/07/24 12:34 12/07/24 06:28 12/04/24 23:30 12/02/24 09:50 POC Glucose 133 mg/dl (70-106) White Blood Count 8.9 10^3/uL (4.4-10.8) Red Blood Count 3.82 10^6/uL (4.0-5.20) Hemoglobin 10.9 g/dL (12.2-16.2) Hematocrit 33.0 % (36.0-46.0) Mean Corpuscular Volume 86.3 fL (80.0-100.0) Mean Corpuscular Hemoglobin 28.6 pg (28.0-32.0) Mean Corpuscular Hemoglobin Concent 33.1 g/dL (32.0-36.0) Red Cell Distribution Width 18.5 % (11.8-14.3) Platelet Count 188 10^3/uL (140-450) Mean Platelet Volume 8.8 fL (6.9-10.8) Neutrophils (%) (Auto) 85.0 % (37.0-80.0) Lymphocytes (%) (Auto) 7.9 % (10.0-50.0) Monocytes (%) (Auto) 6.9 % (0.0-12.0) Eosinophils (%) (Auto) 0.1 % (0.0-7.0) Basophils (%) (Auto) 0.1 % (0.0-2.0) Neutrophils # (Auto) 7.6 10 ^3/uL (1.6-8.6) Lymphocytes # (Auto) 0.7 10 ^3/uL (0.4-5.4) Monocytes # (Auto) 0.6 10 ^3/uL (0-1.3) Eosinophils # (Auto) 0 10 ^3/uL (0-0.8) Basophils # (Auto) 0 10 ^3/uL (0-0.2) Nucleated Red Blood Cells 0.0 % Sodium Level 134 mmol/L (136-145) Potassium Level 4.3 mmol/L (3.5-5.1) Chloride Level 103 mmol/L (98-107) Carbon Dioxide Level 22 mmol/L (20-31) Anion Gap 9 (5-15) Blood Urea Nitrogen 15 mg/dL (9-23) Creatinine 0.48 mg/dL (0.550-1.02) Glomerular Filtration Rate Calc 106 mL/min (>90) BUN/Creatinine Ratio 31.3 (10.0-20.0) Serum Glucose 134 mg/dL (74-106) Calcium Level 9.0 mg/dL (8.7-10.4) Magnesium Level 1.9 mg/dL (1.6-2.6) Urine Color Light-yellow (Yellow) Urine Clarity Clear (Clear) Urine pH 7.0 (5.0-9.0) Urine Specific [place] 1.014 (1.001-1.035) Urine Protein Negative (Negative) Urine Ketones Negative (Negative) Urine Blood Negative /uL (Negative) Urine Nitrite Negative (Negative) Urine Bilirubin Negative (Negative) Urine Urobilinogen Normal mg/dL (Negative) Urine Leukocyte Esterase Negative /uL (Negative) Urine RBC 4 /hpf (0 - 4) Urine WBC 1 /hpf (0 - 5) Urine Squamous Epithelial Cells Few /hpf (<5) Urine Bacteria None seen /hpf (None Seen) Urine Mucus Few (None Seen) Urine Yeast (Budding) Few /hpf (None Seen) Urine Glucose Normal mg/dL (Normal) Differential Total Cells Counted 100.0 (100) Neutrophils % (Manual) 90 (37.0-80.0) Band Neutrophils % (Manual) 0 Lymphocytes % (Manual) 7 (10.0-50.0) Monocytes % (Manual) 3 (0-12) Eosinophils % (Manual) 0 (0-7) Basophils % (Manual) 0 (0.0-2.0) Metamyelocytes % (manual) 0 Myelocytes % (Manual) 0 Promyelocytes % (Manual) 0 Blast Cells % (Manual) 0 Reactive Lymphocytes 0 Platelet Estimate Adequate Test 12/02/24 07:00 12/01/24 11:10 11/27/24 18:11 11/27/24 07:18 Carcinoembryonic Antigen 74.11 ng/mL (<=5.0) Total Bilirubin 0.4 mg/dL (0.2-1.0) Aspartate Amino Transferase (AST) 36 U/L (13-40) Alanine Aminotransferase (ALT) 81 U/L (7-40) Alkaline Phosphatase 137 U/L (46-116) Total Protein 4.6 g/dL (5.7-8.2) Albumin 2.5 g/dL (3.2-4.8) Vancomycin Level Trough 24.6 ug/mL (5-10) Blood Gas Specimen Type Arterial Blood Gas Sample Site Left radial Blood Gas Patient Temperature 37.0 Arterial Blood Date Drawn [id number] Arterial Blood pH 7.458 (7.350-7.450) Arterial Blood Partial Pressure CO2 36.6 mmHg (32.0-45.0) Arterial Blood Partial Pressure O2 82.0 mmHg (83.0-108.0) Arterial Blood HCO3 25.3 mmol/L (21.0-28.0) Arterial Blood Oxygen Saturation 95.8 % (94.0-98.0) Arterial Blood Base Excess 1.5 mmol/L (-2.0-3.0) Arterial Blood Oxyhemoglobin 95.3 % (94.0-98.0) Arterial Blood Carboxyhemoglobin 0.2 % (0.5-1.5) Arterial Blood Methemoglobin 0.3 % (0.0-1.5) Abilio Test Yes Blood Gas Total Hemoglobin 9.40 g/dL (12.0-16.0) Blood Gas Liter Flow 4.00 Blood Gas Modality Nasal cannula FiO2 % 36.0 Test 11/27/24 03:28 11/26/24 16:35 11/25/24 09:35 11/22/24 03:33 Prothrombin Time 11.7 sec (9.3-11.8) Prothrombin Time INR 1.11 (0.9-1.15) Activated Partial Thromboplast Time 27.1 SEC (24.5-34.5) Blood Gas Tidal Volume 16.0 Blood Gas EPAP 8 Blood Gas IPAP 16 Blood Gas Critical Value Read Back Yes Blood Gas Notified Whom eliana Nicole Blood Gas Notified Time [id number] Blood Gas Notified By Booster Assembler adrian mckinney Stool Occult Blood Negative (Negative) Stool Occult Blood Sample #3 (Negative) Stool for White Cells None seen Phosphorus Level 3.4 mg/dL (2.4-5.1) Test 11/21/24 12:26 11/21/24 07:15 11/20/24 08:17 11/20/24 03:35 Blood Gas Pressure Support 5 Blood Gas PEEP or CPAP 5.0 Blood Gas Set Respiration Rate 16.0 Blood Gas Spontaneous Rate 16 Random Vancomycin Level 16.1 ug/mL (5-10) Test 11/18/24 03:00 11/17/24 07:04 11/15/24 22:22 11/14/24 21:07 Reticulocyte Count (auto) 1.23 % (0.5-1.5) Lactate Dehydrogenase 330 U/L (120-246) Triglycerides Level 65 mg/dL (< 150) Blood Gas Inspiratory Pressure 24.0 Bl Gas Inspiratory/Expiratory Ratio 1:2.8 Specimen Drawn By nba rt Hemoglobin A1c 5.7 % A1C (<5.7) Thyroid Stimulating Hormone (TSH) 1.83 uIU/mL (0.55-4.78) B-Type Natriuretic Peptide 29.44 pg/mL (0-100) Vitamin D 25-Hydroxy 4.6 ng/mL (30.0-100) Test 11/14/24 13:20 11/14/24 09:04 11/14/24 05:51 11/13/24 23:00 Urine Osmolality 824 mOsm/kg Urine Creatinine 94.06 mg/dL (30.0-125.0) Urine Protein/Creatinine Ratio 1.34 Urine Sodium < 10 mmol/L (40-220) Urine Total Protein 126.5 mg/dL (1-14) Lactic Acid Level 2.0 mmol/L (0.4-2.0) Parathyroid Hormone (Intact) 115.5 pg/mL (18.4-80.1) Troponin I High Sensitivity 3 ng/L (</=34) Test 11/13/24 21:25 11/13/24 20:10 11/13/24 19:07 Urine WBC Clumps Present /hpf (None Seen) Lipase 30 U/L (12-53) Plasma/Serum Blood Alcohol < 3.0 mg/dL (<10) Ammonia 17 umol/L (11-32) Other Laboratory Tests 12/07/24 06:28 Brief Hx & Hospital Course: This is a 64-year-old female patient with PMHx of multiple sclerosis, history of PE, 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 On arrival patient had temperature of 97.6, pulse 126 bpm, respiratory rate 17, blood pressure 154/88, saturating 95 on room air. WBC count was 21.5 with 89% neutrophils and 600 platelets. Lactic acid was elevated at 2.4. CT abdomen pelvis completed 11/13 showed gas distended colon with air bubbles inbound sales representative of toxic colitis. Subsequent CT abdomen completed 11/16 showed marked dilation of the right and transverse colon with a transition point at the level of the sigmoid flexure. Associated wall thickening in this region. Suspicious of an underlying lesion resulting in obstruction. Small left pleural effusion with basilar atelectasis. Consequently GI Dr. Dalal did a sigmoidoscopy up to the splenic flexure with biopsy and colonic decompression on 11/15 and an abnormal area was found in the splenic flexure with the sigmoid diverticular disease, moderate amount of retained stool in the rectosigmoid. So surgeon was consulted and patient underwent exploratory laparotomy with extended right hemicolectomy with ileostomy on 11/16 secondary to ischemic bowel with colonic obstruction at the splenic flexure. Distal ileum to the proximal descending colon was resected and a distal ileum perforation was found during the procedure. Lysis of adhesions were performed. Patient received 3 L of NS +500 mL of 5% albumin and 100 mL of 25% albumin during the procedure. Following the procedure patient was hypotensive and therefore could not be extubated and therefore which he was transferred to ICU for further management. 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 Quit smoking about 2 years ago when she had PE. Home medications: Glatopa 20 mg every morning, lidocaine patch q.12 hours p.r.n., Paxil tablet 10 mg daily, ropinirole 5 mg 2 tablets at bedtime, tolterodine 4 mg once daily, baclofen 10 mg b.i.d., albuterol 90 mcg. During the hospitalization, patient was intubated from 11/16 till 11/21 for septic shock secondary to toxic megacolon. Left subclavian CVC was inserted on 11/16 till 11/28. Following which patient had a PICC line. She required pressor support, mechanical ventilation. Received stress dose steroids. Also received IV vancomycin and Zosyn which were later discontinued given the negative blood cultures. Pathology reports from the biopsy showed 4 cm tumor with no macroscopic perforation, adenocarcinoma, moderately to poorly differentiated (G2-G3) tumor invades the visceral peritoneum. Proximal and distal margins were negative and mesenteric margin was negative for carcinoma. LVI was present and PNI was present there were five tumor deposits. Twelve lymph glands were examined and five were involved PT4a, pN2a. No loss of nuclear expression of tumor proteins, low probability of MSI-H. Heme oncology was consulted and a CT chest/abdomen/pelvis with contrast was completed which showed multiple liver metastasis replacing most of the left lobe of the liver. Metastatic periportal and gastrohepatic lymph nodes. Cystic lesions of the liver is nonspecific. Bilateral pleural effusion with associated bilateral atelectasis and consolidation. Patient had superficial dehiscence of the wound with wound culture 12/03 growing E coli, Proteus and MRSA. Urine culture showeed >[id number] CFU of yeast, patient received fluconazole IV from 11/26 to 12/07. CT head was completed 11/25 which showed 2.5 x 3.3 cm mass in the left thalamus extending into the left lateral ventricle on series 2, image 30. There is vasogenic edema in the left thalamus. There is generalized cerebral volume loss with concordant prominence of the subarachnoid spaces and ventricles. MRI brain could not be completed given the patient's habitus. Patient received Dexamethasone 4 mg IV b.i.d. Family meeting was conducted 12/06 and family opted for hospice care at this time. Patient was later discharged on 12/07 with hospice. Consults/Reason for consult GI consulted for sigmoidoscopy OBGYN consulted for GI bleeding Heme oncology consulted for metastatic cancer Surgeon consulted for exploratory laparotomy ID consulted for septic shock Nephrology consulted for MARTY Operations or Procedures Operative Report - 2 Report Details Date: 11/16/24 Preop Diagnosis: 1. Ischemic bowel with colonic obstruction at splenic flexure Postop Diagnosis: 1. Ischemic bowel with colonic obstruction at the splenic flexure secondary to obstructing adenocarcinoma 2. Extensive intra-abdominal adhesions Surgeon: Martha Araiza MD Tax Assistant: None Anesthesiologist: Dr Light Anesthesia: General Drains: two 15 Wallisian Chuy drains Consent: The surgery and its risks including but not limited to infection, bleeding requiring possible blood transfusion with the risk of hepatitis or HIV infection, possible perioperative AK or CVA were explained to the patient's son and patient. All questions were answered to their satisfaction. They expressed verbal understanding and wished to proceed with the surgery. Complications: Some stool spillage from the right colon and small perforation at the distal ileum Estimated Blood Loss: 100 mL Fluids: 3 L crystalloids + 500 mL of 5% albumin + 100 mL of 25% albumin Findings: Near complete obstruction at the splenic flexure secondary to a circumferential mass. Frozen section came back as adenocarcinoma Name of Procedure Performed 1. Exploratory laparotomy with extended right hemicolectomy with ileostomy 2. Splenic flexure takedown 3. Extensive lysis of adhesions Procedure Details Procedure Details: After induction of general anesthesia, patient's abdomen was prepped and draped in standard surgical fashion. A midline incision was made and incision extended through the soft tissue down to the fascia which was opened in midline. Immediately was noted that there was extensive amount of adhesions in the abdominal cavity and very dilated loop of colon. Further investigation and dissection revealed that this colon was very tortuous transverse colon. Due to the extreme distention of the colon the bowel wall appeared ischemic. Careful blunt dissection was performed to mobilize the gastrocolic ligament and this then extended along the hepatic flexure down to the cecum. At this point there was a small perforation noted with some stool spillage from the cecum. This was quickly controlled by aspirating away the fecal material. The perforation was then stapled closed using an endo stapler. There was extensive adhesions in the right lower quadrant as well and during the dissection there was a small perforation made in the distal ileum. This was also clamped closed and controlled. A ZULAY stapler was used to staple just proximal to this perforation in the distal ileum. The right colon was then divided near the hepatic flexure with another ZULAY stapler. The mesocolon appeared to be very short and contracted. This was divided using an energy device and specimen was then sent off to pathology. Next the transverse colon mesentery was then divided using energy device up to the splenic flexure. Palpation of this area revealed that there was a circumferential obstructing mass in this location. The colon was distended proximal to this area in the descending colon appeared normal and completely decompressed. ZULAY stapler was used to staple distal transverse colon and the transverse colon was again removed and sent off to pathology. The splenic flexure was taken down and mobilized inferiorly and a ZULAY stapler was used to staple and divide the proximal descending colon. The mesocolon was then divided using energy device and the splenic flexure mass was sent off for frozen section which came back positive for adenocarcinoma. 2-0 Prolene sutures were placed at the staple line of the proximal descending colon for future identification. Abdominal cavity was then well irrigated with 5 L of sterile warm water irrigation. NG tube placement was verified in the stomach with direct palpation. Two hundred fifteen Wallisian Chuy drains were placed one along each gutter and brought out through two separate stab incision in the bilateral lower quadrants and secured to the skin using 3-0 nylon sutures. A small circular incision was made in the right lower quadrant for the ileostomy. The incision extended down to the fascia which was opened in with a cruciate incision and the terminal ileal stump was then gently placed through the opening without tension or twisting of the mesentery. Midline fascia was then closed using running looped 0 PDS sutures with interrupted 1. Vicryl sutures. Incision was then irrigated and skin incision was then closed using tonie. The ileostomy staple line was then taken down and ileostomy was then matured using 2-0 and 3-0 Vicryl sutures. There was no narrowing at the level of the fascia and the mucosa appeared viable. Sponge, needle, instrument count at the end of the case were reported to be correct by the nursing staff. Once that is surgical dressings were applied patient was placed in Trendelenburg position. The patient's left subclavian region was prepped and draped in standard surgical fashion in preparation for a central line. I introduced a needle was used to identify the left subclavian vein and the guidewire was then gently introduced into the vein without resistance. Using a Seldinger technique the triple-lumen was placed over the guidewire into the subclavian and all ports aspirated and flushed easily. The triple-lumen was then secured to the skin using 3-0 silk sutures. Surgical site was then cleaned and dried and dressing was applied. Stat chest x-ray was ordered for the triple-lumen central line positioning. The patient tolerated procedure but Levophed had to be started to maintain her blood pressure during surgery. Patient will remain intubated and will be transferred to ICU in guarded condition. Specimen: Distal ileum to proximal descending colon Condition Guarded Disposition 2 Still a Patient MARTHA ARAIZA MD Nov 16, 2024 16:57 Operative Report DATE OF OPERATION: 11/15/24 PROCEDURE: Incomplete Colonoscopy up to splenic flexure with biopsy and colonic decompression PREOPERATIVE INDICATION: The patient is a 64 -year-old female undergoing colonoscopy for colonic dilation possible toxic megacolon for colonic decompression POSTOPERATIVE DIAGNOSES: 1. Abnormal area in the splenic flexure with acute inflammatory changes spasm and narrowing possibly related to ischemic changes, biopsies obtained to rule out malignancy Colonoscope was not advanced beyond this area because of acute inflammatory changes and some narrowing; liquid stool was seen coming through this area and colonic decompression was done 2. Moderate sigmoid diverticular disease 3. Moderate amount of retained stool in the rectosigmoid that was irrigated and colonic decompression was performed PROCEDURE PERFORMED BY: Harjinder Dalal M.D. SCOPE: Olympus videocolonoscope. ASA CLASS: 3. PREOPERATIVE MEDICATIONS: Mac Dr. Alejandra mott PROCEDURE IN DETAIL: After obtaining an informed consent, the patient was placed on left lateral decubitus position. She was then sedated with the above medications. A rectal examination was performed that was normal. The colonoscope was then passed through the anus into the rectosigmoid and through the descending colon up to the splenic flexure . Patient had a moderate amount of retained stool Irrigation aspiration was performed and colonic decompression was performed. At the splenic flexure there was an abnormal area with inflammatory changes narrowing spasm and ulceration Multiple biopsies were obtained from this area to rule out any malignancy. Differential diagnosis could include as ischemic stricture Liquid stool was seen pouring the this area and colonic decompression was performed. Patient had moderate sigmoid diverticular disease Irrigation aspiration and colonic distal decompression was performed mostly of the left colon. Patient had 1+ internal hemorrhoids The patient tolerated the procedure well without difficulty. WITHDRAWAL TIME: Not applicable QUALITY OF THE PREP: Eldridge Bowel Prep score: Not applicable; poor COMPLICATIONS : None SPECIMENS: Splenic flexure inflammatory area biopsies DISPOSITION: Transfer back to the floor Stable PLAN: 1. NPO except for ice chips 2. Consider getting Gastrografin small-bowel series via NG tube 3. Continue IV antibiotics 4. Monitor labs 5. Continue close monitoring and repeat abdominal x-ray in a.m. HARJINDER DALAL MD Nov 15, 2024 15:28 ORDERING PHYSICIAN: SARA PAULA RESIDENT PROCEDURE(s): CHAPIV - CHST AB PEL W WO CON-IV ONLY REASON: SIGMOID ADENOCARCINOMA ORDER NUMBER(s): [id number], ACCESSION NUMBER(s): [id number] Exam: CT CHST AB PEL W WO CON-IV ONLY History: SIGMOID ADENOCARCINOMA Comparison Study: None available at time of dictation. Technique: Multidetector spiral CT of the chest, abdomen and pelvis was performed from lower neck to pubic symphysis with and without intravenous contrast. 100 cc Omni 300 intravenous contrast was administered during this examination. Portal venous imaging was obtained. Axial, coronal and sagittal multiplanar reformats were performed by the technologist on a separate workstation. Radiation Dose : Chest/Abdomen/Pelvis: CTDIvol 57 mGy, DLP 3838.36 mGy*cm. Findings: Lower neck: Left upper extremity central venous catheter in place. Question of some thrombus associated with the tip of the catheter. Lungs: Atelectasis and consolidation in the lung bases. Heart/Vascular Structures: Normal heart size. No pericardial effusion. Lymph Nodes: No adenopathy Pleura: Small bilateral pleural effusions left greater than right. Liver: Multiple liver masses replacing the left lobe of the liver as well as 1 in the dome of the right lobe of the liver. Largest mass in the left lobe of the liver measures up to 99 mm. Gallbladder and biliary Tree: Gallbladder is surgically absent. Spleen: Cystic lesion measuring up to 25 mm. Pancreas: The pancreas is normal in appearance without focal lesions or abnormal enhancement. Adrenal Glands: Unremarkable Kidneys: Kidneys demonstrate normal symmetric enhancement without focal lesions, calculi or hydronephrosis. Bladder: Bladder is decompressed with a Xiao catheter and cannot be adequately assessed. Bowel: The stomach is grossly normal in appearance. Postsurgical changes in the bowel of the right lower quadrant ileostomy. No evidence of obstruction. The appendix is not visualized; however, no secondary findings of acute appendicitis identified. Ascites: Absent Lymphadenopathy: Enlarged periportal and gastrohepatic lymph nodes, largest measuring up to 39 mm. Abdominal wall and Mesentery: Postsurgical changes. Bilateral surgical drains in place. No significant fluid collection associated with the surgical drains. No loculated abscess. Vasculature: Calcified atherosclerotic disease. Pelvic Organs: Unremarkable Musculoskeletal: Mild loss of vertebral height at multiple levels. Multilevel degenerative disease. IMPRESSION: 1. Left upper extremity central venous catheter with possible thrombus associated with the tip. Clinical correlation and continued follow-up is recommended. 2. Bilateral pleural effusions with associated bibasilar atelectasis and consolidation. 3. Multiple liver metastases replacing most of the left lobe of the liver and involving the dome of the right lobe of the liver. Multiple metastatic periportal and gastrohepatic lymph nodes. 4. Cystic lesion in the spleen is nonspecific. Consider further evaluation MRI of the with contrast. Attention on follow-up is recommended. 5. Postsurgical changes in the bowel. Right lower quadrant ileostomy. Bilateral surgical drains in place. No associated fluid collection. No loculated abscess. HS:Y ATED BY: ERNESTO ELLER MD DICTATED DATE/TIME: 12/02/24 100 SIGNED BY: ERNESTO ELLER MD SIGNED DATE/TIME: 12/02/24 100 CC: ORDERING PHYSICIAN: DONNIE MARTI PROCEDURE(s): HWOCT - HEAD WITHOUT CONTRAST REASON: CHANGE IN MENTATION ORDER NUMBER(s): [id number], ACCESSION NUMBER(s): [id number] CLINICAL HISTORY: CHANGE IN MENTATION TECHNIQUE: Helical imaging carried out from skull base to vertex without intravenous contrast. This exam was performed according to our departmental dose optimization program. Up-to-date CT equipment and radiation dose reduction techniques are utilized as appropriate. COMPARISON: None FINDINGS: There is a 2.5 x 3.3 cm mass in the left thalamus extending into the left lateral ventricle on series 2, image 30. There is vasogenic edema in the left thalamus. There is generalized cerebral volume loss with concordant prominence of the subarachnoid spaces and ventricles. Prior suboccipital craniectomy. Encephalomalacia of the midline posterior fossa. There is [id number] patchy low attenuation in the cerebral white matter consistent with nonspecific white matter disease. There is no herniation. The powell white matter interfaces are otherwise maintained. The basal cisterns are patent. There is no evidence of acute intracranial hemorrhage or extra-axial fluid collection. Small bilateral mastoid air cell effusions. The visualized paranasal sinuses are clear IMPRESSION: 1. There is a 2.5 x 3.3 cm mass in the left thalamus extending into the left lateral ventricle with vasogenic edema in the left thalamus. Consider characterization with MRI brain with contrast. 2. Prior suboccipital craniectomy with encephalomalacia in the midline posterior fossa. Correlate with surgical history. 3. Generalized cerebral volume loss and [id number] chronic microvascular ischemic change. 4. No descending transtentorial herniation. 5. Small bilateral mastoid air cell effusions. ATED BY: TYRONE VAZQUEZ MD DICTATED DATE/TIME: 11/25/242322 SIGNED BY: TYRONE VAZQUEZ MD SIGNED DATE/TIME: 11/25/242322 CC: ORDERING PHYSICIAN: CAYLA FRANCO PAC PROCEDURE(s): ABPL - CT AB PEL WO CON-NO ORAL OR IV REASON: Abdominal pain ORDER NUMBER(s): [id number], ACCESSION NUMBER(s): [id number] Exam: CT CT AB PEL WO CON-NO ORAL OR IV History: Abdominal pain Comparison Study: None available at time of dictation. TECHNIQUE: Multidetector CT of the abdomen was performed from lung bases to pubic symphysis. Imaging was performed without IV contrast. Axial, coronal and sagittal multiplanar reformats were obtained from the axial data set by the technologist. Radiation Dose Information: CT Dose: CTDI volume is 26.21 mGy. Dose-length product is 1651.27 mGy*cm FINDINGS: Evaluation of solid organs is limited due to lack of intravenous contrast use. Findings: Lung Bases: No acute or significant lung base finding. Normal heart size. No pleural or pericardial effusion. Liver: The liver is normal in size. No focal lesions. Gallbladder and Biliary Tree: Unremarkable Spleen: Unremarkable Pancreas: The pancreas is grossly normal in appearance. Adrenal Glands: Unremarkable Kidneys: Kidneys are grossly normal without calculi or hydronephrosis. Bladder: Grossly unremarkable for degree of distention. Bowel: Fluid-filled stomach is noted.. Small bowel and colon are normal in caliber and distribution. There is gas distending the colon with air in the wall may represent toxic colitis. Correlate clinically setting.. The appendix is not visualized; however, no secondary findings of acute appendicitis identified. Ascites: Absent Lymphadenopathy: No mesenteric, retroperitoneal or periportal lymphadenopathy. Abdominal Wall and Mesentery: Unremarkable. Vasculature: The visualized abdominal aorta is normal in size and caliber. Evaluation of abdominal and pelvic vessels is limited due to lack of intravenous contrast. Pelvic Organs: Unremarkable Musculoskeletal: No aggressive focal bony lesions, acute fractures or dislocation. Soft tissues: Unremarkable IMPRESSION: 1. Gas distended colon with air bubbles in the wall. Findings may represent toxic colitis correlate with the clinical setting. 2. Fluid-filled stomach. 3. 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 Radiation optimization: All CT scans at this facility use at least one of these dose optimization techniques: automated exposure control mA and/or kV adjustment per patient size (includes targeted exams where dose is matched to clinical indication) or iterative reconstruction. 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 and splenic flexure-newly diagnosed T4/N2a/Mx Distal ileal perforation Status post sigmoidoscopy and exploratory laparotomy and extended right hemicolectomy and ileostomy 11/16 Liver metastasis Infected abdominal wound Septic shock secondary to toxic megacolon Acute hypoxic respiratory failure secondary to septic shock Lactic acidosis-resolved Paroxysmal atrial fibrillation-CHADS2 Vasc score 3, has bled score 1 Multiple sclerosis Wheelchair-bound 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, 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 Chronic nicotine dependence Respiratory acidosis History of PE Non-anion gap metabolic acidosis secondary to hyperchloremia Bilateral pleural effusion with associated bilateral atelectasis Acute cystitis Superficial wound dehescience Abnormal uterine bleeding Hypocalcemia Vitamin-D deficiency Morbid obesity Interigo Anemia, likely normocytic secondary to blood loss Superficial venous thrombosis in the right cephalic Discharge Disposition: Hospice - Home Discharge Instruct/Medications Diet: Regular Activity: No Restrictions, As Tolerated Follow Up/Referral: fu with hospice Medications: per hospice leave in xiao catheter Discharge Statement: "Patient was advised to return to the ER or call 911 if any headaches, dizziness, shortness of breath, chest pain, abdominal pain, bleeding, fevers, or worsening of medical condition. Patient was counseled about treatment plan, medications, possible side effects, patientverbalized understanding. All questions were answered to the best of my ability. This discharge took greater then 30 minutes in planning, reviewing documentation, counseling the patient, and discussing with other team members." ASSESSMENT ASSESSMENT Assessment colon cancer SARA PAULA RESIDENT Dec 07, 2024 18:50
== END 2024-12-07 13:45 | disposition hospice, home (50) | DRG 710 ==
LOC: EDBD 18:25 → ER 18:25 → EDUNIT# 18:25 → TELE-EAST 23:07 → TELE 23:07 → TELE-EAST 11-14 23:09 → ICU WEST 11-16 17:11 → TELE-WESTW 11-27 14:07 → WEST WING 12-02 03:58
PROVIDERS: ADMIT Internal Medicine; ATTEND Emergency Medicine
PROC: 0D9N8ZZ Drainage of Sigmoid Colon, Via Natural or Artificial Opening Endoscopic (ICD-10-PCS; 2024-11-15)
PROC: 0DBN8ZX Excision of Sigmoid Colon, Via Natural or Artificial Opening Endoscopic, Diagnostic (ICD-10-PCS; 2024-11-15)
PROC: 0DTF0ZZ Resection of Right Large Intestine, Open Approach (ICD-10-PCS; 2024-11-16)
PROC: 5A1955Z Respiratory Ventilation, Greater than 96 Consecutive Hours (ICD-10-PCS; 2024-11-16)
PROC: 0BH17EZ Insertion of Endotracheal Airway into Trachea, Via Natural or Artificial Opening (ICD-10-PCS; 2024-11-16)
PROC: 0D9600Z Drainage of Stomach with Drainage Device, Open Approach (ICD-10-PCS; 2024-11-16)
PROC: 0DNB0ZZ Release Ileum, Open Approach (ICD-10-PCS; 2024-11-16)
PROC: 0D1B0Z4 Bypass Ileum to Cutaneous, Open Approach (ICD-10-PCS; principal; 2024-11-16 13:28)
PROC: 30233N1 Transfusion of Nonautologous Red Blood Cells into Peripheral Vein, Percutaneous Approach (ICD-10-PCS; 2024-11-22)
PROC: 05HC33Z Insertion of Infusion Device into Left Basilic Vein, Percutaneous Approach (ICD-10-PCS; 2024-11-25)
PROC: B54NZZA Ultrasonography of Left Upper Extremity Veins, Guidance (ICD-10-PCS; 2024-11-25)
PROC: 02HV33Z Insertion of Infusion Device into Superior Vena Cava, Percutaneous Approach (ICD-10-PCS; 2024-11-28)
PROC: B548ZZA Ultrasonography of Superior Vena Cava, Guidance (ICD-10-PCS; 2024-11-28)
DX: A41.9 Sepsis, unspecified organism (principal); J96.01 Acute respiratory failure with hypoxia; G93.6 Cerebral edema; R65.21 Severe sepsis with septic shock; J18.9 Pneumonia, unspecified organism; K55.9 Vascular disorder of intestine, unspecified; K56.50 Intestinal adhesions [bands], unspecified as to partial versus complete obstruction; E83.51 Hypocalcemia; G35 Multiple sclerosis; E87.20 Acidosis, unspecified; E87.1 Hypo-osmolality and hyponatremia; E88.09 Other disorders of plasma-protein metabolism, not elsewhere classified; K52.1 Toxic gastroenteritis and colitis; N30.01 Acute cystitis with hematuria; C18.5 Malignant neoplasm of splenic flexure; E86.0 Dehydration; E66.01 Morbid (severe) obesity due to excess calories; K57.30 Diverticulosis of large intestine without perforation or abscess without bleeding; J45.909 Unspecified asthma, uncomplicated; K64.8 Other hemorrhoids; N89.8 Other specified noninflammatory disorders of vagina; T38.0X5A Adverse effect of glucocorticoids and synthetic analogues, initial encounter; E87.4 Mixed disorder of acid-base balance; E83.52 Hypercalcemia; E87.8 Other disorders of electrolyte and fluid balance, not elsewhere classified; E83.42 Hypomagnesemia; C18.6 Malignant neoplasm of descending colon; D50.0 Iron deficiency anemia secondary to blood loss (chronic); I48.0 Paroxysmal atrial fibrillation; F17.200 Nicotine dependence, unspecified, uncomplicated; I82.611 Acute embolism and thrombosis of superficial veins of right upper extremity; J90 Pleural effusion, not elsewhere classified; L30.4 Erythema intertrigo; Z88.5 Allergy status to narcotic agent; Z82.49 Family history of ischemic heart disease and other diseases of the circulatory system; Z68.42 Body mass index [BMI] 45.0-49.9, adult; Z56.0 Unemployment, unspecified; Z90.49 Acquired absence of other specified parts of digestive tract; Z99.3 Dependence on wheelchair; Z86.711 Personal history of pulmonary embolism; Z85.038 Personal history of other malignant neoplasm of large intestine; Z87.440 Personal history of urinary (tract) infections; Z91.041 Radiographic dye allergy status; Z91.199 Patient's noncompliance with other medical treatment and regimen due to unspecified reason; Z93.2 Ileostomy status; Z93.3 Colostomy status; Y92.89 Other specified places as the place of occurrence of the external cause; Z79.899 Other long term (current) drug therapy
CPT/HCPCS: 36415; 36569; 36600; 70450; 71045; 71275; 74018; 74021; 74176; 74178; 76705; 76856; 76937; 80048; 80053; 80202; 80320; 81001; 82140; 82270; 82306; 82378; 82565; 82570; 82805; 82962; 83036; 83605; 83615; 83690; 83735; 83880; 83935; 83970; 84100; 84156; 84300; 84443; 84478; 84484; 85007; 85025; 85027; 85045; 85048; 85610; 85730; 86850; 86870; 86900; 86901; 86902; 86922; 87040; 87045; 87070; 87077; 87081; 87086; 87088; 87186; 87205; 87427; 87493; 92610; 93005; 93306; 93970; 93971; 94003; 94640; 94660; 94667; 94668; 97110; 97163; 97530; 99291; G0378; J1100; J1450; J1815; J2185; J2250; J2405; J2470; J2543; J2704; J3480; J3490; J7042; J7131; P9047